=== PATIENT | male | born 1940 | race Caucasian/White ===

== ENCOUNTER 2016-03-21 09:23 | Day surgery (SDC) | payer OTHER ==
[2016-03-07 10:05] VITALS: BMI 45.0
--- NOTE | 2016-03-07 10:57 | PAT Medication Instructions ---
Service Date Mar 07, 2016. Current Home Medication List Allopurinol (Zyloprim), 100 MG PO HS Aspirin (Aspirin Ec), 81 MG PO QAM Atorvastatin (Lipitor), 40 MG PO QAM Bupropion (Wellbutrin Sr), 100 MG PO HS Carvedilol (Coreg), 3.125 MG PO BID Clopidogrel Bisulfate (Clopidogrel), 75 MG PO QAM Ergocalciferol (Vitamin D 75489 Unit), 50,000 UNIT PO Q2WK Fluticasone Prop/Salmeterol (Advair Diskus 250/50 60 Dose), 1 PUFF INH BID Furosemide (Lasix), 40 MG PO QAM Ipratropium-Albuterol (Combivent Respimat), 1 PUFFS INH QID PRN for SOB/W Isosorbide Dinitrate (Isordil), 30 MG PO BID Levothyroxine Sodium (Levothyroxine Sodium), 1 TAB PO QAM Lisinopril (Prinivil), 5 MG PO QAM Metformin Hcl (Glucophage), 500 MG PO BID [Albuterol Neb], 1 DOSE NEB Q4 PRN for SOB/W Medication Instructions For Your Scheduled Surgery - Check with surgeon/environmental health specialist for instructions: Aspirin (Aspirin Ec), 81 MG PO QAM Clopidogrel Bisulfate (Clopidogrel), 75 MG PO QAM - Hold the following medications 48 hours prior to surgery: Metformin Hcl (Glucophage), 500 MG PO BID - Hold the following medications the morning of surgery: Lisinopril (Prinivil), 5 MG PO QAM Furosemide (Lasix), 40 MG PO QAM Ergocalciferol (Vitamin D 42797 Unit), 50,000 UNIT PO Q2WK - Take the following medications the morning of surgery with a sip of water: Levothyroxine Sodium (Levothyroxine Sodium), 1 TAB PO QAM Isosorbide Dinitrate (Isordil), 30 MG PO BID Fluticasone Prop/Salmeterol (Advair Diskus 250/50 60 Dose), 1 PUFF INH BID Carvedilol (Coreg), 3.125 MG PO BID Atorvastatin (Lipitor), 40 MG PO QAM Ipratropium-Albuterol (Combivent Respimat), 1 PUFFS INH QID PRN for SOB/W [Albuterol Neb], 1 DOSE NEB Q4 PRN for SOB/W (bring with you to hospital morning of surgery) - Take the following medications as scheduled the night before surgery: Isosorbide Dinitrate (Isordil), 30 MG PO BID Fluticasone Prop/Salmeterol (Advair Diskus 250/50 60 Dose), 1 PUFF INH BID Carvedilol (Coreg), 3.125 MG PO BID Bupropion (Wellbutrin Sr), 100 MG PO HS Allopurinol (Zyloprim), 100 MG PO HS Ipratropium-Albuterol (Combivent Respimat), 1 PUFFS INH QID PRN for SOB/W [Albuterol Neb], 1 DOSE NEB Q4 PRN for SOB/W If you have any questions please call us at [phone] (Mai Mata PA-C ) or [phone] or [phone]
--- NOTE | 2016-03-07 11:49 | DIAGNOSTIC IMAGING REPORT ---
CHEST PREADMISSION(PA/LAT) CLINICAL HISTORY: PAT preoperative evaluation COMPARISON STUDY: No previous studies for comparison. FINDINGS: There is a small nodular density versus overlap artifact left base. Lungs otherwise appear clear. Diaphragms smooth. IMPRESSION: Artifact versus nodular density left base. CT of chest is suggested as follow-up. Electronically signed by: Maximus Campoverde M.D. 03/07/2016 11:47 AM
[2016-03-07 12:00] LABS: BASO % 0.3 %; BASO ABS # 0.03 K/uL (0-0.2); COMPLETE YES; EOS % 5.2 %; IG% 0.4 %; LYMPH % 19.3 %; MEAN CELL VOLUME 93.8 fL (80-100); MEAN CORPUSCULAR HEMOGLOBIN 30.3 pg (25-34); MEAN CORPUSCULAR HGB CONC 32.3 g/dl (32-36); MEAN PLATELET VOLUME 10.8 fL (7.4-10.4); MONO % 7.3 %; NEUT % 67.5 %; PLATELET COUNT 180 K/uL (130-400); RED BLOOD COUNT 4.16 M/uL (4.7-6.1); WHITE BLOOD COUNT 9.87 K/uL (4.8-10.8)
[2016-03-07 12:07] LABS: URINE APPEARANCE CLEAR (CLEAR); URINE BILIRUBIN NEG (NEG); URINE COLOR YELLOW; URINE NITRITE NEG (NEG); URINE SPECIFIC GRAVITY 1.006 (1.000-1.030); UROBILINOGEN NEG (NEG)
[2016-03-07 12:23] LABS: MANUAL MICROSCOPIC REQUIRED? NO; REVIEW REQ? NO
[2016-03-07 12:27] LABS: BUN/CREATININE RATIO 18.5 (10-20); CALCIUM 8.9 mg/dl (8.5-10.1); CREATININE 1.2 mg/dl (0.60-1.40); POTASSIUM 3.9 mmol/L (3.5-5.1)
[2016-03-21] VITALS (7 sets, daily range): BP systolic 120–179; BP diastolic 48–76; PULSE 60–78; TEMP 36.3–36.9; O2SAT 93–99; Ht 170.2 cm; Wt 130.2 kg
[~2016-03-21] VITALS: Ht 170.2 cm; Wt 130.2 kg
[~2016-03-21 09:23] MED LIST: ADVIN25/60 INH; ALBUTEROL NEB NEB; ALLO100T PO; ASPI81TA28 PO; ATOR-24 PO; BUPR100T8 PO; CARV3.122 PO; CIPROFLOXACIN / D5W 400 MG IV SCH; ERGO500037 PO; FRS/40 PO; GLC/500 PO; IPRA1AER2 INH; ISOS30TA51 PO; LACTATED RINGER'S 1000ML 1,000 ML IV SCH; LEVO100T7 PO; LISI-729 PO; MITOMYCIN FOR INJ 40 MG in SYRINGE 40 ML IR SCH; PLV75 PO
[2016-03-21] MEDS ORDERED: METOPROLOL TARTRATE 1 MG/ML VIAL IV STA (10:11)
[2016-03-21] MEDS ORDERED: FENTANYL CITRATE INJ 50 MCG/1 ML 2 ML VIAL ONE (10:12)
[2016-03-21] MEDS ORDERED: MIDAZOLAM HCL 1 MG/ML 2ML VIAL ONE (10:13)
[2016-03-21] MEDS ORDERED: HYDROmorphone INJ 2 MG/ML SYR/VIAL IV PRN (10:15)
[2016-03-21] MEDS ORDERED: EpHEDrine SULFATE INJ 50 MG/ML AMP IV PRN (10:15)
[2016-03-21] MEDS ORDERED: FENTANYL CITRATE INJ 50 MCG/1 ML 2 ML VIAL IV PRN (10:15)
[2016-03-21] MEDS ORDERED: PHENYLEPHRINE 100MCG/ML 5ML SYR IV PRN (10:15)
[2016-03-21] MEDS ORDERED: ONDANSETRON INJ 2 MG/ML 2 ML VIAL IV PRN (10:15)
[2016-03-21] MEDS ORDERED: MEPERIDINE HCL 25 MG/ML CARP IV PRN (10:15)
[2016-03-21] MEDS ORDERED: ALBUT/IPRATROP 3MG/0.5MG NEB 3 ML VIAL INH ONE (10:15)
[2016-03-21] MEDS ORDERED: LABETALOL HCL IV 5 MG/ML 20ML IV PRN (10:15)
[2016-03-21] MEDS ORDERED: ATROPINE SULFATE 0.1 MG/ML 5ML SYR IV PRN (10:15)
[2016-03-21] MEDS ORDERED: NALOXONE HCL 0.4 MG/1 ML VIAL/CARP IV PRN (10:15)
[2016-03-21] MEDS ORDERED: FLUMAZENIL 0.1 MG/1 ML 10 ML VIAL IV PRN (10:15)
[2016-03-21] MEDS ORDERED: METOPROLOL TARTRATE 1 MG/ML VIAL ONE ×2 (10:41)
--- NOTE | 2016-03-21 11:08 | History & Physical Bridge Note ---
H&P Re-Evaluation Bridge Note: I have examined the patient, reviewed the History & Physical and in the interval since the performance of the History & Physical I have noted the following changes of clinical significance: No changes noted
[2016-03-21] MEDS ORDERED: EpHEDrine SULFATE 50MG/5ML SYR ONE (12:12)
[2016-03-21] MEDS ORDERED: LIDOCAINE HCL 2% 2 ML VIAL (20MG/ML) ONE (12:12)
[2016-03-21] MEDS ORDERED: PROPOFOL IV EMULSION 10 MG/ML 20 ML VIAL IV ONE (12:12)
[2016-03-21] MEDS ORDERED: ONDANSETRON INJ 2 MG/ML 2 ML VIAL ONE (12:12)
--- NOTE | 2016-03-21 12:20 | [facility] Post Operative Brief Note ---
Immediate Operative Summary Operative Date Mar 21, 2016. Pre-Operative Diagnosis Recurrent Bladder Cancer Post-Operative Diagnosis Recurrent Bladder Cancer Procedure(s) Performed Urethral Dilation, Transurethral Resection and Fulguration of Bladder Tumor, Instillation of Mitomycin C Surgeon Dr. Holland Springer Training And Development Manager Surgeon(s) None Estimated Blood Loss 10 ml Findings Numerous bladder tumors in dome of bladder Specimens A. Bladder Tumor Dome Drains 20 fr reina, 10 cc H2O Anesthesia GALMA Complication(s) None Disposition Recovery Room / PACU
[2016-03-21] MEDS ORDERED: HYDR-5688 PO (12:25)
[2016-03-21] MEDS ORDERED: CIPR1TAB10 PO (12:25)
[2016-03-21] MEDS ORDERED: PHEN-876 PO (12:25)
[2016-03-21] MEDS ORDERED: HYDROCODONE/ACETAMOPHEN 5/325MG TAB PO PRN (12:30)
--- NOTE | 2016-03-21 12:32 | Discharge Instructions ---
Discharge Instructions Admission Reason for Admission: Bladder Cancer Discharge Discharge Diagnosis / Problem: Bladder Cancer Discharge Goals Goal(s): Decrease discomfort, Therapeutic intervention Activity Recommendations Activity Limitations: as noted below Lifting Limitations: gradually increase as tolerated Exercise/Sports Limitations: rest today, gradually increase as tolerated May Resume Sexual Activity: after follow-up appointment Shower/Bathe: no limitations Driving or Machine Use: resume 3 days after discharge . Instructions / Follow-Up Instructions / Follow-Up 1. You may resume your Plavix in 5 days. 2. You may resume in your Aspirin in 3 days. 3. You have been prescribed the antibiotic Ciprofloxacin. Finish all as directed. 4. Follow-up with Dr. Springer as scheduled. Please call our office at if you need to reschedule for any reason. Discharge Diet Recommended Diet: Regular Diet Procedures Procedures Performed: Urethral Dilation, Transurethral Resection and Fulguration of Bladder Tumor, Instillation of Mitomycin C Pending Studies Studies pending at discharge: no Medical Emergencies . Who to Call and When: Medical Emergencies: If at any time you feel your situation is an emergency, please call 911 immediately. . Non-Emergent Contact Non-Emergency issues call your: Urologist Call Non-Emergent contact if: temperature is above 101.5, your pain is not controlled, your pain is worsening, your pain is unusual for you, your pain is concerning you, you have any medication questions . . "Provider Documentation" section prepared by Cassy Miller. VTE Core Measure Inpt VTE Proph given/why not?: SCD's [place] Drug Monitoring Program Search Results: patient reviewed within database, no issues identified
--- NOTE | 2016-03-21 12:42 | Anesthesiology Progress Note ---
Anesthesia Post Op Note Date & Time Mar 21, 2016 at 12:42 Vital Signs Pain Intensity: 2 Vital Signs Past 12 Hours Date Time Temp Pulse Resp B/P Pulse Ox O2 Delivery O2 Flow Rate FiO2 03/21/16 12:41 36.5 03/21/16 12:39 138/84 03/21/16 12:35 59 17 03/21/16 12:35 59 17 99 03/21/16 12:33 157/77 03/21/16 12:30 62 20 99 03/21/16 12:30 62 20 03/21/16 12:29 153/73 03/21/16 12:25 77 15 99 03/21/16 12:25 69 15 03/21/16 12:23 161/92 03/21/16 12:20 66 17 99 03/21/16 12:20 66 17 03/21/16 12:18 154/73 03/21/16 12:15 36.5 66 16 153/76 99 Mask 10 03/21/16 12:15 66 23 03/21/16 12:15 66 23 153/76 98 03/21/16 10:54 64 157/72 03/21/16 10:46 68 14 99 Room Air 03/21/16 09:36 36.9 78 22 179/72 97 Room Air Notes Mental Status: alert / awake / arousable, participated in evaluation Pt Amnestic to Procedure: Yes Nausea / Vomiting: adequately controlled Pain: adequately controlled Airway Patency, RR, SpO2: stable & adequate BP & HR: stable & adequate Hydration State: stable & adequate Anesthetic Complications: no major complications apparent
--- NOTE | 2016-03-21 12:58 | OPERATIVE REPORT ---
DATE OF OPERATION: 03/21/2016 PREOPERATIVE DIAGNOSIS: History of a distal urethral stricture and recurrent bladder tumors. POSTOPERATIVE DIAGNOSIS: Same. PROCEDURE: Urethral dilation to 30 [place], transurethral resection and fulguration of bladder tumors, instillation of mitomycin C into the bladder. SURGEON: Dr. Holland Springer. RADIOLOGY TRANSPORTER: None. ANESTHESIA: General anesthesia with laryngeal mask. COMPLICATIONS: None. FINDINGS: Greater than 15-20 numerous small bladder tumors with a large cluster of tumors in the dome, hard to reach due to the patient's obese body habitus, but resected and fulgurated in its entirety. 40 mg of mitomycin and 40 mL of water were instilled at the end of the case for intravesical chemotherapy. DRAINS LEFT IN PLACE: Include a 20-[place] Madden catheter with 10 mL of sterile water in the balloon. SPECIMENS SENT TO PATHOLOGY: Bladder tumor dome. COMPLICATIONS: None. ESTIMATED BLOOD LOSS: 10 mL. BRIEF HISTORY: Mr. Prieto is a 76-year-old male who has undergone transurethral resection for his initial bladder tumor in October 2015 at an outside facility. He presents to see myself and office cystoscopy in January has demonstrated numerous areas of recurrent bladder tumor. A urethral stricture was also dilated at that time to allow for access to the bladder. The patient was provided with the urethral dilator, but patient reports he was unable to continue this at home. He is being brought in today for management of his bladder tumors. Please see H\T\P for further details. PROCEDURE: The patient was properly identified and brought to the operative suite after identification of appropriate consent in the chart. Intravenous ciprofloxacin was provided for antibiotic coverage and the patient was prepped and draped in a standard fashion for this procedure after initiation of general anesthesia with laryngeal mask. ground support equipment fitter-out procedure was followed. Urethra was dilated to a 30 [place] caliber using urethral sounds and a 24 [place] resectoscope was introduced into the bladder under direct visualization using a visual obturator. A minimally hypertrophic prostate was appreciated and ureteral orifices were noted in the normal anatomic location bilaterally. Some bladder neck tumors and posterior bladder tumors of small caliber were appreciated. However, the majority of the patient's persistent or recurrent bladder tumors were present within the dome of the bladder as noted. Using loop cautery, the tumors were resected where possible. The tumors were flushed from the bladder over the course of the procedure and sent for pathologic analysis as bladder tumor dome. Significant amount of suprapubic pressure were needed to access the dome of the bladder due to the patient's body habitus and peritoneal fat pad. After the bladder tumor was resected as possible, roller ball cautery was used for generous fulguration of areas of abnormal mucosa where the tumor had been present, as well as for additional hemostasis. The entirety of the dome of the bladder where the tumor had been present was fulgurated until no visible bladder tumor was appreciated, care being taken to empty and refill the bladder several times due to the presence of bubbles in the dome of the bladder. No evidence of bladder perforation was noted. After this was complete, bladder was drained and noted to be free of any evidence of mobile tumor or tissue. Excellent hemostasis was appreciated. Resectoscope was removed and a 20-[place] Madden catheter was placed with 10 mL of sterile water in the balloon. 40 mg of mitomycin and 40 mL of water were instilled and the catheter was clamped. Anesthesia was reversed. The patient was transferred to recovery room in stable condition. FOLLOWUP CARE: The catheter will be drained and a trial of void will be undergone today prior to discharge home. Prescription for Percocet, ciprofloxacin and Pyridium were provided for postoperative analgesia and antibiotic coverage. Postoperative appointment is confirmed. As discussed with the patient and family, I suspect seeing the multifocal nature of his bladder recurrences and the fact that he has required 3 transurethral resections of his bladder tumor in the past 6 months, that intravesical BCG will be indicated. The patient is instructed as an outpatient to contact us should he note any fevers, chills, nausea, vomiting or other significant difficulties in the postoperative period. I attest to the content of the Intraoperative Record and any orders documented therein. Any exceptio ns are noted below.
[2016-08-01] MEDS ORDERED: CLOP1TAB15 PO (14:45)
[2016-08-08] MEDS ORDERED: OXYC-57 PO (12:20)
[2016-08-08] MEDS ORDERED: PHEN-775 PO (12:20)
[2016-08-08] MEDS ORDERED: CIPR-255 PO (12:20)
== END 2016-03-21 15:00 | disposition home or self-care (01) ==
LOC: C.ACU 09:23
PROVIDERS: ATTEND Urology
DX: C67.9 Malignant neoplasm of bladder, unspecified (principal); N35.9 Urethral stricture, unspecified; N40.1 Benign prostatic hyperplasia with lower urinary tract symptoms; N13.8 Other obstructive and reflux uropathy; E11.9 Type 2 diabetes mellitus without complications; I51.9 Heart disease, unspecified; I10 Essential (primary) hypertension; N39.0 Urinary tract infection, site not specified

== ENCOUNTER → 2016-04-03 | Outpatient (CLI) | payer OTHER ==
[~2016-04-03] MED LIST changes: -ASPI81TA28 PO; +CIPR-255 PO; +CIPR1TAB10 PO; -CIPROFLOXACIN / D5W 400 MG IV SCH; +CLOP1TAB15 PO; +HYDR-5688 PO; -LACTATED RINGER'S 1000ML 1,000 ML IV SCH; -MITOMYCIN FOR INJ 40 MG in SYRINGE 40 ML IR SCH; +OXYC-57 PO; +PHEN-775 PO; +PHEN-876 PO; -PLV75 PO
== END | disposition home or self-care (01) ==
LOC: C.LABSPEC 17:06
PROVIDERS: ATTEND Urology
DX: N40.1 Benign prostatic hyperplasia with lower urinary tract symptoms (principal); C67.9 Malignant neoplasm of bladder, unspecified; N39.0 Urinary tract infection, site not specified; R31.29 Other microscopic hematuria

== ENCOUNTER → 2016-05-13 | Outpatient (CLI) | payer OTHER | END | disposition home or self-care (01) | LOC: C.LABSPEC 17:48 | PROVIDERS: ATTEND Urology | DX: N39.0 Urinary tract infection, site not specified (principal) ==

== ENCOUNTER → 2016-07-31 | Outpatient (CLI) | payer OTHER ==
[~2016-07-31] MED LIST changes: -ISOS30TA51 PO; +ISR/30 PO
[2016-07-31 14:43] LABS: BASO % 0.2 %; BASO ABS # 0.02 K/uL (0-0.2); COMPLETE YES; EOS % 3.3 %; HEMATOCRIT 38.6 % (42-52); IG% 0.4 %; LYMPH % 19.5 %; LYMPH ABS # 1.95 K/uL (1.2-3.4); MEAN CELL VOLUME 96.7 fL (80-100); MEAN CORPUSCULAR HEMOGLOBIN 30.6 pg (25-34); MEAN CORPUSCULAR HGB CONC 31.6 g/dl (32-36); MEAN PLATELET VOLUME 11.4 fL (7.4-10.4); NEUT % 71.6 %; PLATELET COUNT 174 K/uL (130-400); RED BLOOD COUNT 3.99 M/uL (4.7-6.1); WHITE BLOOD COUNT 10.01 K/uL (4.8-10.8)
[2016-07-31 15:07] LABS: BLOOD UREA NITROGEN 15 mg/dl (7-18); BUN/CREATININE RATIO 11.6 (10-20); CARBON DIOXIDE 30 mmol/L (21-32); CHLORIDE 103 mmol/L (98-107); GLUCOSE 130 mg/dl (70-99); POTASSIUM 3.9 mmol/L (3.5-5.1); SODIUM 143 mmol/L (136-145)
== END | disposition home or self-care (01) ==
LOC: C.LAB 12:53
PROVIDERS: ATTEND Urology
DX: C67.9 Malignant neoplasm of bladder, unspecified (principal)

== ENCOUNTER → 2016-08-08 | Day surgery (SDC) | payer OTHER ==
[2016-08-01 14:31] VITALS: BMI 44.0
[~2016-08-08] VITALS: Ht 170.2 cm; Wt 130.0 kg
[~2016-08-08] MED LIST changes: +BELLADONNA/OPIUM SUPP 60 MG SUPP PR ONE; -CIPR1TAB10 PO; +CIPROFLOXACIN / D5W 400 MG IV SCH; +DEXAMETHASONE SOD INJ 4 MG/ML VIAL ONE; +DiphenhydrAMINE HCL 50 MG/ML VIAL IV PRN; +EpHEDrine SULFATE INJ 50 MG/ML AMP ONE; +FENTANYL CITRATE INJ 50 MCG/1 ML 2 ML VIAL IV PRN; +FENTANYL CITRATE INJ 50 MCG/1 ML 2 ML VIAL ONE; +GLYCOPYRROLATE INJ 0.2 MG/ML VIAL ONE; -HYDR-5688 PO; +LACTATED RINGER'S 1000ML 1,000 ML IV PRN; +LACTATED RINGER'S 1000ML 1,000 ML IV SCH; +LIDOCAINE HCL 2% 2 ML VIAL (20MG/ML) ONE; +METOCLOPRAMIDE HCL INJ 5 MG/ML 2 ML VIAL IV PRN; +METOPROLOL TARTRATE 1 MG/ML VIAL ONE; +MITOMYCIN FOR INJ 40 MG in SYRINGE 40 ML IR SCH; +NEOSTIGMINE METHYLSULFATE 5 MG/5 ML SYR ONE; +ONDANSETRON INJ 2 MG/ML 2 ML VIAL IV PRN; +ONDANSETRON INJ 2 MG/ML 2 ML VIAL ONE; +OXYCODONE/ACETAMINOPHEN 5-325 TAB PO PRN; +PHENAZOPYRIDINE HCL 200 MG TAB PO PRN; +PROPOFOL IV EMULSION 10 MG/ML 20 ML VIAL IV ONE; +ROCURONIUM BROMIDE 10 MG/ML 5 ML VIAL ONE; +SUCCINYLCHOLINE 100MG/5ML SYR IV ONE; +SUCCINYLCHOLINE CHLORIDE 20 MG/ML 10 ML VIAL IV ONE
[2016-08-08 10:00] VITALS: BP 147/67; PULSE 73; TEMP 36.7; O2SAT 96; Ht 170.2 cm; Wt 130.0 kg
--- NOTE | 2016-08-08 13:13 | Discharge Instructions ---
Discharge Instructions Date of Service Aug 08, 2016. Admission Reason for Admission: Bladder Cancer Discharge Discharge Diagnosis / Problem: Bladder cancer s/p TURBT Discharge Goals Goal(s): Improve disease control, Therapeutic intervention Activity Recommendations Activity Limitations: per Instructions/Follow-up section Lifting Limitations: no more than 25 pounds, gradually increase as tolerated ( over 5 days) Exercise/Sports Limitations: rest today, gradually increase as tolerated (over 5 days) May Resume Sexual Activity: after two weeks Shower/Bathe: no limitations Driving or Machine Use: resume 1 day after discharge . Instructions / Follow-Up Instructions / Follow-Up Madden to gravity drainage, will keep overnight Catheter removal in [place] office tomorrow Aug 09 at 11 AM. Discharge Diet Recommended Diet: Regular Diet (good fluid intake) Procedures Procedures Performed: TURBT, bladder biopsies, Mitomycin C Pending Studies Studies pending at discharge: yes List of pending studies: Pathology reports Medical Emergencies . Who to Call and When: Medical Emergencies: If at any time you feel your situation is an emergency, please call 911 immediately. . Non-Emergent Contact Non-Emergency issues call your: Urologist Call Non-Emergent contact if: you have a fever, temperature is above 101, your pain is not controlled, your pain is worsening, your pain is unusual for you, your pain is concerning you, wound has increased pain, you have any medication questions . . "Provider Documentation" section prepared by Holland Springer. . VTE Core Measure Inpt VTE Proph given/why not?: SCD's [place] Drug Monitoring Program Search Results: patient reviewed within database, see additional documentation (last Rx postop in Mar 2016)
--- NOTE | 2016-08-08 13:17 | [facility] Post Operative Brief Note ---
Immediate Operative Summary Operative Date Aug 08, 2016. Pre-Operative Diagnosis Recurrent bladder cancer Post-Operative Diagnosis Same Procedure(s) Performed TURBT, random bladder biopsies, limited TURP, Instillation of Mitomycin C Surgeon Dr. Lev Springer Supervisor Composing Room Surgeon(s) NA Estimated Blood Loss Min Findings Borderline areas in bladder biopsied, bladder neck tumor resected in its entirety, limited TURP to avoid scarring, 40 mg of Mitomycin in 40 cc H2O Specimens A. random bladder biopsies B. bladder neck tumor C. Prostate chips Drains 18 fr 10 cc H2O Anesthesia GAET Complication(s) None Disposition Recovery Room / PACU
--- NOTE | 2016-08-08 14:01 | OPERATIVE REPORT ---
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 POSTOPERATIVE DIAGNOSIS: Same. PROCEDURE: Cystoscopy, random bladder biopsies, transurethral resection of bladder neck tumor 2.5 cm, limited transurethral resection of prostate, and instillation of mitomycin C. SURGEON: Dr. Holland Springer. PIPE COVERER AND INSULATOR: None. ANESTHESIA: General anesthesia with endotracheal intubation. COMPLICATIONS: None. ESTIMATED BLOOD LOSS: Minimal. SPECIMENS SENT TO PATHOLOGY: Random cold cup bladder biopsies, bladder neck tumor, prostate chips. FINDINGS: Borderline areas in the posterior and right anterior bladder biopsied with cold cup and fulgurated, no evidence of bladder perforation at the end of the case, bladder neck tumor resected in its entirety with no residual masses within the bladder, limited left sided TURP to avoid bladder neck contracture in the future, 40 mg of mitomycin instilled and 40 mL water at completion of the case via an 18 [place] Citizen Madden catheter. DRAINS LEFT IN PLACE: Include an 18-[place] Citizen catheter with 10 mL of sterile water in the balloon to gravity drainage. BRIEF HISTORY: Mr. Prieto is a pleasant 76-year-old male who I have met previously for history of bladder cancer status post TURBT. On office cystoscopy, on his initial presentation, he had several residual tumors and underwent a transurethral resection of these areas in March 2016 due to high grade pathology. He underwent a full strength 6-week course of BCG and recent office cystoscopy demonstrated a solitary papillary bladder mass at the 2-3 o'clock position at the bladder neck. Some borderline areas in the bladder were also noted, felt most likely to be consistent with BCG effect. He is here today for surgical management of his disease and intravenous instillation of mitomycin C. Intravenous ciprofloxacin provided for antibiotic coverage and SCDs used for DVT prophylaxis. Please see H&P for further details. DESCRIPTION OF PROCEDURE: The patient was properly identified and brought to the operative suite after identification of appropriate consent on the chart, general anesthesia with endotracheal intubation due to battery habitus was initiated and the patient was prepped and draped in standard fashion for this procedure. time buyer-out procedure was followed. A 26 [place] Citizen resectoscope was introduced into the bladder under direct visualization using a visual obturator. Cystoscopic bridge was placed and cold cup biopsies were taken from the erythematous areas in the posterior bladder on the right bladder dome. A bipolar loop was then advanced into the bladder and these areas were fulgurated with excellent hemostasis. Some mild thinning of the bladder was noted without evidence of perforation. Tumor at the bladder neck was resected in its entirety with some bladder neck tissue being resected as well to allow for access. After this was complete and careful inspection demonstrated no residual tumor, bladder was irrigated free of these specimens and sent as bladder neck tumor. Urethra was inspected and some further limited resection of the prostate and bladder neck was carried out on this side to avoid a bladder neck contracture after his initial dissection. Ureteral orifices were well identified over the course of the case and noted to be the area of resection was free of any injury at the completion of case. Grade II trabeculation was noted without other tumors within the bladder and an obstructive prostate with lateral lobe hypertrophy was appreciated. After this was completed, excellent hemostasis was obtained using bipolar cautery as necessary. Prostate chips were sent as a separate specimen for pathologic analysis. Bladder was noted to be free of any tissue or tumors and resectoscope was removed. An 18 [place] Citizen Madden catheter was placed with 10 mL of sterile water in the balloon. A 40 mL of mitomycin were placed and 40 mL of sterile water into the bladder and the catheter was clamped. Belladonna and opium suppository was provided for additional postoperative analgesia. DISCHARGE INSTRUCTIONS: The patient will be discharged home with a prescription for ciprofloxacin, Pyridium and Percocet. Will arrange for a trial of void tomorrow. Two hours of mitomycin C instillation prior to draining the bladder. The patient is instructed to contact us should he note any fevers, chills, nausea, vomiting or other significant difficulties in the postoperative period. I attest to the content of the Intraoperative Record and any orders documented therein. Any exceptions are noted below. MTDD
[2016-08-08 14:14] VITALS: BP 121/61; PULSE 63; TEMP 36.5; O2SAT 96
--- NOTE | 2016-08-08 14:15 | Anesthesiology Progress Note ---
Anesthesia Post Op Note Date & Time Aug 08, 2016 at 14:16 Vital Signs Pain Intensity: 0 Vital Signs Past 12 Hours Date Time Temp Pulse Resp B/P (MAP) Pulse Ox O2 Delivery O2 Flow Rate FiO2 08/08/16 14:00 36.6 57 16 132/53 94 Nasal Cannula 2 08/08/16 13:50 58 16 135/51 94 Nasal Cannula 2 08/08/16 13:40 58 12 190/83 100 Mask 15 08/08/16 13:30 63 12 182/95 98 Mask 15 08/08/16 13:21 36.8 63 12 162/75 98 Mask 15 08/08/16 10:00 36.7 73 20 147/67 (93) 96 Room Air Notes Mental Status: alert / awake / arousable, participated in evaluation Pt Amnestic to Procedure: Yes Nausea / Vomiting: adequately controlled Pain: adequately controlled Airway Patency, RR, SpO2: stable & adequate BP & HR: stable & adequate Hydration State: stable & adequate Anesthetic Complications: no major complications apparent
[2016-08-08 14:45] VITALS: BP 135/63; PULSE 62; O2SAT 97
[2016-08-08 15:15] VITALS: BP 134/60; PULSE 61; TEMP 36.7; O2SAT 94
== END | disposition home or self-care (01) ==
LOC: C.ACU 09:33
PROVIDERS: ATTEND Urology
DX: C67.5 Malignant neoplasm of bladder neck (principal); N40.1 Benign prostatic hyperplasia with lower urinary tract symptoms; N13.8 Other obstructive and reflux uropathy; N35.9 Urethral stricture, unspecified; E11.9 Type 2 diabetes mellitus without complications; I11.0 Hypertensive heart disease with heart failure; I50.9 Heart failure, unspecified; I25.2 Old myocardial infarction; Z95.5 Presence of coronary angioplasty implant and graft; Z87.891 Personal history of nicotine dependence; Z79.84 Long term (current) use of oral hypoglycemic drugs; Z79.82 Long term (current) use of aspirin; Z79.899 Other long term (current) drug therapy

== ENCOUNTER → 2016-10-14 | Outpatient (CLI) | payer OTHER ==
[~2016-10-14] MED LIST changes: -BELLADONNA/OPIUM SUPP 60 MG SUPP PR ONE; -CIPROFLOXACIN / D5W 400 MG IV SCH; -DEXAMETHASONE SOD INJ 4 MG/ML VIAL ONE; -DiphenhydrAMINE HCL 50 MG/ML VIAL IV PRN; -EpHEDrine SULFATE INJ 50 MG/ML AMP ONE; -FENTANYL CITRATE INJ 50 MCG/1 ML 2 ML VIAL IV PRN; -FENTANYL CITRATE INJ 50 MCG/1 ML 2 ML VIAL ONE; -GLYCOPYRROLATE INJ 0.2 MG/ML VIAL ONE; +ISOS30TA51 PO; -ISR/30 PO; -LACTATED RINGER'S 1000ML 1,000 ML IV PRN; -LACTATED RINGER'S 1000ML 1,000 ML IV SCH; -LIDOCAINE HCL 2% 2 ML VIAL (20MG/ML) ONE; -METOCLOPRAMIDE HCL INJ 5 MG/ML 2 ML VIAL IV PRN; -METOPROLOL TARTRATE 1 MG/ML VIAL ONE; -MITOMYCIN FOR INJ 40 MG in SYRINGE 40 ML IR SCH; -NEOSTIGMINE METHYLSULFATE 5 MG/5 ML SYR ONE; -ONDANSETRON INJ 2 MG/ML 2 ML VIAL IV PRN; -ONDANSETRON INJ 2 MG/ML 2 ML VIAL ONE; -OXYCODONE/ACETAMINOPHEN 5-325 TAB PO PRN; -PHEN-775 PO; -PHEN-876 PO; -PHENAZOPYRIDINE HCL 200 MG TAB PO PRN; -PROPOFOL IV EMULSION 10 MG/ML 20 ML VIAL IV ONE; -ROCURONIUM BROMIDE 10 MG/ML 5 ML VIAL ONE; -SUCCINYLCHOLINE 100MG/5ML SYR IV ONE; -SUCCINYLCHOLINE CHLORIDE 20 MG/ML 10 ML VIAL IV ONE
== END | disposition home or self-care (01) ==
LOC: C.LABSPEC 16:59
PROVIDERS: ATTEND Nurse Practitioner Family
DX: R35.0 Frequency of micturition (principal)

== ENCOUNTER → 2017-01-13 | Outpatient (CLI) | payer OTHER ==
[~2017-01-13] MED LIST changes: -ISOS30TA51 PO; +ISR/30 PO
== END | disposition home or self-care (01) ==
LOC: C.LABSPEC 17:21
PROVIDERS: ATTEND Nurse Practitioner Adult Health
DX: N39.0 Urinary tract infection, site not specified (principal)

== ENCOUNTER → 2017-03-12 | Outpatient (CLI) | payer OTHER ==
[~2017-03-12] MED LIST changes: +OPTIRAY 320 IV PRN; -OXYC-57 PO
--- NOTE | 2017-03-12 13:11 | DIAGNOSTIC IMAGING REPORT ---
ABDOMEN AND PELVIS CT WITH IV CONTRAST CT DOSE: 1004.90 mGycm HISTORY: C67.9 Malignant tumor of urinary bladder diabetic-metformin, no l TECHNIQUE: Multiaxial CT images of the abdomen and pelvis were performed following the use of intravenous contrast. A dose lowering technique was utilized adhering to the principles of ALARA. COMPARISON STUDY: None. FINDINGS: There is irregular thickening of the anterior bladder wall most pronounced on the right. This measures up to 1.3 cm in thickness. The bladder is normal in size. Subcentimeter external iliac lymph nodes do not meet CT criteria for pathologic involvement. No retroperitoneal or inguinal lymphadenopathy. Evaluation for a urothelial malignancy is considered nondiagnostic due to the lack of delayed contrast-enhanced sequences. No hydronephrosis. Mild bilateral cortical renal scarring. The ureters are normal in course and caliber. No renal or ureteral calculi. A 5.0 x 4.0 cm infrarenal abdominal aortic aneurysm. No bowel wall thickening or obstruction. Normal appendix. Focal calcification within the right hepatic lobe. No hepatic or splenic masses. The adrenal glands, pancreas, and gallbladder are unremarkable. A 1.5 cm groundglass nodule within the base of the left lower lobe. No suspicious lytic or blastic osseous lesions. IMPRESSION: 1. There is irregular thickening within the anterior bladder wall most pronounced on the right. This could be due to small bladder diverticula. However, an underlying bladder mass cannot be excluded. Correlation with recent cystoscopy is recommended for further evaluation. 2. Evaluation for a urothelial malignancy is essentially nondiagnostic due to the lack of delayed contrast-enhanced images. However, the ureters are normal in course and caliber. 3. No renal or ureteral stones. No hydronephrosis. 4. A 5 x 4 cm infrarenal abdominal aortic aneurysm. 5. A 1.5 cm groundglass nodule within the base of the left lower lobe. This may represent a small focus of atelectasis. However, six-month chest CT follow-up is recommended to ensure stability/resolution. Electronically signed by: Alistair Mackey M.D. 03/12/2017 1:10 PM Dictated Date/Time: 03/12/2017 12:59 PM
== END | disposition home or self-care (01) ==
LOC: C.CTS 11:06
PROVIDERS: ATTEND Urology
DX: C67.9 Malignant neoplasm of bladder, unspecified (principal); I71.4 Abdominal aortic aneurysm, without rupture

== ENCOUNTER → 2017-06-11 | Outpatient (CLI) | payer OTHER ==
[~2017-06-11] MED LIST changes: -OPTIRAY 320 IV PRN
== END | disposition home or self-care (01) ==
LOC: C.PATHSPEC 17:19
PROVIDERS: ATTEND Urology
DX: C67.9 Malignant neoplasm of bladder, unspecified (principal)

== ENCOUNTER 2020-06-14 15:03 | Inpatient (IN) ==
[2020-06-14] MEDS ORDERED: SODIUM CHLORIDE 0.9% 1000ML 1,000 ML IV SCH (15:30)
[2020-06-14 15:34] LABS: iSTAT Creatinine 3.2 mg/dl (0.6-1.3); iSTAT Hemoglobin 12.6 g/dl (14.0-18.0); iSTAT Ionized Calcium 1.13 mmol/l (1.12-1.32); iSTAT Potassium 4.9 mmol/L (3.3-5.0)
[2020-06-14 15:38] LABS: Basophils # (auto) 0.02 K/uL (0-0.2); Basophils % (auto) 0.2 %; Eosinophils # (auto) 0.28 K/uL (0-0.5); Eosinophils % (auto) 2.8 %; Hematocrit (blood only) 37.3 % (42-52); Hemoglobin 12.1 g/dL (14.0-18.0); Immature Granulocytes # (auto) 0.05 K/uL (0.00-0.02); Immature Granulocytes % (auto) 0.5 %; Lymphocytes # (auto) 1.73 K/uL (1.2-3.4); Mean Corpuscular Hemoglobin 30.6 pg (25-34); Mean Corpuscular Hgb Conc 32.4 g/dL (32-36); Mean Corpuscular Volume 94.2 fL (80-100); Mean Platelet Volume 10.4 fL (7.4-10.4); Monocytes # (auto) 0.67 K/uL (0.11-0.59); Monocytes % (auto) 6.6 %; Neutrophils # (auto) 7.42 K/uL (1.4-6.5); Neutrophils % (auto) 72.9 %; Platelet Count 243 K/uL (130-400); RDW Coefficient of Variation 14.7 % (11.5-14.5); RDW Standard Deviation 50.4 fL (36.4-46.3); Red Blood Count 3.96 M/uL (4.7-6.1); White Blood Count 10.17 K/uL (4.8-10.8)
[2020-06-14 15:58] LABS: Alanine Aminotransferase 26 U/L (12-78); Albumin Level 2.6 gm/dl (3.4-5.0); Aspartate Aminotransferase 18 U/L (15-37); BUN Creatinine Ratio 15.2 (10-20); Blood Urea Nitrogen 45 mg/dl (7-18); Calcium 9.2 mg/dl (8.5-10.1); Carbon Dioxide 26 mmol/L (21-32); Chloride 103 mmol/L (98-107); Creatinine Clr Calc Pharmacy 26.4 ml/min; Est GFR (African American) 21.8; Est GFR (Non-African American) 18.8; Glucose 128 mg/dl (70-99); Lipase 153 U/L (73-393); Magnesium 1.9 mg/dl (1.8-2.4); Potassium 4.8 mmol/L (3.5-5.1); Sodium 136 mmol/L (136-145)
[2020-06-14 16:03] LABS: Albumin Globulin Ratio 0.5 (0.9-2); Alkaline Phosphatase 136 U/L (45-117); Bilirubin,Total 0.7 mg/dl (0.2-1); Total Protein 7.6 gm/dl (6.4-8.2); Troponin I < 0.015 ng/ml (0-0.045)
--- NOTE | 2020-06-14 16:08 | XRay Report ---
XR chest 1V portable CLINICAL HISTORY: Chest Pain COMPARISON STUDY: Chest CT October 13, 2019. FINDINGS: Lung volumes are normal. No pneumothorax or pleural effusion is noted. Moderate multifocal airspace opacities are noted with interstitial thickening. This is new since prior CT. Cardiomediasti nal silhouette is stable. IMPRESSION: Moderate multifocal bilateral airspace opacities with interstitial thickening. The findi ngs suggest viral pneumonia. Radiographic follow-up is recommended to ensure resolution. ACT 112: Negative or not required by law. Electronically signed by: Kulwinder Godoy M.D. 06/14/2020 4:06 PM
[2020-06-14 17:25] LABS: Influenza A virus by PCR Negative (Neg); Influenza B virus by PCR Negative (Neg); RSV by PCR Negative (Neg); SARS CoV2 RNA(COVID-19) InHosp NEGATIVE (Negative)
[2020-06-14] MEDS ORDERED: SODIUM CHLORIDE 0.9% 1000ML 500 ML IV ONE (17:45)
--- NOTE | 2020-06-14 18:05 | History & Physical Report ---
Date of Service June 14, 2020 Assessment & Plan (1) Sinus bradycardia: with sinus arrhythmia. Suspect secondary to carvedilol - discontinued. No sign of heart block on EKG. Monitor on med/telemetry for recurrence. (2) Acute hypotension: Hold carvedilol and lisinopril as above. Continue isosorbide mononitrate and furosemide with hold parameters. (3) Acute kidney injury: Unknown baseline. Possibly creatinine 4.5 on discharge from [facility] per daughter at bedside but unsure how reliable this is. Will hold off aggressive rehydration given CXR findings and recent diagnosis of COVID-19 pneumonia (4) History of COVID-19: Poor appetite and malnutrition remains. Consult dietary for oral supplementation. (5) Diabetes mellitus: HbA1c with a.m. labs. NovoLog correction factor only Goal BSG Range: Low 110 mg/dL, High 140 mg/dL Correction Factor: 45 mg/dL/unit BSGs ACHS if eating, q6h if npo (6) Non compliance with medical treatment: Likely not taking medication correctly prior to COVID-19 diagnosis therefore suspect he is overtreated. (7) Coronary artery disease: Continue aspirin, clopidogrel, and atorvastatin. Follows with Dr. Velasquez (8) Enlarged prostate with lower urinary tract symptoms (LUTS): Continue tamsulosin 0.4 mg p.o. at bedtime (9) DVT prophylaxis: SCDs. Consider depending on mobility tomorrow. Admission and Anticipated Discharge Date Admission Date: June 14, 2020 History of Present Illness Chief Complaint: Hypotension, hypoxia, bradycardia Primary Care Provider: Kimberly Neves DO Hema Prieto is an 80-year-old male who presents to the ER due to decreased heart rate, low blood pressure and O2 sats when home health checked on him today. History is mostly provided by his daughter who works at [facility] as a pharmacy med rec due to patient's poor recollection of recent events. He was recently COVID-19 pneumonia with symptoms starting on May 19. He was subsequently hospitalized at [facility] due to worsening symptoms on May 26 to June 01. Unknown what treatments he had while there. He was discharged home where he lives alone but has been getting home health. Prior to this hospitalization he was not on home oxygen however was discharged home on 4LPM O2 with the aim to wean down at home. At home he has been sleeping a lot and not eating much. He denies any current shortness of breath. His PCP is at [facility] level history is limited. He sees the specialist below: [facility] - Dr Velasquez, last stent more than 1 year ago ?5 years ago. Pulmonology - follows nodules on lung and COPD - takes Advair + combivent. Urology - bladder cancer The patient lives alone and prior to his COVID-19 diagnosis his daughter has been concerned he has not been taking his medications as prescribed due to many pill bottles being out of date. In the ER creatinine was notably elevated at 2.98 with BUN 45. Most recent creatinine in [facility] EHR is 1.3 in 2019 however her daughter thought she was told his creatinine was 4.5 on discharge from [facility]. The patient currently has no complaints and feels at his baseline however he does report occasional dizziness at home. EKG in the ER showed sinus bradycardia with marked sinus arrhythmia but no additional P waves suggesting a high degree heart block. Telemetry was significant for an occasional heart rate of 30 bpm. He reports taking his carvedilol this morning. He was referred to medicine for admission and ongoing management of sinus bradycardia. Allergies Allergy/AdvReac Type Severity Reaction Status Date / Time milk Allergy Unknown CAUSES EYE Verified 06/14/20 15:59 PAIN tiotropium Allergy Unknown CAUSES EYE Verified 06/14/20 15:59 PAIN Home Medications Medication Instructions Recorded Confirmed Type allopurinol 100 mg tablet 100 mg PO BID 03/24/19 06/14/20 History atorvastatin 40 mg tablet 40 mg PO HS 03/24/19 06/14/20 History bupropion HCl 100 mg tablet,12 hr 100 mg PO M 03/24/19 06/14/20 History sustained-release clopidogrel 75 mg tablet 75 mg PO QAM 03/24/19 06/14/20 History furosemide 40 mg tablet 40 mg PO BID 03/24/19 06/14/20 History isosorbide mononitrate 30 mg 30 mg PO QAM 03/24/19 06/14/20 History tablet,extended release 24 hr tamsulosin 0.4 mg capsule 0.4 mg PO HS 03/24/19 06/14/20 History Vit B Comp. W/Vit C & Folic Ac 1 tab PO 06/14/20 06/14/20 History aspirin 81 mg PO QAM 06/14/20 06/14/20 History carvedilol 3.125 mg PO BID 06/14/20 06/14/20 History duloxetine 60 mg PO HS 06/14/20 06/14/20 History ergocalciferol (vitamin D2) 1,250 mcg PO .Q2WK 06/14/20 06/14/20 History [Vitamin D2] gabapentin 600 mg PO HS 06/14/20 06/14/20 History levothyroxine 112 mcg PO DAILYBB 06/14/20 06/14/20 History lisinopril 10 mg PO QAM 06/14/20 06/14/20 History sitagliptin [Januvia] 100 mg PO HS 06/14/20 06/14/20 History Past Med/Surg History Medical History Congestive heart failure Diabetes mellitus Hypertension Lung nodule Malignant neoplasm of bladder Myocardial infarction Surgical History H/O heart surgery History of bladder surgery Family History Brother Prostate cancer Heart disease Social History Smoking Status: Former smoker Hx Alcohol Use: No Hx Substance Use: No Preferred Language: Mongolian Communication Ability: Effective [employer] Supervisor Required: No Beliefs That Will Affect Care: Jewish Jewish Beliefs: Presbyterian marital status: Single Current Living Situation: Alone current occupational status: retired Other Information That Helps Us Care for You: No Feels Safe at Home: Yes Safety Concerns: Feels Safe At This Time Assistive Devices: Oxygen - Continuous Review of Systems Review of Systems: All systems reviewed & are unremarkable except as noted in HPI & below Physical Exam Constitutional: well developed; + not well nourished and no acute distress Eyes: PERRL, conjunctivae normal, anicteric sclerae ENMT: Ears: + hearing impairment Respiratory: normal respiratory effort Auscultation: + diminished lung sounds (bibasal) and + crackles (bibasal); no wheezes Cardiovascular: RRR, no murmur, no edema Gastrointestinal (Abdomen): normal bowel sounds, soft, nontender, no hepatosplenomegaly Musculoskeletal: no cyanosis or clubbing, extremities motor strength 5/5 Skin: no rashes, warm and dry Neurologic: moves all extremities and awake; no focal motor deficits and not confused Psychiatric: A+Ox3, euthymic affect Results & Data Results & Data ([facility]) Vital Signs (Past 12 Hours) Vital Signs Temp Pulse Resp BP Pulse Ox 06/14/20 16:40 70 18 104/51 L 98 06/14/20 16:30 65 19 97/51 L 97 06/14/20 16:20 65 18 107/62 98 06/14/20 16:10 66 26 H 99/50 L 98 06/14/20 16:07 66 18 95/43 L 98 06/14/20 16:01 71 17 95/43 L 99 06/14/20 15:50 65 18 97/48 L 99 06/14/20 15:40 67 17 93/47 L 99 06/14/20 15:30 69 18 94/46 L 100 06/14/20 15:21 74 22 106/47 L 100 06/14/20 15:18 66 18 78/56 L 100 06/14/20 15:10 65 16 90/50 L 98 06/14/20 14:56 36.6 C 42 L 18 90/60 L 99 Diagnostic Findings XR chest 1V portable IMPRESSION: Moderate multifocal bilateral airspace opacities with interstitial thickening. The findings suggest viral pneumonia. Radiographic follow-up is recommended to ensure resolution. Medications Administered ER medications given: NSS @ 125 ml/hr ECG Rate (beats per minute): 59 Rhythm: sinus bradycardia and sinus with SA Findings: + other (Premature supraventricular complexes) Comparison ECG Date: from (March 07, 2016) Change: the following changes noted Code Status & VTE Plan Code Status Full VTE Prophylaxis Plan VTE Prophylaxis will be ordered: No PG Care Time/CCT Total # of Minutes Spent Total Time Spent with Patient: Total time spent is greater than 50% in coordination of care (as documented) at patient's floor/unit and/or counseling patient: Coding Level of Care Code 35111 Initial Inpt Care Lvl 3 Diagnoses Sinus bradycardia R00.1 Acute hypotension I95.9 Acute kidney injury N17.9 History of COVID-19 Z86.16 Diabetes mellitus E11.9 Non compliance with medical treatment Z91.19 Coronary artery disease I25.10 Enlarged prostate with lower urinary tract symptoms (LUTS) N40.1 DVT prophylaxis Z29.9
[2020-06-14] MEDS ORDERED: ACETAMINOPHEN 325 MG TAB PO PRN (19:52)
--- NOTE | 2020-06-14 20:54 | Emergency Department Note ---
History of Present Illness General Chief complaint: Cardiac Assessment Stated complaint: HYPOXIA Time Seen by Provider: 06/14/20 15:17 History of Present Illness Provider complaint: Bradycardia Onset (ago): day(s) 1 Associated symptoms: + weakness; no chest pain, no cough, no fever/chills, no headaches, no nausea/vomiting and no shortness of breath 80-year-old male on home oxygen presented to the emergency department for bradycardia. Per EMS, home health noticed the patient in the lobe pulse and blood pressure site brought him into the emergency department. Patient currently denies any chest pain or difficulty breathing. No recent falls. Home Medications Medication Instructions Recorded Confirmed Type allopurinol 100 mg tablet 100 mg PO BID 03/24/19 06/14/20 History atorvastatin 40 mg tablet 40 mg PO HS 03/24/19 06/14/20 History bupropion HCl 100 mg tablet,12 hr 100 mg PO QAM 03/24/19 06/14/20 History sustained-release clopidogrel 75 mg tablet 75 mg PO QAM 03/24/19 06/14/20 History furosemide 40 mg tablet 40 mg PO BID 03/24/19 06/14/20 History isosorbide mononitrate 30 mg 30 mg PO QAM 03/24/19 06/14/20 History tablet,extended release 24 hr tamsulosin 0.4 mg capsule 0.4 mg PO HS 03/24/19 06/14/20 History Vit B Comp. W/Vit C & Folic Ac 1 tab PO HS 06/14/20 06/14/20 History aspirin 81 mg PO QAM 06/14/20 06/14/20 History carvedilol 3.125 mg PO BID 06/14/20 06/14/20 History duloxetine 60 mg PO HS 06/14/20 06/14/20 History ergocalciferol (vitamin D2) 1,250 mcg PO .Q2WK 06/14/20 06/14/20 History [Vitamin D2] gabapentin 600 mg PO HS 06/14/20 06/14/20 History levothyroxine 112 mcg PO DAILYBB 06/14/20 06/14/20 History lisinopril 10 mg PO QAM 06/14/20 06/14/20 History sitagliptin [Januvia] 100 mg PO HS 06/14/20 06/14/20 History Allergies Allergy/AdvReac Type Severity Reaction Status Date / Time milk Allergy Unknown CAUSES EYE Verified 06/14/20 15:59 PAIN tiotropium Allergy Unknown CAUSES EYE Verified 06/14/20 15:59 PAIN Past Med/Surg History Medical History Congestive heart failure Diabetes mellitus Hypertension Lung nodule Malignant neoplasm of bladder Myocardial infarction Surgical History H/O heart surgery History of bladder surgery Family History Brother Prostate cancer Heart disease Social History Smoking Status: Former smoker Hx Alcohol Use: No marital status: Single current occupational status: retired Feels Safe at Home: Yes Review of Systems A total of 10 systems reviewed and were otherwise negative Physical Exam Vital Signs Vital Signs - 24 hr 06/14/20 14:56 06/14/20 15:10 06/14/20 15:18 Temperature 36.6 C Temperature Source Oral Pulse Rate 42 L 65 66 Pulse Rate from SpO2 Sensor 63 57 L Respiratory Rate 18 16 18 Respiratory Effort / Characteristics Non-Labored Spontaneous Respiratory Depth Normal Blood Pressure 90/60 L 90/50 L 78/56 L Blood Pressure Mean 70 63 63 Blood Pressure Position Sitting Pulse Oximetry 99 98 100 Oxygen Delivery Method Nasal Cannula Oxygen Flow Rate 2 Sepsis Recent Fever Within 48 Hours No Sepsis New/Unexplained Change in Mental Status No Sepsis Action Taken by Nursing No Action Required 06/14/20 15:21 06/14/20 15:30 06/14/20 15:40 Temperature Temperature Source Pulse Rate 74 69 67 Pulse Rate from SpO2 Sensor 73 69 67 Respiratory Rate 22 18 17 Respiratory Effort / Characteristics Non-Labored Spontaneous Respiratory Depth Normal Blood Pressure 106/47 L 94/46 L 93/47 L Blood Pressure Mean 66 62 62 Blood Pressure Position Pulse Oximetry 100 100 99 Oxygen Delivery Method Nasal Cannula Oxygen Flow Rate 2 Sepsis Recent Fever Within 48 Hours Sepsis New/Unexplained Change in Mental Status Sepsis Action Taken by Nursing 06/14/20 15:50 06/14/20 16:01 06/14/20 16:07 Temperature Temperature Source Pulse Rate 65 71 66 Pulse Rate from SpO2 Sensor 65 71 66 Respiratory Rate 18 17 18 Respiratory Effort / Characteristics Respiratory Depth Blood Pressure 97/48 L 95/43 L 95/43 L Blood Pressure Mean 64 60 60 Blood Pressure Position Pulse Oximetry 99 99 98 Oxygen Delivery Method Oxygen Flow Rate Sepsis Recent Fever Within 48 Hours Sepsis New/Unexplained Change in Mental Status Sepsis Action Taken by Nursing 06/14/20 16:10 06/14/20 16:20 06/14/20 16:30 Temperature Temperature Source Pulse Rate 66 65 65 Pulse Rate from SpO2 Sensor 68 66 65 Respiratory Rate 26 H 18 19 Respiratory Effort / Characteristics Respiratory Depth Blood Pressure 99/50 L 107/62 97/51 L Blood Pressure Mean 66 77 66 Blood Pressure Position Pulse Oximetry 98 98 97 Oxygen Delivery Method Oxygen Flow Rate Sepsis Recent Fever Within 48 Hours Sepsis New/Unexplained Change in Mental Status Sepsis Action Taken by Nursing 06/14/20 16:40 06/14/20 16:50 06/14/20 17:00 Temperature Temperature Source Pulse Rate 70 69 70 Pulse Rate from SpO2 Sensor 69 69 69 Respiratory Rate 18 19 17 Respiratory Effort / Characteristics Respiratory Depth Blood Pressure 104/51 L 111/51 L 83/71 L Blood Pressure Mean 68 71 75 Blood Pressure Position Pulse Oximetry 98 97 99 Oxygen Delivery Method Oxygen Flow Rate Sepsis Recent Fever Within 48 Hours Sepsis New/Unexplained Change in Mental Status Sepsis Action Taken by Nursing 06/14/20 17:10 06/14/20 17:20 06/14/20 17:30 Temperature Temperature Source Pulse Rate 69 68 69 Pulse Rate from SpO2 Sensor 70 68 69 Respiratory Rate 17 19 19 Respiratory Effort / Characteristics Respiratory Depth Blood Pressure 100/50 L 104/54 L 87/47 L Blood Pressure Mean 66 70 60 Blood Pressure Position Pulse Oximetry 96 97 97 Oxygen Delivery Method Oxygen Flow Rate Sepsis Recent Fever Within 48 Hours Sepsis New/Unexplained Change in Mental Status Sepsis Action Taken by Nursing 06/14/20 17:41 06/14/20 17:50 Temperature Temperature Source Pulse Rate 70 72 Pulse Rate from SpO2 Sensor 70 70 Respiratory Rate 18 15 Respiratory Effort / Characteristics Respiratory Depth Blood Pressure 107/50 L 104/47 L Blood Pressure Mean 69 66 Blood Pressure Position Pulse Oximetry 97 97 Oxygen Delivery Method Oxygen Flow Rate Sepsis Recent Fever Within 48 Hours Sepsis New/Unexplained Change in Mental Status Sepsis Action Taken by Nursing Physical Exam GENERAL: He is oriented to person, place, and time. He appears well-developed and well-nourished. He does not appear distressed. HENT: Exam performed. - Head: Normocephalic and atraumatic. - Right Ear: External ear normal. No mastoid tenderness. - Left Ear: External ear normal. No mastoid tenderness. - Mouth/Throat: The oropharynx is clear and moist. No trismus in the jaw. No dental abscesses or uvula swelling. No oropharyngeal exudate or tonsillar abscesses. EYES: Conjunctivae and EOM are normal. Pupils are equal, round, and reactive to light. Right eye exhibits no discharge. Left eye exhibits no discharge. No scleral icterus. NECK: Normal range of motion. Neck supple. No JVD present. No spinous process tenderness present. No carotid bruit present. No rigidity. No tracheal deviation and normal range of motion present. No Brudzinski's sign and no Kernig's sign noted. CV: Bradycardic rate, irregular rhythm, normal heart sounds and intact distal pulses. There is no peripheral edema. Palpable radial pulses bue. PULM/CHEST: Effort normal and breath sounds normal. No respiratory distress. No stridor. He has no wheezes. He has no rales. - Chest Wall: He exhibits no tenderness. ABD: The abdomen is soft. Bowel sounds are normal. He has no distension. No mass is present. There is no tenderness. There is no rebound, no guarding, no Mittal's sign and no tenderness at McBurney's point. Rovsig negative. MUSC/SKEL: Normal range of motion. There is no peripheral edema, tenderness or deformity. LYMPH: No cervical adenopathy. NEURO: He is alert and oriented to person, place, and time. He has normal strength. No cranial nerve deficit or sensory deficit. Coordination and gait normal. GCS eye subscore is 4. GCS verbal subscore is 5. GCS motor subscore is 6. Cerebellar tests wnl. SKIN: Skin is warm and dry. He is not diaphoretic. PSYCH: He has a normal mood and affect. Behavior is normal. Judgment and thought content normal. Course Course 1517: The patient was evaluated in room B12. A complete history and physical exam was performed Cardiac monitoring: An order was placed for continuous cardiac monitoring. The monitor shows a rate of 40 with irregular rhythm Called to bed by nursing for symptomatic bradycardia. On arrival in the room the patient has a heart rate in the 40s and is hypotensive at 70/30. On the water use inspector it did appear that the patient was having a third-degree heart block. Large-bore IV access was obtained and IV fluids were started on the patient. I-STAT was obtained which showed normal potassium. Cardiac pads were placed on the patient for possible transcutaneous pacing. The patient suddenly had a normalized rhythm and regular rate. His blood pressure improved with IV fluids. EKG at 1510 showed an irregular rhythm with a rate of 59. IN 222 QRS [address] elevation or ST depression. Family at bedside states that the patient sees a motor builder assembler in [place] but has seen Dr. Bonilla from [facility] cardiology in the past. 1532: Spoke with Dr. Benson [facility] cardiology reviewed the patient's EKG and states the patient is not in third-degree heart block. He states the patient should have his carvedilol help be admitted and he will evaluate the patient. Currently on the water use inspector patient's heart rate is in the 60s with a normal sinus rhythm. Patient's blood pressure is improving with IV fluids. 1645: Vital signs stable. Patient remains in sinus rhythm with a heart rate in 60s on the water use inspector. His blood pressure is improved status post fluids. Patient's labs show an elevated creatinine of 2.98 elevated from 1.3 last creatinine in our system in 2019. Given the patient's hypotension and bradycardia, the patient will be admitted to the [facility] hospitalist team. Dr. Trujillo has been notified. Administered Medications Discontinued Medications Sodium Chloride (Nss 1000ml) 1,000 mls @ 125 mls/hr IV .Q8H RANDAL Stop: 07/14/20 15:29 Last Infusion: 06/14/20 19:57 Dose: 0 mls/hr Documented by: [id number] Admin: 06/14/20 15:34 Dose: 125 mls/hr Documented by: [id number] Sodium Chloride (Nss 1000ml) 500 mls @ 999 mls/hr IV .Q31M ONE Stop: 06/14/20 18:15 Last Infusion: 06/14/20 19:57 Dose: 0 mls/hr Documented by: [id number] Admin: 06/14/20 18:14 Dose: 999 mls/hr Documented by: [id number] Medical Decision Making Laboratory Data Result diagrams: 06/14/20 15:17 06/14/20 15:17 Lab Results 06/14/20 06/14/2006/14/21 Range/Units 15:17 15:17 15:21 WBC 10.17 (4.8-10.8) K/uL RBC 3.96 L (4.7-6.1) M/uL Hgb 12.1 L (14.0-18.0) g/dL POC Hgb 12.6 L (14.0-18.0) g/dl Hct 37.3 L (42-52) % POC Hct 37 L (42-52) % MCV 94.2 (80-100) fL MCH 30.6 (25-34) pg MCHC 32.4 (32-36) g/dL RDW Std Deviation 50.4 H (36.4-46.3) fL RDW Coeff of Kayla 14.7 H (11.5-14.5) % Plt Count 243 (130-400) K/uL MPV 10.4 (7.4-10.4) fL Immature Gran % (Auto) 0.5 % Neut % (Auto) 72.9 % Lymph % (Auto) 17.0 % [place] % (Auto) 6.6 % Eos % (Auto) 2.8 % Baso % (Auto) 0.2 % Neut # (Auto) 7.42 H (1.4-6.5) K/uL Lymph # (Auto) 1.73 (1.2-3.4) K/uL [place] # (Auto) 0.67 H (0.11-0.59) K/uL Eos # (Auto) 0.28 (0-0.5) K/uL Baso # (Auto) 0.02 (0-0.2) K/uL Immature Gran # (Auto) 0.05 H (0.00-0.02) K/uL POC Sodium 136 (135-144) mmol/L Sodium 136 (136-145) mmol/L POC Potassium 4.9 (3.3-5.0) mmol/L Potassium 4.8 (3.5-5.1) mmol/L POC Chloride 101 (101-112) mmol/L Chloride 103 (98-107) mmol/L Carbon Dioxide 26 (21-32) mmol/L POC Total CO2 26 (24-31) mmol/L Anion Gap 7.0 (3-11) POC Anion Gap 15.0 L (16-25) mmol/L POC BUN 41 H (7-18) mg/dl BUN 45 H (7-18) mg/dl Creatinine 2.98 H (0.6-1.4) mg/dl POC Creatinine 3.2 H (0.6-1.3) mg/dl Est Cr Clr Drug Dosing 26.4 ml/min Est GFR ( Amer) 21.8 Est GFR (Non-Af Amer) 18.8 BUN/Creatinine Ratio 15.2 (10-20) Glucose 128 H (70-99) mg/dl POC Glucose (other) 133 H (70-99) mg/dl Calcium 9.2 (8.5-10.1) mg/dl POC Ioniz Calcium Naveen 1.13 (1.12-1.32) mmol/l Magnesium 1.9 (1.8-2.4) mg/dl Total Bilirubin 0.7 (0.2-1) mg/dl AST 18 (15-37) U/L ALT 26 (12-78) U/L Alkaline Phosphatase 136 H (45-117) U/L Troponin I < 0.015 (0-0.045) ng/ml Total Protein 7.6 (6.4-8.2) gm/dl Albumin 2.6 L (3.4-5.0) gm/dl Globulin 5.0 H (2.5-4.0) gm/dl Albumin/Globulin Ratio 0.5 L (0.9-2) Lipase 153 (73-393) U/L COVID-19 Eval Order SARS-CoV-2 (PCR) (Negative) Influenza Type A (PCR) (Neg) Influenza Type B (PCR) (Neg) RSV (RT-PCR) (Neg) 06/14/20 06/14/20 Range/Units 15:31 15:31 WBC (4.8-10.8) K/uL RBC (4.7-6.1) M/uL Hgb (14.0-18.0) g/dL POC Hgb (14.0-18.0) g/dl Hct (42-52) % POC Hct (42-52) % MCV (80-100) fL MCH (25-34) pg MCHC (32-36) g/dL RDW Std Deviation (36.4-46.3) fL RDW Coeff of Kayla (11.5-14.5) % Plt Count (130-400) K/uL MPV (7.4-10.4) fL Immature Gran % (Auto) % Neut % (Auto) % Lymph % (Auto) % [place] % (Auto) % Eos % (Auto) % Baso % (Auto) % Neut # (Auto) (1.4-6.5) K/uL Lymph # (Auto) (1.2-3.4) K/uL [place] # (Auto) (0.11-0.59) K/uL Eos # (Auto) (0-0.5) K/uL Baso # (Auto) (0-0.2) K/uL Immature Gran # (Auto) (0.00-0.02) K/uL POC Sodium (135-144) mmol/L Sodium (136-145) mmol/L POC Potassium (3.3-5.0) mmol/L Potassium (3.5-5.1) mmol/L POC Chloride (101-112) mmol/L Chloride (98-107) mmol/L Carbon Dioxide (21-32) mmol/L POC Total CO2 (24-31) mmol/L Anion Gap (3-11) POC Anion Gap (16-25) mmol/L POC BUN (7-18) mg/dl BUN (7-18) mg/dl Creatinine (0.6-1.4) mg/dl POC Creatinine (0.6-1.3) mg/dl Est Cr Clr Drug Dosing ml/min Est GFR ( Amer) Est GFR (Non-Af Amer) BUN/Creatinine Ratio (10-20) Glucose (70-99) mg/dl POC Glucose (other) (70-99) mg/dl Calcium (8.5-10.1) mg/dl POC Ioniz Calcium [place] (1.12-1.32) mmol/l Magnesium (1.8-2.4) mg/dl Total Bilirubin (0.2-1) mg/dl AST (15-37) U/L ALT (12-78) U/L Alkaline Phosphatase (45-117) U/L Troponin I (0-0.045) ng/ml Total Protein (6.4-8.2) gm/dl Albumin (3.4-5.0) gm/dl Globulin (2.5-4.0) gm/dl Albumin/Globulin Ratio (0.9-2) Lipase (73-393) U/L COVID-19 Eval Order CovFluRsv at [facility] SARS-CoV-2 (PCR) NEGATIVE (Negative) Influenza Type A (PCR) Negative (Neg) Influenza Type B (PCR) Negative (Neg) RSV (RT-PCR) Negative (Neg) Imaging Data Radiologist's Impression: Chest X-Ray 06/14/20 15:19 XR chest 1V portable CLINICAL HISTORY: Chest Pain COMPARISON STUDY: Chest CT October 13, 2019. FINDINGS: Lung volumes are normal. No pneumothorax or pleural effusion is noted. Moderate multifocal airspace opacities are noted with interstitial thickening. This is new since prior CT. Cardiomediastinal silhouette is stable. IMPRESSION: Moderate multifocal bilateral airspace opacities with interstitial thickening. The findings suggest viral pneumonia. Radiographic follow-up is recommended to ensure resolution. ACT 112: Negative or not required by law. Electronically signed by: Kulwinder Godoy M.D. 06/14/2020 4:06 PM ECG Data Additional Comments: EKG at 1510 showed an irregular rhythm with a rate of 59. IN 222 QRS [address] elevation or ST depression. [facility] Narrative 1517: The patient was evaluated in room B12. A complete history and physical exam was performed Cardiac monitoring: An order was placed for continuous cardiac monitoring. The monitor shows a rate of 40 with irregular rhythm Called to bed by nursing for symptomatic bradycardia. On arrival in the room the patient has a heart rate in the 40s and is hypotensive at 70/30. On the water use inspector it did appear that the patient was having a third-degree heart block. Large-bore IV access was obtained and IV fluids were started on the patient. I-STAT was obtained which showed normal potassium. Cardiac pads were placed on the patient for possible transcutaneous pacing. The patient suddenly had a normalized rhythm and regular rate. His blood pressure improved with IV fluids. EKG at 1510 showed an irregular rhythm with a rate of 59. IN 222 QRS [address] elevation or ST depression. Family at bedside states that the patient sees a motor builder assembler in [place] but has seen Dr. Bonilla from [facility] cardiology in the past. 1532: Spoke with Dr. Benson [facility] cardiology reviewed the patient's EKG and states the patient is not in third-degree heart block. He states the patient should have his carvedilol help be admitted and he will evaluate the patient. Currently on the water use inspector patient's heart rate is in the 60s with a normal sinus rhythm. Patient's blood pressure is improving with IV fluids. 1645: Vital signs stable. Patient remains in sinus rhythm with a heart rate in 60s on the water use inspector. His blood pressure is improved status post fluids. Patient's labs show an elevated creatinine of 2.98 elevated from 1.3 last creatinine in our system in 2019. Given the patient's hypotension and bradycardia, the patient will be admitted to the [facility]ist team. Dr. Trujillo has been notified. Impression & Plan Symptomatic bradycardia, MARTÍN (acute kidney injury) Discharge Plan Visit Data Chief Complaint: Cardiac Assessment Stated Complaint: HYPOXIA ED Provider: Barry Myers Discharge Problem: Symptomatic bradycardia, MARTÍN (acute kidney injury) Patient Disposition: Admitted As Inpatient Discharge Instructions Interventions: ED Discharge Assessment Last Done: 06/14/20 19:37
[2020-06-14] MEDS: ATORVASTATIN 40 MG TAB PO SCH (21:36)
[2020-06-14] MEDS: TAMSULOSIN HCL 0.4 MG CAP PO SCH (21:36)
[2020-06-14] MEDS: GABAPENTIN 300 MG CAP PO SCH (21:36)
[2020-06-14] MEDS: DULoxetine HCL 60 MG CAP PO SCH (21:36)
[2020-06-14] MEDS: allopurinoL 100 MG TAB PO SCH (21:36)
[2020-06-14] MEDS: NEPHROCAPS PO SCH (21:36)
[2020-06-14] MEDS ORDERED: DEXTROSE 50% 50 ML SYRINGE IV PRN (21:39)
[2020-06-14] MEDS ORDERED: GLUCAGON FOR INJ 1 MG VIAL SQ PRN (21:39)
[2020-06-14] MEDS ORDERED: GLUCOSE 10 TABS/TUBE PO PRN (21:39)
[2020-06-14] MEDS ORDERED: GLUCOSE 40% GEL 15 GM TUBE PO PRN (21:39)
[2020-06-14] MEDS ORDERED: CARBOHYDRATES FOR HYPOGLYCEMIA PO PRN (21:39)
[2020-06-15 05:54] LABS: Basophils # (auto) 0.02 K/uL (0-0.2); Basophils % (auto) 0.3 %; Eosinophils % (auto) 5.1 %; Hemoglobin 11.2 g/dL (14.0-18.0); Immature Granulocytes # (auto) 0.04 K/uL (0.00-0.02); Immature Granulocytes % (auto) 0.5 %; Lymphocytes # (auto) 1.46 K/uL (1.2-3.4); Lymphocytes % (auto) 18.6 %; Mean Corpuscular Hemoglobin 30.1 pg (25-34); Mean Corpuscular Volume 94.1 fL (80-100); Mean Platelet Volume 10.4 fL (7.4-10.4); Monocytes # (auto) 0.62 K/uL (0.11-0.59); Monocytes % (auto) 7.9 %; Neutrophils # (auto) 5.31 K/uL (1.4-6.5); Neutrophils % (auto) 67.6 %; Platelet Count 209 K/uL (130-400); RDW Coefficient of Variation 14.7 % (11.5-14.5); RDW Standard Deviation 49.9 fL (36.4-46.3); Red Blood Count 3.72 M/uL (4.7-6.1); White Blood Count 7.85 K/uL (4.8-10.8)
[2020-06-15 06:28] LABS: BUN Creatinine Ratio 22.1 (10-20); Creatinine Clr Calc Pharmacy 43.9 ml/min; Est GFR (Non-African American) 36.2; Potassium 4.4 mmol/L (3.5-5.1)
[2020-06-15] MEDS ORDERED: LEVOTHYROXINE SODIUM 112 MCG TABLET PO SCH (06:30)
[2020-06-15 06:36] LABS: Estimated Average Glucose 177 mg/dl; Hemoglobin A1C 7.8 % (4.5-5.6)
[2020-06-15] MEDS: allopurinoL 100 MG TAB PO SCH (08:19)
[2020-06-15] MEDS: ERGOCALCIFEROL 50,000 UNITS 1250 MCG CAP PO SCH (08:19)
[2020-06-15] MEDS: ASPIRIN 81 MG ECTAB PO SCH (08:20)
[2020-06-15] MEDS: CLOPIDOGREL BISULFATE 75 MG TAB PO SCH (08:20)
[2020-06-15] MEDS: INSULIN ASPART 100 UNITS/ML 3 ML PEN SC SCH ×4 (08:21→20:36)
[2020-06-15] MEDS ORDERED: buPROPion SR 100 MG TABCR PO SCH (09:00)
--- NOTE | 2020-06-15 10:32 | Hospitalist Progress Note ---
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 also with sinus arrhythmia. * -- evidence of tachy-jeffy on monitor today * Cardiology consulted -- likely need for pacemaker (talks of need for this in the past), appreciate assistance * Continue to hold home carvedilol 3.125mg BID (considering switch to Toprol XL but holding off for now. HR up to 140s fib/flutter but back in sinus now) * ECHO with left ventricular size with low-normal systolic function. EF 50-55%. Hypokinesis of inferior and inferoseptal wall segments. Mild concentric left ventricular hypertrophy. No significant valvular abnormalities. Normal estimated RVSP. No prior study for comparison. * Checking TSH, pending * Continue to monitor on telemetry (2) Sinus bradycardia: * See above (3) Acute hypotension: * Holding carvedilol as above. BNP 371 * Also holding home lasix, isosorbide, lisinopril * BP improved to 116/72 * Continue to monitor (4) Acute kidney injury: * Unknown baseline. * Follows with Ryne/Gian from Urology for BPH/hx bladder ca * Possibly creatinine 4.5 on discharge from [facility] per daughter at bedside but unsure how reliable this is. * Was 3.2 on admission * Held medications as above ("discharged on diuretic) * Cr improved to 1.73 * BMP in AM * Will hold off aggressive rehydration given CXR findings and recent diagnosis of COVID-19 pneumonia (5) History of COVID-19: * CXR today with progression of moderate b/l airspace opacities c/w infectious process * Covering with Rocephin/Doxy IV * Sputum cx if able to produce * Incentive spirometer * Poor appetite and malnutrition remains. * Consult dietary for oral supplementation. * Eating/drinking well today * PT/OT consults ordered to see if need SNF at d/c -- daughter ok w rehab if that's what's needed (6) Diabetes mellitus: * HbA1c 7.8%. Hold home Januvia * NovoLog correction factor only * Goal BSG Range: Low 110 mg/dL, High 140 mg/dL * Correction Factor: 45 mg/dL/unit * BSGs ACHS if eating, q6h if npo * BSGs acceptable * Continue to monitor (7) Non compliance with medical treatment: * Suspected by admission provider due to likely not taking medication correctly prior to COVID-19 diagnosis therefore suspect he is overtreated. * D/c summary states d/c on supplemental O2 and diuretics? (8) Coronary artery disease: * and afib/flutter reported possibly as history but not on anticoagulation (unclear why). Was in sinus on admission. No evidence of heart block * Continue aspirin, clopidogrel, and atorvastatin. * Holding carvedilol, lisinopril as above for hypotension/bradycardia * Follows with Dr. Velasquez -- will request most recent office note * Talks of pacemaker in the past but did not pursue -- likely will need this admission * Not on any anticoagulation (9) Enlarged prostate with lower urinary tract symptoms (LUTS): * Continue tamsulosin 0.4 mg p.o. at bedtime (10) DVT prophylaxis: * SCDs * Heparin SQ while inpatient Dispo: continued inpatient stay possible need for pacemaker ?NPO after midnight pending ability to put in pacemaker tomorrow Admission and Anticipated Discharge Date Admission Date: June 14, 2020 Subjective Patient evaluated this morning. Was discharged home from [facility] on 2L oxygen via [place]. He was sitting up at side of bed and didn't "feel right" which is why he came in. History of aflutter per daughter Lita, but not on anticoagulation. Has falled at home but she is nearby. He states shortness of breath improved since admission and he is not producing any change in sputum. Discussed x-ray findings and will treat for bacterial pneumonia which could have been pre-disposed from COVID last month. No fever, chills, chest pain, abdominal pain, nausea or vomiting at this time. Patient flipped into afib/flutter with rates up to 140s but then back to sinus jeffy this afternoon. Per daughter, there were talks of a pacemaker in the past Discussed with cardio -- tachy/jeffy and will likely need a pacemaker. Could consider change to Toprol XL for less BP effect but will hold off on changes at this time. Review of Systems Review of Systems: All systems reviewed & are unremarkable except as noted in HPI & below Physical Exam Constitutional: well developed and comfortable (sitting upright in bed eating lunch); + not well nourished and no acute distress Eyes: PERRL, conjunctivae normal, anicteric sclerae ENMT: Ears: + hearing impairment Neck: normal visual inspection and trachea midline Respiratory: normal respiratory effort Auscultation: + diminished lung sounds (bibasal) and + crackles (bibasilar); no wheezes on 2L NC Cardiovascular: Rate/Rhythm: + bradycardic Heart Sounds: no murmur Vessels: no JVD Extremities: no edema Gastrointestinal (Abdomen): normal bowel sounds, soft, nontender, no hepatosplenomegaly Musculoskeletal: no cyanosis or clubbing, extremities motor strength 5/5 Skin: no rashes, warm and dry Neurologic: moves all extremities and awake; no focal motor deficits and not confused Psychiatric: A+Ox3, euthymic affect Results & Data Results & Data ([facility]) Vital Signs (Past 12 Hours) Vital Signs Temp Pulse Pulse Resp BP Pulse Ox 06/15/20 07:35 36.6 C 78 18 119/72 93 06/15/20 07:19 64 06/15/20 03:13 36.3 C L 66 20 121/67 94 06/15/20 02:16 63 06/14/20 22:47 36.6 C 67 18 122/75 93 Laboratory Results 06/15/20 06/15/20 06/15/20 Range/Units 07:47 06:20 05:20 WBC (4.8-10.8) K/uL RBC (4.7-6.1) M/uL Hgb (14.0-18.0) g/dL POC Hgb (14.0-18.0) g/dl Hct (42-52) % POC Hct (42-52) % MCV (80-100) fL MCH (25-34) pg MCHC (32-36) g/dL RDW Std Deviation (36.4-46.3) fL RDW Coeff of Kayla (11.5-14.5) % Plt Count (130-400) K/uL MPV (7.4-10.4) fL Immature Gran % (Auto) % Neut % (Auto) % Lymph % (Auto) % [place] % (Auto) % Eos % (Auto) % Baso % (Auto) % Neut # (Auto) (1.4-6.5) K/uL Lymph # (Auto) (1.2-3.4) K/uL [place] # (Auto) (0.11-0.59) K/uL Eos # (Auto) (0-0.5) K/uL Baso # (Auto) (0-0.2) K/uL Immature Gran # (Auto) (0.00-0.02) K/uL POC Sodium (135-144) mmol/L Sodium (136-145) mmol/L POC Potassium (3.3-5.0) mmol/L Potassium (3.5-5.1) mmol/L POC Chloride (101-112) mmol/L Chloride (98-107) mmol/L Carbon Dioxide (21-32) mmol/L POC Total CO2 (24-31) mmol/L Anion Gap (3-11) POC Anion Gap (16-25) mmol/L POC BUN (7-18) mg/dl BUN (7-18) mg/dl Creatinine (0.6-1.4) mg/dl POC Creatinine (0.6-1.3) mg/dl Est Cr Clr Drug Dosing ml/min Est GFR ( Amer) Est GFR (Non-Af Amer) BUN/Creatinine Ratio (10-20) Glucose (70-99) mg/dl POC Glucose 124 H (70-99) mg/dl POC Glucose (other) (70-99) mg/dl Estimat Average Glucose 177 mg/dl Hemoglobin A1c 7.8 H (4.5-5.6) % Calcium (8.5-10.1) mg/dl POC Ioniz Calcium Naveen (1.12-1.32) mmol/l Magnesium (1.8-2.4) mg/dl Total Bilirubin (0.2-1) mg/dl AST (15-37) U/L ALT (12-78) U/L Alkaline Phosphatase (45-117) U/L Troponin I (0-0.045) ng/ml NT-Pro-B Natriuret Pep 371 (0-1800) pg/ml Total Protein (6.4-8.2) gm/dl Albumin (3.4-5.0) gm/dl Globulin (2.5-4.0) gm/dl Albumin/Globulin Ratio (0.9-2) Lipase (73-393) U/L COVID-19 Eval Order SARS-CoV-2 (PCR) (Negative) Influenza Type A (PCR) (Neg) Influenza Type B (PCR) (Neg) RSV (RT-PCR) (Neg) 06/15/20 06/15/20 06/14/20 Range/Units 05:20 05:20 15:31 WBC 7.85 (4.8-10.8) K/uL RBC 3.72 L (4.7-6.1) M/uL Hgb 11.2 L (14.0-18.0) g/dL POC Hgb (14.0-18.0) g/dl Hct 35.0 L (42-52) % POC Hct (42-52) % MCV 94.1 (80-100) fL MCH 30.1 (25-34) pg MCHC 32.0 (32-36) g/dL RDW Std Deviation 49.9 H (36.4-46.3) fL RDW Coeff of Kayla 14.7 H (11.5-14.5) % Plt Count 209 (130-400) K/uL MPV 10.4 (7.4-10.4) fL Immature Gran % (Auto) 0.5 % Neut % (Auto) 67.6 % Lymph % (Auto) 18.6 % [place] % (Auto) 7.9 % Eos % (Auto) 5.1 % Baso % (Auto) 0.3 % Neut # (Auto) 5.31 (1.4-6.5) K/uL Lymph # (Auto) 1.46 (1.2-3.4) K/uL [place] # (Auto) 0.62 H (0.11-0.59) K/uL Eos # (Auto) 0.40 (0-0.5) K/uL Baso # (Auto) 0.02 (0-0.2) K/uL Immature Gran # (Auto) 0.04 H (0.00-0.02) K/uL POC Sodium (135-144) mmol/L Sodium 138 (136-145) mmol/L POC Potassium (3.3-5.0) mmol/L Potassium 4.4 (3.5-5.1) mmol/L POC Chloride (101-112) mmol/L Chloride 107 (98-107) mmol/L Carbon Dioxide 24 (21-32) mmol/L POC Total CO2 (24-31) mmol/L Anion Gap 7.0 (3-11) POC Anion Gap (16-25) mmol/L POC BUN (7-18) mg/dl BUN 38 H (7-18) mg/dl Creatinine 1.73 H D (0.6-1.4) mg/dl POC Creatinine (0.6-1.3) mg/dl Est Cr Clr Drug Dosing 43.9 ml/min Est GFR ( Amer) 42.0 Est GFR (Non-Af Amer) 36.2 BUN/Creatinine Ratio 22.1 H (10-20) Glucose 107 H (70-99) mg/dl POC Glucose (70-99) mg/dl POC Glucose (other) (70-99) mg/dl Estimat Average Glucose mg/dl Hemoglobin A1c (4.5-5.6) % Calcium 9.0 (8.5-10.1) mg/dl POC Ioniz Calcium Naveen (1.12-1.32) mmol/l Magnesium (1.8-2.4) mg/dl Total Bilirubin (0.2-1) mg/dl AST (15-37) U/L ALT (12-78) U/L Alkaline Phosphatase (45-117) U/L Troponin I (0-0.045) ng/ml NT-Pro-B Natriuret Pep (0-1800) pg/ml Total Protein (6.4-8.2) gm/dl Albumin (3.4-5.0) gm/dl Globulin (2.5-4.0) gm/dl Albumin/Globulin Ratio (0.9-2) Lipase (73-393) U/L COVID-19 Eval Order SARS-CoV-2 (PCR) NEGATIVE (Negative) Influenza Type A (PCR) Negative (Neg) Influenza Type B (PCR) Negative (Neg) RSV (RT-PCR) Negative (Neg) 06/14/20 06/14/20 06/14/20 Range/Units 15:31 15:21 15:17 WBC (4.8-10.8) K/uL RBC (4.7-6.1) M/uL Hgb (14.0-18.0) g/dL POC Hgb 12.6 L (14.0-18.0) g/dl Hct (42-52) % POC Hct 37 L (42-52) % MCV (80-100) fL MCH (25-34) pg MCHC (32-36) g/dL RDW Std Deviation (36.4-46.3) fL RDW Coeff of Kayla (11.5-14.5) % Plt Count (130-400) K/uL MPV (7.4-10.4) fL Immature Gran % (Auto) % Neut % (Auto) % Lymph % (Auto) % [place] % (Auto) % Eos % (Auto) % Baso % (Auto) % Neut # (Auto) (1.4-6.5) K/uL Lymph # (Auto) (1.2-3.4) K/uL [place] # (Auto) (0.11-0.59) K/uL Eos # (Auto) (0-0.5) K/uL Baso # (Auto) (0-0.2) K/uL Immature Gran # (Auto) (0.00-0.02) K/uL POC Sodium 136 (135-144) mmol/L Sodium 136 (136-145) mmol/L POC Potassium 4.9 (3.3-5.0) mmol/L Potassium 4.8 (3.5-5.1) mmol/L POC Chloride 101 (101-112) mmol/L Chloride 103 (98-107) mmol/L Carbon Dioxide 26 (21-32) mmol/L POC Total CO2 26 (24-31) mmol/L Anion Gap 7.0 (3-11) POC Anion Gap 15.0 L (16-25) mmol/L POC BUN 41 H (7-18) mg/dl BUN 45 H (7-18) mg/dl Creatinine 2.98 H (0.6-1.4) mg/dl POC Creatinine 3.2 H (0.6-1.3) mg/dl Est Cr Clr Drug Dosing 26.4 ml/min Est GFR ( Amer) 21.8 Est GFR (Non-Af Amer) 18.8 BUN/Creatinine Ratio 15.2 (10-20) Glucose 128 H (70-99) mg/dl POC Glucose (70-99) mg/dl POC Glucose (other) 133 H (70-99) mg/dl Estimat Average Glucose mg/dl Hemoglobin A1c (4.5-5.6) % Calcium 9.2 (8.5-10.1) mg/dl POC Ioniz Calcium Naveen 1.13 (1.12-1.32) mmol/l Magnesium 1.9 (1.8-2.4) mg/dl Total Bilirubin 0.7 (0.2-1) mg/dl AST 18 (15-37) U/L ALT 26 (12-78) U/L Alkaline Phosphatase 136 H (45-117) U/L Troponin I < 0.015 (0-0.045) ng/ml NT-Pro-B Natriuret Pep (0-1800) pg/ml Total Protein 7.6 (6.4-8.2) gm/dl Albumin 2.6 L (3.4-5.0) gm/dl Globulin 5.0 H (2.5-4.0) gm/dl Albumin/Globulin Ratio 0.5 L (0.9-2) Lipase 153 (73-393) U/L COVID-19 Eval Order [facility] at [facility] SARS-CoV-2 (PCR) (Negative) Influenza Type A (PCR) (Neg) Influenza Type B (PCR) (Neg) RSV (RT-PCR) (Neg) 06/14/20 Range/Units 15:17 WBC 10.17 (4.8-10.8) K/uL RBC 3.96 L (4.7-6.1) M/uL Hgb 12.1 L (14.0-18.0) g/dL POC Hgb (14.0-18.0) g/dl Hct 37.3 L (42-52) % POC Hct (42-52) % MCV 94.2 (80-100) fL MCH 30.6 (25-34) pg MCHC 32.4 (32-36) g/dL RDW Std Deviation 50.4 H (36.4-46.3) fL RDW Coeff of Kayla 14.7 H (11.5-14.5) % Plt Count 243 (130-400) K/uL MPV 10.4 (7.4-10.4) fL Immature Gran % (Auto) 0.5 % Neut % (Auto) 72.9 % Lymph % (Auto) 17.0 % [place] % (Auto) 6.6 % Eos % (Auto) 2.8 % Baso % (Auto) 0.2 % Neut # (Auto) 7.42 H (1.4-6.5) K/uL Lymph # (Auto) 1.73 (1.2-3.4) K/uL [place] # (Auto) 0.67 H (0.11-0.59) K/uL Eos # (Auto) 0.28 (0-0.5) K/uL Baso # (Auto) 0.02 (0-0.2) K/uL Immature Gran # (Auto) 0.05 H (0.00-0.02) K/uL POC Sodium (135-144) mmol/L Sodium (136-145) mmol/L POC Potassium (3.3-5.0) mmol/L Potassium (3.5-5.1) mmol/L POC Chloride (101-112) mmol/L Chloride (98-107) mmol/L Carbon Dioxide (21-32) mmol/L POC Total CO2 (24-31) mmol/L Anion Gap (3-11) POC Anion Gap (16-25) mmol/L POC BUN (7-18) mg/dl BUN (7-18) mg/dl Creatinine (0.6-1.4) mg/dl POC Creatinine (0.6-1.3) mg/dl Est Cr Clr Drug Dosing ml/min Est GFR ( Amer) Est GFR (Non-Af Amer) BUN/Creatinine Ratio (10-20) Glucose (70-99) mg/dl POC Glucose (70-99) mg/dl POC Glucose (other) (70-99) mg/dl Estimat Average Glucose mg/dl Hemoglobin A1c (4.5-5.6) % Calcium (8.5-10.1) mg/dl POC Ioniz Calcium Naveen (1.12-1.32) mmol/l Magnesium (1.8-2.4) mg/dl Total Bilirubin (0.2-1) mg/dl AST (15-37) U/L ALT (12-78) U/L Alkaline Phosphatase (45-117) U/L Troponin I (0-0.045) ng/ml NT-Pro-B Natriuret Pep (0-1800) pg/ml Total Protein (6.4-8.2) gm/dl Albumin (3.4-5.0) gm/dl Globulin (2.5-4.0) gm/dl Albumin/Globulin Ratio (0.9-2) Lipase (73-393) U/L COVID-19 Eval Order SARS-CoV-2 (PCR) (Negative) Influenza Type A (PCR) (Neg) Influenza Type B (PCR) (Neg) RSV (RT-PCR) (Neg) Diagnostic Findings XR chest 1V portable CLINICAL HISTORY: f/u multifocal pneumonia COMPARISON STUDY: Chest radiograph June 14, 2020. FINDINGS: Lung volumes are normal. There is no pneumothorax or pleural effusion. Cardiomediastinal silhouette is stable. Right lung airspace opacities are similar to prior exam. There has been mild progression of left lung airspace opacities. IMPRESSION: Mild progression of moderate bilateral airspace opacities consistent with an infectious process. PG Care Time/CCT Total # of Minutes Spent Total Time Spent with Patient: Total time spent is greater than 50% in coordination of care (as documented) at patient's floor/unit and/or counseling patient: Coding Level of Care Code 53920 Subseq Hosp Care Lvl 3 Diagnoses Tachy-jeffy syndrome I49.5 Sinus bradycardia R00.1 Acute hypotension I95.9 Acute kidney injury N17.9 History of COVID-19 Z86.16 Diabetes mellitus E11.9 Non compliance with medical treatment Z91.19 Coronary artery disease I25.10 Enlarged prostate with lower urinary tract symptoms (LUTS) N40.1 DVT prophylaxis Z29.9
--- NOTE | 2020-06-15 12:15 | XRay Report ---
XR chest 1V portable CLINICAL HISTORY: f/u multifocal pneumonia COMPARISON STUDY: Chest radiograph June 14, 2020. FINDINGS: Lung volumes are normal. There is no pneumothorax or pleural effusion. Cardiomediastinal si lhouette is stable. Right lung airspace opacities are similar to prior exam. There has been mild prog ression of left lung airspace opacities. IMPRESSION: Mild progression of moderate bilateral airspace opacities consistent with an infectious process. ACT 112: Negative or not required by law. Electronically signed by: Kulwinder Godoy M.D. 06/15/2020 12:13 PM
--- NOTE | 2020-06-15 12:56 | XCELERA ---
[id number]
[2020-06-15] MEDS: cefTRIAXone SODIUM 2,000 MG in DEXTROSE 5% 50 ML IV SCH (13:24)
[2020-06-15] MEDS: DOXYCYCLINE HYCLATE 100 MG in DEXTROSE 5% 100 ML IV SCH (13:55)
[2020-06-15] MEDS: HEPARIN SOD 5,000 UNIT/0.5 ML VIAL SQ SCH ×2 (14:16→20:25)
[2020-06-15] MEDS: UMECLIDINIUM BROMIDE 62.5MCG/BLISTER 7 PUFFS/INHALER INH SCH (14:17)
--- NOTE | 2020-06-15 15:00 | Cardiology Consultation ---
Date of Consultation June 15, 2020 Assessment & Plan (1) Tachy-jeffy syndrome: (2) Paroxysmal atrial flutter: (3) Acute hypotension: (4) Coronary artery disease: (5) S/P coronary artery stent placement: (6) History of COVID-19: (7) Acute kidney injury: ASSESSMENT/PLAN: 1. Tachy-jeffy syndrome: He has evidence of tachy-jeffy syndrome with elevated heart rates while in atrial flutter and then also transient bradycardia while in sinus rhythm. Beta-berry has been held. Given atrial flutter, would like to reinstate beta-berry. Considered pacemaker placement and discussed with patient. He is reluctant at this time. With his confusion, it is not clear if he is able to make his medical decisions. Spoke with his daughter, Josefina, and she would like to pursue pacemaker placement. It apparently has been recommended in the past by his primary electronics specialist, Dr. Pinedo. Will discuss with electrophysiology. 2. Paroxysmal atrial flutter: Would like to resume beta-berry therapy but given episodes of bradycardia, would hold off for now. Would recommend anticoagulation therapy. If he has prolonged episode here, would recommend heparin drip. Otherwise, hold off on oral anticoagulation therapy while there may be potential for pacemaker placement after EP evaluation. 3. CAD s/p PCI: His PCI details are not known. No angina. Continue dual anti- platelet therapy for now. If anticoagulation therapy is initiated, would recommend discontinuation of Plavix while continuing aspirin 81 mg daily. Holding off on beta-berry as noted above. Continue high-intensity statin therapy 4. Acute kidney injury: Reportedly creatinine was greater than 5 while at [facility] earlier this month while hospitalized with sepsis and COVID-19 on pressor support. Creatinine improving. He does not appear to be hypervolemic and blood pressure actually improved with fluid bolus in the ER. As per primary service. 5. COVID-19 infection: Had positive COVID-19 testing end of May 2020. As per primary service. Progressively worsening chest x-ray as per Radiology. Primary service not treating for bacterial pneumonia as well. 6. Disposition: Will discuss with electrophysiology for consideration of pacemaker implantation. Patient care discussed with primary hospitalist service, Pura Medina. Patient's daughter, Josefina, was personally contacted via telephone. Thank you for allowing me to participate in the care of your patient. Please call for any other questions or concerns. Sincerely, Zefreino Benson M.D. History of Present Illness Reason for Consultation: Bradycardia, hypotension, hypoxia, history of COVID Requesting Physician: Pablo Springer MD Attending Physician: Pablo Springer MD History of Present Illness Mr. Prieto is a pleasant 80-year-old gentleman with a history significant for CAD s/p multiple PCI, paroxysmal atrial flutter, COVID-19 infection with acute renal insufficiency in 2020, diabetes, hypertension, and bladder cancer. He was admitted on 06/14/2020 with hypotension and bradycardia after presenting with lightheadedness and bradycardia and hypotension noted at home. His primary electronics specialist is Dr. Velasquez in [place]. He is a poor historian and was unable to give complete history. He recalls greeri ng several stents, estimating 6 in total. He recalls being told in the past that he should undergo pacemaker placement. He states that he declined it when discussing this with his primary electronics specialist and that they would revisit it later. When asked about his smoking history, he stated that he smoked 15 packs per day. Later he admitted that it was more like 3 packs per day. He was agreeable for me to call his daughter, Josefina. She was contacted via tele. She states that his memory has declined and that he is confused at times. It apparently waxes and wanes but has been more prominent recently. He also has been sleeping more throughout the day. According to available records, there has been concerns that he was not taking his medications as well. He lives alone and apparently has been resistant to changing locations so that more help was available. If physical therapist saw him yesterday morning and apparently noted bradycardia and hypotension. They contacted home health nursing staff who evaluated him in the afternoon and found the same. When he presented to the emergency department yesterday his heart rate was 42 beats per minute and he had a blood pressure as low as 78/56 mmHg. Emergency department physician notified me that he was given IV fluids and both his blood pressure and heart rate improved. Throughout the day, his heart rate was well controlled and in sinus rhythm until approximately 12:18 p.m.. At that time he developed atrial flutter with rapid ventricular response. Episodes of atrial flutter were at times nonsustained and at other times sustained. He had a conversion pause at 12:53 p.m. of approximately 2.8 seconds. EEG also has been having some pauses of 2.2 seconds while in sinus rhythm. He intermittently has heart rates in the 30s. He appears to be asymptomatic in this regard today while laying in bed. After further questioning, he admits that he was lightheaded prior to arrival but could not give any further details. He denies syncope, chest pain, shortness of breath, orthopnea, edema, or recent bleeding. His daughter states that they have been trying to get him to change his residence so that more help can be available to him but he has been resistant. She also has concerns that he may not be compliant with recommendations on discharge given his bouts of confusion. He was hospitalized at [facility] from 05/26/2020 to 06/01/2020 for chest pain/shortness of breath/weakness. He was hypotensive and reportedly required pressor support and oxygen supplementation. He was in acute kidney injury and had a creatinine greater than 5. Dialysis was initially recommended but there was no bed availability at [facility]. His creatinine reportedly improved throughout the hospital stay. He was diagnosed with COVID-19 and was discharged with diuretics and supplemental oxygen. Review of systems: As above. Review of systems otherwise negative/unremarkable. Family history: Older brother with CAD and pacemaker. Social history: He quit smoking at least 10 years ago but had smoked up to 3 packs per day. Formally consumed significant amounts of alcohol but no longer drinks alcohol. No drugs. Lives alone. . Four children, 2 daughters and 2 sons. He formally worked in the [employer] business. He was unaccompanied today. His daughter, Josefina, works through the pharmacy department by completing medication reconciliation in the ER at [facility]. Allergies Allergy/AdvReac Type Severity Reaction Status Date / Time tiotropium Allergy Unknown CAUSES EYE Verified 06/14/20 15:59 PAIN Home Medications Medication Instructions Recorded Confirmed Type allopurinol 100 mg tablet 100 mg PO BID 03/24/19 06/14/20 History atorvastatin 40 mg tablet 40 mg PO HS 03/24/19 06/14/20 History bupropion HCl 100 mg tablet,12 hr 100 mg PO QAM 03/24/19 06/14/20 History sustained-release clopidogrel 75 mg tablet 75 mg PO QAM 03/24/19 06/14/20 History furosemide 40 mg tablet 40 mg PO BID 03/24/19 06/14/20 History isosorbide mononitrate 30 mg 30 mg PO QAM 03/24/19 06/14/20 History tablet,extended release 24 hr tamsulosin 0.4 mg capsule 0.4 mg PO HS 03/24/19 06/14/20 History Vit B Comp. W/Vit C & Folic Ac 1 tab PO HS 06/14/20 06/14/20 History aspirin 81 mg PO QAM 06/14/20 06/14/20 History carvedilol 3.125 mg PO BID 06/14/20 06/14/20 History duloxetine 60 mg PO HS 06/14/20 06/14/20 History ergocalciferol (vitamin D2) 1,250 mcg PO .Q2WK 06/14/20 06/14/20 History [Vitamin D2] gabapentin 600 mg PO HS 06/14/20 06/14/20 History levothyroxine 112 mcg PO DAILYBB 06/14/20 06/14/20 History lisinopril 10 mg PO QAM 06/14/20 06/14/20 History sitagliptin [Januvia] 100 mg PO HS 06/14/20 06/14/20 History Patient History Medical History Congestive heart failure Diabetes mellitus Hypertension Lung nodule Malignant neoplasm of bladder Myocardial infarction Surgical History H/O heart surgery History of bladder surgery Family History Brother Prostate cancer Heart disease Social History Smoking Status: Former smoker Hx Alcohol Use: No Hx Substance Use: No Preferred Language: Afghan Communication Ability: Effective Adjunct Writing Instructor Required: No Beliefs That Will Affect Care: Church Church Beliefs: Presbyterian marital status: Single Current Living Situation: Alone current occupational status: retired Other Information That Helps Us Care for You: No Feels Safe at Home: Yes Safety Concerns: Feels Safe At This Time Assistive Devices: Oxygen - Continuous Physical Exam Physical Exam: Gen.: No acute distress. Alert. HEENT: Anicteric sclera. Neck: Thick neck. No bruits. Normal carotid upstrokes bilaterally. Cardiac: PMI was nonpalpable. No ventricular heave. Regular with ectopy. Normal S1-S2. No murmur. No rubs or gallops. Pulmonary: Clear to auscultation bilaterally without wheezes, rales, or rhonchi. Abdomen: Soft, nontender, nondistended, with normoactive bowel sounds. No bruits noted. Extremities: 2+ radial pulses bilaterally. 1+ posterior tibialis pulses bilaterally. No edema or cyanosis. Psychiatric: Affect appears appropriate. Results & Data ([facility]) Vital Signs (Past 12 Hours) Vital Signs Temp Pulse Pulse Resp BP Pulse Ox 06/15/20 14:51 40 L 06/15/20 11:50 36.6 C 52 L 18 116/72 92 06/15/20 07:35 36.6 C 78 18 119/72 93 06/15/20 07:19 64 06/15/20 03:13 36.3 C L 66 20 121/67 94 Intake & Output 06/13/20 06/14/20 06/15/20 06/16/20 06:59 06:59 06:59 06:59 Intake Total 1047.917 / 1047.917 160 / 160 Output Total 450 / 450 Balance 597.917 / 597.917 160 / 160 Weight 246 lb 7.629 oz 246 lb 7.629 oz Laboratory Results Laboratory Results - last 24 hr 06/14/20 06/14/20 06/14/20 15:17 15:17 15:21 WBC 10.17 RBC 3.96 L Hgb 12.1 L POC Hgb 12.6 L Hct 37.3 L POC Hct 37 L MCV 94.2 MCH 30.6 MCHC 32.4 RDW Std Deviation 50.4 H RDW Coeff of Kayla 14.7 H Plt Count 243 MPV 10.4 Immature Gran % (Auto) 0.5 Neut % (Auto) 72.9 Lymph % (Auto) 17.0 Glynn % (Auto) 6.6 Eos % (Auto) 2.8 Baso % (Auto) 0.2 Neut # (Auto) 7.42 H Lymph # (Auto) 1.73 Glynn # (Auto) 0.67 H Eos # (Auto) 0.28 Baso # (Auto) 0.02 Immature Gran # (Auto) 0.05 H POC Sodium 136 Sodium 136 POC Potassium 4.9 Potassium 4.8 POC Chloride 101 Chloride 103 Carbon Dioxide 26 POC Total CO2 26 Anion Gap 7.0 POC Anion Gap 15.0 L POC BUN 41 H BUN 45 H Creatinine 2.98 H POC Creatinine 3.2 H Est Cr Clr Drug Dosing 26.4 Est GFR ( Amer) 21.8 Est GFR (Non-Af Amer) 18.8 BUN/Creatinine Ratio 15.2 Glucose 128 H POC Glucose POC Glucose (other) 133 H Estimat Average Glucose Hemoglobin A1c Calcium 9.2 POC Ioniz Calcium Naveen 1.13 Magnesium 1.9 Total Bilirubin 0.7 AST 18 ALT 26 Alkaline Phosphatase 136 H Troponin I < 0.015 NT-Pro-B Natriuret Pep Total Protein 7.6 Albumin 2.6 L Globulin 5.0 H Albumin/Globulin Ratio 0.5 L Lipase 153 TSH COVID-19 Eval Order SARS-CoV-2 (PCR) Influenza Type A (PCR) Influenza Type B (PCR) RSV (RT-PCR) 06/14/20 06/14/20 06/15/20 15:31 15:31 05:20 WBC 7.85 RBC 3.72 L Hgb 11.2 L POC Hgb Hct 35.0 L POC Hct MCV 94.1 MCH 30.1 MCHC 32.0 RDW Std Deviation 49.9 H RDW Coeff of Kayla 14.7 H Plt Count 209 MPV 10.4 Immature Gran % (Auto) 0.5 Neut % (Auto) 67.6 Lymph % (Auto) 18.6 Glynn % (Auto) 7.9 Eos % (Auto) 5.1 Baso % (Auto) 0.3 Neut # (Auto) 5.31 Lymph # (Auto) 1.46 Glynn # (Auto) 0.62 H Eos # (Auto) 0.40 Baso # (Auto) 0.02 Immature Gran # (Auto) 0.04 H POC Sodium Sodium POC Potassium Potassium POC Chloride Chloride Carbon Dioxide POC Total CO2 Anion Gap POC Anion Gap POC BUN BUN Creatinine POC Creatinine Est Cr Clr Drug Dosing Est GFR ( Amer) Est GFR (Non-Af Amer) BUN/Creatinine Ratio Glucose POC Glucose POC Glucose (other) Estimat Average Glucose Hemoglobin A1c Calcium POC Ioniz Calcium Naveen Magnesium Total Bilirubin AST ALT Alkaline Phosphatase Troponin I NT-Pro-B Natriuret Pep Total Protein Albumin Globulin Albumin/Globulin Ratio Lipase TSH COVID-19 Eval Order CovFluRsv at [facility] SARS-CoV-2 (PCR) NEGATIVE Influenza Type A (PCR) Negative Influenza Type B (PCR) Negative RSV (RT-PCR) Negative 06/15/20 06/15/20 06/15/20 05:20 05:20 06:20 WBC RBC Hgb POC Hgb Hct POC Hct MCV MCH MCHC RDW Std Deviation RDW Coeff of Kayla Plt Count MPV Immature Gran % (Auto) Neut % (Auto) Lymph % (Auto) Glynn % (Auto) Eos % (Auto) Baso % (Auto) Neut # (Auto) Lymph # (Auto) Glynn # (Auto) Eos # (Auto) Baso # (Auto) Immature Gran # (Auto) POC Sodium Sodium 138 POC Potassium Potassium 4.4 POC Chloride Chloride 107 Carbon Dioxide 24 POC Total CO2 Anion Gap 7.0 POC Anion Gap POC BUN BUN 38 H Creatinine 1.73 H D POC Creatinine Est Cr Clr Drug Dosing 43.9 Est GFR ( Amer) 42.0 Est GFR (Non-Af Amer) 36.2 BUN/Creatinine Ratio 22.1 H Glucose 107 H POC Glucose POC Glucose (other) Estimat Average Glucose 177 Hemoglobin A1c 7.8 H Calcium 9.0 POC Ioniz Calcium Naveen Magnesium Total Bilirubin AST ALT Alkaline Phosphatase Troponin I NT-Pro-B Natriuret Pep 371 Total Protein Albumin Globulin Albumin/Globulin Ratio Lipase TSH COVID-19 Eval Order SARS-CoV-2 (PCR) Influenza Type A (PCR) Influenza Type B (PCR) RSV (RT-PCR) 06/15/20 06/15/20 06/15/20 06:20 07:47 11:43 WBC RBC Hgb POC Hgb Hct POC Hct MCV MCH MCHC RDW Std Deviation RDW Coeff of Kayla Plt Count MPV Immature Gran % (Auto) Neut % (Auto) Lymph % (Auto) Glynn % (Auto) Eos % (Auto) Baso % (Auto) Neut # (Auto) Lymph # (Auto) Glynn # (Auto) Eos # (Auto) Baso # (Auto) Immature Gran # (Auto) POC Sodium Sodium POC Potassium Potassium POC Chloride Chloride Carbon Dioxide POC Total CO2 Anion Gap POC Anion Gap POC BUN BUN Creatinine POC Creatinine Est Cr Clr Drug Dosing Est GFR ( Amer) Est GFR (Non-Af Amer) BUN/Creatinine Ratio Glucose POC Glucose 124 H 135 H POC Glucose (other) Estimat Average Glucose Hemoglobin A1c Calcium POC Ioniz Calcium Naveen Magnesium Total Bilirubin AST ALT Alkaline Phosphatase Troponin I NT-Pro-B Natriuret Pep Total Protein Albumin Globulin Albumin/Globulin Ratio Lipase TSH 0.098 L COVID-19 Eval Order SARS-CoV-2 (PCR) Influenza Type A (PCR) Influenza Type B (PCR) RSV (RT-PCR) Diagnostic Findings Telemetry personally reviewed: Predominantly sinus rhythm with episodes of paroxysmal atrial flutter, sustained at times. 2.8 second conversion pause. Intermittent episodes of sinus bradycardia into the 30s. Echo 06/15/2020 : Normal LV size. EF 50-55%. Hypokinesis of the inferior and inferoseptal wall segments. Mild LVH. No significant valvular abnormalities. Normal RVSP. ECGs personally reviewed: ECG 06/14/2020 at 3:10 p.m.: Sinus bradycardia with sinus arrhythmia and first- degree AV block with PACs. Possible inferolateral infarct. ECG 06/15/2020: Sinus rhythm with first-degree AV block 73 beats per minute. Inferior infarct. Chest x-ray 06/14/2020: Moderate multifocal bilateral airspace opacities with i nterstitial thickening, suggesting viral pneumonia. Image personally reviewed. Chest x-ray 06/15/2020: Mild progression of moderate bilateral airspace opacities consistent with infectious process. Medications Administered Current Inpatient Medications Acetaminophen (Acetaminophen 325 Mg Tab) 650 mg PO Q4H PRN PRN Reason: Pain or Fever Stop: 07/14/20 19:51 Allopurinol (Allopurinol 100 Mg Tab) 100 mg PO BID RANDAL Stop: 07/14/20 20:59 Last Admin: 06/15/20 08:19 Dose: 100 mg Documented by: Aspirin (Aspirin 81 Mg Ectab) 81 mg PO QAM RANDAL Stop: 07/15/20 08:59 Last Admin: 06/15/20 08:20 Dose: 81 mg Documented by: Atorvastatin Calcium (Atorvastatin 40 Mg Tab) 40 mg PO HS RANDAL Stop: 07/14/20 20:59 Last Admin: 06/14/20 21:36 Dose: 40 mg Documented by: Bupropion HCl (Bupropion Sr 100 Mg Tabcr) 100 mg PO QAM [facility] Stop: 07/15/20 08:59 Last Admin: 06/15/20 08:20 Dose: 100 mg Documented by: Clopidogrel Bisulfate (Clopidogrel Bisulfate 75 Mg Tab) 75 mg PO QAM [facility] Stop: 07/15/20 08:59 Last Admin: 06/15/20 08:20 Dose: 75 mg Documented by: Dextrose (Dextrose 50% 50 Ml Syringe) 25 - 50 ml IV UD PRN; Protocol PRN Reason: Hypoglycemia Protocol Stop: 07/14/20 21:38 Duloxetine HCl (Duloxetine Hcl 60 Mg Cap) 60 mg PO [facility] Stop: 07/14/20 20:59 Last Admin: 06/14/20 21:36 Dose: 60 mg Documented by: Ergocalciferol (Ergocalciferol 50,000 Units 1250 Mcg Cap) 50,000 units PO SuTh@0900 [facility] Stop: 07/15/20 08:59 Last Admin: 06/15/20 08:19 Dose: 50,000 units Documented by: Gabapentin (Gabapentin 300 Mg Cap) 600 mg PO [facility] Stop: 07/14/20 20:59 Last Admin: 06/14/20 21:36 Dose: 600 mg Documented by: Glucagon (Glucagon For Inj 1 Mg Vial) 1 mg SQ UD PRN; Protocol PRN Reason: Hypoglycemia Protocol Stop: 07/14/20 21:38 Glucose (Glucose 10 Tabs/Tube) 4 - 8 tabs PO UD PRN; Protocol PRN Reason: Hypoglycemia Protocol Stop: 07/14/20 21:38 Glucose (Glucose 40% Gel 15 Gm Tube) 15 - 30 gm PO UD PRN; Protocol PRN Reason: Hypoglycemia Protocol Stop: 07/14/20 21:38 Heparin Sodium (Porcine) (Heparin Sod 5,000 Unit/0.5 Ml Vial) 7,500 units SQ Q8 [facility] Stop: 07/15/20 14:29 Last Admin: 06/15/20 14:16 Dose: 7,500 units Documented by: Ceftriaxone Sodium 2,000 mg/ (Dextrose) 70 mls @ 100 mls/hr IV DAILY [facility]; Protocol Stop: 06/22/20 12:29 Last Infusion: 06/15/20 14:06 Dose: Infused Documented by: Doxycycline Hyclate 100 mg/ (Dextrose) 110 mls @ 50 mls/hr IV Q12H [facility]; Protocol Stop: 06/22/20 12:29 Last Admin: 06/15/20 13:55 Dose: 50 mls/hr Documented by: Insulin Aspart (Insulin Aspart 100 Units/Ml 3 Ml Pen) 0 units SC ACHS [facility] Stop: 07/15/20 07:29 Last Admin: 06/15/20 12:09 Dose: Not Given Documented by: Levothyroxine Sodium (Levothyroxine Sodium 112 Mcg Tablet) 112 mcg PO DAILYBB [facility] Stop: 07/15/20 06:29 Last Admin: 06/15/20 06:11 Dose: 112 mcg Documented by: Miscellaneous (Carbohydrates For Hypoglycemia ) 15 - 30 gm PO UD PRN PRN Reason: Hypoglycemia Protocol Stop: 07/14/20 21:38 Tamsulosin HCl (Tamsulosin Hcl 0.4 Mg Cap) 0.4 mg PO [facility] Stop: 07/14/20 20:59 Last Admin: 06/14/20 21:36 Dose: 0.4 mg Documented by: Umeclidinium [place] (Umeclidinium [place] 62.5mcg/Blister 7 Puffs/Inhaler) 1 puffs INH QAM [facility] Stop: 07/15/20 12:59 Last Admin: 06/15/20 14:17 Dose: 1 puffs Documented by: Vitamin B Complex/Folic Acid (Nephrocaps) 1 cap PO HS [facility] Stop: 07/14/20 20:59 Last Admin: 06/14/20 21:36 Dose: 1 cap Documented by: PG Care Time/CCT Total # of Minutes Spent Total Time Spent with Patient: Total time spent is greater than 50% in coordination of care (as documented) at patient's floor/unit and/or counseling p atient: Coding Level of Care Code 97794 Initial Inpt Care Lvl 3 Diagnoses Tachy-jeffy syndrome I49.5 Paroxysmal atrial flutter I48.92 Acute hypotension I95.9 Coronary artery disease I25.10 S/P coronary artery stent placement Z95.5 History of COVID-19 Z86.16 Acute kidney injury N17.9
[2020-06-15] MEDS: TAMSULOSIN HCL 0.4 MG CAP PO SCH (20:24)
[2020-06-15] MEDS: DULoxetine HCL 60 MG CAP PO SCH (20:24)
[2020-06-15] MEDS: NEPHROCAPS PO SCH (20:24)
[2020-06-15] MEDS: GABAPENTIN 300 MG CAP PO SCH (20:25)
[2020-06-15] MEDS: buPROPion SR 100 MG TABCR PO SCH (20:25)
[2020-06-15] MEDS: ATORVASTATIN 40 MG TAB PO SCH (20:25)
--- NOTE | 2020-06-15 22:17 | Electrocardiogram Report ---
Test Reason : Blood Pressure : / mmHG Vent. Rate : 059 BPM Atrial Rate : 059 BPM P-R Int : 222 ms QRS Dur : 090 ms QT Int : 406 ms P-R-T Axes : 016 001 006 degrees QTc Int : 401 ms Sinus bradycardia with marked sinus arrhythmia with 1st degree A-V block with Premature supraventricu lar complexes Inferior infarct (cited on or before 07-MAR-2016) Abnormal ECG When compared with ECG of 07-MAR-2016 11:01, Premature supraventricular complexes are now Present Confirmed by Walt Benson ([id number]) on 06/15/2020 10:17:09 PM Referred By: Confirmed By:Walt Benson
[2020-06-16] MEDS: DOXYCYCLINE HYCLATE 100 MG in DEXTROSE 5% 100 ML IV SCH ×2 (00:47→12:00)
[2020-06-16] MEDS: HEPARIN SOD 5,000 UNIT/0.5 ML VIAL SQ SCH ×3 (05:34→20:58)
[2020-06-16] MEDS: LEVOTHYROXINE SODIUM 100 MCG TABLET PO SCH (05:35)
--- NOTE | 2020-06-16 06:38 | Electrocardiogram Report ---
Test Reason : Blood Pressure : / mmHG Vent. Rate : 073 BPM Atrial Rate : 073 BPM P-R Int : 228 ms QRS Dur : 090 ms QT Int : 392 ms P-R-T Axes : 011 003 015 degrees QTc Int : 431 ms Sinus rhythm with 1st degree A-V block Inferior infarct (cited on or before 07-MAR-2016) Abnormal ECG When compared with ECG of 14-JUN-2020 15:10, Premature supraventricular complexes are no longer Present Confirmed by Walt Benson ([id number]) on 06/16/2020 6:38:24 AM Referred By: REFERRED SELF Confirmed By:Walt Benson
[2020-06-16] MEDS ORDERED: LORazepam 2 MG/ML VIAL (IM USE) IM STA (07:03)
[2020-06-16] MEDS: LORazepam 2 MG/4 ML VIAL ONE ×2 (07:12→07:59)
[2020-06-16] MEDS ORDERED: OLANZapine 10 MG/2.1 ML SDV IM STA (07:50)
[2020-06-16] MEDS: INSULIN ASPART 100 UNITS/ML 3 ML PEN SC SCH ×4 (08:13→20:41)
[2020-06-16] MEDS: ASPIRIN 81 MG ECTAB PO SCH (08:30)
[2020-06-16] MEDS: UMECLIDINIUM BROMIDE 62.5MCG/BLISTER 7 PUFFS/INHALER INH SCH (08:30)
[2020-06-16] MEDS: buPROPion SR 100 MG TABCR PO SCH ×2 (08:30→19:27)
[2020-06-16] MEDS ORDERED: BACITRACIN INJ 50,000 UNIT VIAL ONE (08:42)
[2020-06-16] MEDS ORDERED: LIDOCAINE HCL 1% 20 ML VIAL ONE (08:42)
--- NOTE | 2020-06-16 08:53 | History & Physical Bridge Note ---
Date of Service June 16, 2020 History & Physical Bridge Note I have examined the patient, reviewed the History & Physical and in the interval since the performance of the History & Physical I have noted the following changes of clinical significance: no changes noted. I reviewed the indications, procedure, risks and alternatives with the patient and the family who are present, answered all questions. Consent obtained. Patient and the family understand and the patient agrees to the procedure. I also reviewed the risks and use of sedation, patient and family understand and sedation consent obtained.
--- NOTE | 2020-06-16 08:54 | Pre Anesthesia Assessment ---
Date of Service June 16, 2020 Pre Sedation Assessment Vital Signs Temp Pulse Pulse Resp BP Pulse Ox 06/16/20 08:03 154 H 18 113/77 95 06/16/20 07:00 96 H 06/16/20 04:00 37.0 C 77 18 125/78 95 06/16/20 01:22 80 06/15/20 22:47 36.9 C 78 20 124/84 94 06/15/20 19:50 36.6 C 79 22 125/73 93 06/15/20 15:06 36.4 C L 77 18 114/74 96 06/15/20 14:51 40 L 06/15/20 11:50 36.6 C 52 L 18 116/72 92 Cardiovascular + regular rate and + tachycardic Respiratory normal respiratory effort, lungs clear to auscultation Pre-Sedation Airway Assessment Smoking Status: Former smoker Short, Thick Neck: No Thyromental Distance: > or= 3.5 Finger Breadths Mallampati Class: II ASA: ASA3 NPO Status Date of Last Intake of Fluids: 06/15/20 Date of Last Intake of Solid Food: 06/15/20 Procedure Planning Contraindications for Sedation: none Current Medications Reviewed: Yes Notes The planned sedation has been discussed with the patient. Informed Consent was obtained. I have identified the patient, determined the appropriateness of sedation and have assessed the patient immediately prior to the procedure. All medicine(s) and interventions are by my order.
--- NOTE | 2020-06-16 08:56 | Cardiology Consultation ---
Date of Consultation June 16, 2020 Assessment & Plan (1) Tachy-jeffy syndrome: Requires pacer for bradycardia to allow treatment of his tachycardia. He presented in symptomatic bradycardia while on beta-blockade but requires beta- blockade for control of his tachycardia. (2) Paroxysmal atrial flutter: Currently in atrial flutter 2:1, It is possible that his pacemaker would allow antitachycardia pacing which might help keep him out of these rhythms even in the absence of medications. (3) Coronary artery disease: Not ideal to have high heart rates with CAD, should be on beta berry. Restart after pacer. History of Present Illness Reason for Consultation: Tachybradycardia syndrome Attending Physician: Pablo Springer MD History of Present Illness This is an 80-year-old gentleman who has coronary artery disease including m ultiple interventions, known paroxysmal atrial flutter, a recent COVID-19 infection, diabetes, hypertension and bladder cancer. He presented with bradycardia and hypotension prompting discontinuation of his beta-blockade. With discontinuation of his beta-blockade he has significant tachycardia, currently he is in atrial flutter with 2-1 with a heart rate of over 150 bpm. While on beta-blockade he had heart rates in the low 30s with multiple pauses with termination of atrial arrhythmia. He has classic tachybradycardia syndrome. Additionally he requires beta-blockade for his coronary artery disease. Allergies Allergy/AdvReac Type Severity Reaction Status Date / Time tiotropium Allergy Unknown CAUSES EYE Verified 06/14/20 15:59 PAIN Home Medications Medication Instructions Recorded Confirmed Type allopurinol 100 mg tablet 100 mg PO BID 03/24/19 06/14/20 History atorvastatin 40 mg tablet 40 mg PO 03/24/19 06/14/20 History bupropion HCl 100 mg tablet,12 hr 100 mg PO [facility] 03/24/19 06/14/20 History sustained-release clopidogrel 75 mg tablet 75 mg PO [facility] 03/24/19 06/14/20 History furosemide 40 mg tablet 40 mg PO BID 03/24/19 06/14/20 History isosorbide mononitrate 30 mg 30 mg PO [facility] 03/24/19 06/14/20 History tablet,extended release 24 hr tamsulosin 0.4 mg capsule 0.4 mg PO 03/24/19 06/14/20 History Vit B Comp. W/Vit C & Folic Ac 1 tab PO 06/14/20 06/14/20 History aspirin 81 mg PO QAM 06/14/20 06/14/20 History carvedilol 3.125 mg PO BID 06/14/20 06/14/20 History duloxetine 60 mg PO HS 06/14/20 06/14/20 History ergocalciferol (vitamin D2) 1,250 mcg PO .Q2WK 06/14/20 06/14/20 History [Vitamin D2] gabapentin 600 mg PO HS 06/14/20 06/14/20 History levothyroxine 112 mcg PO DAILYBB 06/14/20 06/14/20 History lisinopril 10 mg PO QAM 06/14/20 06/14/20 History sitagliptin [Januvia] 100 mg PO HS 06/14/20 06/14/20 History Patient History Medical History Acute kidney injury COPD (chronic obstructive pulmonary disease) Coronary artery disease Diabetes mellitus History of COVID-19 Lung nodule Malignant neoplasm of bladder Myocardial infarction Paroxysmal atrial flutter Surgical History H/O heart surgery History of bladder surgery S/P coronary artery stent placement Family History Brother Prostate cancer Heart disease Social History Smoking Status: Former smoker Hx Alcohol Use: No Hx Substance Use: No Preferred Language: Danish Communication Ability: Effective Capacity Management Specialist Required: No Beliefs That Will Affect Care: Presybeterian Presybeterian Beliefs: Presbyterian marital status: Single Current Living Situation: Alone current occupational status: retired Other Information That Helps Us Care for You: No Feels Safe at Home: Yes Safety Concerns: Feels Safe At This Time Assistive Devices: Oxygen - Continuous Review of Systems Review of Systems: Unobtainable due to cognitive status Physical Exam Physical Exam: Constitutional: Alert, intermittently cooperative and in no distress. HEENT: Unremarkable Neck: No jugular venous distention, carotid pulses are normal and equal bilaterally without bruits. Pulmonary: Clear to auscultation bilaterally. Cardiac: Regular rapid rhythm with no murmur, gallop or rub. Abdomen: Soft, nontender with normal bowel sounds. Extremities: No edema. Distal pulses intact. Neurologic: No focal findings. Gait is steady. Skin: No rash, ecchymoses or petechiae. Results & Data ([facility]) Vital Signs (Past 12 Hours) Vital Signs Temp Pulse Pulse Resp BP Pulse Ox 06/16/20 08:03 154 H 18 113/77 95 06/16/20 07:00 96 H 06/16/20 04:00 37.0 C 77 18 125/78 95 06/16/20 01:22 80 06/15/20 22:47 36.9 C 78 20 124/84 94 Laboratory Results Intake and Output 06/15/20 06/16/20 06/16/20 22:59 06:59 14:59 Intake Total 260 / 680 260 / 680 Output Total 800 / 800 Balance 260 / -120 -540 / -120 Intake: IV 110 / 290 110 / 290 Vibramycin 100 mg In D5 100 ml 110 / 220 110 / 220 @ 50 mls/hr IV Q12H [facility] Rx#: [id number] Oral 150 / 390 150 / 390 Output: Urine 800 / 800 Other: Weight 110.4 kg Weight Measurement Method Standing Scale Diagnostic Findings Telemetry shows predominantly sinus rhythm with periods of sinus bradycardia with heart rates in the 30s, as well as pauses in his sinus rhythm with junctional escape beats. He also has intermittent atrial tachycardia and atrial flutter, including currently. The rate is sustained at 150 bpm in atrial flutter 2-1 currently. PG Care Time/CCT Total # of Minutes Spent Total Time Spent with Patient: Total time spent is greater than 50% in coordination of care (as documented) at patient's floor/unit and/or counseling patient: Coding Level of Care Code 15309 Initial Inpt Care Lvl 3 Diagnoses Tachy-jeffy syndrome I49.5 Paroxysmal atrial flutter I48.92 Coronary artery disease I25.10
[2020-06-16] MEDS: allopurinoL 100 MG TAB PO SCH (09:13)
[2020-06-16] MEDS: CLOPIDOGREL BISULFATE 75 MG TAB PO SCH (09:13)
[2020-06-16] MEDS: MULTIVITAMIN CHEWABLE TAB PO SCH (09:13)
[2020-06-16] MEDS ORDERED: fentaNYL citrate 100 MCG/2 ML VIAL ONE (09:17)
[2020-06-16] MEDS ORDERED: MIDAZOLAM HCL 5 MG/ML 1 ML VIAL ONE (09:17)
[2020-06-16] MEDS: cefTRIAXone SODIUM 2,000 MG in DEXTROSE 5% 50 ML IV SCH (10:15)
[2020-06-16] MEDS ORDERED: BACITRACIN OINT 0.9 GM PKT ONE (10:20)
[2020-06-16] MEDS ORDERED: KETOROLAC TROMETHAMINE 10 MG TABLET PO PRN (10:34)
--- NOTE | 2020-06-16 10:34 | Electrophysiology Report ---
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 Dye was injected the left arm IV site to opacify the left subclavian vein. The subclavian vein was identified and found to be free of obstruction. The left prepectoral region was anesthetized with 1% lidocaine local anesthetic and left axillary venipuncture was performed by percutaneous technique and a guidewire placed through the left subclavian vein into the superior vena cava. The area was further infiltrated with 1% lidocaine local anesthetic and a 5 cm incision was made parallel to the left clavicle and 2 cm below it and carried down to the anterior pectoralis fascia. A pacemaker pocket was formed by blunt dissection anterior to the pectoralis fascia and a bacitracin-soaked sponge (50,000 units in 50 cc normal saline solution) was placed in the pocket. An 8 [place] Medtronic lead introducer was placed over the guidewire into the left subclavian vein, the dilator and guidewire were removed and a bipolar active fixation steroid tipped ventricular lead was advanced through the introducer into the superior vena cava. A guidewire was placed through the introducer and the introducer was stripped from the lead and guidewire. Another 8 [place] Medtronic lead introducer was placed over the guidewire into the left subclavian vein, the dilator and guidewire were removed and a bipolar active fixation steroid tipped atrial lead was advanced through the introducer into the superior vena cava. A guidewire was placed back through the introducer and the introducer was stripped from the lead and guidewire. Using a curved stylette the ventricular lead was advanced through the right ventricular outflow tract into the pulmonary artery and then using a straight stylette was positioned in the right ventricular apex. The screw was extended fixing the lead in position. Pacing and sensing thresholds were evaluated in bipolar configuration and are recorded on the implant data sheet. Using a curved stylette the atrial lead was positioned in the region of the atrial appendage and the screw extended fixing the lead in position. Pacing and sensing thresholds were evaluated in bipolar configuration and are recorded on the implant data sheet. With leads in position the SVT was briefly evaluated, it is a one-to-one SVT likely AV daniela reentry although I could not exclude a bypass tract without more extensive testing. It could be initiated and terminated from the ventricle. It was not atrial flutter. Once the leads were in position they were attached to the anterior pectoralis fascia using 2 sutures of 2-0 silk around each lead collar. The bacitracin- soaked sponge was removed from the pocket, hemostasis was obtained, the pacemaker was attached to the leads and placed in the pocket with the leads coiled beneath it. The incision was closed with a running double subcutaneous closure of 3-0 Vicryl absorbable suture, followed by running subcuticular skin closure of 4-0 Vicryl absorbable suture. Bacitracin ointment was placed on the incision and a pressure dressing applied. [facility] Electrophysiology codes Indication for Procedure (1) Tachy-jeffy syndrome: Pacing Procedure 1: Pacin Insert/Replace Pacer A & V Miscellaneous Procedures Procedure 1: EP Miscellaneous: 64910 Contrast injection for venography Procedure 2: EP Miscellaneous: 42809-68 Vengraphy, extremity PG Moderate Sedation Codes Moderate Sedation Codes Procedure 1: Sedation/Anesthesia: 89111 Mod Sedation by the same physician;Init15 Min Child Age 5 & Up Procedure 2: Sedation/Anesthesia: 52797 Mod Sedation by the same physician; Ea Addition al15 Minutes
--- NOTE | 2020-06-16 14:05 | Post Anesthesia Assessment ---
Date of Service June 16, 2020 Post Sedation Assessment Vital Signs Temp Pulse Pulse Resp BP BP Pulse Ox 06/16/20 12:50 16 106/69 82 L 06/16/20 12:20 108/65 108/65 06/16/20 11:50 81 18 101/64 06/16/20 11:20 75 97/63 L 06/16/20 11:05 79 100/64 98 06/16/20 10:30 62 18 109/60 97 06/16/20 09:00 156 H 16 90/71 L 96 06/16/20 08:03 154 H 18 113/77 95 06/16/20 07:00 96 H 06/16/20 04:00 37.0 C 77 18 125/78 95 06/16/20 01:22 80 06/15/20 22:47 36.9 C 78 20 124/84 94 06/15/20 19:50 36.6 C 79 22 125/73 93 06/15/20 15:06 36.4 C L 77 18 114/74 96 06/15/20 14:51 40 L Recovery Score Activity: Moves 4 extremities Respiration: Deep Breath/Cough Circulation: +/-20% PreAnes Value Consciousness: Fully Awake Oxygen Saturation: > 92% On Room Air Post Anesthesia Score: 10 Discharge Sedation Level of Care: Fast Track Phase II Post Sedation Plan On clinical assessment, the patient appears to have tolerated the sedation without complications. Patient is recovering as anticipated. Patient will continue to be monitored by nursing and may be discharged when sedation discharge criteria are met per below protocol. Upon Completions of procedure up to 15 minutes continue every 5 minute vital signs and the P.A.R. score; then discharge to a Phase I or Fast Track to Phase II per the following guidelines: * Discharge Patient to appropriate Phase II area if PAR is 8 or greater or return to pre- procedure baseline. The post - procedure orders will be as directed. * If PAR score is less than 8 or not return to pre-procedure baseline then patient will follow Phase I monitoring till PAR is reached for Phase II. The Phase I may be done in procedure room or may call to secure a Phase I area. * If naloxone or flumazenil are used for reversal, hold in Phase I for continued monitoring from when last reversal dose was given for a minimum of 60 minutes or longer pending the nurse and/or physician discretion of patient condition before discharge to Phase II. Please call the Sedation Physician to re-evaluate and complete post-note for discharge to Phase II area. Do NOT discharge from procedure sedation or Phase 1 until post- sedation evaluation note is complete by procedure /sedation MD Sedation Discharge Instructions to be given to the patient at discharge to home.
[2020-06-16 14:13] LABS: Hematocrit (blood only) 35.4 % (42-52); Hemoglobin 11.3 g/dL (14.0-18.0); Mean Corpuscular Hemoglobin 30.3 pg (25-34); Mean Corpuscular Hgb Conc 31.9 g/dL (32-36); Mean Corpuscular Volume 94.9 fL (80-100); Mean Platelet Volume 10.3 fL (7.4-10.4); Platelet Count 228 K/uL (130-400); RDW Coefficient of Variation 14.8 % (11.5-14.5); RDW Standard Deviation 51.2 fL (36.4-46.3); Red Blood Count 3.73 M/uL (4.7-6.1); White Blood Count 9.28 K/uL (4.8-10.8)
[2020-06-16] MEDS: carvediloL 6.25 MG TAB PO SCH ×2 (14:17→19:26)
[2020-06-16 14:43] LABS: Alanine Aminotransferase 25 U/L (12-78); Albumin Level 2.5 gm/dl (3.4-5.0); Alkaline Phosphatase 132 U/L (45-117); Aspartate Aminotransferase 20 U/L (15-37); BUN Creatinine Ratio 21.1 (10-20); Bilirubin Direct < 0.1 mg/dl (0-0.2); Bilirubin,Total 0.5 mg/dl (0.2-1); Blood Urea Nitrogen 29 mg/dl (7-18); Calcium 9.3 mg/dl (8.5-10.1); Carbon Dioxide 25 mmol/L (21-32); Chloride 107 mmol/L (98-107); Creatinine Clr Calc Pharmacy 55.9 ml/min; Est GFR (African American) 56.7; Est GFR (Non-African American) 48.9; Glucose 125 mg/dl (70-99); Potassium 5.1 mmol/L (3.5-5.1); Sodium 137 mmol/L (136-145); Total Protein 7.3 gm/dl (6.4-8.2)
[2020-06-16] MEDS ORDERED: LORazepam 1 MG/2 ML VIAL IV PRN (14:44)
[2020-06-16] MEDS ORDERED: OLANZapine 10 MG/2.1 ML SDV IM ONE (14:45)
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
[2020-06-16] MEDS ORDERED: OLANZapine 5 MG TABLET PO PRN (17:41)
[2020-06-16] MEDS ORDERED: LORazepam 1 MG TAB SL PRN (17:41)
[2020-06-16] MEDS ORDERED: OLANZapine 10 MG/2.1 ML SDV IM PRN (17:41)
--- NOTE | 2020-06-16 17:41 | Billing Data ---
Date of Service June 16, 2020 Coding Level of Care Code 77906 Prolonged Care (int'l) Comment In room with patient from 7:15am - 7:35am & 5:00pm - 5:25pm.
[2020-06-16] MEDS ORDERED: LORazepam 2 MG/ML VIAL (IM USE) IM PRN (18:28)
[2020-06-16] MEDS: TAMSULOSIN HCL 0.4 MG CAP PO SCH (19:26)
[2020-06-16] MEDS: DULoxetine HCL 60 MG CAP PO SCH (19:26)
[2020-06-16] MEDS: NEPHROCAPS PO SCH (19:27)
[2020-06-16] MEDS: GABAPENTIN 300 MG CAP PO SCH (19:27)
[2020-06-16] MEDS: ATORVASTATIN 40 MG TAB PO SCH (19:27)
[2020-06-16] MEDS ORDERED: METOPROLOL TARTRATE 1 MG/ML VIAL IV STA ×2 (20:43→21:32)
--- NOTE | 2020-06-16 21:04 | XRay Report ---
SINGLE VIEW CHEST CLINICAL HISTORY: Status post pacemaker implantation. FINDINGS: An AP, portable, upright chest radiograph is compared to study dated 06/15/2020 and correlat ed with chest CT dated 10/13/2019. A 2-lead cardiac pacemaker is new from yesterday. Leads project ove r the right atrial appendage and the right ventricle. The heart is enlarged noting atherosclerotic ca lcification of the thoracic aorta. Multifocal airspace consolidation is again noted. This has modestl y increased in the right upper lobe as compared to yesterday. No large pleural effusion or pneumothor ax is seen. The skeletal structures are osteopenic. The bony thorax is grossly intact. IMPRESSION: 1. A 2-lead cardiac pacemaker has been placed as above. No pneumothorax is seen post procedure. 2. Cardiomegaly without definite radiographic evidence of congestive failure. 3. Multifocal airspace consolidation has modestly increased from yesterday. ACT 112: Negative or not required by law. Electronically signed by: Brandon William M.D. 06/16/2020 9:03 PM
[2020-06-17] MEDS: DOXYCYCLINE HYCLATE 100 MG in DEXTROSE 5% 100 ML IV SCH ×2 (00:48→12:02)
[2020-06-17] MEDS: HEPARIN SOD 5,000 UNIT/0.5 ML VIAL SQ SCH ×3 (05:50→20:44)
[2020-06-17] MEDS: LEVOTHYROXINE SODIUM 100 MCG TABLET PO SCH (05:50)
--- NOTE | 2020-06-17 06:40 | Electrocardiogram Report ---
Test Reason : Blood Pressure : / mmHG Vent. Rate : 081 BPM Atrial Rate : 081 BPM P-R Int : 262 ms QRS Dur : 086 ms QT Int : 360 ms P-R-T Axes : 000 -03 104 degrees QTc Int : 418 ms Atrial-paced rhythm with prolonged AV conduction Inferior infarct (cited on or before 07-MAR-2016) Abnormal ECG When compared with ECG of 15-JUN-2020 13:21, Electronic atrial pacemaker has replaced Sinus rhythm Confirmed by Walt Benson ([id number] on 06/17/2020 6:40:15 AM Referred By: REFERRED SELF Confirmed By:Walt Benson
[2020-06-17] MEDS: INSULIN ASPART 100 UNITS/ML 3 ML PEN SC SCH ×4 (08:24→20:44)
[2020-06-17] MEDS: cefTRIAXone SODIUM 2,000 MG in DEXTROSE 5% 50 ML IV SCH (09:21)
[2020-06-17 09:31] LABS: Hematocrit (blood only) 37.5 % (42-52); Hemoglobin 12.4 g/dL (14.0-18.0); Mean Corpuscular Hgb Conc 33.1 g/dL (32-36); Mean Corpuscular Volume 93.8 fL (80-100); Mean Platelet Volume 10.4 fL (7.4-10.4); Platelet Count 251 K/uL (130-400); RDW Coefficient of Variation 14.9 % (11.5-14.5); RDW Standard Deviation 50.1 fL (36.4-46.3); White Blood Count 10.12 K/uL (4.8-10.8)
[2020-06-17 09:52] LABS: BUN Creatinine Ratio 22.6 (10-20); Calcium 9.3 mg/dl (8.5-10.1); Est GFR (African American) 62.8; Est GFR (Non-African American) 54.2; Magnesium 1.9 mg/dl (1.8-2.4); Potassium 5.3 mmol/L (3.5-5.1)
--- NOTE | 2020-06-17 10:03 | Cardiology Progress Note ---
Date of Service June 17, 2020 Assessment & Plan (1) Tachy-jeffy syndrome: Successful placement of dual-chamber permanent pacemaker yesterday. No evident complication. Patient should keep the wound dry in the Steri-Strips intact until follow-up in our clinic next week for wound evaluation. We should attempt to keep him from lifting the left arm above the shoulder or behind the neck for 6 weeks in order to promote lead integrity. He did have 1 episode of SVT since implantation of his device. 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 This is not represent a concerning arrhythmia. I do not believe this requires systemic anticoagulation. He should continue his carvedilol. Doses can be escalated as his clinical condition improves and blood pressure improves. We can monitor the frequency of the events with his pacemaker. Once the lead integrity has been confirmed in a few weeks we can also activate atrial therapies. Admission and Anticipated Discharge Date Admission Date: June 14, 2020 Subjective Patient was resting quietly. Physical Exam Physical Exam: Examination of the device implant site is not reveal any evidence of hematoma. No drainage. No significant erythema or ecchymosis. Results & Data ([facility]) Vital Signs (Past 12 Hours) Vital Signs Temp Pulse Pulse Resp BP BP Pulse Ox 06/17/20 08:02 36.6 C 85 18 90/62 L 91 06/17/20 06:31 102 H 91/54 L 06/17/20 03:47 36.8 C 85 18 119/61 92 06/16/20 22:50 36.8 C 86 20 110/63 90 06/16/20 22:03 71 Diagnostic Findings Chest x-ray demonstrated good lead position without evidence of pneumothorax I performed a complete device interrogation of dual-chamber permanent pacemaker. Good function of both the atrial and ventricular leads.
--- NOTE | 2020-06-17 10:24 | XRay Report ---
XR chest 1V portable HISTORY: 80 years-old Male post pacer 06/17 status post placement of a left subclavian pacer COMPARISON: Chest radiograph 06/16/2020, chest CT 10/13/2019 TECHNIQUE: Semierect portable AP view the chest FINDINGS: 2-lead left subclavian pacer redemonstrated. The visualized leads appear intact. No pneumothorax. Car diomegaly with pulmonary vascular congestion. Bilateral peripheral predominant airspace opacities red emonstrated. Slightly improved aeration of the lateral left lung base. Emphysema. Degenerative change s of the shoulders and spine. IMPRESSION: 1. Cardiomegaly with pulmonary vascular congestion. 2. Interstitial coarsening with peripheral predominant airspace opacities redemonstrated suspicious f or an infectious or inflammatory pneumonitis. 3. Emphysema. ACT 112: Negative or not required by law. The above report was generated using voice recognition software. It may contain grammatical, syntax o r spelling errors. Electronically signed by: Henrik Lal M.D. 06/17/2020 10:23 AM
[2020-06-17] MEDS: carvediloL 6.25 MG TAB PO SCH ×2 (10:41→20:55)
[2020-06-17] MEDS: MULTIVITAMIN CHEWABLE TAB PO SCH (10:42)
[2020-06-17] MEDS: buPROPion SR 100 MG TABCR PO SCH ×2 (10:42→20:42)
[2020-06-17] MEDS: ASPIRIN 81 MG ECTAB PO SCH (10:42)
[2020-06-17] MEDS: allopurinoL 100 MG TAB PO SCH (10:42)
[2020-06-17] MEDS: CLOPIDOGREL BISULFATE 75 MG TAB PO SCH (10:42)
[2020-06-17] MEDS: UMECLIDINIUM BROMIDE 62.5MCG/BLISTER 7 PUFFS/INHALER INH SCH (10:42)
--- NOTE | 2020-06-17 18:39 | Electrocardiogram Report ---
Test Reason : Blood Pressure : / mmHG Vent. Rate : 148 BPM Atrial Rate : 141 BPM P-R Int : 000 ms QRS Dur : 098 ms QT Int : 288 ms P-R-T Axes : 000 023 196 degrees QTc Int : 452 ms Supraventricular tachycardia Inferior infarct (cited on or before 07-MAR-2016) Abnormal ECG When compared with ECG of 16-JUN-2020 12:57, Sinus rhythm has replaced Electronic atrial pacemaker Vent. rate has increased BY 67 BPM Criteria for Lateral infarct are no longer Present Nonspecific T wave abnormality now evident in Inferior leads Confirmed by Lucas Dickens ([id number] on 06/17/2020 6:39:00 PM Referred By: REFERRED SELF Confirmed By:Efrain Dickens
[2020-06-17] MEDS: TAMSULOSIN HCL 0.4 MG CAP PO SCH (20:42)
[2020-06-17] MEDS: ATORVASTATIN 40 MG TAB PO SCH (20:42)
[2020-06-17] MEDS: GABAPENTIN 300 MG CAP PO SCH (20:42)
[2020-06-17] MEDS: DULoxetine HCL 60 MG CAP PO SCH (20:42)
[2020-06-17] MEDS: NEPHROCAPS PO SCH (20:42)
--- NOTE | 2020-06-17 22:20 | Hospitalist Progress Note ---
Date of Service June 17, 2020 Assessment & Plan (1) Delirium: - On 06/17, is now drowsy, he received olazapine this AM. Remains in restraints. will transfer him to medical. Keep one to one try to remove restraints as he continues to recover. 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 also with sinus arrhythmia. * -- evidence of tachy-jeffy on monitor today * Cardiology consulted -- likely need for pacemaker (talks of need for this in the past), appreciate assistance * Continue to hold home carvedilol 3.125mg BID (considering switch to Toprol XL but holding off for now. HR up to 140s fib/flutter but back in sinus now) * ECHO with left ventricular size with low-normal systolic function. EF 50-55%. Hypokinesis of inferior and inferoseptal wall segments. Mild concentric left ventricular hypertrophy. No significant valvular abnormalities. Normal estimated RVSP. No prior study for comparison. * Checking TSH, pending * Continue to monitor on telemetry * - Got pacemaker on 06/[address] 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 Will not need anticoagulation on discharge. (3) Sinus bradycardia: * See above (4) Acute hypotension: * Holding carvedilol as above. BNP 371 * Also holding home lasix, isosorbide, lisinopril * BP improved to 116/72 * Continue to monitor (5) Acute kidney injury: Baseline Cr likely ~1.3 - 1.4, CKD stage III. * Follows with Ryne/Gian from Urology for BPH/hx bladder ca * Possibly creatinine 4.5 on discharge from [facility] per daughter at bedside but unsure how reliable this is. * Was 3.0 on admission * Held medications as above ("discharged on diuretic) * Cr improved to 1.35 by 06/16 * Will hold off aggressive rehydration given CXR findings and recent diagnosis of COVID-19 pneumonia (6) History of COVID-19: * CXR today with progression of moderate b/l airspace opacities c/w infectious process * Covering with Rocephin/Doxy IV * Sputum cx if able to produce * Incentive spirometer * Poor appetite and malnutrition remains. * Consult dietary for oral supplementation. * Eating/drinking well today * PT/OT consults ordered to see if need SNF at d/c -- daughter ok w rehab if that's what's needed (7) Diabetes mellitus: * HbA1c 7.8%. Hold home Januvia * NovoLog correction factor only * Goal BSG Range: Low 110 mg/dL, High 140 mg/dL * Correction Factor: 45 mg/dL/unit * BSGs ACHS if eating, q6h if npo * BSGs acceptable * Continue to monitor (8) Non compliance with medical treatment: * Suspected by admission provider due to likely not taking medication correctly prior to COVID-19 diagnosis therefore suspect he is overtreated. * D/c summary states d/c on supplemental O2 and diuretics? (9) Coronary artery disease: * Continue aspirin, clopidogrel, and atorvastatin. * Restarted carvedilol, lisinopril as above for hypotension/bradycardia * Reportedly follows with Dr. Velasquez -- unclear when he might have actually seen him though. * Not on any anticoagulation (10) Enlarged prostate with lower urinary tract symptoms (LUTS): * Continue tamsulosin 0.4 mg p.o. at bedtime (11) DVT prophylaxis: * SCDs * Hold heparin after procedure. Admission and Anticipated Discharge Date Admission Date: June 14, 2020 Subjective Patient is calm and cooperative. Review of Systems Review of Systems: All systems reviewed & are unremarkable except as noted in HPI & below Physical Exam Physical Exam: Constitutional: WD/WN, vitals as above, drowsy Eyes: EOM intact bilaterally; no conjunctival abnormality ENMT: external ear and nose normal, oropharynx normal Neck: trachea midline, no thyromegaly normal visual inspection Respiratory: normal respiratory effort, lungs clear to auscultation no re spiratory distress Cardiovascular: RRR, no murmur, no edema Chest (Breasts): Chest: + pacemaker (Bandage clean and without bleeding.) Gastrointestinal (Abdomen): Inspection/Auscultation: abdomen normal to inspection; abdomen not distended Musculoskeletal: no cyanosis or clubbing, extremities motor strength 5/5 Skin: no rashes, warm and dry Neurologic: moves all extremities and awake Psychiatric: drowsy, but follows commands Results & Data Results & Data ([facility]) Vital Signs (Past 12 Hours) Vital Signs Temp Pulse Resp BP BP BP Pulse Ox 06/17/20 20:53 37.2 C 98 H 144/78 H 94 06/17/20 15:36 36.6 C 96 H 16 133/81 91 06/17/20 11:18 36.6 C 101 H 18 88/49 L PG Care Time/CCT Total # of Minutes Spent Total Time Spent with Patient: Total time spent is greater than 50% in coordination of care (as documented) at patient's floor/unit and/or counseling patient: Coding Level of Care Code 26111 Subseq Hosp Care Lvl 3 Diagnoses Delirium R41.0 Tachy-jeffy syndrome I49.5 Sinus bradycardia R00.1 Acute hypotension I95.9 Acute kidney injury N17.9 History of COVID-19 Z86.16 Diabetes mellitus E11.9 Non compliance with medical treatment Z91.19 Coronary artery disease I25.10 Enlarged prostate with lower urinary tract symptoms (LUTS) N40.1 DVT prophylaxis Z29.9 Time Spent (min) 35
[2020-06-18] MEDS: DOXYCYCLINE HYCLATE 100 MG in DEXTROSE 5% 100 ML IV SCH ×2 (00:34→12:23)
[2020-06-18] MEDS: HEPARIN SOD 5,000 UNIT/0.5 ML VIAL SQ SCH ×3 (05:37→22:24)
[2020-06-18] MEDS: LEVOTHYROXINE SODIUM 100 MCG TABLET PO SCH (05:43)
[2020-06-18] MEDS: INSULIN ASPART 100 UNITS/ML 3 ML PEN SC SCH ×5 (08:32→21:05)
[2020-06-18] MEDS: cefTRIAXone SODIUM 2,000 MG in DEXTROSE 5% 50 ML IV SCH (09:01)
[2020-06-18] MEDS: carvediloL 6.25 MG TAB PO SCH ×2 (09:06→20:26)
[2020-06-18] MEDS: ASPIRIN 81 MG ECTAB PO SCH (09:06)
[2020-06-18] MEDS: UMECLIDINIUM BROMIDE 62.5MCG/BLISTER 7 PUFFS/INHALER INH SCH (09:07)
[2020-06-18] MEDS: MULTIVITAMIN CHEWABLE TAB PO SCH (09:07)
[2020-06-18] MEDS: allopurinoL 100 MG TAB PO SCH (09:07)
[2020-06-18] MEDS: CLOPIDOGREL BISULFATE 75 MG TAB PO SCH (09:08)
[2020-06-18] MEDS: buPROPion SR 100 MG TABCR PO SCH ×2 (09:08→20:45)
[2020-06-18] MEDS: ERGOCALCIFEROL 50,000 UNITS 1250 MCG CAP PO SCH (09:10)
[2020-06-18] MEDS ORDERED: carvediloL 3.125 MG TAB PO ONE (11:41)
--- NOTE | 2020-06-18 13:11 | Electrocardiogram Report ---
Test Reason : Blood Pressure : / mmHG Vent. Rate : 152 BPM Atrial Rate : 150 BPM P-R Int : 000 ms QRS Dur : 114 ms QT Int : 286 ms P-R-T Axes : 000 019 118 degrees QTc Int : 454 ms Supraventricular tachycardia Possible Inferior infarct (cited on or before 07-MAR-2016) Abnormal ECG When compared with ECG of 16-JUN-2020 19:53, Non-specific change in ST segment in Inferior leads Confirmed by Lucas Dickens ([id number]) on 06/18/2020 1:11:18 PM Referred By: REFERRED SELF Confirmed By:Efrain Dickens
[2020-06-18] MEDS: GABAPENTIN 300 MG CAP PO SCH (20:45)
[2020-06-18] MEDS: NEPHROCAPS PO SCH (20:46)
[2020-06-18] MEDS: ATORVASTATIN 40 MG TAB PO SCH (20:46)
[2020-06-18] MEDS: DULoxetine HCL 60 MG CAP PO SCH (20:46)
[2020-06-18] MEDS: TAMSULOSIN HCL 0.4 MG CAP PO SCH (20:46)
--- NOTE | 2020-06-18 23:02 | Hospitalist Progress Note ---
Date of Service June 18, 2020 Assessment & Plan (1) Delirium: - On 06/18, appeared to have resolved. -He received olazapine ON 06/18. Removed restraints. removed one to one. 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 also with sinus arrhythmia. * -- evidence of tachy-jeffy on monitor today * Cardiology consulted -- likely need for pacemaker (talks of need for this in the past), appreciate assistance * Continue to hold home carvedilol 3.125mg BID (considering switch to Toprol XL but holding off for now. HR up to 140s fib/flutter but back in sinus now) * ECHO with left ventricular size with low-normal systolic function. EF 50-55%. Hypokinesis of inferior and inferoseptal wall segments. Mild concentric left ventricular hypertrophy. No significant valvular abnormalities. Normal estimated RVSP. No prior study for comparison. * Checking TSH, pending * Continue to monitor on telemetry * - Got pacemaker on 06/[address] 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 Will not need anticoagulation on discharge. -Went into [facility] on 06/18, ordered an additional dose of carvedilol. -Likely occurred due to missing multiple doses of beta berry while confused. -will not increase dose at discharge unless, further medications are required. (3) Sinus bradycardia: * See above (4) Acute hypotension: * Holding carvedilol as above. BNP 371 * Also holding home lasix, isosorbide, lisinopril * BP is stable. * Continue to monitor (5) Acute kidney injury: Baseline Cr likely ~1.3 - 1.4, CKD stage III. * Follows with Cecil from Urology for BPH/hx bladder ca * Possibly creatinine 4.5 on discharge from [facility] per daughter at bedside but unsure how reliable this is. * Was 3.0 on admission * Held medications as above ("discharged on diuretic) * Cr improved to 1.35 by 06/16 * Will hold off aggressive rehydration given CXR findings and recent diagnosis of COVID-19 pneumonia (6) History of COVID-19: * CXR today with progression of moderate b/l airspace opacities c/w infectious process * Covering with Rocephin/Doxy IV * Sputum cx if able to produce * Incentive spirometer * Poor appetite and malnutrition remains. * Consult dietary for oral supplementation. * Eating/drinking well today * PT/OT consults ordered to see if need SNF at d/c -- daughter ok w rehab if that's what's needed (7) Diabetes mellitus: * HbA1c 7.8%. Hold home Januvia * NovoLog correction factor only * Goal BSG Range: Low 110 mg/dL, High 140 mg/dL * Correction Factor: 45 mg/dL/unit * BSGs ACHS if eating, q6h if npo * BSGs acceptable * Continue to monitor (8) Non compliance with medical treatment: * Suspected by admission provider due to likely not taking medication correctly prior to COVID-19 diagnosis therefore suspect he is overtreated. * D/c summary states d/c on supplemental O2 and diuretics? (9) Coronary artery disease: * Continue aspirin, clopidogrel, and atorvastatin. * Restarted carvedilol, lisinopril as above for hypotension/bradycardia * Reportedly follows with Dr. Velasquez -- unclear when he might have actually seen him though. * Not on any anticoagulation (10) Enlarged prostate with lower urinary tract symptoms (LUTS): * Continue tamsulosin 0.4 mg p.o. at bedtime (11) DVT prophylaxis: * SCDs * Hold heparin after procedure. Admission and Anticipated Discharge Date Admission Date: June 14, 2020 Subjective Patient is less confused. He is aware of his surroundings and is calm. He is asking to be discharged hopefully on Friday so he can take care of his 2 kittens. Review of Systems Review of Systems: All systems reviewed & are unremarkable except as noted in HPI & below Physical Exam Physical Exam: Constitutional: WD/WN, vitals as above, drowsy Eyes: EOM intact bilaterally; no conjunctival abnormality ENMT: external ear and nose normal, oropharynx normal Neck: trachea midline, no thyromegaly normal visual inspection Respiratory: normal respiratory effort, lungs clear to auscultation no respiratory distress Cardiovascular: RRR, no murmur, no edema Chest (Breasts): Chest: + pacemaker (Bandage clean and without bleeding.) Gastrointestinal (Abdomen): Inspection/Auscultation: abdomen normal to inspection; abdomen not distended Musculoskeletal: no cyanosis or clubbing, extremities motor strength 5/5 Skin: no rashes, warm and dry Neurologic: moves all extremities and awake Psychiatric: drowsy, but follows commands Results & Data Results & Data ([facility]) Vital Signs (Past 12 Hours) Vital Signs Temp Pulse Pulse Pulse Resp BP Pulse Ox 06/18/20 19:39 36.5 C 99 H 18 95/64 L 91 06/18/20 18:12 96 H 06/18/20 16:30 36.5 C 96 H 18 84/57 L 95 06/18/20 12:52 150 H 06/18/20 12:34 96 06/18/20 11:32 150 H PG Care Time/CCT Total # of Minutes Spent Total Time Spent with Patient: Total time spent is greater than 50% in coordination of care (as documented) at patient's floor/unit and/or counseling patient: Coding Level of Care Code 81123 Subseq Hosp Care Lvl 2 Diagnoses Delirium R41.0 Tachy-jeffy syndrome I49.5 Sinus bradycardia R00.1 Acute hypotension I95.9 Acute kidney injury N17.9 History of COVID-19 Z86.16 Diabetes mellitus E11.9 Non compliance with medical treatment Z91.19 Coronary artery disease I25.10 Enlarged prostate with lower urinary tract symptoms (LUTS) N40.1 DVT prophylaxis Z29.9 Time Spent (min) 25
[2020-06-19] MEDS: DOXYCYCLINE HYCLATE 100 MG in DEXTROSE 5% 100 ML IV SCH ×2 (00:34→12:34)
[2020-06-19] MEDS: HEPARIN SOD 5,000 UNIT/0.5 ML VIAL SQ SCH (05:59)
[2020-06-19] MEDS: LEVOTHYROXINE SODIUM 100 MCG TABLET PO SCH (06:02)
[2020-06-19] MEDS: carvediloL 6.25 MG TAB PO SCH ×2 (08:14→20:36)
[2020-06-19] MEDS: INSULIN ASPART 100 UNITS/ML 3 ML PEN SC SCH ×4 (08:14→20:41)
[2020-06-19] MEDS: ASPIRIN 81 MG ECTAB PO SCH (08:14)
[2020-06-19] MEDS: allopurinoL 100 MG TAB PO SCH (08:15)
[2020-06-19] MEDS: CLOPIDOGREL BISULFATE 75 MG TAB PO SCH (08:15)
[2020-06-19] MEDS: buPROPion SR 100 MG TABCR PO SCH ×2 (08:15→20:35)
[2020-06-19] MEDS: UMECLIDINIUM BROMIDE 62.5MCG/BLISTER 7 PUFFS/INHALER INH SCH (08:16)
[2020-06-19] MEDS: MULTIVITAMIN CHEWABLE TAB PO SCH (08:16)
[2020-06-19] MEDS: cefTRIAXone SODIUM 2,000 MG in DEXTROSE 5% 50 ML IV SCH (08:20)
[2020-06-19 09:57] LABS: D Dimer 6540 ug/L FEU (0-500)
[2020-06-19 10:01] LABS: BUN Creatinine Ratio 20.7 (10-20); C Reactive Protein 1.48 mg/dl (0-0.29); Calcium 9.3 mg/dl (8.5-10.1); Creatinine Clr Calc Pharmacy 34.8 ml/min; Est GFR (African American) 32.6; Est GFR (Non-African American) 28.2
[2020-06-19] MEDS ORDERED: Heparin IV Adult Wt-Based Standard *NO* Bolus Protocol IV SCH (10:12)
[2020-06-19 10:57] LABS: Partial Thromboplastin Ratio 1.3; Partial Thromboplastin Time 34.2 Seconds (21.0-31.0)
[2020-06-19 11:01] LABS: Basophils # (auto) 0.06 K/uL (0-0.2); Basophils % (auto) 0.4 %; Eosinophils # (auto) 0.54 K/uL (0-0.5); Hemoglobin 12.8 g/dL (14.0-18.0); Immature Granulocytes # (auto) 0.07 K/uL (0.00-0.02); Immature Granulocytes % (auto) 0.5 %; Lymphocytes # (auto) 2.82 K/uL (1.2-3.4); Lymphocytes % (auto) 20.8 %; Mean Corpuscular Hemoglobin 31.1 pg (25-34); Mean Corpuscular Volume 94.7 fL (80-100); Mean Platelet Volume 10.9 fL (7.4-10.4); Monocytes % (auto) 6.6 %; Neutrophils # (auto) 9.16 K/uL (1.4-6.5); Neutrophils % (auto) 67.7 %; Platelet Count 343 K/uL (130-400); RDW Coefficient of Variation 15.2 % (11.5-14.5); RDW Standard Deviation 51.9 fL (36.4-46.3); Red Blood Count 4.12 M/uL (4.7-6.1); White Blood Count 13.55 K/uL (4.8-10.8)
--- NOTE | 2020-06-19 11:09 | Hospitalist Progress Note ---
Date of Service June 19, 2020 Assessment & Plan (1) Bilateral pneumonia: uncertain if current cxr findings are left-over pneumonia findings from his COVID-19 in late May/early June, or if they represent a new, superimposed bacterial pneumonia process. his CRP and procal are both mildly elevated thus will cover for bacterial pneumonia. currently on rocephin/doxy. low threshold to broaden these to include gram negative coverage since he was hospitalized a few weeks ago at [facility] in [place] during his COVID illness. continue NC O2. ultimately needs CT chest w/ contrast to exclude PE given his markedly elevated d-dimer. 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 interrogation of pacemaker wnl. mainly being paced. carvedilol 6.25mg BID resumed. no a.fib/flutter seen. (3) Status cardiac pacemaker: 06/16/[address] Ernst Almaguer for tachy-jeffy syndrome. Tachycardia 2nd to AVNRT not a fib/flutter. Pacemaker site stable and w/o hematoma. Left arm restrictions. Continue sling. (4) Elevated d-dimer: Marked, in setting of COVID-19 infection late May 2020. Needs CTA to r/o PE. Cr too high today to obtain such. Dopplers of legs negative DVT. While awaiting CTA chest will place on empiric heparin drip. (5) Chronic respiratory failure with hypoxia: Hospitalized for COVID-19 pneumonia 05/26 to 06/01 at [facility] in [place]. d/c to home on NC O2 3 liters continuously. Remains on 3 L NC O2 and O2 sats are low 90s. see above re: d-dimer, pneumonia, etc. (6) Encephalopathy acute: suspect delirium/altered MS from pneumonia; can't rule out residual altered MS from recent COVID-19 infection. this has improved considerably. restraints now gone. no zyprexa since 06/17. (7) Acute kidney injury: Cr 0.9 at time of hospital discharge from [facility] on 06/01/20. Now 2.1, up from 1.2 about 48 hours ago. Hypotension, contrast dye for pacer placement, etc all could have contributed. Documented low BPs on 06/17 and 06/18. Patient appears euvolemic on exam today. Renal u/s obtained -- no obstruction seen. Check u/a for casts, etc. Repeat BMP am. cont to hold lisinopril, imdur, and lasix. (8) History of COVID-19: dx 05/26 at [facility]. Hospitalized 05/26 to 06/01 for such. d/c summary indicates steroids/remdesivir employed during his stay but oddly he was not d/c home on 5 more days of decadron. see above Re: elevated d-dimer, need for CTA, etc. remains on NC O2 3 liters continuously since his COVID diagnosis. (9) Coronary artery disease: h/o stents in past. echo with wall motion abnormalities. no ischemic symptoms at this time. remains on asa, statin, coreg, plavix. typically also on BAN, imdur, and lasix - all held due to MARTÍN. (10) COPD (chronic obstructive pulmonary disease): by history. cont home inhalers. no wheezing on exam today. 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 (12) Acute hypotension: at time of admission here on 06/14. then, low BPs recurred on 06/17 and 06/18. imdur, lasix, BAN on hold. remains on low-dose coreg and flomax. BPs have been improved since yesterday. (13) Diabetes mellitus: a1c 7.8%. typically on januvia only. this is on hold. cont novolog correction/carb coverage. (14) BPH (benign prostatic hyperplasia): cont flomax. renal u/s without obstruction. (15) Hypothyroidism: TSH this admission suppressed. had been taking 112mcg of synthroid daily. dose reduced to 100mcg daily. repeat TSH as outpatient in 6 weeks. (16) DVT prophylaxis: heparin drip PT, OT both stating he is unsafe to return home at this time daughter extensively updated by phone this evening Admission and Anticipated Discharge Date Admission Date: June 14, 2020 Subjective patient awake and alert during the visit. he was adamant about "having to go home and tend to his kittens." he denied any dyspnea or cough. denied any orthopnea. staff report no combativeness or severe delirium. ate well at breakfast - 100% consumed. tele overnight - no a.fib/flutter; brief run of narrow complex tachycardia yesterday. spoke with daughter by phone - she wants him ideally to come home at time of discharge. Review of Systems Constitutional: + fatigue; no fever and no anorexia Respiratory: no dyspnea and no dyspnea on exertion Cardiovascular: no chest pain and no edema Gastrointestinal: no abdominal pain Physical Exam Constitutional: + altered mental status (Mild confusion noted); no acute distress ENMT: external ear and nose normal, oropharynx normal Respiratory: no respiratory distress Auscultation: + crackles; no wheezes Cardiovascular: Rate/Rhythm: regular rate and regular rhythm Heart Sounds: normal S1 and normal S2 Vessels: posterior tibial pulses present and dorsalis pedis pulses present; no JVD Extremities: no edema Chest (Breasts): Chest: + pacemaker (Left upper chest - dressing intact, no hematoma) Gastrointestinal (Abdomen): normal bowel sounds, soft, nontender, no hepatosplenomegaly Psychiatric: Orientation: alert, oriented to person and oriented to place; + not oriented to time Results & Data Results & Data ([facility]) Vital Signs (Past 12 Hours) Vital Signs Temp Pulse Pulse Resp BP BP Pulse Ox 06/19/20 08:30 37.0 C 87 20 159/60 H 93 06/19/20 07:33 88 06/19/20 03:50 36.9 C 72 18 124/80 93 06/18/20 23:38 97 H Laboratory Results Laboratory Results - last 24 hr 06/18/20 06/18/20 06/18/20 12:05 17:25 20:06 WBC RBC Hgb Hct MCV MCH MCHC RDW Std Deviation RDW Coeff of Kayla Plt Count MPV Immature Gran % (Auto) Neut % (Auto) Lymph % (Auto) Marshall % (Auto) Eos % (Auto) Baso % (Auto) Neut # (Auto) Lymph # (Auto) Marshall # (Auto) Eos # (Auto) Baso # (Auto) Immature Gran # (Auto) APTT PTT Ratio D-Dimer Sodium Potassium Chloride Carbon Dioxide Anion Gap BUN Creatinine Est Cr Clr Drug Dosing Est GFR ( Amer) Est GFR (Non-Af Amer) BUN/Creatinine Ratio Glucose POC Glucose 187 H 132 H 122 H Calcium C-Reactive Protein Vitamin B12 Procalcitonin 06/19/20 06/19/2006/19/21 07:36 09:12 09:12 WBC RBC Hgb Hct MCV MCH MCHC RDW Std Deviation RDW Coeff of Kayla Plt Count MPV Immature Gran % (Auto) Neut % (Auto) Lymph % (Auto) Marshall % (Auto) Eos % (Auto) Baso % (Auto) Neut # (Auto) Lymph # (Auto) Marshall # (Auto) Eos # (Auto) Baso # (Auto) Immature Gran # (Auto) APTT PTT Ratio D-Dimer Sodium 137 Potassium 5.0 Chloride 103 Carbon Dioxide 26 Anion Gap 8.0 BUN 44 H D Creatinine 2.13 H D Est Cr Clr Drug Dosing 34.8 Est GFR ( Amer) 32.6 Est GFR (Non-Af Amer) 28.2 BUN/Creatinine Ratio 20.7 H Glucose 163 H POC Glucose 102 H Calcium 9.3 C-Reactive Protein 1.48 H Vitamin B12 Procalcitonin 0.55 H 06/19/20 06/19/20 06/19/20 09:12 09:12 09:12 WBC 13.55 H RBC 4.12 L Hgb 12.8 L Hct 39.0 L MCV 94.7 MCH 31.1 MCHC Pending RDW Std Deviation 51.9 H RDW Coeff of Kayla 15.2 H Plt Count 343 MPV 10.9 H Immature Gran % (Auto) 0.5 Neut % (Auto) 67.7 Lymph % (Auto) 20.8 Marshall % (Auto) 6.6 Eos % (Auto) 4.0 Baso % (Auto) 0.4 Neut # (Auto) 9.16 H Lymph # (Auto) 2.82 Marshall # (Auto) 0.90 H Eos # (Auto) 0.54 H Baso # (Auto) 0.06 Immature Gran # (Auto) 0.07 H APTT PTT Ratio D-Dimer 6540 H* Sodium Potassium Chloride Carbon Dioxide Anion Gap BUN Creatinine Est Cr Clr Drug Dosing Est GFR ( Amer) Est GFR (Non-Af Amer) BUN/Creatinine Ratio Glucose POC Glucose Calcium C-Reactive Protein Vitamin B12 737 Procalcitonin 06/19/20 09:12 WBC RBC Hgb Hct MCV MCH MCHC RDW Std Deviation RDW Coeff of Kayla Plt Count MPV Immature Gran % (Auto) Neut % (Auto) Lymph % (Auto) Marshall % (Auto) Eos % (Auto) Baso % (Auto) Neut # (Auto) Lymph # (Auto) Marshall # (Auto) Eos # (Auto) Baso # (Auto) Immature Gran # (Auto) APTT 34.2 H PTT Ratio 1.3 D-Dimer Sodium Potassium Chloride Carbon Dioxide Anion Gap BUN Creatinine Est Cr Clr Drug Dosing Est GFR ( Amer) Est GFR (Non-Af Amer) BUN/Creatinine Ratio Glucose POC Glucose Calcium C-Reactive Protein Vitamin B12 Procalcitonin PG Care Time/CCT Total # of Minutes Spent Total Time Spent with Patient: Total time spent is greater than 50% in coordination of care (as documented) at patient's floor/unit and/or counseling patient: Coding Level of Care Code 22786 Subseq Hosp Care Lvl 3 Diagnoses Bilateral pneumonia J18.9 AVNRT (AV daniela re-entry tachycardia) I47.1 Status cardiac pacemaker Z95.0 Elevated d-dimer R79.89 Chronic respiratory failure with hypoxia J96.11 Encephalopathy acute G93.40 Acute kidney injury N17.9 History of COVID-19 Z86.16 Coronary artery disease I25.10 COPD (chronic obstructive pulmonary disease) J44.9 Tachy-jeffy syndrome I49.5 Acute hypotension I95.9 Diabetes mellitus E11.9 BPH (benign prostatic hyperplasia) N40.0 Hypothyroidism E03.9 DVT prophylaxis Z29.9
[2020-06-19 11:30] LABS: Mean Corpuscular Hgb Conc 32.8 g/dL (32-36)
[2020-06-19] MEDS: HEPARIN SODIUM/DEXTROSE 25,000 UNITS/500 ML BAG IV SCH (11:55)
--- NOTE | 2020-06-19 14:20 | Ultrasound Report ---
BILATERAL LOWER EXTREMITY VENOUS DOPPLER HISTORY: Hypercoagulable state. elevated d-dimer, recent COVID;eval DVT COMPARISON STUDY: None. FINDINGS: There is normal compressibility, flow, and augmentation within the bilateral lower extremit y deep venous systems. A single prominent left inguinal lymph node measuring 2.7 x 1.2 x 2.0 cm. IMPRESSION: No DVT within the right or left lower extremity. A single mildly enlarged left inguinal lymph node. ACT 112: Negative or not required by law. Electronically signed by: Alistair Mackey M.D. 06/19/2020 2:19 PM
--- NOTE | 2020-06-19 14:40 | Ultrasound Report ---
EXAMINATION: RENAL ULTRASOUND CLINICAL HISTORY: acute renal failure; eval obstruction COMPARISON STUDY: CT scan dated 09/22/2019 FINDINGS: The right kidney measures 7.4 cm. The left kidney measures 10.5 cm. There is no evidence o f hydronephrosis. There is bilateral renal cortical thinning. No solid renal masses are visualized. The bladder was not well distended. Neither ureteral jet was visualized. IMPRESSION : 1. Bilateral renal cortical thinning 2. No evidence of hydronephrosis ACT 112: Negative or not required by law. Electronically signed by: Reji Hurt M.D. 06/19/2020 2:39 PM
--- NOTE | 2020-06-19 17:24 | Cardiology Progress Note ---
Date of Service June 19, 2020 Assessment & Plan (1) Tachy-jeffy syndrome: He has atrial preference pacing activated which will pace the atrium 100% of the time. No tachycardia episodes today. He did have some yesterday. Apparently asymptomatic. These episodes appear to be reentrant in nature likely AVNRT. Certainly not dangerous in any regard should he have additional episodes they can likely be terminated with vagal maneuvers. An extra dose of beta berry would also be reasonable intervention. In the circumstances the tachycardia can simply be observed in the absence of any hemodynamic embarrassment or symptoms. I would continue his current dose of carvedilol. Admission and Anticipated Discharge Date Admission Date: June 14, 2020 Subjective The patient did not report any specific complaints other than difficulty with ambulation due to orthopedic problems. He denies any pain at the device implant site. Denied having any sense of palpitations or elevated heart rates recently. Physical Exam Physical Exam: Device implant site bandage. No ecchymosis or swelling. Results & Data ([facility]) Vital Signs (Past 12 Hours) Vital Signs Temp Pulse Pulse Resp BP BP Pulse Ox 06/19/20 15:23 36.9 C 103 H 22 103/65 92 06/19/20 14:51 87 06/19/20 12:09 37.2 C 92 H 20 126/75 91 06/19/20 08:30 37.0 C 87 20 159/60 H 93 06/19/20 07:33 88
[2020-06-19 18:40] LABS: Partial Thromboplastin Ratio 2.7
[2020-06-19 18:45] LABS: Partial Thromboplastin Time 70.9 Seconds (21.0-31.0)
[2020-06-19] MEDS: NEPHROCAPS PO SCH (20:35)
[2020-06-19] MEDS: GABAPENTIN 300 MG CAP PO SCH (20:35)
[2020-06-19] MEDS: DULoxetine HCL 60 MG CAP PO SCH (20:36)
[2020-06-19] MEDS: ATORVASTATIN 40 MG TAB PO SCH (20:36)
[2020-06-19] MEDS: TAMSULOSIN HCL 0.4 MG CAP PO SCH (20:36)
[2020-06-20] MEDS: DOXYCYCLINE HYCLATE 100 MG in DEXTROSE 5% 100 ML IV SCH ×2 (00:25→12:06)
[2020-06-20 01:24] LABS: Partial Thromboplastin Time 132.1 Seconds (21.0-31.0)
[2020-06-20] MEDS: HEPARIN SODIUM/DEXTROSE 25,000 UNITS/500 ML BAG IV SCH ×2 (03:58→22:15)
[2020-06-20] MEDS: LEVOTHYROXINE SODIUM 100 MCG TABLET PO SCH (05:48)
[2020-06-20 07:21] LABS: Basophils # (auto) 0.04 K/uL (0-0.2); Basophils % (auto) 0.4 %; Eosinophils # (auto) 0.48 K/uL (0-0.5); Eosinophils % (auto) 4.5 %; Hematocrit (blood only) 35.6 % (42-52); Hemoglobin 11.6 g/dL (14.0-18.0); Immature Granulocytes # (auto) 0.05 K/uL (0.00-0.02); Immature Granulocytes % (auto) 0.5 %; Lymphocytes % (auto) 19.8 %; Mean Corpuscular Hemoglobin 30.4 pg (25-34); Mean Corpuscular Hgb Conc 32.6 g/dL (32-36); Mean Corpuscular Volume 93.2 fL (80-100); Mean Platelet Volume 10.7 fL (7.4-10.4); Monocytes # (auto) 0.92 K/uL (0.11-0.59); Monocytes % (auto) 8.7 %; Neutrophils # (auto) 7.01 K/uL (1.4-6.5); Neutrophils % (auto) 66.1 %; Platelet Count 261 K/uL (130-400); RDW Coefficient of Variation 15.3 % (11.5-14.5); Red Blood Count 3.82 M/uL (4.7-6.1)
[2020-06-20 07:46] LABS: Partial Thromboplastin Time 53.2 Seconds (21.0-31.0)
[2020-06-20] MEDS: allopurinoL 100 MG TAB PO SCH (07:59)
[2020-06-20] MEDS: MULTIVITAMIN CHEWABLE TAB PO SCH (07:59)
[2020-06-20] MEDS: CLOPIDOGREL BISULFATE 75 MG TAB PO SCH (07:59)
[2020-06-20] MEDS: ASPIRIN 81 MG ECTAB PO SCH (07:59)
[2020-06-20] MEDS: UMECLIDINIUM BROMIDE 62.5MCG/BLISTER 7 PUFFS/INHALER INH SCH (07:59)
[2020-06-20] MEDS: carvediloL 6.25 MG TAB PO SCH ×2 (08:00→20:57)
[2020-06-20] MEDS: buPROPion SR 100 MG TABCR PO SCH ×2 (08:00→20:57)
[2020-06-20] MEDS: INSULIN ASPART 100 UNITS/ML 3 ML PEN SC SCH ×4 (08:01→22:11)
[2020-06-20 08:04] LABS: BUN Creatinine Ratio 25.1 (10-20); Calcium 9.5 mg/dl (8.5-10.1); Creatinine Clr Calc Pharmacy 42.2 ml/min; Est GFR (African American) 41.1; Est GFR (Non-African American) 35.5
[2020-06-20] MEDS: cefTRIAXone SODIUM 2,000 MG in DEXTROSE 5% 50 ML IV SCH (08:45)
[2020-06-20 10:27] LABS: Partial Thromboplastin Ratio 2.4
[2020-06-20 10:29] LABS: Partial Thromboplastin Time 63.1 Seconds (21.0-31.0)
[2020-06-20 15:46] LABS: Appearance Urine Clear (Clear); Bilirubin Urine Negative (Negative); Blood Urine Negative (Negative); Color Urine Dark Yellow; Glucose Urine UA Negative (Negative); Ketones Urine Trace (Negative); Leukocyte Esterase Urine Negative (Negative); Nitrite Urine Negative (Negative); Protein Urine Negative (Negative); Specific Gravity Urine 1.024 (1.000-1.030); Urobilinogen Urine Negative (Negative)
--- NOTE | 2020-06-20 19:14 | Hospitalist Progress Note ---
Date of Service June 20, 2020 Assessment & Plan (1) Bilateral pneumonia: uncertain if current cxr findings are left-over pneumonia findings from his COVID-19 in late May/early June, or if they represent a new, superimposed bacterial pneumonia process. his CRP and procal are both mildly elevated thus will cover for bacterial pneumonia. currently on rocephin/doxy. low threshold to broaden these to include gram negative coverage since he was hospitalized a few weeks ago at [facility] in [place] during his COVID illness. defer on such for now. continue NC O2. ultimately needs CT chest w/ contrast to exclude PE given his markedly elevated d-dimer. hopefully will be able to obtain tomorrow. 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 interrogation of pacemaker wnl. mainly being paced. carvedilol 6.25mg BID resumed. no a.fib/flutter seen. (3) Status cardiac pacemaker: 06/16/[address] Ernst Almaguer for tachy-jeffy syndrome. Tachycardia 2nd to AVNRT not a fib/flutter. Pacemaker site stable and w/o hematoma in setting of IV heparin. Left arm restrictions. Continue sling. (4) Elevated d-dimer: Marked, in setting of COVID-19 infection late May 2020. Needs CTA to r/o PE. Cr still too high today to obtain such. Dopplers of legs negative DVT. While awaiting CTA chest cont empiric heparin drip. (5) Chronic respiratory failure with hypoxia: Hospitalized for COVID-19 pneumonia 05/26 to 06/01 at [facility] in [place]. d/c to home on NC O2 3 liters continuously. Remains on 3 L NC O2 and O2 sats are low 90s. see above re: d-dimer, pneumonia, etc. (6) Encephalopathy acute: METABOLIC. Likely 2nd pneumonia; can't rule out residual altered MS from recent COVID-19 infection. this has improved considerably but did need a dose of zyprexa this am. restraints d/c. seems to be overly sedated from the 5mg dose of zyprexa - will lower PO dose to 2.5mg prn. (7) Acute kidney injury: Cr 0.9 at time of hospital discharge from [facility] on 06/01/20. Peak 2.1, now 1.7. Hypotension, contrast dye for pacer placement, etc all could have contributed. Documented low BPs on 06/17 and 06/18. Renal u/s obtained -- no obstruction seen. ua bland / no casts. repeat BMP am. cont to hold lisinopril, imdur, and lasix. (8) History of COVID-19: dx 05/26 at [facility]. Hospitalized 05/26 to 06/01 for such. d/c summary indicates steroids/remdesivir employed during his stay but oddly he was not d/c home on 5 more days of decadron. see above Re: elevated d-dimer, need for CTA, etc. remains on NC O2 3 liters continuously since his COVID diagnosis. hopefully CTA chest tomorrow. (9) Coronary artery disease: h/o stents in past. echo with wall motion abnormalities. no ischemic symptoms at this time. remains on asa, statin, coreg, plavix. typically also on BAN, imdur, and lasix - all held due to MARTÍN. (10) COPD (chronic obstructive pulmonary disease): by history. cont home inhalers. no wheezing on exam today. 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 (12) Acute hypotension: at time of admission here on 06/14. then, low BPs recurred on 06/17 and 06/18. imdur, lasix, BAN on hold. remains on low-dose coreg and flomax. tolerating these. (13) Diabetes mellitus: a1c 7.8%. controlled. typically on januvia only. this is on hold. cont novolog correction/carb coverage. (14) BPH (benign prostatic hyperplasia): cont flomax. renal u/s without obstruction. (15) Hypothyroidism: TSH this admission suppressed. had been taking 112mcg of synthroid daily. dose reduced to 100mcg daily. repeat TSH as outpatient in 6 weeks. (16) DVT prophylaxis: heparin drip PT, OT both stating he is unsafe to return home at this time needs rehab daughter extensively updated by phone yesterday evening Admission and Anticipated Discharge Date Admission Date: June 14, 2020 Subjective patient denies any new complaints except for feeling tired today did not eat breakfast - just wasn't hungry was sleepy during the visit today no new issues per staff confused at times but not combative or agitated tele stable overnight Review of Systems Constitutional: + fatigue and + weakness; no fever Respiratory: + cough (minimal ); no sputum production Cardiovascular: no chest pain Physical Exam Constitutional: + altered mental status (ongoing mild confusion); no acute distress ENMT: external ear and nose normal, oropharynx normal Respiratory: no respiratory distress Auscultation: + crackles (bases); no wheezes Cardiovascular: Rate/Rhythm: regular rate and regular rhythm Heart Sounds: normal S1 and normal S2 Vessels: posterior tibial pulses present and dorsalis pedis pulses present; no JVD Extremities: no edema Chest (Breasts): Chest: + pacemaker (Left upper chest - dressing intact, no hematoma) Gastrointestinal (Abdomen): normal bowel sounds, soft, nontender, no hepatosplenomegaly Psychiatric: Orientation: alert, oriented to person and oriented to place; + not oriented to time Results & Data Results & Data ([facility]) Vital Signs (Past 12 Hours) Vital Signs Temp Pulse Pulse Resp BP Pulse Ox 06/20/20 15:32 36.9 C 76 18 114/70 92 06/20/20 14:55 63 06/20/20 11:39 36.8 C 73 19 142/57 H 91 06/20/20 07:32 96 H 06/20/20 07:19 37 C 81 16 129/72 92 Laboratory Results Laboratory Results - last 24 hr 06/19/20 06/20/20 06/20/20 19:59 00:37 06:51 WBC 10.60 RBC 3.82 L Hgb 11.6 L Hct 35.6 L MCV 93.2 MCH 30.4 MCHC 32.6 RDW Std Deviation 51.0 H RDW Coeff of Kayla 15.3 H Plt Count 261 MPV 10.7 H Immature Gran % (Auto) 0.5 Neut % (Auto) 66.1 Lymph % (Auto) 19.8 [place] % (Auto) 8.7 Eos % (Auto) 4.5 Baso % (Auto) 0.4 Neut # (Auto) 7.01 H Lymph # (Auto) 2.10 [place] # (Auto) 0.92 H Eos # (Auto) 0.48 Baso # (Auto) 0.04 Immature Gran # (Auto) 0.05 H APTT 132.1 H* PTT Ratio 5.0 Sodium Potassium Chloride Carbon Dioxide Anion Gap BUN Creatinine Est Cr Clr Drug Dosing Est GFR ( Amer) Est GFR (Non-Af Amer) BUN/Creatinine Ratio Glucose POC Glucose 161 H Calcium Urine Color Urine Appearance Urine pH Ur Specific [place] Urine Protein Urine Glucose (UA) Urine Ketones Urine Blood Urine Nitrite Urine Bilirubin Urine Urobilinogen Ur Leukocyte Esterase 06/20/20 06/20/20 06/20/20 06:51 06:51 07:47 WBC RBC Hgb Hct MCV MCH MCHC RDW Std Deviation RDW Coeff of Kayla Plt Count MPV Immature Gran % (Auto) Neut % (Auto) Lymph % (Auto) [place] % (Auto) Eos % (Auto) Baso % (Auto) Neut # (Auto) Lymph # (Auto) [place] # (Auto) Eos # (Auto) Baso # (Auto) Immature Gran # (Auto) APTT 53.2 H* PTT Ratio 2.0 Sodium 134 L Potassium 4.0 D Chloride 104 Carbon Dioxide 21 Anion Gap 10.0 BUN 44 H Creatinine 1.76 H D Est Cr Clr Drug Dosing 42.2 Est GFR ( Amer) 41.1 Est GFR (Non-Af Amer) 35.5 BUN/Creatinine Ratio 25.1 H Glucose 120 H POC Glucose 131 H Calcium 9.5 Urine Color Urine Appearance Urine pH Ur Specific [place] Urine Protein Urine Glucose (UA) Urine Ketones Urine Blood Urine Nitrite Urine Bilirubin Urine Urobilinogen Ur Leukocyte Esterase 06/20/20 06/20/20 06/20/20 09:36 16:47 Unknown WBC RBC Hgb Hct MCV MCH MCHC RDW Std Deviation RDW Coeff of Kayla Plt Count MPV Immature Gran % (Auto) Neut % (Auto) Lymph % (Auto) [place] % (Auto) Eos % (Auto) Baso % (Auto) Neut # (Auto) Lymph # (Auto) [place] # (Auto) Eos # (Auto) Baso # (Auto) Immature Gran # (Auto) APTT 63.1 H* PTT Ratio 2.4 Sodium Potassium Chloride Carbon Dioxide Anion Gap BUN Creatinine Est Cr Clr Drug Dosing Est GFR ( Amer) Est GFR (Non-Af Amer) BUN/Creatinine Ratio Glucose POC Glucose 151 H Calcium Urine Color Dark Yellow Urine Appearance Clear Urine pH 5.0 Ur Specific [place] 1.024 Urine Protein Negative Urine Glucose (UA) Negative Urine Ketones Trace H Urine Blood Negative Urine Nitrite Negative Urine Bilirubin Negative Urine Urobilinogen Negative Ur Leukocyte Esterase Negative PG Care Time/CCT Total # of Minutes Spent Total Time Spent with Patient: Total time spent is greater than 50% in coordination of care (as documented) at patient's floor/unit and/or counseling patient: Coding Level of Care Code 59382 Subseq Hosp Care Lvl 3 Diagnoses Bilateral pneumonia J18.9 AVNRT (AV daniela re-entry tachycardia) I47.1 Status cardiac pacemaker Z95.0 Elevated d-dimer R79.89 Chronic respiratory failure with hypoxia J96.11 Encephalopathy acute G93.40 Acute kidney injury N17.9 History of COVID-19 Z86.16 Coronary artery disease I25.10 COPD (chronic obstructive pulmonary disease) J44.9 Tachy-jeffy syndrome I49.5 Acute hypotension I95.9 Diabetes mellitus E11.9 BPH (benign prostatic hyperplasia) N40.0 Hypothyroidism E03.9 DVT prophylaxis Z29.9
[2020-06-20] MEDS: TAMSULOSIN HCL 0.4 MG CAP PO SCH (20:56)
[2020-06-20] MEDS: NEPHROCAPS PO SCH (20:56)
[2020-06-20] MEDS: DULoxetine HCL 60 MG CAP PO SCH (20:56)
[2020-06-20] MEDS: GABAPENTIN 300 MG CAP PO SCH (20:57)
[2020-06-20] MEDS: ATORVASTATIN 40 MG TAB PO SCH (20:57)
[2020-06-21] MEDS: DOXYCYCLINE HYCLATE 100 MG in DEXTROSE 5% 100 ML IV SCH (00:20)
[2020-06-21] MEDS: LEVOTHYROXINE SODIUM 100 MCG TABLET PO SCH (05:51)
[2020-06-21] MEDS: INSULIN ASPART 100 UNITS/ML 3 ML PEN SC SCH ×4 (07:53→22:04)
[2020-06-21] MEDS: CLOPIDOGREL BISULFATE 75 MG TAB PO SCH (07:54)
[2020-06-21] MEDS: cefTRIAXone SODIUM 2,000 MG in DEXTROSE 5% 50 ML IV SCH (07:54)
[2020-06-21] MEDS: UMECLIDINIUM BROMIDE 62.5MCG/BLISTER 7 PUFFS/INHALER INH SCH (07:56)
[2020-06-21] MEDS: MULTIVITAMIN CHEWABLE TAB PO SCH (07:57)
[2020-06-21] MEDS: allopurinoL 100 MG TAB PO SCH (07:57)
[2020-06-21] MEDS: buPROPion SR 100 MG TABCR PO SCH ×2 (07:58→20:23)
[2020-06-21] MEDS: ASPIRIN 81 MG ECTAB PO SCH (07:58)
[2020-06-21] MEDS: carvediloL 6.25 MG TAB PO SCH ×2 (07:59→20:23)
[2020-06-21 08:23] LABS: Partial Thromboplastin Ratio 2.2
[2020-06-21 08:35] LABS: Partial Thromboplastin Time 56.6 Seconds (21.0-31.0)
[2020-06-21 08:46] LABS: BUN Creatinine Ratio 25.5 (10-20); Calcium 9.5 mg/dl (8.5-10.1); Creatinine Clr Calc Pharmacy 52.4 ml/min; Est GFR (African American) 52.9; Est GFR (Non-African American) 45.6; Potassium 4.3 mmol/L (3.5-5.1)
[2020-06-21] MEDS ORDERED: DOXYCYCLINE HYCLATE 100 MG CAP PO STA (09:10)
[2020-06-21] MEDS ORDERED: OLANZAPINE 2.5 MG TAB PO PRN (09:15)
[2020-06-21] MEDS ORDERED: OPTIRAY 350 500ml IV ONE (11:18)
--- NOTE | 2020-06-21 11:58 | CT Scan Report ---
CHEST CTA for PULMONARY ARTERIES CT DOSE: 912.54 mGy.cm HISTORY: recent COVID-19, hypoxic, marked elevation d-dimer TECHNIQUE: Multiaxial CT images of the chest were performed following the intravenous administration of contrast to evaluate the pulmonary arteries. Maximal intensity projection images were also obtaine d. A dose lowering technique was utilized adhering to the principles of ALARA. COMPARISON STUDY: Chest CT 10/13/2019. FINDINGS: Normal caliber thoracic aorta with no evidence for dissection. Moderate atherosclerotic hernán que within the aortic arch and descending thoracic aorta, unchanged. The heart is normal in size. No pleural or pericardial effusions. Left-sided pacemaker. No filling defects within the pulmonary arter ies to suggest pulmonary embolus. A few mildly enlarged mediastinal bilateral hilar lymph nodes. Thes e have slightly increased in size. Dominant left hilar lymph node measures 12 mm. This is likely reac tive. Limited views of the upper abdomen demonstrate a normal spleen and adrenal glands. There is a c oarse calcification within the right hepatic dome. No pleural or pericardial effusions. No suspicious lytic or blastic osseous lesions. Old, healed right posterior rib fractures. No pneumothorax. Trace mucoid material within the right mainstem bronchus. Mild emphysema. Stable 1 cm nodule within the lef t lower lobe in image 122. Mild bronchial wall thickening. Progressive peripheral groundglass airspac e opacities with subpleural reticulation. Findings favor a viral pneumonia. Developing fibrotic darden e could also have a similar appearance. IMPRESSION: 1. No evidence for pulmonary embolus. 2. Peripheral groundglass airspace opacities with subpleural reticulation. This most likely represent s a moderate viral pneumonia. Developing fibrotic change could also have a similar appearance. 3. Mild emphysema. 4. Stable 1 cm left lower lobe nodule. One year chest CT follow up recommended to ensure stability. ACT 112: Positive. There are findings on this exam that require communication between the performing entity and the patient following Patient Test Result Information Act ([place] Act 112) guidelines. Electronically signed by: Alistair Mackey M.D. 06/21/2020 11:57 AM
[2020-06-21] MEDS ORDERED: SODIUM CHLORIDE 0.9% 500 ML IV SCH (12:30)
[2020-06-21] MEDS: ATORVASTATIN 40 MG TAB PO SCH (20:22)
[2020-06-21] MEDS: DULoxetine HCL 60 MG CAP PO SCH (20:23)
[2020-06-21] MEDS: DOXYCYCLINE HYCLATE 100 MG CAP PO SCH (20:23)
[2020-06-21] MEDS: NEPHROCAPS PO SCH (20:24)
[2020-06-21] MEDS: TAMSULOSIN HCL 0.4 MG CAP PO SCH (20:24)
[2020-06-21] MEDS: GABAPENTIN 300 MG CAP PO SCH (20:24)
[2020-06-21] MEDS ORDERED: OLANZAPINE 2.5 MG TAB PO SCH (21:00)
--- NOTE | 2020-06-21 22:55 | Hospitalist Progress Note ---
Date of Service June 21, 2020 Assessment & Plan (1) Bilateral pneumonia: likely has been all due to residual COVID-19 infection. CTA chest today with classic appearing groundglass infiltrates c/w COVID, initial dx late May. did receive 7 days each of rocephin and doxy to cover for bacterial pneumonia. at this point he is in recovery phase from mod-severe COVID-19 infection. cont NC O2. 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 interrogation of pacemaker wnl. mainly being paced. carvedilol 6.25mg BID resumed and tolerated. no a.fib/flutter seen. (3) Status cardiac pacemaker: 06/16/[address] Ernst Almaguer for tachy-jeffy syndrome. Tachycardia 2nd to AVNRT not a fib/flutter. Pacemaker site stable and w/o hematoma in setting of IV heparin. latter to be d/c today. Left arm restrictions. Continue sling. (4) Elevated d-dimer: Marked, in setting of COVID-19 infection late May 2020. CTA w/o PE today -- thus the dimer itself was simply reflective of significant COVID inflammatory response. Dopplers of legs negative DVT. STOP empiric heparin drip today. (5) Chronic respiratory failure with hypoxia: Hospitalized for COVID-19 pneumonia 05/26 to 06/01 at [facility] in [place]. d/c to home on NC O2 3 liters continuously. Remains on 3 L NC O2 with stable O2 sats. see above re: d-dimer, pneumonia, etc. (6) Encephalopathy acute: METABOLIC. Suspect he may have chronic, mild cognitive impairment vs dementia. Then, he got COVID and has had worsening metabolic encephalopathy/delirium since then. will obtain CT head to r/o subacute CVA and other pathology. Previous b12/TSH wnl. Schedule zyprexa 2.5mg at HS due to agitation and confusion. (7) Acute kidney injury: Cr 0.9 at time of hospital discharge from [facility] on 06/01/20. Peak 2.1, now 1.4 - just about baseline. Hypotension, contrast dye for pacer placement, etc all could have contributed to MARTÍN. Documented low BPs on 06/17 and 06/18. Renal u/s obtained -- no obstruction seen. ua bland / no casts. repeat BMP am. cont to hold lisinopril, imdur, and lasix. (8) History of COVID-19: dx 05/26 at [facility]. Hospitalized 05/26 to 06/01 for such. d/c summary indicates steroids/remdesivir employed during his stay but oddly he was not d/c home on 5 more days of decadron. remains on NC O2 3 liters continuously since his COVID diagnosis. CTA chest today neg for PE. (9) Coronary artery disease: h/o stents in past. echo with wall motion abnormalities. no ischemic symptoms at this time. remains on asa, statin, coreg, plavix. typically also on BAN, imdur, and lasix - all held due to MARTÍN and low BPs. (10) COPD (chronic obstructive pulmonary disease): by history. cont home inhalers. no wheezing on exam today. emphysema changes on CT. 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 (12) Acute hypotension: at time of admission here on 06/14. then, low BPs recurred on 06/17 and 06/18. imdur, lasix, BAN on hold. remains on low-dose coreg and flomax. tolerating these. (13) Diabetes mellitus: a1c 7.8%. controlled. typically on januvia only. this is on hold. cont novolog correction/carb coverage. (14) BPH (benign prostatic hyperplasia): cont flomax. renal u/s without obstruction. (15) Hypothyroidism: TSH this admission suppressed. had been taking 112mcg of synthroid daily. dose reduced to 100mcg daily. repeat TSH as outpatient in 6 weeks. (16) DVT prophylaxis: stop heparin drip due to neg CTA chest and dopplers of leg use lovenox 40mg daily starting tomorrow for DVT proph PT, OT both stating he is unsafe to return home at this time needs rehab ([facility]) daughter extensively updated by phone yesterday and again today 20 min conversation by phone today total care time today 40 min Admission and Anticipated Discharge Date Admission Date: June 14, 2020 Subjective patient irritated during the visit. he states he called his daughter and told her "he was leaving." "she's on her way now." staff report intermittent confusion throughout the day, telling off-color stories at times, etc. he denies any dyspnea, cough, cp, abd pain. eating is improved. tele wnl. spoke with daughter by phone this evening - she reports that even prior to COVID the patient had been noted over the last 6-12 months mild confusion, mild memory issues, etc. Right before patient was hospitalized with COVID his pill bottles at home were quite out of sort and it was clear he had not been taking his meds as directed. Review of Systems Constitutional: + fatigue Respiratory: no cough and no dyspnea Cardiovascular: no chest pain Gastrointestinal: no abdominal pain Physical Exam Constitutional: + altered mental status (ongoing confusion w/ poor insight); no acute distress ENMT: external ear and nose normal, oropharynx normal Respiratory: no respiratory distress Auscultation: + crackles (bibasilar - no change ); no wheezes Cardiovascular: Rate/Rhythm: regular rate and regular rhythm Heart Sounds: normal S1 and normal S2 Vessels: posterior tibial pulses present and dorsalis pedis pulses present; no JVD Extremities: no edema Chest (Breasts): Chest: + pacemaker (Left upper chest - dressing intact, no hematoma) Gastrointestinal (Abdomen): normal bowel sounds, soft, nontender, no hepatosplenomegaly Neurologic: moves all extremities; no focal motor deficits no facial droop Psychiatric: Orientation: alert, oriented to person and oriented to place; + not oriented to time Results & Data Results & Data ([facility]) Vital Signs (Past 12 Hours) Vital Signs Temp Pulse Pulse Resp BP BP Pulse Ox 06/21/20 19:04 36.9 C 92 H 20 109/67 95 06/21/20 15:16 76 06/21/20 15:10 36.8 C 85 22 91/61 L 93 06/21/20 12:00 36.7 C 79 20 122/69 96 Laboratory Results Laboratory Results - last 24 hr 06/21/20 06/21/20 06/21/20 07:08 07:33 07:33 APTT 56.6 H* PTT Ratio 2.2 Sodium 135 L Potassium 4.3 Chloride 106 Carbon Dioxide 23 Anion Gap 7.0 BUN 37 H Creatinine 1.43 H D Est Cr Clr Drug Dosing 52.4 Est GFR ( Amer) 52.9 Est GFR (Non-Af Amer) 45.6 BUN/Creatinine Ratio 25.5 H Glucose 108 H POC Glucose 117 H Calcium 9.5 06/21/20 06/21/20 06/21/20 11:32 16:45 20:05 APTT PTT Ratio Sodium Potassium Chloride Carbon Dioxide Anion Gap BUN Creatinine Est Cr Clr Drug Dosing Est GFR ( Amer) Est GFR (Non-Af Amer) BUN/Creatinine Ratio Glucose POC Glucose 114 H 131 H 121 H Calcium Diagnostic Findings Chest CTA 06/21/20 09:02 CHEST CTA for PULMONARY ARTERIES CT DOSE: 912.54 mGy.cm HISTORY: recent COVID-19, hypoxic, marked elevation d-dimer TECHNIQUE: Multiaxial CT images of the chest were performed following the intravenous administration of contrast to evaluate the pulmonary arteries. Maximal intensity projection images were also obtained. A dose lowering technique was utilized adhering to the principles of ALARA. COMPARISON STUDY: Chest CT 10/13/2019. FINDINGS: Normal caliber thoracic aorta with no evidence for dissection. Moderate atherosclerotic plaque within the aortic arch and descending thoracic aorta, unchanged. The heart is normal in size. No pleural or pericardial effusions. Left-sided pacemaker. No filling defects within the pulmonary arteries to suggest pulmonary embolus. A few mildly enlarged mediastinal bilateral hilar lymph nodes. These have slightly increased in size. Dominant left hilar lymph node measures 12 mm. This is likely reactive. Limited views of the upper abdomen demonstrate a normal spleen and adrenal glands. There is a coarse calcification within the right hepatic dome. No pleural or pericardial effusions. No suspicious lytic or blastic osseous lesions. Old, healed right posterior rib fractures. No pneumothorax. Trace mucoid material within the right mainstem bronchus. Mild emphysema. Stable 1 cm nodule within the left lower lobe in image 122. Mild bronchial wall thickening. Progressive peripheral groundglass airspace opacities with subpleural reticulation. Findings favor a viral pneumon ia. Developing fibrotic change could also have a similar appearance. IMPRESSION: 1. No evidence for pulmonary embolus. 2. Peripheral groundglass airspace opacities with subpleural reticulation. This most likely represents a moderate viral pneumonia. Developing fibrotic change could also have a similar appearance. 3. Mild emphysema. 4. Stable 1 cm left lower lobe nodule. One year chest CT follow up recommended to ensure stability. ACT 112: Positive. There are findings on this exam that require communication between the performing entity and the patient following Patient Test Result I nformation Act ([place] Act 112) guidelines. Electronically signed by: Alistair Mackey M.D. 06/21/2020 11:57 AM PG Care Time/CCT Total # of Minutes Spent Total Time Spent with Patient: Total time spent is greater than 50% in coordination of care (as documented) at patient's floor/unit and/or counseling patient: Coding Level of Care Code 66342 Subseq Hosp Care Lvl 3 Diagnoses Bilateral pneumonia J18.9 AVNRT (AV daniela re-entry tachycardia) I47.1 Status cardiac pacemaker Z95.0 Elevated d-dimer R79.89 Chronic respiratory failure with hypoxia J96.11 Encephalopathy acute G93.40 Acute kidney injury N17.9 History of COVID-19 Z86.16 Coronary artery disease I25.10 COPD (chronic obstructive pulmonary disease) J44.9 Tachy-jeffy syndrome I49.5 Acute hypotension I95.9 Diabetes mellitus E11.9 BPH (benign prostatic hyperplasia) N40.0 Hypothyroidism E03.9 DVT prophylaxis Z29.9
[2020-06-22] MEDS: LEVOTHYROXINE SODIUM 100 MCG TABLET PO SCH (05:41)
[2020-06-22] MEDS: CLOPIDOGREL BISULFATE 75 MG TAB PO SCH (07:22)
[2020-06-22] MEDS: allopurinoL 100 MG TAB PO SCH (07:23)
[2020-06-22] MEDS: carvediloL 6.25 MG TAB PO SCH ×3 (07:23→22:00)
[2020-06-22] MEDS: buPROPion SR 100 MG TABCR PO SCH ×2 (07:23→21:37)
[2020-06-22] MEDS: ERGOCALCIFEROL 50,000 UNITS 1250 MCG CAP PO SCH (07:24)
[2020-06-22] MEDS: ASPIRIN 81 MG ECTAB PO SCH (07:24)
[2020-06-22] MEDS: MULTIVITAMIN CHEWABLE TAB PO SCH (07:24)
[2020-06-22] MEDS: UMECLIDINIUM BROMIDE 62.5MCG/BLISTER 7 PUFFS/INHALER INH SCH (07:25)
[2020-06-22] MEDS: DOXYCYCLINE HYCLATE 100 MG CAP PO SCH (07:25)
[2020-06-22 08:03] LABS: Basophils # (auto) 0.04 K/uL (0-0.2); Basophils % (auto) 0.4 %; Eosinophils # (auto) 0.57 K/uL (0-0.5); Eosinophils % (auto) 6.3 %; Hematocrit (blood only) 35.7 % (42-52); Hemoglobin 11.6 g/dL (14.0-18.0); Immature Granulocytes # (auto) 0.08 K/uL (0.00-0.02); Immature Granulocytes % (auto) 0.9 %; Lymphocytes # (auto) 1.75 K/uL (1.2-3.4); Lymphocytes % (auto) 19.4 %; Mean Corpuscular Hemoglobin 30.6 pg (25-34); Mean Corpuscular Hgb Conc 32.5 g/dL (32-36); Mean Corpuscular Volume 94.2 fL (80-100); Mean Platelet Volume 10.6 fL (7.4-10.4); Monocytes # (auto) 0.96 K/uL (0.11-0.59); Monocytes % (auto) 10.6 %; Neutrophils # (auto) 5.64 K/uL (1.4-6.5); Neutrophils % (auto) 62.4 %; Platelet Count 277 K/uL (130-400); RDW Coefficient of Variation 15.4 % (11.5-14.5); RDW Standard Deviation 51.5 fL (36.4-46.3); Red Blood Count 3.79 M/uL (4.7-6.1); White Blood Count 9.04 K/uL (4.8-10.8)
[2020-06-22 08:05] LABS: Base Excess VBG -1.3 mEq/L; HCO3 VBG 24 mmol/L; Oxygen Saturation VBG < 60.0 %; PCO2 VBG 44 mmHg (38-50); PO2 VBG 29 mmHg; pH VBG 7.36 (7.36-7.41)
[2020-06-22 08:36] LABS: BUN Creatinine Ratio 23.7 (10-20); Calcium 9.8 mg/dl (8.5-10.1); Creatinine Clr Calc Pharmacy 50.7 ml/min; Est GFR (African American) 51.5; Est GFR (Non-African American) 44.5; Potassium 4.6 mmol/L (3.5-5.1)
[2020-06-22] MEDS: INSULIN ASPART 100 UNITS/ML 3 ML PEN SC SCH ×4 (08:38→21:38)
--- NOTE | 2020-06-22 14:33 | CT Scan Report ---
CT OF THE HEAD WITHOUT CONTRAST CLINICAL HISTORY: ongoing delirium COMPARISON STUDY: No previous studies for comparison. CT DOSE: 1812.68 mGycm TECHNIQUE: Helical axial images of the head were obtained without IV contrast. Automated exposure con trol was utilized for the study. A dose lowering technique was utilized adhering to the principles o f ALARA. FINDINGS: No acute intracranial hemorrhage, midline shift or mass effect is present. Ventricular syst em is normal. Basilar cisterns are patent. There are no extra-axial collections. Note is made of a 1. 8 x 1.1 cm hypodensity within the right cerebellar hemisphere. 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 There are no findings to suggest acute dural sinus thrombosis or acute territorial infarct. There are no signif icant calvarial abnormalities. IMPRESSION: 1. No acute intracranial findings. 2. 1.8 x 1.1 cm hypodensity within the right cerebellar hemisphere which favors an old infarct. ACT 112: Negative or not required by law. Electronically signed by: Kulwinder Godoy M.D. 06/22/2020 2:32 PM
--- NOTE | 2020-06-22 19:56 | Hospitalist Progress Note ---
Date of Service June 22, 2020 Assessment & Plan (1) Bilateral pneumonia: resolved. likely has been all due to residual COVID-19 infection. CTA chest yesterday with classic appearing groundglass infiltrates c/w COVID, initial dx late May. did receive 7 days each of rocephin and doxy this admission to cover for bacterial pneumonia. all antibiotics discontinued. at this point he is in recovery phase from mod-severe COVID-19 infection. cont NC O2. 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 interrogation of pacemaker wnl. mainly being paced. continue carvedilol 6.25mg BID. no a.fib/flutter seen. (3) Encephalopathy acute: METABOLIC. Suspect he may have chronic, mild cognitive impairment vs dementia as daughter reports 6-12 months of cognitive decline/memory issues. Then, he got COVID infection and had worsening metabolic encephalopathy/delirium since then. 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 Previous b12/TSH wnl. Check B1 level. Cont scheduled zyprexa at HS but increase to 5mg due to ongoing agitation and confusion. (4) Status cardiac pacemaker: 06/16/[address] Ernst Almaguer for tachy-jeffy syndrome. Tachycardia 2nd to AVNRT not a fib/flutter. Pacemaker site stable and w/o hematoma. Left arm restrictions. Continue sling. (5) Elevated d-dimer: Marked, in setting of COVID-19 infection late May 2020. CTA w/o PE -- thus the dimer itself was simply reflective of significant COVID inflammatory response. Dopplers of legs negative DVT. (6) Chronic respiratory failure with hypoxia: Hospitalized for COVID-19 pneumonia 05/26 to 06/01 at [facility] in [place]. d/c to home on NC O2 3 liters continuously. Remains on 3 L NC O2 with stable O2 sats. see above re: d-dimer, pneumonia, etc. (7) Acute kidney injury: Cr 0.9 at time of hospital discharge from [facility] on 06/01/20. Peak 2.1, now 1.4 - just about baseline. Hypotension, contrast dye for pacer placement, etc all could have contributed to MARTÍN. Documented low BPs on 06/17 and 06/18. Renal u/s obtained -- no obstruction seen. ua bland / no casts. repeat BMP am. cont to hold lisinopril, imdur, and lasix. (8) History of COVID-19: dx 05/26 at [facility]. Hospitalized 05/26 to 06/01 for such. d/c summary indicates steroids/remdesivir employed during his stay but oddly he was not d/c home on 5 more days of decadron. remains on NC O2 3 liters continuously since his COVID diagnosis. no PE on CTA chest yesterday. (9) Coronary artery disease: h/o stents in past. echo with wall motion abnormalities. no ischemic symptoms at this time. remains on asa, statin, coreg, plavix. typically also on BAN, imdur, and lasix - all held due to MARTÍN and low BPs. (10) COPD (chronic obstructive pulmonary disease): by history. cont home inhalers. no wheezing on exam today. emphysema changes on CT. 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 (12) Acute hypotension: at time of admission here on 06/14. then, low BPs recurred on 06/17 and 06/18. BPs intermittently still low - likely due to volume depletion from poor po intake. cont to hold imdur, lasix, BAN. consider checking cortisol level. (13) Diabetes mellitus: a1c 7.8%. controlled. typically on januvia only. this is on hold. cont novolog correction/carb coverage. (14) BPH (benign prostatic hyperplasia): cont flomax. (15) Hypothyroidism: TSH this admission suppressed. had been taking 112mcg of synthroid daily. dose reduced to 100mcg daily. repeat TSH as outpatient in 6 weeks. (16) DVT prophylaxis: lovenox ordered daughter updated [facility] once mental status is more stable Admission and Anticipated Discharge Date Admission Date: June 14, 2020 Subjective patient sleeping upon my initial arrival but woke up when I called his name. he was pleasantly confused for me. denied any complaints. eating fair/poor. 1:1 still present due to periods of agitation. did require zyprexa prn this am. tele without SVT. I spoke with daughter later in the day -- she reports he called her and said "you need to come get me to bring me home - I have things to do." Review of Systems Respiratory: no dyspnea Cardiovascular: no chest pain Gastrointestinal: no abdominal pain Physical Exam Constitutional: + altered mental status (ongoing confusion w/ poor insight); no acute distress ENMT: external ear and nose normal, oropharynx normal Respiratory: normal respiratory effort, lungs clear to auscultation no respiratory distress Auscultation: no wheezes Cardiovascular: Rate/Rhythm: regular rate and regular rhythm Heart Sounds: normal S1 and normal S2 Vessels: posterior tibial pulses present and dorsalis pedis pulses present; no JVD Extremities: no edema Chest (Breasts): Chest: + pacemaker (Left upper chest - dressing intact, no hematoma, no tenderness ) Gastrointestinal (Abdomen): normal bowel sounds, soft, nontender, no hepatosplenomegaly Neurologic: moves all extremities; no focal motor deficits Psychiatric: Orientation: alert and oriented to person; + not oriented to place and + not oriented to time Results & Data Results & Data ([facility]) Vital Signs (Past 12 Hours) Vital Signs Temp Pulse Resp BP BP Pulse Ox 06/22/20 19:11 74 20 110/65 93 06/22/20 16:42 130/66 06/22/20 14:59 36.7 C 79 20 91/56 L 98 Laboratory Results Laboratory Results - last 24 hr 06/21/20 06/22/20 06/22/20 20:05 07:28 07:40 WBC RBC Hgb Hct MCV MCH MCHC RDW Std Deviation RDW Coeff of Kayla Plt Count MPV Immature Gran % (Auto) Neut % (Auto) Lymph % (Auto) [place] % (Auto) Eos % (Auto) Baso % (Auto) Neut # (Auto) Lymph # (Auto) [place] # (Auto) Eos # (Auto) Baso # (Auto) Immature Gran # (Auto) VBG pH VBG pCO2 VBG pO2 VBG HCO3 VBG O2 Saturation VBG Base Excess Barometric Pressure Sodium 135 L Potassium 4.6 Chloride 104 Carbon Dioxide 25 Anion Gap 7.0 BUN 35 H Creatinine 1.46 H Est Cr Clr Drug Dosing 50.7 Est GFR ( Amer) 51.5 Est GFR (Non-Af Amer) 44.5 BUN/Creatinine Ratio 23.7 H Glucose 130 H POC Glucose 121 H 129 H Calcium 9.8 Ammonia 06/22/20 06/22/20 06/22/20 07:40 07:40 07:40 WBC 9.04 RBC 3.79 L Hgb 11.6 L Hct 35.7 L MCV 94.2 MCH 30.6 MCHC 32.5 RDW Std Deviation 51.5 H RDW Coeff of Kayla 15.4 H Plt Count 277 MPV 10.6 H Immature Gran % (Auto) 0.9 Neut % (Auto) 62.4 Lymph % (Auto) 19.4 [place] % (Auto) 10.6 Eos % (Auto) 6.3 Baso % (Auto) 0.4 Neut # (Auto) 5.64 Lymph # (Auto) 1.75 [place] # (Auto) 0.96 H Eos # (Auto) 0.57 H Baso # (Auto) 0.04 Immature Gran # (Auto) 0.08 H VBG pH 7.36 VBG pCO2 44 VBG pO2 29 VBG HCO3 24 VBG O2 Saturation < 60.0 VBG Base Excess -1.3 Barometric Pressure 731.0 Sodium Potassium Chloride Carbon Dioxide Anion Gap BUN Creatinine Est Cr Clr Drug Dosing Est GFR ( Amer) Est GFR (Non-Af Amer) BUN/Creatinine Ratio Glucose POC Glucose Calcium Ammonia 14.4 06/22/20 06/22/20 11:33 16:38 WBC RBC Hgb Hct MCV MCH MCHC RDW Std Deviation RDW Coeff of Kayla Plt Count MPV Immature Gran % (Auto) Neut % (Auto) Lymph % (Auto) [place] % (Auto) Eos % (Auto) Baso % (Auto) Neut # (Auto) Lymph # (Auto) [place] # (Auto) Eos # (Auto) Baso # (Auto) Immature Gran # (Auto) VBG pH VBG pCO2 VBG pO2 VBG HCO3 VBG O2 Saturation VBG Base Excess Barometric Pressure Sodium Potassium Chloride Carbon Dioxide Anion Gap BUN Creatinine Est Cr Clr Drug Dosing Est GFR ( Amer) Est GFR (Non-Af Amer) BUN/Creatinine Ratio Glucose POC Glucose 134 H 137 H Calcium Ammonia PG Care Time/CCT Total # of Minutes Spent Total Time Spent with Patient: Total time spent is greater than 50% in coordination of care (as documented) at patient's floor/unit and/or counseling patient: Coding Level of Care Code 80425 Subseq Hosp Care Lvl 3 Diagnoses Bilateral pneumonia J18.9 AVNRT (AV daniela re-entry tachycardia) I47.1 Encephalopathy acute G93.40 Status cardiac pacemaker Z95.0 Elevated d-dimer R79.89 Chronic respiratory failure with hypoxia J96.11 Acute kidney injury N17.9 History of COVID-19 Z86.16 Coronary artery disease I25.10 COPD (chronic obstructive pulmonary disease) J44.9 Tachy-jeffy syndrome I49.5 Acute hypotension I95.9 Diabetes mellitus E11.9 BPH (benign prostatic hyperplasia) N40.0 Hypothyroidism E03.9 DVT prophylaxis Z29.9
[2020-06-22] MEDS: TAMSULOSIN HCL 0.4 MG CAP PO SCH (21:36)
[2020-06-22] MEDS: OLANZapine 5 MG TABLET PO SCH ×2 (21:36→22:00)
[2020-06-22] MEDS: NEPHROCAPS PO SCH (21:37)
[2020-06-22] MEDS: GABAPENTIN 300 MG CAP PO SCH (21:37)
[2020-06-22] MEDS: ATORVASTATIN 40 MG TAB PO SCH (21:37)
[2020-06-22] MEDS: DULoxetine HCL 60 MG CAP PO SCH (21:38)
[2020-06-23] MEDS: LEVOTHYROXINE SODIUM 100 MCG TABLET PO SCH (08:34)
[2020-06-23] MEDS: INSULIN ASPART 100 UNITS/ML 3 ML PEN SC SCH ×4 (08:34→20:35)
[2020-06-23 09:18] LABS: BUN Creatinine Ratio 25.8 (10-20); Calcium 9.4 mg/dl (8.5-10.1); Creatinine Clr Calc Pharmacy 62.7 ml/min; Est GFR (African American) 66.7; Est GFR (Non-African American) 57.5; Potassium 4.3 mmol/L (3.5-5.1)
[2020-06-23] MEDS: buPROPion SR 100 MG TABCR PO SCH ×2 (09:50→20:26)
[2020-06-23] MEDS: ASPIRIN 81 MG ECTAB PO SCH (09:50)
[2020-06-23] MEDS: MULTIVITAMIN CHEWABLE TAB PO SCH (09:50)
[2020-06-23] MEDS: allopurinoL 100 MG TAB PO SCH (09:50)
[2020-06-23] MEDS: CLOPIDOGREL BISULFATE 75 MG TAB PO SCH (09:50)
[2020-06-23] MEDS: UMECLIDINIUM BROMIDE 62.5MCG/BLISTER 7 PUFFS/INHALER INH SCH (09:51)
[2020-06-23] MEDS: ENOXAPARIN INJ 40 MG/0.4 ML SYR SQ SCH (09:51)
[2020-06-23] MEDS: carvediloL 6.25 MG TAB PO SCH ×2 (09:52→20:26)
[2020-06-23] MEDS: THIAMINE HCL 100 MG TAB PO SCH ×2 (12:29→20:30)
[2020-06-23] MEDS: ATORVASTATIN 40 MG TAB PO SCH (20:25)
[2020-06-23] MEDS: DULoxetine HCL 60 MG CAP PO SCH (20:27)
[2020-06-23] MEDS: GABAPENTIN 300 MG CAP PO SCH (20:27)
[2020-06-23] MEDS: OLANZapine 5 MG TABLET PO SCH (20:29)
[2020-06-23] MEDS: TAMSULOSIN HCL 0.4 MG CAP PO SCH (20:29)
[2020-06-23] MEDS: NEPHROCAPS PO SCH (20:36)
--- NOTE | 2020-06-23 22:37 | Hospitalist Progress Note ---
Date of Service June 23, 2020 Assessment & Plan (1) Bilateral pneumonia: resolved. likely has been all due to residual COVID-19 infection (initial dx in late May at [facility]). CTA chest with classic appearing groundglass infiltrates c/w recent COVID. did receive 7 days each of rocephin and doxy this admission to cover for bacterial pneumonia. all antibiotics discontinued. at this point he is in recovery phase from mod-severe COVID-19 infection. cont NC O2 - wean as tolerated. (2) Encephalopathy acute: METABOLIC encephalopathy in the setting of probable underlying, chronic, mild cognitive impairment (vs dementia) as daughter reported 6-12 months of cognitive decline/memory issues. Confusion ongoing since his COVID infection in late May/early June. IMPROVED. Can likely remove 1: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 Given the cerebrovascular disease found he may have developing vascular dementia at baseline. Previous b12/TSH wnl. Check B1 level. While awaiting level start thiamine 200mg BID. Cont scheduled zyprexa 5mg at HS. After d/c would refer to neurology for additional dementia w/u and consideration of MRI brain. 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 interrogation of pacemaker wnl. paced on tele. continue carvedilol 6.25mg BID. no a.fib/flutter seen. (4) Status cardiac pacemaker: 06/16/[address] Ernst Almaguer for tachy-jeffy syndrome. Tachycardia 2nd to AVNRT not a fib/flutter. Pacemaker site stable and w/o hematoma. Continue left arm restrictions and sling to reinforce those restrictions. (5) Elevated d-dimer: Marked, in setting of COVID-19 infection late May 2020. CTA w/o PE -- thus the dimer itself was simply reflective of significant COVID inflammatory response. Dopplers of legs negative DVT. (6) Chronic respiratory failure with hypoxia: Hospitalized for COVID-19 pneumonia 05/26 to 06/01 at [facility] in [place]. d/c to home on NC O2 3 liters continuously at that time. Remains on 3 L NC O2 with stable O2 sats. Has baseline COPD as well. (7) Acute kidney injury: Cr 0.9 at time of hospital discharge from [facility] on 06/01/20. Peak 2.1 here at [facility]. now 1.1 today -- thus, MARTÍN resolved. no obstruction seen. no casts on u/a. was likely ATN, however, from low BP earlier this stay. (8) History of COVID-19: dx 05/26 at [facility]. Hospitalized 05/26 to 06/01 for such. d/c summary indicates steroids/remdesivir employed during his stay but oddly he was not d/c home on 5 more days of decadron. remains on NC O2 3 liters continuously since his COVID diagnosis. no PE on CTA chest earlier this week. (9) Coronary artery disease: h/o stents in past. echo with wall motion abnormalities. no ischemic symptoms at this time. remains on asa, statin, coreg, plavix. typically also on BAN, imdur, and lasix - all held due to MARTÍN and low BPs. (10) COPD (chronic obstructive pulmonary disease): by history. cont home inhalers. again no wheezing on exam today. emphysema changes on CT. 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 (12) Acute hypotension: at time of admission here on 06/14. then, low BPs recurred on 06/17 and 06/18. BPs intermittently still low. cont to hold imdur, lasix, BAN. consider checking cortisol level. (13) Diabetes mellitus: a1c 7.8%. controlled. cont novolog correction/carb coverage. (14) BPH (benign prostatic hyperplasia): cont flomax. (15) Hypothyroidism: TSH this admission suppressed. had been taking 112mcg of synthroid daily. dose reduced to 100mcg daily. repeat TSH as outpatient in 6 weeks. (16) DVT prophylaxis: lovenox 40mg daily daughter updated extensively 06/22 and 06/23 if he has good night, 1:1 removed, and stable in am can likely d/c to [facility] on Friday Admission and Anticipated Discharge Date Admission Date: June 14, 2020 Subjective patient slept all night with 5mg zyprexa awoke about 9am overall good day today when I saw him he was sitting in chair he was pleasant sitter in room she reported he had been calm, no issues he was confused, asked certain questions repeatedly, again asked to go home I told him he needed rehab - did not get upset, stated he would go tele - pacing Review of Systems Ear, Nose, Mouth, Throat: mild mouth discomfort Respiratory: + dyspnea on exertion; no cough and no dyspnea Cardiovascular: no chest pain Gastrointestinal: no abdominal pain, no nausea and no vomiting Physical Exam Constitutional: + altered mental status (pleasant confusion today); no acute distress ENMT: Mouth: + oral mucosal abnormality (mild irritation); oral mucous membranes not dry Respiratory: no respiratory distress Auscultation: + crackles (bases -- no change ); no wheezes Cardiovascular: Rate/Rhythm: regular rate and regular rhythm Heart Sounds: normal S1 and normal S2; no murmur Vessels: posterior tibial pulses present and dorsalis pedis pulses present; no JVD Extremities: no edema Chest (Breasts): Chest: + pacemaker (Left upper chest - dressing intact, no hematoma, no tenderness ) Gastrointestinal (Abdomen): normal bowel sounds, soft, nontender, no hepatosplenomegaly Psychiatric: Orientation: alert, oriented to person and oriented to place; + not oriented to time Results & Data Results & Data ([facility]) Vital Signs (Past 12 Hours) Vital Signs Temp Pulse Resp BP BP Pulse Ox 06/23/20 19:36 37.2 C 75 18 112/68 92 06/23/20 13:56 75 16 113/68 95 Laboratory Results Laboratory Results - last 24 hr 06/23/20 06/23/20 06/23/20 07:34 08:27 09:02 Sodium 136 Potassium 4.3 Chloride 105 Carbon Dioxide 23 Anion Gap 8.0 BUN 31 H Creatinine 1.18 Est Cr Clr Drug Dosing 62.7 Est GFR ( Amer) 66.7 Est GFR (Non-Af Amer) 57.5 BUN/Creatinine Ratio 25.8 H Glucose 111 H POC Glucose 111 H Calcium 9.4 Vitamin B1 Pending 06/23/20 06/23/20 06/23/20 11:40 16:31 20:10 Sodium Potassium Chloride Carbon Dioxide Anion Gap BUN Creatinine Est Cr Clr Drug Dosing Est GFR ( Amer) Est GFR (Non-Af Amer) BUN/Creatinine Ratio Glucose POC Glucose 126 H 107 H 99 Calcium Vitamin B1 PG Care Time/CCT Total # of Minutes Spent Total Time Spent with Patient: Total time spent is greater than 50% in coordination of care (as documented) at patient's floor/unit and/or counseling patient: Coding Level of Care Code 03473 Subseq Hosp Care Lvl 3 Diagnoses Bilateral pneumonia J18.9 Encephalopathy acute G93.40 AVNRT (AV daniela re-entry tachycardia) I47.1 Status cardiac pacemaker Z95.0 Elevated d-dimer R79.89 Chronic respiratory failure with hypoxia J96.11 Acute kidney injury N17.9 History of COVID-19 Z86.16 Coronary artery disease I25.10 COPD (chronic obstructive pulmonary disease) J44.9 Tachy-jeffy syndrome I49.5 Acute hypotension I95.9 Diabetes mellitus E11.9 BPH (benign prostatic hyperplasia) N40.0 Hypothyroidism E03.9 DVT prophylaxis Z29.9
[2020-06-24] MEDS: LEVOTHYROXINE SODIUM 100 MCG TABLET PO SCH (05:37)
[2020-06-24 07:01] LABS: Basophils # (auto) 0.03 K/uL (0-0.2); Basophils % (auto) 0.4 %; Eosinophils # (auto) 0.41 K/uL (0-0.5); Eosinophils % (auto) 5.2 %; Hematocrit (blood only) 34.8 % (42-52); Hemoglobin 11.5 g/dL (14.0-18.0); Immature Granulocytes # (auto) 0.09 K/uL (0.00-0.02); Immature Granulocytes % (auto) 1.2 %; Lymphocytes # (auto) 1.84 K/uL (1.2-3.4); Lymphocytes % (auto) 23.6 %; Mean Corpuscular Hemoglobin 31.2 pg (25-34); Mean Corpuscular Volume 94.3 fL (80-100); Mean Platelet Volume 10.6 fL (7.4-10.4); Monocytes % (auto) 10.2 %; Neutrophils # (auto) 4.64 K/uL (1.4-6.5); Neutrophils % (auto) 59.4 %; Platelet Count 271 K/uL (130-400); RDW Coefficient of Variation 15.8 % (11.5-14.5); RDW Standard Deviation 53.3 fL (36.4-46.3); Red Blood Count 3.69 M/uL (4.7-6.1); White Blood Count 7.81 K/uL (4.8-10.8)
[2020-06-24] MEDS: allopurinoL 100 MG TAB PO SCH (07:54)
[2020-06-24] MEDS: MULTIVITAMIN CHEWABLE TAB PO SCH (07:54)
[2020-06-24] MEDS: THIAMINE HCL 100 MG TAB PO SCH ×2 (07:54→20:08)
[2020-06-24] MEDS: ASPIRIN 81 MG ECTAB PO SCH (07:55)
[2020-06-24] MEDS: buPROPion SR 100 MG TABCR PO SCH ×2 (07:55→20:06)
[2020-06-24] MEDS: CLOPIDOGREL BISULFATE 75 MG TAB PO SCH (07:55)
[2020-06-24] MEDS: carvediloL 6.25 MG TAB PO SCH ×2 (07:55→20:06)
[2020-06-24] MEDS: ENOXAPARIN INJ 40 MG/0.4 ML SYR SQ SCH (07:56)
[2020-06-24] MEDS: UMECLIDINIUM BROMIDE 62.5MCG/BLISTER 7 PUFFS/INHALER INH SCH (07:56)
[2020-06-24] MEDS: INSULIN ASPART 100 UNITS/ML 3 ML PEN SC SCH ×4 (08:53→20:08)
--- NOTE | 2020-06-24 19:45 | Hospitalist Progress Note ---
Date of Service June 24, 2020 Assessment & Plan (1) Bilateral pneumonia: resolved. 2nd residual COVID-19 infection (initial dx in late May at [facility]). CTA chest with classic appearing groundglass infiltrates c/w recent COVID. did receive 7 days each of rocephin and doxy this admission to cover for bacterial pneumonia. all antibiotics discontinued. at this point he is in recovery phase from mod-severe COVID-19 infection. cont NC O2 - wean as tolerated. (2) Encephalopathy acute: METABOLIC encephalopathy in the setting of probable underlying, chronic, mild cognitive impairment (vs dementia) as daughter reported 6-12 months of co gnitive decline/memory issues. Confusion ongoing since his COVID infection in late May/early June. IMPROVED/resolving. 1:1 sitting has been d/c >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 Given the cerebrovascular disease found he may have developing vascular dementia at baseline. Previous b12/TSH wnl. Check B1 level. While awaiting level thiamine 200mg BID. Cont scheduled zyprexa 5mg at HS. After d/c would refer to neurology for additional dementia w/u and consideration of MRI brain. 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 interrogation of pacemaker wnl. paced on tele. continue carvedilol 6.25mg BID. no a.fib/flutter seen. (4) Status cardiac pacemaker: 06/16/[address] Ernst Almaguer for tachy-jeffy syndrome. Tachycardia 2nd to AVNRT not a fib/flutter. Pacemaker site stable and w/o hematoma. Continue left arm restrictions and sling to reinforce those restrictions. (5) Elevated d-dimer: Marked, in setting of COVID-19 infection late May 2020. CTA w/o PE -- thus the dimer itself was simply reflective of significant COVID inflammatory response. Dopplers of legs negative DVT. (6) Chronic respiratory failure with hypoxia: Hospitalized for COVID-19 pneumonia 05/26 to 06/01 at [facility] in [place]. d/c to home on NC O2 3 liters continuously at that time. Remains on 3 L NC O2 with stable O2 sats. Has baseline COPD as well. (7) Acute kidney injury: Likely ATN from hypotension. Cr 0.9 at time of hospital discharge from [facility] on 06/01/20. Peak 2.1 here at [facility]. MARTÍN now resolved. (8) History of COVID-19: dx 05/26 at [facility]. Hospitalized 05/26 to 06/01 for such. d/c summary indicates steroids/remdesivir employed during his stay but oddly he was not d/c home on 5 more days of decadron. remains on NC O2 3 liters continuously since his COVID diagnosis. no PE on CTA chest earlier this week. (9) Coronary artery disease: h/o stents in past. echo with wall motion abnormalities. no ischemic symptoms at this time. remains on asa, statin, coreg, plavix. typically also on BAN, imdur, and lasix - all held due to MARTÍN and low BPs. he remains compensated from pulmonary standpoint. (10) COPD (chronic obstructive pulmonary disease): by history. cont home inhalers. again no wheezing on exam today. emphysema changes on CT. 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 (12) Acute hypotension: at time of admission here on 06/14. then, low BPs recurred on 06/17 and 06/18. cont to hold imdur, lasix, BAN as BPs are controlled/normal without them. would use lasix prn. try to add back imdur before d/c. (13) Diabetes mellitus: a1c 7.8%. controlled. cont novolog correction/carb coverage. (14) BPH (benign prostatic hyperplasia): cont flomax. (15) Hypothyroidism: TSH this admission suppressed. had been taking 112mcg of synthroid daily. dose reduced to 100mcg daily. repeat TSH as outpatient in 6 weeks. (16) DVT prophylaxis: lovenox 40mg daily daughter updated extensively 06/22 and 06/23 and 06/24 to [facility] on Friday Admission and Anticipated Discharge Date Admission Date: June 14, 2020 Subjective another good night overnight staff report slept all night 1:1 has been off since yesterday calm, no agitation eating better today no new complaints during rounds he seems to understand that he is going to rehab rather than going home we had conversation about rehab and how long he will be there Review of Systems Respiratory: no cough, no dyspnea and no dyspnea on exertion Cardiovascular: no chest pain Gastrointestinal: no abdominal pain, no nausea and no vomiting Physical Exam Constitutional: + altered mental status (but knows he is in [facility] and that it is 2020; wasn't sure about day ); no acute distress ENMT: external ear and nose normal, oropharynx normal Respiratory: normal respiratory effort, lungs clear to auscultation no respiratory distress Auscultation: + crackles (bases -- no change ); no wheezes Cardiovascular: Rate/Rhythm: regular rate and regular rhythm Heart Sounds: normal S1 and normal S2; no murmur Vessels: posterior tibial pulses present and dorsalis pedis pulses present; no JVD Extremities: no edema Chest (Breasts): Chest: + pacemaker (Left upper chest - incision well-healed; no hematoma, no drainage) Gastrointestinal (Abdomen): normal bowel sounds, soft, nontender, no hepatosplenomegaly Psychiatric: Orientation: alert, oriented to person and oriented to place; + not oriented to time Results & Data Results & Data ([facility]) Vital Signs (Past 12 Hours) Vital Signs Temp Pulse Resp BP BP Pulse Ox 06/24/20 07:29 36.6 C 71 18 111/70 97 06/23/20 22:58 36.8 C 67 18 110/61 93 Intake and Output 06/24/20 06/24/20 06/24/20 06:59 14:59 22:59 Intake Total 380 / 380 Balance 380 / 380 Intake: Oral 380 / 380 Other: Other Intake Source sips # Unmeasured Voids 1 Laboratory Results Laboratory Results - last 24 hr 06/23/20 06/24/20 06/24/20 20:10 06:26 07:20 WBC 7.81 RBC 3.69 L Hgb 11.5 L Hct 34.8 L MCV 94.3 MCH 31.2 MCHC 33.0 RDW Std Deviation 53.3 H RDW Coeff of Kayla 15.8 H Plt Count 271 MPV 10.6 H Immature Gran % (Auto) 1.2 Neut % (Auto) 59.4 Lymph % (Auto) 23.6 [place] % (Auto) 10.2 Eos % (Auto) 5.2 Baso % (Auto) 0.4 Neut # (Auto) 4.64 Lymph # (Auto) 1.84 [place] # (Auto) 0.80 H Eos # (Auto) 0.41 Baso # (Auto) 0.03 Immature Gran # (Auto) 0.09 H POC Glucose 99 124 H 06/24/20 06/24/20 11:27 16:54 WBC RBC Hgb Hct MCV MCH MCHC RDW Std Deviation RDW Coeff of Kayla Plt Count MPV Immature Gran % (Auto) Neut % (Auto) Lymph % (Auto) [place] % (Auto) Eos % (Auto) Baso % (Auto) Neut # (Auto) Lymph # (Auto) [place] # (Auto) Eos # (Auto) Baso # (Auto) Immature Gran # (Auto) POC Glucose 131 H 88 PG Care Time/CCT Total # of Minutes Spent Total Time Spent with Patient: Total time spent is greater than 50% in coordination of care (as documented) at patient's floor/unit and/or counseling patient: Coding Level of Care Code 56319 Subseq Hosp Care Lvl 3 Diagnoses Bilateral pneumonia J18.9 Encephalopathy acute G93.40 AVNRT (AV daniela re-entry tachycardia) I47.1 Status cardiac pacemaker Z95.0 Elevated d-dimer R79.89 Chronic respiratory failure with hypoxia J96.11 Acute kidney injury N17.9 History of COVID-19 Z86.16 Coronary artery disease I25.10 COPD (chronic obstructive pulmonary disease) J44.9 Tachy-jeffy syndrome I49.5 Acute hypotension I95.9 Diabetes mellitus E11.9 BPH (benign prostatic hyperplasia) N40.0 Hypothyroidism E03.9 DVT prophylaxis Z29.9
[2020-06-24] MEDS: ATORVASTATIN 40 MG TAB PO SCH (20:06)
[2020-06-24] MEDS: TAMSULOSIN HCL 0.4 MG CAP PO SCH (20:07)
[2020-06-24] MEDS: GABAPENTIN 300 MG CAP PO SCH (20:07)
[2020-06-24] MEDS: NEPHROCAPS PO SCH (20:07)
[2020-06-24] MEDS: DULoxetine HCL 60 MG CAP PO SCH (20:07)
[2020-06-24] MEDS: OLANZapine 5 MG TABLET PO SCH (20:08)
[2020-06-25] MEDS: LEVOTHYROXINE SODIUM 100 MCG TABLET PO SCH (06:37)
[2020-06-25] MEDS: ASPIRIN 81 MG ECTAB PO SCH (07:20)
[2020-06-25] MEDS: CLOPIDOGREL BISULFATE 75 MG TAB PO SCH (07:20)
[2020-06-25] MEDS: carvediloL 6.25 MG TAB PO SCH (07:21)
[2020-06-25] MEDS: allopurinoL 100 MG TAB PO SCH (07:21)
[2020-06-25] MEDS: THIAMINE HCL 100 MG TAB PO SCH (07:21)
[2020-06-25] MEDS: ERGOCALCIFEROL 50,000 UNITS 1250 MCG CAP PO SCH (07:21)
[2020-06-25] MEDS: buPROPion SR 100 MG TABCR PO SCH (07:21)
[2020-06-25] MEDS: MULTIVITAMIN CHEWABLE TAB PO SCH (07:21)
[2020-06-25] MEDS: ENOXAPARIN INJ 40 MG/0.4 ML SYR SQ SCH (07:22)
[2020-06-25] MEDS: UMECLIDINIUM BROMIDE 62.5MCG/BLISTER 7 PUFFS/INHALER INH SCH (07:22)
[2020-06-25] MEDS: INSULIN ASPART 100 UNITS/ML 3 ML PEN SC SCH ×2 (07:45→12:42)
[2020-06-25 08:04] LABS: BUN Creatinine Ratio 19.5 (10-20); Est GFR (African American) 49.5; Est GFR (Non-African American) 42.7; Magnesium 1.9 mg/dl (1.8-2.4); Potassium 4.3 mmol/L (3.5-5.1)
--- NOTE | 2020-06-25 12:51 | Discharge Summary ---
Date of Service date of admission - June 14, 2020 date of discharge - June 25, 2020 Admission HPI Per Admitting Provider Hema Prieto is an 80-year-old male who presents to the ER due to decreased heart rate, low blood pressure and O2 sats when home health checked on him today. History is mostly provided by his daughter who works at [facility] [employer] as a pharmacy med rec due to patient's poor recollection of recent events. He was recently COVID-19 pneumonia with symptoms starting on May 19. He was subsequently hospitalized at [facility] due to worsening symptoms on May 26 to June 01. Unknown what treatments he had while there. He was discharged home where he lives alone but has been getting home health. Prior to this hospitalization he was not on home oxygen however was discharged home on 4LPM O2 with the aim to wean down at home. At home he has been sleeping a lot and not eating much. He denies any current shortness of breath. His PCP is at [facility] level history is limited. He sees the specialist below: Shared Services Manager - Dr Velasquez, last stent more than 1 year ago ?5 years ago. Pulmonology - follows nodules on lung and COPD - takes Advair + combivent. Urology - bladder cancer The patient lives alone and prior to his COVID-19 diagnosis his daughter has been concerned he has not been taking his medications as prescribed due to many pill bottles being out of date. In the ER creatinine was notably elevated at 2.98 with BUN 45. Most recent creatinine in [employer] [facility] is 1.3 in 2019 however her daughter thought she was told his creatinine was 4.5 on discharge from [facility]. The patient currently has no complaints and feels at his baseline however he does report occasional dizziness at home. EKG in the ER showed sinus bradycardia with marked sinus arrhythmia but no additional P waves suggesting a high degree heart block. Telemetry was significant for an occasional heart rate of 30 bpm. He reports taking his carvedilol this morning. He was referred to medicine for admission and ongoing management of sinus bradycardia. Principal Diagnosis 1. 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 acute metabolic encephalopathy - improved 3. resolving COVID-19 pneumonia 4. acute hypoxic respiratory failure 2nd to #3 - ongoing NC O2 requirement since dx of COVID-19 in May 2020 Discharge Exam Constitutional + altered mental status (knows he is in [facility] and that it is 2020; not sure of day ); no acute distress [facility] external ear and nose normal, oropharynx normal Respiratory no respiratory distress Auscultation: + crackles (bases -- no change ); no wheezes Cardiovascular Rate/Rhythm: regular rate and regular rhythm Heart Sounds: normal S1 and normal S2; no murmur Vessels: posterior tibial pulses present and dorsalis pedis pulses present; no JVD Extremities: no edema Chest (Breasts) Chest: + pacemaker (Left upper chest - incision well-healed; no hematoma, no drainage) Gastrointestinal (Abdomen) normal bowel sounds, soft, nontender, no hepatosplenomegaly Neurologic moves all extremities; no focal motor deficits Psychiatric Orientation: alert, oriented to person and oriented to place; + not oriented to time Discharge Data Allergies Allergy/AdvReac Type Severity Reaction Status Date / Time tiotropium Allergy Unknown CAUSES EYE Verified 06/14/20 15:59 PAIN Consultations [facility] [place] [facility] [place] PT, OT Procedures Performed Operation Date: 06/16/20 08:30 Actual Procedures p Pacer with A/V Leads (Dual) - Ernst Almaguer MD Echocardiogram - EF 50-55% Hypokinesis of inferior and inferolateral harris normal valvular function Ordered Studies Chest X-Ray 06/14/20 15:19 XR chest 1V portable CLINICAL HISTORY: Chest Pain COMPARISON STUDY: Chest CT October 13, 2019. FINDINGS: Lung volumes are normal. No pneumothorax or pleural effusion is noted. Moderate multifocal airspace opacities are noted with interstitial thickening. This is new since prior CT. Cardiomediastinal silhouette is stable. IMPRESSION: Moderate multifocal bilateral airspace opacities with interstitial thickening. The findings suggest viral pneumonia. Radiographic follow-up is recommended to ensure resolution. ACT 112: Negative or not required by law. Electronically signed by: Kulwinder Godoy M.D. 06/14/2020 4:06 PM Chest X-Ray 06/15/20 11:53 XR chest 1V portable CLINICAL HISTORY: f/u multifocal pneumonia COMPARISON STUDY: Chest radiograph June 14, 2020. FINDINGS: Lung volumes are normal. There is no pneumothorax or pleural effusion. Cardiomediastinal silhouette is stable. Right lung airspace opacities are similar to prior exam. There has been mild progression of left lung airspace opacities. IMPRESSION: Mild progression of moderate bilateral airspace opacities consistent with an infectious process. ACT 112: Negative or not required by law. Electronically signed by: Kulwinder Godoy M.D. 06/15/2020 12:13 PM Chest X-Ray 06/16/20 20:21 SINGLE VIEW CHEST CLINICAL HISTORY: Status post pacemaker implantation. FINDINGS: An AP, portable, upright chest radiograph is compared to study dated 06/15/2020 and correlated with chest CT dated 10/13/2019. A 2-lead cardiac pacemaker is new from yesterday. Leads project over the right atrial appendage and the right ventricle. The heart is enlarged noting atherosclerotic calcification of the thoracic aorta. Multifocal airspace consolidation is again noted. This has modestly increased in the right upper lobe as compared to yesterday. No large pleural effusion or pneumothorax is seen. The skeletal structures are osteopenic. The bony thorax is grossly intact. IMPRESSION: 1. A 2-lead cardiac pacemaker has been placed as above. No pneumothorax is seen post procedure. 2. Cardiomegaly without definite radiographic evidence of congestive failure. 3. Multifocal airspace consolidation has modestly increased from yesterday. ACT 112: Negative or not required by law. Electronically signed by: Brandon William M.D. 06/16/2020 9:03 PM Chest X-Ray 06/17/20 09:47 XR chest 1V portable HISTORY: 80 years-old Male post pacer 06/17 status post placement of a left subclavian pacer COMPARISON: Chest radiograph 06/16/2020, chest CT 10/13/2019 TECHNIQUE: Semierect portable AP view the chest FINDINGS: 2-lead left subclavian pacer redemonstrated. The visualized leads appear intact. No pneumothorax. Cardiomegaly with pulmonary vascular congestion. Bilateral peripheral predominant airspace opacities redemonstrated. Slightly improved aeration of the lateral left lung base. Emphysema. Degenerative changes of the shoulders and spine. IMPRESSION: 1. Cardiomegaly with pulmonary vascular congestion. 2. Interstitial coarsening with peripheral predominant airspace opacities redemonstrated suspicious for an infectious or inflammatory pneumonitis. 3. Emphysema. ACT 112: Negative or not required by law. The above report was generated using voice recognition software. It may contain grammatical, syntax or spelling errors. Electronically signed by: Henrik Lal M.D. 06/17/2020 10:23 AM Venous Doppler Study 06/19/20 11:07 BILATERAL LOWER EXTREMITY VENOUS DOPPLER HISTORY: Hypercoagulable state. elevated d-dimer, recent COVID;eval DVT COMPARISON STUDY: None. FINDINGS: There is normal compressibility, flow, and augmentation within the bilateral lower extremity deep venous systems. A single prominent left inguinal lymph node measuring 2.7 x 1.2 x 2.0 cm. IMPRESSION: No DVT within the right or left lower extremity. A single mildly enlarged left inguinal lymph node. ACT 112: Negative or not required by law. Electronically signed by: Alistair Mackey M.D. 06/19/2020 2:19 PM Renal Ultrasound 06/19/20 11:08 EXAMINATION: RENAL ULTRASOUND CLINICAL HISTORY: acute renal failure; eval obstruction COMPARISON STUDY: CT scan dated 09/22/2019 FINDINGS: The right kidney measures 7.4 cm. The left kidney measures 10.5 cm. There is no evidence of hydronephrosis. There is bilateral renal cortical thi nning. No solid renal masses are visualized. The bladder was not well distended. Neither ureteral jet was visualized. IMPRESSION : 1. Bilateral renal cortical thinning 2. No evidence of hydronephrosis ACT 112: Negative or not required by law. Electronically signed by: Reji Hurt M.D. 06/19/2020 2:39 PM Chest CTA 06/21/20 09:02 CHEST CTA for PULMONARY ARTERIES CT DOSE: 912.54 mGy.cm HISTORY: recent COVID-19, hypoxic, marked elevation d-dimer TECHNIQUE: Multiaxial CT images of the chest were performed following the intravenous administration of contrast to evaluate the pulmonary arteries. Maximal intensity projection images were also obtained. A dose lowering technique was utilized adhering to the principles of ALARA. COMPARISON STUDY: Chest CT 10/13/2019. FINDINGS: Normal caliber thoracic aorta with no evidence for dissection. Moderate atherosclerotic plaque within the aortic arch and descending thoracic aorta, unchanged. The heart is normal in size. No pleural or pericardial effusions. Left-sided pacemaker. No filling defects within the pulmonary arteries to suggest pulmonary embolus. A few mildly enlarged mediastinal bilateral hilar lymph nodes. These have slightly increased in size. Dominant left hilar lymph node measures 12 mm. This is likely reactive. Limited views of the upper abdomen demonstrate a normal spleen and adrenal glands. There is a coarse calcification within the right hepatic dome. No pleural or pericardial effusions. No suspicious lytic or blastic osseous lesions. Old, healed right posterior rib fractures. No pneumothorax. Trace mucoid material within the right mainstem bronchus. Mild emphysema. Stable 1 cm nodule within the left lower lobe in image 122. Mild bronchial wall thickening. Progressive peripheral groundglass airspace opacities with subpleural reticulation. Findings favor a viral pneumonia. Developing fibrotic change could also have a similar appearance. IMPRESSION: 1. No evidence for pulmonary embolus. 2. Peripheral groundglass airspace opacities with subpleural reticulation. This most likely represents a moderate viral pneumonia. Developing fibrotic change could also have a similar appearance. 3. Mild emphysema. 4. Stable 1 cm left lower lobe nodule. One year chest CT follow up recommended to ensure stability. ACT 112: Positive. There are findings on this exam that require communication between the performing entity and the patient following Patient Test Result Information Act ([place] Act 112) guidelines. Electronically signed by: Alistair Mackey M.D. 06/21/2020 11:[address] 06/21/20 18:54 CT OF THE HEAD WITHOUT CONTRAST CLINICAL HISTORY: ongoing delirium COMPARISON STUDY: No previous studies for comparison. CT DOSE: 1812.68 mGycm TECHNIQUE: Helical axial images of the head were obtained without IV contrast. Automated exposure control was utilized for the study. A dose lowering t echnique was utilized adhering to the principles of ALARA. FINDINGS: No acute intracranial hemorrhage, midline shift or mass effect is present. Ventricular system is normal. Basilar cisterns are patent. There are no extra-axial collections. Note is made of a 1.8 x 1.1 cm hypodensity within the right cerebellar hemisphere. 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 There are no findings to suggest acute dural sinus thrombosis or acute territorial infarct. There are no significant calvarial abnormalities. IMPRESSION: 1. No acute intracranial findings. 2. 1.8 x 1.1 cm hypodensity within the right cerebellar hemisphere which favors an old infarct. ACT 112: Negative or not required by law. Electronically signed by: Kulwinder Godoy M.D. 06/22/2020 2:32 PM Hospital Course (1) Bilateral pneumonia: resolved. 2nd residual COVID-19 infection (initial dx in late May at [facility] in [place]). CTA chest this admission with classic appearing groundglass infiltrates c/w his recent COVID pneumonia. did receive 7 days each of rocephin and doxycycline this admission to cover for the possibility of superimposed bacterial pneumonia. all antibiotics discontinued prior to transfer to [facility]. at this point he is in recovery phase from mod-severe COVID-19 infection. cont 3 liters NC O2 - wean as tolerated as outpatient. (2) Encephalopathy acute: METABOLIC encephalopathy in the setting of probable underlying, chronic, mild cognitive impairment (vs dementia) as daughter reported 6-12 months of cognitive decline/memory issues. Confusion ongoing since his COVID infection in late May/early June. IMPROVED/resolving. Required a 1:1 sitter during much of the stay but was discontinued about 36 hours prior to discharge. 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 Given the cerebrovascular disease found he may have developing vascular dementia at baseline. Previous b12/TSH wnl. Checked B1 level. While awaiting level thiamine 200mg BID recommended. Cont scheduled zyprexa 5mg at HS. After d/c would refer to neurology for additional dementia w/u and consideration of MRI brain. (3) AVNRT (AV daniela re-entry tachycardia): with associated tachy-jeffy syndrome. [place] [facility] [place] -- s/p pacemaker insertion on 06/16/20. interrogation of pacemaker wnl post-pacemaker placement. continue carvedilol 6.25mg BID. no a.fib/flutter seen on telemetry or during pacemaker interrogation. (4) Status cardiac pacemaker: 06/16/[address] Ernst Almaguer for tachy-jeffy syndrome. Tachycardia 2nd to AVNRT not a fib/flutter. Pacemaker site stable and w/o hematoma. Continue left arm restrictions and sling to reinforce those restrictions. (5) Elevated d-dimer: Marked, in setting of COVID-19 infection late May 2020 (level was 6500). CTA w/o PE -- thus the dimer itself was simply reflective of significant COVID inflammatory response. Dopplers of legs negative DVT. (6) Chronic respiratory failure with hypoxia: Hospitalized for COVID-19 pneumonia 05/26 to 06/01 at [facility] in [place]. d/c to home on NC O2 3 liters continuously at that time. Remains on 3 L NC O2 with stable O2 sats. Has baseline COPD as well. (7) Acute kidney injury: Likely ATN from hypotension. Cr 0.9 at time of hospital discharge from [facility] on 06/01/20. Peak Cr 2.[address] [facility], improving to 1.5 at discharge. 1.5 appears to be at baseline. (8) History of COVID-19: dx 05/26 at [facility]. Hospitalized 05/26 to 06/01 for such. d/c summary indicates steroids/remdesivir employed during his stay but oddly he was not d/c home on 5 more days of decadron. remains on NC O2 3 liters continuously since his COVID diagnosis. no PE on CTA chest this admission. (9) Coronary artery disease: h/o stents in past. echo with wall motion abnormalities. no ischemic symptoms at this time however. remains on asa, statin, coreg, plavix. typically also on BAN, imdur, and lasix - all held due to MARTÍN and low BPs. he remained compensated from pulmonary standpoint this entire stay. at discharge he will continue to hold his BAN and imdur but resume lasix. (10) COPD (chronic obstructive pulmonary disease): by history. cont home inhalers. emphysema changes on CT. 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 (12) Acute hypotension: at time of admission here on 06/14. then, low BPs recurred on 06/17 and 06/18. cont to hold imdur, lasix, BAN as BPs are controlled/normal without them. would use lasix prn. (13) Diabetes mellitus: a1c 7.8%. controlled while here with basal-bolus insulin. will resume januvia as previous. (14) BPH (benign prostatic hyperplasia): cont flomax. (15) Hypothyroidism: TSH this admission suppressed at 0.09. had been taking 112mcg of synthroid daily prior to admission. dose reduced to 100mcg daily. repeat TSH as outpatient in 6 weeks. (16) Cerebrovascular disease: old cerebellar CVA seen on CT head. continue asa and plavix for secondary prevention. cerebrovascular disease could be contributing to his memory loss and cognitive dysfunction . (17) DVT prophylaxis: lovenox 40mg daily provided while hospitalized recommend 40mg daily upon transfer to [facility] Total Time Total Time Spent Total Time Spent (In Minutes): 45 Total Time Includes: Examination of the Patient, Discharge Planning and Medication Reconciliation Discharge Plan Discharge Items Patient Disposition: Transfer Inpatient Rehab Fac Reason For Visit: MARTÍN, SINUS BRADYCARDIA, ACUTE HYPOTENSION Discharge Diagnosis: 1. SVT - s/p pacemaker insertion 06/16/2020 (Ernst Almaguer MD - [facility]) 2. recent COVID-19 pneumonia (initial diagnosis late May 2020) 3. chronic hypoxic respiratory failure - on home oxygen 2-3 liters continuously - 2nd to recent COVID infection and underlying COPD 4. severe delirium - improved 5. probable mild cognitive impairment vs early dementia - needs [facility] [place] to establish care 6. acute kidney injury - resolved; discharge creatinine 1.5 Activity: Per Instructions section Bathing: Keep incision dry Bathing Comment: pacemaker site - keep covered during showers Non-emergency contact: Primary Care Provider and Shared Services Manager Call non-emergency contact if: you have any medication questions, your symptoms worsen, you have a fever, your wound has increased redness, your wound has increased drainage and your wound pain has increased Follow-up/Referrals: Douglas Mcdonald MD [Physician] - (first available appointment - Dr Mcdonald or any neurologist - diagnosis - suspected early dementia, vascular type.) Ernst Almaguer MD [Physician] - (Please see Dr. Almaguer in 1 week for a pacemaker check.) Kimberly Neves DO [Primary Care Provider] - Diet: Carb Consistent or DM2 and Heart Healthy Addtl Attending Provider Instructions: Mr Prieto was hospitalized for the problems listed above in "discharge diagnoses." He does NOT need isolation for COVID-19 as his diagnosis was in late May. He is still requiring oxygen due to the recent COVID-19 infection as well as underlying COPD. He had significant delirium responding nicely to scheduled zyprexa at bedtime, 5mg each night. There is evidence of an OLD STROKE on CT head (right cerebellum). The date of this stroke is uncertain. We are advising follow-up with [facility] [place] due to developing dementia/cognitive impairment as well as the discovery of this old stroke. Patient will need follow-up with Dr Almaguer, [facility], within 1 week for a pacemaker check. Recommendations - 1. TSH in 4-6 weeks as outpatient. 2. CBC, BMP, mag level in 3-4 days for stability. 3. BSG checks twice daily. 4. Post-pacemaker implantation instructions -- ACTIVITY RECOMMENDATIONS: * Do not raise LEFT arm over head or behind the neck for 2 weeks. Patient may need to wear a left-sided sling to reinforce this given his memory difficulty. SPECIAL CARE INSTRUCTIONS: * If bleeding occurs, apply direct pressure to area for 5 minutes. * Call your doctor if you have severe pain, fever, drainage or bleeding at site. * Keep dressing on and dry for 48 hours then remove. * Keep any scheduled doctor's appointment. * Implant Card - hand held device with website information given. SKIN IRRITATION: * You may experience some redness and/or swelling in the area where radiation was administered. If any skin irritation occurs, please contact your family physician. Pending Studies at Discharge: No Stand-Alone Forms: My [employer], Smoking Cessation Skilled Items Patient informed of condition?: Yes DNR: No Discharge Level of Care: Acute rehab Communicable Disease: No Discharge Prognosis: Stable Lines: None Urinary Catheter: No Medications and DC Order Prescriptions: New carvedilol 6.25 mg tablet 6.25 mg PO BID Qty: 60 RF: 0 levothyroxine [Synthroid] 100 mcg Tablet 100 mcg PO DAILYBB Qty: 30 RF: 0 enoxaparin 40 mg/0.4 mL Syringe 40 mg subcut QAM 14 Days Qty: 5.6 RF: 0 olanzapine 5 mg Tablet 5 mg PO HS Qty: 30 RF: 2 thiamine HCl (vitamin B1) [Vitamin B-1] 100 mg Tablet 200 mg PO BID 30 Days Qty: 120 RF: 0 furosemide 40 mg tablet 20 mg PO DAILY Qty: 30 RF: 0 famotidine [Pepcid] 20 mg tablet 20 mg PO BID Qty: 60 RF: 5 (DME) Oxygen Home Liters Per Minute 1 ea .Route CONTINOUS Qty: 1 RF: 0 Continued allopurinol 100 mg tablet 100 mg PO BID RF: 0 clopidogrel 75 mg tablet 75 mg PO QAM RF: 0 atorvastatin 40 mg tablet 40 mg PO HS RF: 0 tamsulosin 0.4 mg capsule 0.4 mg PO HS RF: 0 aspirin 81 mg Tablet,Delayed Release (Dr/Ec) 81 mg PO QAM RF: 0 gabapentin 300 mg Capsule 600 mg PO HS RF: 0 ergocalciferol (vitamin D2) [Vitamin D2] 1,250 mcg (50,000 unit) Capsule 1,250 mcg PO .Q2WK RF: 0 duloxetine 60 mg Capsule,Delayed Release(Dr/Ec) 60 mg PO HS RF: 0 Januvia 100 mg Tablet 100 mg PO HS RF: 0 Vit B Comp. W/Vit C & Folic Ac 1 tab PO HS RF: 0 Changed bupropion HCl 100 mg tablet sustained-release 12 hr 100 mg PO BID Qty: 0 RF: 0 Discontinued isosorbide mononitrate 30 mg tablet extended release 24 hr 30 mg PO QAM RF: 0 furosemide 40 mg tablet 40 mg PO BID RF: 0 carvedilol 3.125 mg Tablet 3.125 mg PO BID RF: 0 lisinopril 10 mg Tablet 10 mg PO QAM RF: 0 levothyroxine 112 mcg Tablet 112 mcg PO DAILYBB RF: 0 Discharge Orders: Discharge Order (Routine); Ordered 06/25/20 Ordered By: Franco Alfonso/Other Patient Handouts: Managing Type 2 Diabetes Admission Data Admit Date/Time: 06/14/20 18:00 Attending Provider: Franco Price Admit Provider: Franco Trujillo Primary Care Provider: Kimberly Neves Other Providers: Pablo Springer ; [facility] ; [facility] ; Franco Trujillo ; Mane Harrison ; Ernst Almaguer Other Interventions: Discharge Summary Assessment (RN) Last Done: 06/25/20 12:51 Coding Level of Care Code D/C Day Management >30 mins Diagnoses Bilateral pneumonia J18.9 Encephalopathy acute G93.40 AVNRT (AV daniela re-entry tachycardia) I47.1 Status cardiac pacemaker Z95.0 Elevated d-dimer R79.89 Chronic respiratory failure with hypoxia J96.11 Acute kidney injury N17.9 History of COVID-19 Z86.16 Coronary artery disease I25.10 COPD (chronic obstructive pulmonary disease) J44.9 Tachy-jeffy syndrome I49.5 Acute hypotension I95.9 Diabetes mellitus E11.9 BPH (benign prostatic hyperplasia) N40.0 Hypothyroidism E03.9 Cerebrovascular disease I67.9 DVT prophylaxis Z29.9
== END 2020-06-25 13:44 | DRG 242 ==
LOC: ED 15:03 → 2N 18:00 → SUATTDRO 18:00 → 2N 19:37 → 2S 06-16 11:50 → 3N 06-17 16:20 → 2W 06-18 17:09

== ENCOUNTER 2022-10-24 14:27 | Inpatient (IN) ==
[2022-10-24] MEDS ORDERED: SODIUM CHLORIDE 0.9% 1,000 ML IV ONE (14:55)
--- NOTE | 2022-10-24 14:55 | Emergency Department Note ---
Impression & Plan Acute renal insufficiency, Urinary tract infection, acute, Generalized weakness, Intermittent confusion ED Provider Note NAME: JESÚS HOLLINGSWORTH AGE: 82 SEX: M ARRIVES VIA: Walk-In INFORMANT: Patient ED PROVIDER(S): Delroy Joy MD CHIEF COMPLAINT: intermittent confusion, weakness PLAN: Disposition: Admit MEDICAL DECISION MAKING: The patient is a pleasant 82-year-old gentleman with a past medical history of his tachybradycardia syndrome status post PPM, chronic respiratory failure with hypoxia, memory deficits, cerebrovascular disease, CAD, paroxysmal atrial flutter, CAD who presents emergency department for evaluation of worsening intermittent confusion and lower extremity weakness that is worsened over the past 2 days where he has had recurrent falls in the setting of having history of less frequent symptoms of intermittent confusion and weakness chronically but feels that these are worse. They report that they were able to help him get to his walker and walk him to the car but this required "a lot of effort per the patient's children the bedside. They deny any recent fevers, cough, congestion. They follow with urology regularly for history of prostate cancer but denies any unique new urinary symptoms. On arrival the patient is in no acute distress, afebrile with blood pressure 90s/60s but mentating at his baseline per family and otherwise stable vital signs. Suspect temperature was not necessarily accurate on triage and will rep eat. O2 saturation 93% on room air. He appears clinically dry. He exhibits no focal neurologic deficits at this time with normal strength lifting legs off of the bed and moving upper extremities. Intact finger-nose. EKG is paced without overt acute ischemia. CXR negative for acute cardiopulmona ry process. WBC 11.3K nonspecific. H/H 12.7/3.1 decreased from last value though within prior range of values. Platelets within normal limits. Chemistry without metabolic acidosis. VBG with minimal hypercapnia with PCO2 56. Creatinine is newly elevated 2.83 with BUN elevated 54. LFTs without significant abnormality. CPK within normal limits. High-sensitivity troponin 7.6, within normal limits. Procalcitonin is not elevated. TSH within normal limits. UA is suspicious for infection with WBCs albeit with epithelial cells present and no bacteria. Lyme screen was negative. CT of the head and C-spine negative for acute traumatic findings. No acute process otherwise. CT of the chest and abdomen pelvis were performed and were negative for acute abnormalities. Mild interval increase in size of infrarenal AAA compared to 202. Patient was treated with IV fluid hydration with improvement in blood pressure. He was initially treated with empiric ceftriaxone for possibility of UTI. Given the patient's acute renal failure in the setting of intermittent confusion and weakness he was referred to the hospital service for admission. Case was d/w Dr. Trujillo [facility] hospitalist who will evaluate the patient for admission. Triage Nursing notes reviewed and agree them. Prior/outside medical records reviewed Vital Signs: reviewed Differential diagnosis: Infection, hypoglycemia, electrolyte abnormalities, overdose, toxicologic, cardiac sources, intracerebral event, neurologic, trauma, as well as other patho logies. ER treatment provided: See below. Diagnostics interpreted by me: ECG: Atrial paced rhythm, 61 bpm, no overt acute ischemia. Cardiac Monitoring: An order for continuous cardiac monitoring was placed and demonstrated Atrial paced rhythm, 61 bpm. Laboratory studies: See below Imaging studies: See below Consultation(s): Case was d/w ISABELLE Arechiga hospitalist who will evaluate the patient for admission. HPI: The patient is a pleasant 82-year-old gentleman with a past medical history of his tachybradycardia syndrome status post PPM, chronic respiratory failure with hypoxia, memory deficits, cerebrovascular disease, CAD, paroxysmal atrial flutter, CAD who presents emergency department for evaluation of worsening intermittent confusion and lower extremity weakness that is worsened over the past 2 days where he has had recurrent falls in the setting of having history of less frequent symptoms of intermittent confusion and weakness chronically but feels that these are worse. They report that they were able to help him get to his walker and walk him to the car but this required "a lot of effort per the patient's children the bedside. They deny any recent fevers, cough, congestion. They follow with urology regularly for history of prostate cancer but denies any unique new urinary symptoms. ROS: See above HPI for pertinent positives & negatives. A total of 10 systems reviewed and were otherwise negative. VITALS:See Below PHYSICAL EXAMINATION: GENERAL: Awake, alert, well-appearing, in no distress HENT: Normocephalic, atraumatic. Oropharynx with dry mucous membranes and otherwise unremarkable. EYES: Normal conjunctiva. Sclera non-icteric. NECK: Supple. No nuchal rigidity. FROM. No JVD. RESPIRATORY: Clear to auscultation. CARDIAC: Regular rate, normal rhythm. Extremities warm and well perfused. Pulses equal. ABDOMEN: Soft, non-distended. No tenderness to palpation. No rebound or guar ding. No masses. RECTAL: Deferred. MUSCULOSKELETAL: Chest examination reveals no tenderness though with subacute ecchymosis of left lower chest wall. No bony crepitus. The back is symmetrical on inspection without obvious abnormality. There is no CVA tenderness to palpation. No joint edema. LOWER EXTREMITIES: Calves are equal size bilaterally and non-tender. No edema. No discoloration. NEURO: 5/5 strength and SILT x 4 extremities. Cerebellar function intact including [id number]. SKIN: No rash or jaundice noted. Delroy Joy MD Past Med/Surg History Medical History Anemia Anxiety Bladder cancer CHF (congestive heart failure) EF 50-55% Chronic back pain COPD (chronic obstructive pulmonary disease) Coronary artery disease Per cardio records- "interventions on SHIP WIRER the LAD and RCA in 2014" Per patient and records- possibly 4-6 cardiac stents- on Plavix Dementia Per records (Pt reports short term memory issues) Depression Diabetes mellitus, type 2 NIDDM GERD (gastroesophageal reflux disease) Hearing deficit History of COVID-19 Dx 05/2020 > was hospitalized as [facility] > symptoms resolved Hx of gout Hyperlipidemia Hypertension Hypothyroidism Lung nodule Under surveillance Morbid obesity 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 Velasquez Paroxysmal atrial flutter Follows with Dr. Velasquez with [facility] Peripheral neuropathy Sleep apnea No device currently Stroke Remote incidental finding on imaging Per 07/10/20 neuro note "h/o cerebellar stroke without residual deficits"- continue ASA and statin. Surgical History History of bladder surgery TURBT History of cataract surgery RT/LEFT History of cystoscopy MULTIPLE TIMES History of hydrocelectomy RT History of tooth extraction S/P coronary artery stent placement Per patient and records- possibly 4-6 cardiac stents (most recent stent several years ago) Family History Brother Prostate cancer Heart disease Other No family history of adverse response to anesthesia Social History Smoking Status: Former smoker Second Hand Exposure: No; Do You Dip or Chew Tobacco: No; Tobacco Cessation Education Requested by Patient: No Hx Alcohol Use: No Hx Substance Use: No Preferred Language: Salvadorean Communication Ability: Effective Communication Ability Comment: [facility] Yoker Required: No Beliefs That Will Affect Care: None marital status: Single Current Living Situation: Alone current occupational status: retired Other Information That Helps Us Care for You: No Feels Safe at Home: Yes and No Is there a partner from a previous relationship who is making you feel unsafe now?: No Any Concerns about Your Family Situation: No Would You Like to Speak to Someone About Your Situation: No Safety Concerns: Feels Safe At This Time Assistive Devices: CPAP and Walker Assistive Devices Comment: has a CPAP at home but doesnt use Allergies Allergies Allergy/AdvReac Type Severity Reaction Status Date / Time tiotropium Allergy Intermediate Eye pain Verified 10/24/22 19:29 Home Meds Home Medications Medication Instructions Recorded Confirmed allopurinol 100 mg tablet 100 mg PO BID 03/24/19 10/24/22 atorvastatin 40 mg tablet 40 mg PO HS 03/24/19 10/24/22 clopidogrel 75 mg tablet 75 mg PO QAM 03/24/19 10/24/22 aspirin 81 mg tablet,delayed 81 mg PO QAM 06/14/20 10/24/22 release sitagliptin phosphate 100 mg 100 mg PO HS 06/14/20 10/24/22 tablet (Januvia) famotidine 20 mg tablet (Pepcid) 20 mg PO QAM 07/10/20 10/24/22 B-complex with vitamin C 1 cap PO HS 09/26/20 10/24/22 fluticasone 250 mcg-salmeterol 50 1 inh inhalation BID 05/24/21 10/24/22 mcg/dose blistr powdr for inhalation (Advair Diskus) empagliflozin 10 mg tablet 10 mg PO QAM 02/05/22 10/24/22 (Jardiance) ferrous sulfate 325 mg (65 mg 325 mg PO BID 02/05/22 10/24/22 iron) tablet (FeroSul) ipratropium 20 mcg-albuterol 100 1 puff inhalation 4XD PRN 02/05/22 10/24/22 mcg/actuation mist for inhalation WHEEZING/COUGHING (Combivent Respimat) thiamine HCl (vitamin B1) 100 mg 100 mg PO DAILY 02/05/22 10/24/22 tablet carvedilol 6.25 mg tablet 6.25 mg PO BID 04/24/22 10/24/22 Prevagen 1 tab PO DAILY 04/25/22 10/24/22 furosemide 40 mg tablet 40 mg PO QAM 04/25/22 10/24/22 gabapentin 600 mg tablet See Rx Instructions .Route .COMPLEX 04/25/22 10/24/22 lisinopril 2.5 mg tablet 2.5 mg PO QAM 04/25/22 10/24/22 loratadine 10 mg tablet 10 mg PO DAILY PRN Allergy Symptoms 04/25/22 10/24/22 xoxykyec-gi-aobep 300 mcg-K 60 1 tab PO QAM 04/25/22 10/24/22 mcg-lycop 600 mcg-lutein 300 mcg tablet (Centrum Silver Men) nitroglycerin 0.4 mg sublingual 0.4 mg buccal UD PRN Chest Pain 04/25/22 10/24/22 tablet venlafaxine 75 mg tablet 75 mg PO DAILY 04/25/22 10/24/22 gabapentin 300 mg capsule See Rx Instructions .Route .COMPLEX 10/24/22 10/24/22 ipratropium 0.5 mg-albuterol 3 mg 3 ml inhalation Q4H PRN 10/24/22 10/24/22 (2.5 mg base)/3 mL nebulization wheezing/cough soln metoprolol succinate 25 mg 25 mg PO DAILY 10/24/22 10/24/22 tablet,extended release 24 hr tamsulosin 0.4 mg capsule 0.4 mg PO HS 10/24/22 10/24/22 Previous Rx's Medication Instructions Recorded levothyroxine 100 mcg tablet 100 mcg PO DAILYBB #30 tabs 06/16/20 (Synthroid) bupropion HCl 100 mg tablet,12 hr 100 mg PO BID #0 ea 06/25/20 sustained-release Results & Data (ED) Vital Signs Vital Signs - 24 hr 10/24/22 14:37 10/24/22 15:24 10/24/22 15:28 Temperature 36.1 C L Temperature Source Temporal Artery Scan Pulse Rate 64 61 Pulse Rate [Apical] 60 Respiratory Rate 18 19 Respiratory Effort / Characteristics Non-Labored Respiratory Depth Normal Respiratory Pattern Blood Pressure 90/47 L Blood Pressure [Right Arm] 98/67 L Blood Pressure Mean 61 Blood Pressure Mean [Right Arm] 77 Pulse Oximetry 95 93 Oxygen Delivery Method Room Air Room Air Sepsis Recent Fever Within 48 Hours No Sepsis New/Unexplained Change in Mental Status No Sepsis Action Taken by Nursing No Action Required 10/24/22 17:00 10/24/22 19:00 Temperature Temperature Source Pulse Rate 60 Pulse Rate [Apical] Respiratory Rate 19 Respiratory Effort / Characteristics Non-Labored Respiratory Depth Respiratory Pattern Regular Blood Pressure Blood Pressure [Right Arm] Blood Pressure Mean Blood Pressure Mean [Right Arm] Pulse Oximetry 96 Oxygen Delivery Method Sepsis Recent Fever Within 48 Hours Sepsis New/Unexplained Change in Mental Status Sepsis Action Taken by Nursing Laboratory Data Attestation: I reviewed the patient's lab results. 10/24/22 15:33 10/24/22 15:33 Lab Results 10/24/22 10/24/22 10/24/22 Range/Units 15:33 15:33 15:33 WBC 11.36 H (4.8-10.8) K/ul RBC 4.04 L (4.70-6.10) M/uL Hgb 12.7 L (14.0-18.0) g/dl Hct 38.1 L (42.0-52.0) % MCV 94.3 (80.0-100.0) fL MCH 31.4 (25.0-34.0) pg MCHC 33.3 (32.0-36.0) g/dL RDW Std Deviation 48.5 H (36.4-46.3) fL RDW Coeff of Kayla 14.2 (11.5-14.5) % Plt Count 192 (130-400) K/uL MPV 11.0 (9.4-12.4) fL Immature Gran % (Auto) 0.4 % Neut % (Auto) 75.4 % Lymph % (Auto) 14.5 % [place] % (Auto) 6.7 % Eos % (Auto) 2.6 % Baso % (Auto) 0.4 % Neut # (Auto) 8.56 H (1.40-6.50) K/uL Lymph # (Auto) 1.65 (1.20-3.40) K/uL [place] # (Auto) 0.76 H (0.11-0.59) K/uL Eos # (Auto) 0.29 (0.00-0.50) K/uL Baso # (Auto) 0.05 (0.00-0.20) K/uL Immature Gran # (Auto) 0.05 (0.01-0.20) K/uL PT 11.9 (9.0-12.0) Seconds INR 1.1 (0.9-1.1) APTT 32.5 H (21.0-31.0) Seconds PTT Ratio 1.2 VBG pH (7.36-7.41) VBG pCO2 (38-50) mmHg VBG pO2 mmHg VBG HCO3 mmol/L VBG O2 Saturation % VBG Base Excess mEq/L Sodium (136-145) mmol/L Potassium (3.5-5.1) mmol/L Chloride (98-107) mmol/L Carbon Dioxide (21-32) mmol/L Anion Gap (3-11) BUN (6-23) mg/dl Creatinine (0.6-1.4) mg/dl Est Cr Clr Drug Dosing ml/min Est GFR ( Amer) ml/min Est GFR (Non-Af Amer) ml/min BUN/Creatinine Ratio (10-20) Glucose (70-99(Fasting)) mg/dl Lactate 1.5 (0.4-2.0) mmol/L Calcium (8.6-10.3) mg/dl Phosphorus (2.5-4.9) mg/dl Magnesium (1.7-2.4) mg/dl Total Bilirubin (0.2-1.0) mg/dl AST (13-39) U/L ALT (7-52) U/L Alkaline Phosphatase (34-104) U/L Total Creatine Kinase (30-223) U/L Troponin I High Sens (0-20) pg/ml Total Protein (6.0-8.3) gm/dl Albumin (3.4-5.0) gm/dl Globulin (2.5-4.0) gm/dl Albumin/Globulin Ratio (0.9-2) Procalcitonin (0-0.5) ng/ml TSH (0.300-4.500) uIu/ml Urine Color Urine Appearance (Clear) Urine pH (4.5-7.5) Ur Specific [place] (1.000-1.030) Urine Protein (Negative) Urine Glucose (UA) (Negative) Urine Ketones (Negative) Urine Blood (Negative) Urine Nitrite (Negative) Urine Bilirubin (Negative) Urine Urobilinogen (Negative) Ur Leukocyte Esterase (Negative) Urine WBC (Auto) (0-5) /hpf Urine RBC (Auto) (0-4) /hpf U Hyaline Cast (Auto) (0-5) /lpf U Epithel Cells (Auto) (0-5) /lpf Urine Bacteria (Auto) (Negative) Lyme Disease IgG Ab (Negative) Lyme Disease IgM Ab (Negative) 10/24/22 10/24/22 10/24/22 Range/Units 15:33 15:33 15:33 WBC (4.8-10.8) K/ul RBC (4.70-6.10) M/uL Hgb (14.0-18.0) g/dl Hct (42.0-52.0) % MCV (80.0-100.0) fL MCH (25.0-34.0) pg MCHC (32.0-36.0) g/dL RDW Std Deviation (36.4-46.3) fL RDW Coeff of Kayla (11.5-14.5) % Plt Count (130-400) K/uL MPV (9.4-12.4) fL Immature Gran % (Auto) % Neut % (Auto) % Lymph % (Auto) % [place] % (Auto) % Eos % (Auto) % Baso % (Auto) % Neut # (Auto) (1.40-6.50) K/uL Lymph # (Auto) (1.20-3.40) K/uL [place] # (Auto) (0.11-0.59) K/uL Eos # (Auto) (0.00-0.50) K/uL Baso # (Auto) (0.00-0.20) K/uL Immature Gran # (Auto) (0.01-0.20) K/uL PT (9.0-12.0) Seconds INR (0.9-1.1) APTT (21.0-31.0) Seconds PTT Ratio VBG pH (7.36-7.41) VBG pCO2 (38-50) mmHg VBG pO2 mmHg VBG HCO3 mmol/L VBG O2 Saturation % VBG Base Excess mEq/L Sodium 135 L (136-145) mmol/L Potassium 4.6 (3.5-5.1) mmol/L Chloride 99 (98-107) mmol/L Carbon Dioxide 28 (21-32) mmol/L Anion Gap 8 (3-11) BUN 54 H (6-23) mg/dl Creatinine 2.83 H (0.6-1.4) mg/dl Est Cr Clr Drug Dosing 23.8 ml/min Est GFR ( Amer) 22.8 ml/min Est GFR (Non-Af Amer) 19.7 ml/min BUN/Creatinine Ratio 19.1 (10-20) Glucose 127 H (70-99(Fasting)) mg/dl Lactate (0.4-2.0) mmol/L Calcium 9.6 (8.6-10.3) mg/dl Phosphorus 4.0 (2.5-4.9) mg/dl Magnesium 2.3 (1.7-2.4) mg/dl Total Bilirubin 1.1 H (0.2-1.0) mg/dl AST 19 (13-39) U/L ALT 16 (7-52) U/L Alkaline Phosphatase 132 H (34-104) U/L Total Creatine Kinase (30-223) U/L Troponin I High Sens 7.6 (0-20) pg/ml Total Protein 7.4 (6.0-8.3) gm/dl Albumin 4.2 (3.4-5.0) gm/dl Globulin 3.2 (2.5-4.0) gm/dl Albumin/Globulin Ratio 1.3 (0.9-2) Procalcitonin 0.08 (0-0.5) ng/ml TSH 1.701 (0.300-4.500) uIu/ml Urine Color Urine Appearance (Clear) Urine pH (4.5-7.5) Ur Specific [place] (1.000-1.030) Urine Protein (Negative) Urine Glucose (UA) (Negative) Urine Ketones (Negative) Urine Blood (Negative) Urine Nitrite (Negative) Urine Bilirubin (Negative) Urine Urobilinogen (Negative) Ur Leukocyte Esterase (Negative) Urine WBC (Auto) (0-5) /hpf Urine RBC (Auto) (0-4) /hpf U Hyaline Cast (Auto) (0-5) /lpf U Epithel Cells (Auto) (0-5) /lpf Urine Bacteria (Auto) (Negative) Lyme Disease IgG Ab Negative (Negative) Lyme Disease IgM Ab Negative (Negative) 10/24/22 10/24/22 10/24/22 Range/Units 15:33 16:05 17:44 WBC (4.8-10.8) K/ul RBC (4.70-6.10) M/uL Hgb (14.0-18.0) g/dl Hct (42.0-52.0) % MCV (80.0-100.0) fL MCH (25.0-34.0) pg MCHC (32.0-36.0) g/dL RDW Std Deviation (36.4-46.3) fL RDW Coeff of Kayla (11.5-14.5) % Plt Count (130-400) K/uL MPV (9.4-12.4) fL Immature Gran % (Auto) % Neut % (Auto) % Lymph % (Auto) % [place] % (Auto) % Eos % (Auto) % Baso % (Auto) % Neut # (Auto) (1.40-6.50) K/uL Lymph # (Auto) (1.20-3.40) K/uL [place] # (Auto) (0.11-0.59) K/uL Eos # (Auto) (0.00-0.50) K/uL Baso # (Auto) (0.00-0.20) K/uL Immature Gran # (Auto) (0.01-0.20) K/uL PT (9.0-12.0) Seconds INR (0.9-1.1) APTT (21.0-31.0) Seconds PTT Ratio VBG pH 7.32 L (7.36-7.41) VBG pCO2 56 H (38-50) mmHg VBG pO2 22 mmHg VBG HCO3 29 mmol/L VBG O2 Saturation < 60.0 % VBG Base Excess 1.6 mEq/L Sodium (136-145) mmol/L Potassium (3.5-5.1) mmol/L Chloride (98-107) mmol/L Carbon Dioxide (21-32) mmol/L Anion Gap (3-11) BUN (6-23) mg/dl Creatinine (0.6-1.4) mg/dl Est Cr Clr Drug Dosing ml/min Est GFR ( Amer) ml/min Est GFR (Non-Af Amer) ml/min BUN/Creatinine Ratio (10-20) Glucose (70-99(Fasting)) mg/dl Lactate (0.4-2.0) mmol/L Calcium (8.6-10.3) mg/dl Phosphorus (2.5-4.9) mg/dl Magnesium (1.7-2.4) mg/dl Total Bilirubin (0.2-1.0) mg/dl AST (13-39) U/L ALT (7-52) U/L Alkaline Phosphatase (34-104) U/L Total Creatine Kinase 107 (30-223) U/L Troponin I High Sens (0-20) pg/ml Total Protein (6.0-8.3) gm/dl Albumin (3.4-5.0) gm/dl Globulin (2.5-4.0) gm/dl Albumin/Globulin Ratio (0.9-2) Procalcitonin (0-0.5) ng/ml TSH (0.300-4.500) uIu/ml Urine Color Yellow Urine Appearance Cloudy A (Clear) Urine pH 5.5 (4.5-7.5) Ur Specific [place] 1.009 (1.000-1.030) Urine Protein Trace H (Negative) Urine Glucose (UA) 1+ H (Negative) Urine Ketones Negative (Negative) Urine Blood 3+ H (Negative) Urine Nitrite Negative (Negative) Urine Bilirubin Negative (Negative) Urine Urobilinogen Negative (Negative) Ur Leukocyte Esterase Trace H (Negative) Urine WBC (Auto) 5-10 H (0-5) /hpf Urine RBC (Auto) >30 H (0-4) /hpf U Hyaline Cast (Auto) 1-5 (0-5) /lpf U Epithel Cells (Auto) 5-10 H (0-5) /lpf Urine Bacteria (Auto) Negative (Negative) Lyme Disease IgG Ab (Negative) Lyme Disease IgM Ab (Negative) Administered Medications Allopurinol (Allopurinol 100 Mg Tab) 100 mg PO BID RANDAL Stop: 11/23/22 21:29 Last Admin: 10/24/22 22:34 Dose: 100 mg Documented By: [id number] Atorvastatin Calcium (Atorvastatin 40 Mg Tab) 40 mg PO HS RANDAL Stop: 11/23/22 21:29 Last Admin: 10/24/22 22:34 Dose: 40 mg Documented By: [id number] Bupropion HCl (Bupropion Sr 100 Mg Tabcr) 100 mg PO BID RANDAL Stop: 11/23/22 21:29 Last Admin: 10/24/22 22:33 Dose: 100 mg Documented By: [id number] Ferrous Sulfate (Ferrous Sulfate 325 Mg Tab) 325 mg PO BID RANDAL Stop: 11/23/22 21:29 Last Admin: 10/24/22 22:33 Dose: 325 mg Documented By: [id number] Gabapentin (Gabapentin 300 Mg Cap) 300 mg PO BID RANDAL Stop: 11/23/22 20:59 Last Admin: 10/24/22 22:35 Dose: 300 mg Documented By: [id number] Lactated Ringer's (Lr) 1,000 mls @ 100 mls/hr IV .Q10H RANDAL Stop: 10/25/22 17:12 Last Admin: 10/24/22 22:17 Dose: 100 mls/hr Documented By: [id number] Insulin Aspart (Insulin Aspart Per Unit Charge) 0 units SC ACHS RANDAL Stop: 11/23/22 21:29 Last Admin: 10/24/22 22:15 Dose: Not Given Documented By: [id number] Tamsulosin HCl (Tamsulosin Hcl 0.4 Mg Cap) 0.4 mg PO HS RANDAL Stop: 11/23/22 21:29 Last Admin: 10/24/22 22:35 Dose: 0.4 mg Documented By: [id number] Discontinued Medications Sodium Chloride (Nss 1000ml) 1,000 mls @ 999 mls/hr IV .Q1H1M ONE Stop: 10/24/22 15:55 Last Infusion: 10/24/22 16:46 Dose: 999 mls/hr Documented By: Admin: 10/24/22 15:31 Dose: 999 mls/hr Documented By: [email or web address] Ceftriaxone Sodium (Rocephin) 2,000 mg in 70 mls @ 140 mls/hr IV NOW STA Stop: 10/24/22 18:47 Last Infusion: 10/24/22 19:45 Dose: 0 mls/hr Documented By: [facility] Admin: 10/24/22 19:01 Dose: 140 mls/hr Documented By: S Imaging Data Radiologist's Impression: Chest X-Ray 10/24/22 14:42 XR chest 1V portable HISTORY: 82 years-old Male Sepsis acute sepsis COMPARISON: 06/17/2020 TECHNIQUE: AP view of the chest FINDINGS: Cardiac silhouette is enlarged. Left subclavian pacer. Emphysema with chronic interstitial coarsening. Chronic blunting of the costophrenic angles. No pneumothorax or lobar airspace consolidation. Degenerative changes of the shoulders and spine IMPRESSION: 1. Cardiomegaly without overt pulmonary edema. 2. Emphysema with chronic interstitial coarsening. ACT 112: Negative or not required by law. The above report was generated using voice recognition software. It may contain grammatical, syntax or spelling errors. Electronically signed by: Luis Lal M.D. 10/24/2022 3:[address] 10/24/22 15:31 CT head/brain wo con CLINICAL HISTORY: 82 years-old Male with intermittent confusion, BLE weakness. Acutely altered mental status TECHNIQUE: Multiple axial CT images of the head were obtained without contrast. A dose lowering technique was utilized adhering to the principles of ALARA. COMPARISON: CT cervical spine of same day, 06/22/2020 FINDINGS: No acute intracranial hemorrhage, midline shift, intracranial mass, hydrocephalus, territorial ischemia or abnormal extra-axial collection. Involutional changes with chronic microvascular ischemic disease. Chronic right cerebellar infarct. Cerebral vascular calcifications. The calvarium is intact. Prior bilateral lens repair. The paranasal sinuses, mastoid air cells, and middle ear cavities are clear. IMPRESSION: No acute intracranial abnormality identified. ACT 112: Negative or not required by law. The above report was generated using voice recognition software. It may contain grammatical, syntax or spelling errors. Electronically signed by: Luis Lal M.D. 10/24/2022 5:39 PM Abdomen/Pelvis CT 10/24/22 16:32 CT chest diagnostic wo con, CT abd pelvis wo con CT DOSE: 3615.01 mGy.cm CLINICAL HISTORY: 82 years-old Male with confusion, weakness, falls. Acute chest and abdominal trauma status post fall TECHNIQUE: Multiaxial CT images of the CT chest, abdomen and pelvis were performed without contrast. A dose lowering technique was utilized adhering to the principles of ALARA. COMPARISON: CTA chest 06/21/2020, 10/13/2019 FINDINGS: CT CHEST: Unremarkable thyroid. Borderline enlarged mediastinal lymph nodes measure up to 11 mm in the paratracheal and subcarinal distributions. Mild cardiomegaly. Left subclavian pacer. Extensive coronary artery calcifications. Atherosclerosis of the aorta with mild fusiform dilation measuring up to 4 cm the ascending segment. The aortic arch measures up to 3.6 cm transversely. Moderate emphysema with chronic fibrotic changes. Irregular 10 mm solid nodule within the right upper lobe on image 66 previously measured 6 mm on the 2020 exam stable 10 mm solid nodule within the basal left lower lobe on image 150 series 8. Bronchial wall thickening suggestive of bronchitis. No pneumothorax, pleural effusion or overt pulmonary edema. Mild tracheobronchial secretions. Gynecomastia. Unremarkable soft tissues. Degenerative changes of the shoulders and spine. No acute fracture identified. CT ABDOMEN/PELVIS: No free air. The unenhanced spleen, mildly atrophic pancreas and adrenal glands are unremarkable. Trace cholelithiasis. Hepatic steatosis. Subcapsular calcification of the posterior right upper lobe. Mild nonspecific bilateral pe rinephric stranding with cortical thinning. 3 mm calcification within the interpolar left kidney. No ureteral calculi or hydronephrosis. Prostatomegaly. Mild distention of the urinary bladder. Atherosclerosis of the aorta with mild fusiform dilation measuring up to 4.9 x 4.4 cm., Previously 4.8 x 4.1 cm. No lymphadenopathy. No bowel obstruction or bowel wall thickening. Appearance material within the cecum. Noninflamed appendix. Unremarkable soft tissues. Possible mild avascular necrosis of the right femoral head. No acute fracture identified. IMPRESSION: 1. No acute posttraumatic intrathoracic, intra-abdominal or intrapelvic abnormality. 2. Cholelithiasis. 3. 3 mm left renal calcification. No hydronephrosis. 4. Irregular 10 mm nodule within the right upper lobe previously measured 6 mm. Follow guidelines provided below. 5. Stable 10 mm solid nodule of the left lower lobe is unchanged dating back to the initial study from 2019. 6. Fusiform dilation of the infrarenal abdominal aorta, 4.9 cm. 7. Additional findings as above. Please refer to below summary of Fleischner criteria recommendations for follow- up of incidental CT nodules (Kelsey Valdes, Guidelines for management of small pulmonary nodules detected on CT scans: A statement from the Fleischner Society, Radiology 237: [phone].) SOLID NODULES Multiple nodules size: <6 mm * Low risk patients: no routine follow-up * high risk patients: optional CT at 12 months Multiple nodules size: 6-8 mm * Low risk patients: follow-up at 3-6 months, then consider further follow-up at 18-24 months * high risk patients: follow-up at 3-6 months, then at 18-24 months if no change Multiple nodules size: >8 mm * Low risk patients: follow-up at 3-6 months, then consider further follow-up at 18-24 months * high risk patients: follow-up at 3-6 months, then at 18-24 months if no change Note: newly detected indeterminate nodule in persons 35 years of age or older. * Low risk patients: minimal or absent history of smoking and/or other known risk factors * high risk patients: history of smoking or of other known risk factors (e.g. first degree relative with lung cancer, or exposure to asbestos, radon, uranium) * if a nodule up to 8 mm is partly solid or is ground glass further follow-up is required after 24 months to exclude possible slow growing adenocarcinoma (JASIEL) ACT 112: Negative or not required by law. Electronically signed by: Luis Lal M.D. 10/24/2022 6:[address] 10/24/22 16:32 CT chest diagnostic wo con, CT abd pelvis wo con CT DOSE: 3615.01 mGy.cm CLINICAL HISTORY: 82 years-old Male with confusion, weakness, falls. Acute chest and abdominal trauma status post fall TECHNIQUE: Multiaxial CT images of the CT chest, abdomen and pelvis were per formed without contrast. A dose lowering technique was utilized adhering to the principles of ALARA. COMPARISON: CTA chest 06/21/2020, 10/13/2019 FINDINGS: CT CHEST: Unremarkable thyroid. Borderline enlarged mediastinal lymph nodes measure up to 11 mm in the paratracheal and subcarinal distributions. Mild cardiomegaly. Left subclavian pacer. Extensive coronary artery calcifications. Atherosclerosis of the aorta with mild fusiform dilation measuring up to 4 cm the ascending segment. The aortic arch measures up to 3.6 cm transversely. Moderate emphysema with chronic fibrotic changes. Irregular 10 mm solid nodule within the right upper lobe on image 66 previously measured 6 mm on the 2020 ex am stable 10 mm solid nodule within the basal left lower lobe on image 150 series 8. Bronchial wall thickening suggestive of bronchitis. No pneumothorax, pleural effusion or overt pulmonary edema. Mild tracheobronchial secretions. Gynecomastia. Unremarkable soft tissues. Degenerative changes of the shoulders and spine. No acute fracture identified. CT ABDOMEN/PELVIS: No free air. The unenhanced spleen, mildly atrophic pancreas and adrenal glands are unremarkable. Trace cholelithiasis. Hepatic steatosis. Subcapsular calcification of the posterior right upper lobe. Mild nonspecific bilateral perinephric stranding with cortical thinning. 3 mm calcification within the interpolar left kidney. No ureteral calculi or hydronephrosis. Prostatomegaly. Mild distention of the urinary bladder. Atherosclerosis of the aorta with mild fusiform dilation measuring up to 4.9 x 4.4 cm., Previously 4.8 x 4.1 cm. No lymphadenopathy. No bowel obstruction or bowel wall thickening. Appearance material within the cecum. Noninflamed appendix. Unremarkable soft tissues. Possible mild avascular necrosis of the right femoral head. No acute fracture identified. IMPRESSION: 1. No acute posttraumatic intrathoracic, intra-abdominal or intrapelvic abnormality. 2. Cholelithiasis. 3. 3 mm left renal calcification. No hydronephrosis. 4. Irregular 10 mm nodule within the right upper lobe previously measured 6 mm. Follow guidelines provided below. 5. Stable 10 mm solid nodule of the left lower lobe is unchanged dating back to the initial study from 2019. 6. Fusiform dilation of the infrarenal abdominal aorta, 4.9 cm. 7. Additional findings as above. Please refer to below summary of Fleischner criteria recommendations for follow- up of incidental CT nodules (Kelsey Valdes, Guidelines for management of small pulmonary nodules detected on CT scans: A statement from the Fleischner Society, Radiology 237: [phone].) SOLID NODULES Multiple nodules size: <6 mm * Low risk patients: no routine follow-up * high risk patients: optional CT at 12 months Multiple nodules size: 6-8 mm * Low risk patients: follow-up at 3-6 months, then consider further follow-up at 18-24 months * high risk patients: follow-up at 3-6 months, then at 18-24 months if no change Multiple nodules size: >8 mm * Low risk patients: follow-up at 3-6 months, then consider further follow-up at 18-24 months * high risk patients: follow-up at 3-6 months, then at 18-24 months if no change Note: newly detected indeterminate nodule in persons 35 years of age or older. * Low risk patients: minimal or absent history of smoking and/or other known risk factors * high risk patients: history of smoking or of other known risk factors (e.g. first degree relative with lung cancer, or exposure to asbestos, radon, uranium) * if a nodule up to 8 mm is partly solid or is ground glass further follow-up is required after 24 months to exclude possible slow growing adenocarcinoma (JASIEL) ACT 112: Negative or not required by law. Electronically signed by: Luis Lal M.D. 10/24/2022 6:[address] 10/24/22 16:33 CT cervical spine wo con CLINICAL HISTORY: 82 years-old Male with confusion, weakness, falls. Acute neck pain with prior falls COMPARISON: Head CT of same day TECHNIQUE: Multiple axial CT images of the cervical spine were obtained without contrast. A dose lowering technique was utilized adhering to the principles of ALARA. FINDINGS: Degenerative changes of the cervical spine with nuchal ligament calcifications. Demineralized appearance of the bones. Partially imaged left subclavian pacer leads. Calcified plaque in the carotid bulbs. Subcentimeter bone island of the right posterior second rib. Chronic right cerebellar infarct. The cervical soft tissues appear unremarkable. The visualized lung apices appear clear. IMPRESSION: No acute cervical spine fracture or subluxation identified. ACT 112: Negative or not required by law. The above report was generated using voice recognition software. It may contain grammatical, syntax or spelling errors. Electronically signed by: Luis Lal M.D. 10/24/2022 5:43 PM Discharge Plan Visit Data Chief Complaint: Leg Weakness, Bilateral Stated Complaint: WEAK LEGS, MEMORY LOSS ED Provider: Delroy Joy Discharge Problem: Acute renal insufficiency, Urinary tract infection, acute, Generalized weakness, Intermittent confusion Patient Disposition: Admitted As Inpatient Discharge Instructions Interventions: ED Discharge Assessment Last Done: 10/24/22 20:37
--- NOTE | 2022-10-24 15:07 | XRay Report ---
XR chest 1V portable HISTORY: 82 years-old Male Sepsis acute sepsis COMPARISON: 06/17/2020 TECHNIQUE: AP view of the chest FINDINGS: Cardiac silhouette is enlarged. Left subclavian pacer. Emphysema with chronic interstitial coarsening . Chronic blunting of the costophrenic angles. No pneumothorax or lobar airspace consolidation. Degen erative changes of the shoulders and spine IMPRESSION: 1. Cardiomegaly without overt pulmonary edema. 2. Emphysema with chronic interstitial coarsening. ACT 112: Negative or not required by law. The above report was generated using voice recognition software. It may contain grammatical, syntax o r spelling errors. Electronically signed by: Luis Lal M.D. 10/24/2022 3:06 PM
[2022-10-24 15:57] LABS: Basophils # (auto) 0.05 K/uL (0.00-0.20); Basophils % (auto) 0.4 %; Eosinophils # (auto) 0.29 K/uL (0.00-0.50); Eosinophils % (auto) 2.6 %; Hematocrit (blood only) 38.1 % (42.0-52.0); Hemoglobin 12.7 g/dl (14.0-18.0); Immature Granulocytes # (auto) 0.05 K/uL (0.01-0.20); Immature Granulocytes % (auto) 0.4 %; Lymphocytes # (auto) 1.65 K/uL (1.20-3.40); Lymphocytes % (auto) 14.5 %; Mean Corpuscular Hemoglobin 31.4 pg (25.0-34.0); Mean Corpuscular Hgb Conc 33.3 g/dL (32.0-36.0); Mean Corpuscular Volume 94.3 fL (80.0-100.0); Monocytes # (auto) 0.76 K/uL (0.11-0.59); Monocytes % (auto) 6.7 %; Neutrophils # (auto) 8.56 K/uL (1.40-6.50); Neutrophils % (auto) 75.4 %; Platelet Count 192 K/uL (130-400); RDW Coefficient of Variation 14.2 % (11.5-14.5); RDW Standard Deviation 48.5 fL (36.4-46.3); Red Blood Count 4.04 M/uL (4.70-6.10); White Blood Count 11.36 K/ul (4.8-10.8)
[2022-10-24 16:11] LABS: INR 1.1 (0.9-1.1); Partial Thromboplastin Ratio 1.2; Partial Thromboplastin Time 32.5 Seconds (21.0-31.0); Prothrombin Time 11.9 Seconds (9.0-12.0)
[2022-10-24 16:11] LABS: Base Excess VBG 1.6 mEq/L; HCO3 VBG 29 mmol/L; Oxygen Saturation VBG < 60.0 %; PCO2 VBG 56 mmHg (38-50); PO2 VBG 22 mmHg; pH VBG 7.32 (7.36-7.41)
[2022-10-24 16:25] LABS: Albumin Globulin Ratio 1.3 (0.9-2); Albumin Level 4.2 gm/dl (3.4-5.0); BUN Creatinine Ratio 19.1 (10-20); Bilirubin,Total 1.1 mg/dl (0.2-1.0); Calcium 9.6 mg/dl (8.6-10.3); Creatinine Clr Calc Pharmacy 23.8 ml/min; Est GFR (African American) 22.8 ml/min; Est GFR (Non-African American) 19.7 ml/min; Globulin 3.2 gm/dl (2.5-4.0); Magnesium 2.3 mg/dl (1.7-2.4); Potassium 4.6 mmol/L (3.5-5.1); Total Protein 7.4 gm/dl (6.0-8.3)
[2022-10-24 16:31] LABS: Troponin I High Sensitivity 7.6 pg/ml (0-20)
[2022-10-24 16:36] LABS: Procalcitonin 0.08 ng/ml (0-0.5)
[2022-10-24 16:42] LABS: Lyme Ab IgG w/WB Rflx Negative (Negative); Lyme Ab IgM w/WB Rflx Negative (Negative)
--- NOTE | 2022-10-24 17:41 | CT Scan Report ---
CT head/brain wo con CLINICAL HISTORY: 82 years-old Male with intermittent confusion, BLE weakness. Acutely altered menta l status TECHNIQUE: Multiple axial CT images of the head were obtained without contrast. A dose lowering tech nique was utilized adhering to the principles of ALARA. COMPARISON: CT cervical spine of same day, 06/22/2020 FINDINGS: No acute intracranial hemorrhage, midline shift, intracranial mass, hydrocephalus, territorial ischem ia or abnormal extra-axial collection. Involutional changes with chronic microvascular ischemic disea se. Chronic right cerebellar infarct. Cerebral vascular calcifications. The calvarium is intact. Prior bilateral lens repair. The paranasal sinuses, mastoid air cells, and m iddle ear cavities are clear. IMPRESSION: No acute intracranial abnormality identified. ACT 112: Negative or not required by law. The above report was generated using voice recognition software. It may contain grammatical, syntax o r spelling errors. Electronically signed by: Luis Lal M.D. 10/24/2022 5:39 PM
--- NOTE | 2022-10-24 17:46 | CT Scan Report ---
CT cervical spine wo con CLINICAL HISTORY: 82 years-old Male with confusion, weakness, falls. Acute neck pain with prior fall s COMPARISON: Head CT of same day TECHNIQUE: Multiple axial CT images of the cervical spine were obtained without contrast. A dose low ering technique was utilized adhering to the principles of ALARA. FINDINGS: Degenerative changes of the cervical spine with nuchal ligament calcifications. Demineraliz ed appearance of the bones. Partially imaged left subclavian pacer leads. Calcified plaque in the car otid bulbs. Subcentimeter bone island of the right posterior second rib. Chronic right cerebellar inf arct. The cervical soft tissues appear unremarkable. The visualized lung apices appear clear. IMPRESSION: No acute cervical spine fracture or subluxation identified. ACT 112: Negative or not required by law. The above report was generated using voice recognition software. It may contain grammatical, syntax o r spelling errors. Electronically signed by: Luis Lal M.D. 10/24/2022 5:43 PM
[2022-10-24 18:15] LABS: Appearance Urine Cloudy (Clear); Bacteria Urine Automated Negative (Negative); Bilirubin Urine Negative (Negative); Blood Urine 3+ (Negative); Color Urine Yellow; Glucose Urine UA 1+ (Negative); Ketones Urine Negative (Negative); Leukocyte Esterase Urine Trace (Negative); Nitrite Urine Negative (Negative); Protein Urine Trace (Negative); RBC Urine Automated >30 /hpf (0-4); Specific Gravity Urine 1.009 (1.000-1.030); Urobilinogen Urine Negative (Negative); pH Urine 5.5 (4.5-7.5)
[2022-10-24] MEDS ORDERED: cefTRIAXone SODIUM 2,000 MG/70 ML BAG IV STA (18:18)
--- NOTE | 2022-10-24 18:34 | CT Scan Report ---
CT chest diagnostic wo con, CT abd pelvis wo con CT DOSE: 3615.01 mGy.cm CLINICAL HISTORY: 82 years-old Male with confusion, weakness, falls. Acute chest and abdominal traum a status post fall TECHNIQUE: Multiaxial CT images of the CT chest, abdomen and pelvis were performed without contrast. A dose lowering technique was utilized adhering to the principles of ALARA. COMPARISON: CTA chest 06/21/2020, 10/13/2019 FINDINGS: CT CHEST: Unremarkable thyroid. Borderline enlarged mediastinal lymph nodes measure up to 11 mm in the paratrac heal and subcarinal distributions. Mild cardiomegaly. Left subclavian pacer. Extensive coronary arter y calcifications. Atherosclerosis of the aorta with mild fusiform dilation measuring up to 4 cm the a scending segment. The aortic arch measures up to 3.6 cm transversely. Moderate emphysema with chronic fibrotic changes. Irregular 10 mm solid nodule within the right upper lobe on image 66 previously measured 6 mm on the 2019 exam stable 10 mm solid nodule within the basa l left lower lobe on image 150 series 8. Bronchial wall thickening suggestive of bronchitis. No pneum othorax, pleural effusion or overt pulmonary edema. Mild tracheobronchial secretions. Gynecomastia. U nremarkable soft tissues. Degenerative changes of the shoulders and spine. No acute fracture identifi ed. CT ABDOMEN/PELVIS: No free air. The unenhanced spleen, mildly atrophic pancreas and adrenal glands are unremarkable. Tra ce cholelithiasis. Hepatic steatosis. Subcapsular calcification of the posterior right upper lobe. Mi ld nonspecific bilateral perinephric stranding with cortical thinning. 3 mm calcification within the interpolar left kidney. No ureteral calculi or hydronephrosis. Prostatomegaly. Mild distention of the urinary bladder. Atherosclerosis of the aorta with mild fusiform dilation measuring up to 4.9 x 4.4 cm., Previously 4.8 x 4.1 cm. No lymphadenopathy. No bowel obstruction or bowel wall thickening. Appearance material within the cecum. Noninflamed appe ndix. Unremarkable soft tissues. Possible mild avascular necrosis of the right femoral head. No acute fracture identified. IMPRESSION: 1. No acute posttraumatic intrathoracic, intra-abdominal or intrapelvic abnormality. 2. Cholelithiasis. 3. 3 mm left renal calcification. No hydronephrosis. 4. Irregular 10 mm nodule within the right upper lobe previously measured 6 mm. Follow guidelines pro vided below. 5. Stable 10 mm solid nodule of the left lower lobe is unchanged dating back to the initial study fro 2019. 6. Fusiform dilation of the infrarenal abdominal aorta, 4.9 cm. 7. Additional findings as above. Please refer to below summary of Fleischner criteria recommendations for follow-up of incidental CT n odules (Kelsey Valdes, Guidelines for management of small pulmonary nodules detected on CT scans: A sta tement from the Fleischner Society, Radiology 237: [phone].) SOLID NODULES Multiple nodules size: <6 mm * Low risk patients: no routine follow-up * high risk patients: optional CT at 12 months Multiple nodules size: 6-8 mm * Low risk patients: follow-up at 3-6 months, then consider further follow-up at 18-24 months * high risk patients: follow-up at 3-6 months, then at 18-24 months if no change Multiple nodules size: >8 mm * Low risk patients: follow-up at 3-6 months, then consider further follow-up at 18-24 months * high risk patients: follow-up at 3-6 months, then at 18-24 months if no change Note: newly detected indeterminate nodule in persons 35 years of age or older. * Low risk patients: minimal or absent history of smoking and/or other known risk factors * high risk patients: history of smoking or of other known risk factors (e.g. first degree relative with lung cancer, or exposure to asbestos, radon, uranium) * if a nodule up to 8 mm is partly solid or is ground glass further follow-up is required after 24 m [facility] to exclude possible slow growing adenocarcinoma (JASIEL) ACT 112: Negative or not required by law. Electronically signed by: Luis Lal M.D. 10/24/2022 6:31 PM
--- NOTE | 2022-10-24 18:56 | History & Physical Report ---
Date of Service October 24, 2022 Assessment & Plan (1) Malignant neoplasm of bladder: (2) Diabetes mellitus: (3) MARTÍN (acute kidney injury): (4) AVNRT (AV daniela re-entry tachycardia): (5) BPH (benign prostatic hyperplasia): (6) Hypothyroidism: (7) Coronary artery disease: (8) Paroxysmal atrial flutter: (9) S/P coronary artery stent placement: (10) COPD (chronic obstructive pulmonary disease): (11) Peripheral neuropathy: (12) Acute confusion: (13) Weakness: (14) Lesion of lung: (15) Fall: Plan Pt is a 82 yo male with a past medical history of hx AVNRT and atrial flutter with pacemaker, bladder cancer s/p surgery 2 weeks ago, hx stroke without residual deficits, COPD, hx memory deficits, hx delirium, cerebrovascular disease, CAD with 6 stents, BPH,hypothyroidism, DM who presents to the hospital on 10/24/22 for weakness and confusion. #Unwitnessed falls x2 - unwitnessed falls x2 in the last 2 days, family found him on the floor and lethargic - CT head, c-spine, chest, and abd unremarkable for acute trauma - polypharmacy of multiple blood pressure medications; multiple B blockers noted - last Echo 10/22/21: EF 50-55% - pt has pacemaker in place, will interrogate - will rehydrate with LR tonight x2L as noted below - will do PT/OT referral #Delirium - hx of delirium in the past, been confused past 2 days or so - suspect dehydration since pt clinically dry - VBG: Ph 7.32, CO2 56, respiratory acidosis - given 1L NSS in ED - TSH was 1.701, wnl. Mg 2.3 - continue home thiamine - will check vitamin B12, #MARTÍN - suspect prerenal, dehydration vs low BP due to polypharmacy - Cr 2.83 on admission, baseline seems to be around 1.0 - pt on gabapentin 900 BID, will decrease to 300 BID - will give IVF hydration with 2L LR - will decrease his gabapentin and stop his lisinopril and carvedilol #DMT2 - will do novolog with correction factor 50 - consider adding lantus if sugars >160 overnight/tomorrow #Hx CHpEF - last echo 50-55% - will hold his home lasix since pt clinically dry #Paroxysmal a flutter - continue home clopidogrel #COPD - continue home albuterol prn - continue home ipratropium - continue home Advair #CAD s/p 6 stents - continue home aspirin - continue home atorvastatin - continue home metoprolol - will discontinue home lisinopril - discontinue home carvedilol due to bradycardia and low pressure 90s/60s, #Lung lesions - CT chest: Irregular 10 mm nodule within the right upper lobe previously measured 6 mm, stable 10 mm solid nodule of the left lower lobe is unchanged dating back to the initial study from 2019 - CT chest also showed: borderline enlarged mediastinal lymph nodes measure up to 11 mm in the paratracheal and subcarinal distributions - Chest xray shows emphysema, no acute processes - recommend f/u scan in 3-6 months, then at 18-24 months if no change #Hypothyroidism - continue home levothyroxine #Peripheral neuropathy - continue home venlafaxine #BPH - continue home tamsulosin #GERD - continue home famotidine VTE: continue home clopidogrel Dispo: [facility] +tele Consults: - Admission and Anticipated Discharge Date Admission Date: I personally saw and examined the patient. I verified all felder points and agree with Dr Liliana Reed, resident physician with the following exceptions and/or additions: 82 year old male presents to the ER with acute on chronic ambulatory dysfunction, confusion, hallucinations and unwitnessed falls. O/E Alert to place and person only, HS quiet, RRR, no murmurs, Chest CTAB, Abdo SNT, LE strength b/l CN 2-> 12 intact A/P Unwitnessed falls - suspect multifactorial due confusion, generalized weakness, polypharmacy, dehydration, uremia, peripheral neuropathy. Certainly could be having back pathology but objectively his strength in his legs is good. Agree with pacemaker check as above. Delirium - suspect some underlying dementia with delirium on top. No infectious cause found on admission, ceftriaxone given for possible UTI by ER although UA not suspicious will send off for culture. Follow up blood cultures. Does not appear meningitic MARTÍN - suspect pre-renal with relative hypotension and clinically dry on exam, gently IV fluids overnight due to history of CHF, repeat Cr in AM. Stop lisinopril, furosemide Ischemic cardiomyopathy - on both metoprolol and carvedilol - unclear if this is a mistake as confirmed by daughter who is very knowledgeable about his medications. HIM request for Dr Velasquez's last night - suggest contacting the office tomorrow. Will continue just his metoprolol for now AAA - follow up as outpatient, appears stable Otherwise as above History of Present Illness Chief Complaint: Weakness, confusion Primary Care Provider: LIZBET Ponce Pt is a 82 yo male with a past medical history of hx AVNRT and atrial flutter with pacemaker, bladder cancer s/p surgery 2 weeks ago, hx stroke without residual deficits, COPD, memory deficits, hx delirium, cerebrovascular disease, CAD with 6 stents, BPH,hypothyroidism, DM who presents to the hospital on 10/24/22 for weakness and confusion. Pt presents to the ER with family. History from daughter: Daughter states that she has been concerned because in the last 2 days, the pt has become more confused than his baseline and that they have found him twice on the ground at home and lethargic. She states that he had covid about 2 years ago, and at the time had become delirious and combative and required 4 point restraints in the hospital. She states he recovered since then but that he is always a bit off, sometimes commenting on visual stimuli that aren't there or talking to himself. She states that he also has neuropathy in both his legs, so he is sometimes a bit unsteady, but they have never before found him on the floor when going to check on him like the last 2 days. She states that when his son checked on him yesterday, he was on the floor and very lethargic and disoriented, denying that he had fallen. She states that he was again found on the floor today and again denied having fallen. She states that he just had bladder surgery 2 weeks ago for bladder cancer and had been seemingly doing fine until the last 2 days. She states that earlier today or yesterday he had commented that there was a waterfall going down the wall in his house and that he got a bit frustrated that no one else saw it. She also notes he barely drinks water at home since he looks dry today. She notes he also seems more fatigued. While in the room, the patient kept saying there was something in his pocket and kept trying to pull something out of his pocket, which was empty. Pt insisted something was there, even when shown nothing was in his pocket. He also was easily distracted from the interview and talked about interviewing me and playing the [employer] when he dies. The patient did state that he does not think he fell and that he just gets cramps in his calves sometimes. Otherwise, he states he feels fine. Allergies Allergy/AdvReac Type Severity Reaction Status Date / Time tiotropium Allergy Intermediate Eye pain Verified 10/24/22 19:29 Home Medications Medication Instructions Recorded Confirmed Type allopurinol 100 mg tablet 100 mg PO BID 03/24/19 10/24/22 History atorvastatin 40 mg tablet 40 mg PO HS 03/24/19 10/24/22 History clopidogrel 75 mg tablet 75 mg PO QAM 03/24/19 10/24/22 History aspirin 81 mg tablet,delayed 81 mg PO QAM 06/14/20 10/24/22 History release sitagliptin phosphate 100 mg 100 mg PO HS 06/14/20 10/24/22 History tablet (Januvia) levothyroxine 100 mcg tablet 100 mcg PO DAILYBB #30 tabs 06/16/20 10/24/22 Rx (Synthroid) bupropion HCl 100 mg tablet,12 hr 100 mg PO BID #0 ea 06/25/20 10/24/22 Rx sustained-release famotidine 20 mg tablet (Pepcid) 20 mg PO QAM 07/10/20 10/24/22 History B-complex with vitamin C 1 cap PO HS 09/26/20 10/24/22 History fluticasone 250 mcg-salmeterol 50 1 inh inhalation BID 05/24/21 10/24/22 History mcg/dose blistr powdr for inhalation (Advair Diskus) empagliflozin 10 mg tablet 10 mg PO QAM 02/05/22 10/24/22 History (Jardiance) ferrous sulfate 325 mg (65 mg 325 mg PO BID 02/05/22 10/24/22 History iron) tablet (FeroSul) ipratropium 20 mcg-albuterol 100 1 puff inhalation 4XD PRN 02/05/22 10/24/22 History mcg/actuation mist for inhalation WHEEZING/COUGHING (Combivent Respimat) thiamine HCl (vitamin B1) 100 mg 100 mg PO DAILY 02/05/22 10/24/22 History tablet carvedilol 6.25 mg tablet 6.25 mg PO BID 04/24/22 10/24/22 History Prevagen 1 tab PO DAILY 04/25/22 10/24/22 History furosemide 40 mg tablet 40 mg PO QAM 04/25/22 10/24/22 History gabapentin 600 mg tablet See Rx Instructions .Route .COMPLEX 04/25/22 10/24/22 History lisinopril 2.5 mg tablet 2.5 mg PO QAM 04/25/22 10/24/22 History loratadine 10 mg tablet 10 mg PO DAILY PRN Allergy Symptoms 04/25/22 10/24/22 History ailwrkfq-jv-nbqij 300 mcg-K 60 1 tab PO QAM 04/25/22 10/24/22 History mcg-lycop 600 mcg-lutein 300 mcg tablet (Centrum Silver Men) nitroglycerin 0.4 mg sublingual 0.4 mg buccal UD PRN Chest Pain 04/25/22 10/24/22 History tablet venlafaxine 75 mg tablet 75 mg PO DAILY 04/25/22 10/24/22 History gabapentin 300 mg capsule See Rx Instructions .Route .COMPLEX 10/24/22 10/24/22 History ipratropium 0.5 mg-albuterol 3 mg 3 ml inhalation Q4H PRN 10/24/22 10/24/22 History (2.5 mg base)/3 mL nebulization wheezing/cough soln metoprolol succinate 25 mg 25 mg PO DAILY 10/24/22 10/24/22 History tablet,extended release 24 hr tamsulosin 0.4 mg capsule 0.4 mg PO HS 10/24/22 10/24/22 History Past Med/Surg History Medical History Anemia Anxiety Bladder cancer CHF (congestive heart failure) EF 50-55% Chronic back pain COPD (chronic obstructive pulmonary disease) Coronary artery disease Per cardio records- "interventions on [employer] the LAD and RCA in 2014" Per patient and records- possibly 4-6 cardiac stents- on Plavix Dementia Per records (Pt reports short term memory issues) Depression Diabetes mellitus, type 2 NIDDM GERD (gastroesophageal reflux disease) Hearing deficit History of COVID-19 Dx 05/2020 > was hospitalized as [facility] > symptoms resolved Hx of gout Hyperlipidemia Hypertension Hypothyroidism Lung nodule Under surveillance Morbid obesity 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 Velasquez Paroxysmal atrial flutter Follows with Dr. Velasquez with [facility] Peripheral neuropathy Sleep apnea No device currently Stroke Remote incidental finding on imaging Per 07/10/20 neuro note "h/o cerebellar stroke without residual deficits"- continue ASA and statin. Surgical History History of bladder surgery TURBT History of cataract surgery RT/LEFT History of cystoscopy MULTIPLE TIMES History of hydrocelectomy RT History of tooth extraction S/P coronary artery stent placement Per patient and records- possibly 4-6 cardiac stents (most recent stent several years ago) Family History Brother Prostate cancer Heart disease Other No family history of adverse response to anesthesia Social History Smoking Status: Former smoker Second Hand Exposure: No; Do You Dip or Chew Tobacco: No; Tobacco Cessation Education Requested by Patient: No Hx Alcohol Use: No Hx Substance Use: No Preferred Language: Upper Sorbian Communication Ability: Effective Communication Ability Comment: [facility] Accounts Receivable Specialist Required: No Beliefs That Will Affect Care: None marital status: Single Current Living Situation: Alone current occupational status: retired Other Information That Helps Us Care for You: No Feels Safe at Home: Yes and No Is there a partner from a previous relationship who is making you feel unsafe now?: No Any Concerns about Your Family Situation: No Would You Like to Speak to Someone About Your Situation: No Safety Concerns: Feels Safe At This Time Assistive Devices: CPAP and Walker Assistive Devices Comment: has a CPAP at home but doesnt use Review of Systems Review of Systems: Constitutional: denies fever, chills, HEENT: denies congestion, Cardio: denies chest pain, palpitations Resp: denies shortness of breath, Physical Exam Physical Exam: General: Alert, no acute distress, oriented to self, year, and event, but not place Cardio: Regular rate and rhythm, Resp: Lungs clear to auscultation b/l, GI: Soft and nontender, nondistended, bowel sounds active Skin: Warm, dry, pale, bruise on R chest noted Extremities: No edema, muscle strength 4/5 in lower extremities, no calf tenderness Results & Data Results & Data Vital Signs (Past 12 Hours) Vital Signs Temp Pulse Pulse Resp BP BP Pulse Ox 10/24/22 15:28 60 19 98/67 L 93 10/24/22 15:24 61 10/24/22 14:37 36.1 C L 64 18 90/47 L 95 O2 Del Method 10/24/22 15:28 Room Air 10/24/22 15:24 10/24/22 14:37 Room Air Resident Activity Tracking Resident Involvement: Resident Care Provided Care Provided: Adult Hospital Medicine
[2022-10-24] MEDS ORDERED: GLUCOSE 40% GEL 15 GM TUBE PO PRN (21:13)
[2022-10-24] MEDS ORDERED: IPRATROPIUM BROMIDE/ALBUTEROL respimat INH INH SCH (21:13)
[2022-10-24] MEDS ORDERED: ALBUTEROL HFA 8 GM INHALER INH PRN (21:13)
[2022-10-24] MEDS ORDERED: GLUCOSE 10 TAB/TUBE PO PRN (21:13)
[2022-10-24] MEDS ORDERED: CARBOHYDRATES FOR HYPOGLYCEMIA PO PRN (21:13)
[2022-10-24] MEDS ORDERED: GLUCAGON FOR INJ 1 MG VIAL SQ PRN (21:13)
[2022-10-24] MEDS ORDERED: DEXTROSE 50% 50 ML SYRINGE IV PRN (21:13)
[2022-10-24] MEDS: INSULIN ASPART PER UNIT CHARGE SC SCH (22:15)
[2022-10-24] MEDS: LACTATED RINGER'S 1,000 ML IV SCH (22:17)
[2022-10-24] MEDS: buPROPion SR 100 MG TABCR PO SCH (22:33)
[2022-10-24] MEDS: FERROUS SULFATE 325 MG TAB PO SCH (22:33)
[2022-10-24] MEDS: ATORVASTATIN 40 MG TAB PO SCH (22:34)
[2022-10-24] MEDS: allopurinoL 100 MG TAB PO SCH (22:34)
[2022-10-24] MEDS: GABAPENTIN 300 MG CAP PO SCH (22:35)
[2022-10-24] MEDS: TAMSULOSIN HCL 0.4 MG CAP PO SCH (22:35)
[2022-10-24] MEDS ORDERED: MELATONIN 3 MG TAB PO STA (23:47)
[2022-10-25] MEDS: LEVOTHYROXINE SODIUM 100 MCG TABLET PO SCH (06:20)
--- NOTE | 2022-10-25 07:22 | Billing Data ---
Date of Service October 24, 2022 Coding Level of Care Code 42515 INT INP/OBS CARE
[2022-10-25] MEDS: INSULIN ASPART PER UNIT CHARGE SC SCH ×4 (07:39→21:47)
[2022-10-25] MEDS: LACTATED RINGER'S 1,000 ML IV SCH (08:16)
[2022-10-25] MEDS: allopurinoL 100 MG TAB PO SCH ×2 (08:19→21:40)
[2022-10-25] MEDS: CLOPIDOGREL BISULFATE 75 MG TAB PO SCH (08:19)
[2022-10-25] MEDS: GABAPENTIN 300 MG CAP PO SCH ×2 (08:19→21:42)
[2022-10-25] MEDS: ASPIRIN 81 MG ECTAB PO SCH (08:19)
[2022-10-25] MEDS: THIAMINE HCL 100 MG TAB PO SCH (08:20)
[2022-10-25] MEDS: VENLAFAXINE HCL XR 75 MG CAPXR PO SCH (08:20)
[2022-10-25] MEDS: FERROUS SULFATE 325 MG TAB PO SCH ×2 (08:20→21:42)
[2022-10-25] MEDS: buPROPion SR 100 MG TABCR PO SCH ×2 (08:20→21:43)
[2022-10-25] MEDS: FAMOTIDINE 20 MG TAB PO SCH (08:20)
[2022-10-25 08:21] LABS: Basophils # (auto) 0.04 K/uL (0.00-0.20); Basophils % (auto) 0.4 %; Eosinophils # (auto) 0.42 K/uL (0.00-0.50); Eosinophils % (auto) 4.3 %; Hematocrit (blood only) 37.3 % (42.0-52.0); Hemoglobin 12.2 g/dl (14.0-18.0); Immature Granulocytes # (auto) 0.16 K/uL (0.01-0.20); Immature Granulocytes % (auto) 1.6 %; Lymphocytes # (auto) 1.62 K/uL (1.20-3.40); Lymphocytes % (auto) 16.6 %; Mean Corpuscular Hemoglobin 30.8 pg (25.0-34.0); Mean Corpuscular Hgb Conc 32.7 g/dL (32.0-36.0); Mean Corpuscular Volume 94.2 fL (80.0-100.0); Mean Platelet Volume 11.2 fL (9.4-12.4); Monocytes # (auto) 0.65 K/uL (0.11-0.59); Monocytes % (auto) 6.7 %; Neutrophils # (auto) 6.87 K/uL (1.40-6.50); Neutrophils % (auto) 70.4 %; Platelet Count 184 K/uL (130-400); RDW Coefficient of Variation 14.2 % (11.5-14.5); RDW Standard Deviation 48.6 fL (36.4-46.3); Red Blood Count 3.96 M/uL (4.70-6.10); White Blood Count 9.76 K/ul (4.8-10.8)
[2022-10-25] MEDS: FLUTICASONE/VILANTEROL 100/25MCG 14 PUFFS/INHALER INH SCH (08:23)
[2022-10-25 08:43] LABS: Albumin Globulin Ratio 1.3 (0.9-2); Albumin Level 3.9 gm/dl (3.4-5.0); BUN Creatinine Ratio 22.4 (10-20); Bilirubin,Total 0.9 mg/dl (0.2-1.0); Calcium 9.1 mg/dl (8.6-10.3); Creatinine Clr Calc Pharmacy 33.2 ml/min; Est GFR (African American) 34.5 ml/min; Est GFR (Non-African American) 29.8 ml/min; Globulin 3.1 gm/dl (2.5-4.0); Potassium 4.2 mmol/L (3.5-5.1)
[2022-10-25] MEDS: Albuterol HFA 8 GM Inhaler (Combivent Respimat P&T Subs) INH SCH ×3 (08:44→11:44)
[2022-10-25] MEDS: Ipratropium HFA Inhaler (Combivent Respimat P&T Subs) INH SCH ×3 (08:45→11:45)
[2022-10-25 09:12] LABS: Estimated Average Glucose 151 mg/dl; Hemoglobin A1C 6.9 % (4.5-5.6)
[2022-10-25] MEDS ORDERED: HALOPERIDOL LACTATE 5 MG/ML 1 ML VIAL IM STA (12:42)
--- NOTE | 2022-10-25 13:07 | Hospitalist Progress Note ---
Date of Service October 25, 2022 Assessment & Plan (1) Malignant neoplasm of bladder: (2) Diabetes mellitus: (3) MARTÍN (acute kidney injury): (4) AVNRT (AV daniela re-entry tachycardia): (5) BPH (benign prostatic hyperplasia): (6) Hypothyroidism: (7) Coronary artery disease: (8) Paroxysmal atrial flutter: (9) S/P coronary artery stent placement: (10) COPD (chronic obstructive pulmonary disease): (11) Peripheral neuropathy: (12) Acute confusion: (13) Weakness: (14) Lesion of lung: (15) Fall: Plan Pt is a 82 yo male with a past medical history of hx AVNRT and atrial flutter with pacemaker, bladder cancer s/p surgery 2 weeks ago, hx stroke without residual deficits, COPD, hx memory deficits, hx delirium, cerebrovascular disease, CAD with 6 stents, BPH,hypothyroidism, DM who presents to the hospital on 10/24/22 for weakness and confusion. #Unwitnessed falls x2 - unwitnessed falls x2 in the last 2 days, family found him on the floor and lethargic - CT head, c-spine, chest, and abd unremarkable for acute trauma - polypharmacy of multiple blood pressure medications (Carvedilol 6.25 twice daily, furosemide 40 mg every morning, lisinopril 2.5 mg every morning, metoprolol 25 mg extended release daily); multiple B blockers (both Coreg and metoprolol) noted - last Echo 10/22/21: EF 50-55% - pt has pacemaker in place, will interrogate - will rehydrate with LR tonight x2L as noted below - PT/OT #Delirium - hx of delirium in the past, been confused past 2 days or so - suspect dehydration since pt clinically dry continue IV hydration gently - TSH was 1.701, wnl. Mg 2.3 - continue home thiamine - will check vitamin B12, #MARTÍN - suspect prerenal, dehydration vs low BP due to polypharmacy - Cr 2.83 on admission now down 2 today, baseline seems to be around 1.0 - pt on gabapentin 900 BID, will decrease to 300 BID - will we will continue IV fluid, let after 2 L. - will decrease his gabapentin and stop his lisinopril and carvedilol #DMT2 - will do novolog with correction factor 50 - consider adding lantus if sugars >160 overnight/tomorrow #Hx CHpEF - last echo 50-55% - will hold his home lasix since pt clinically dry #Benign essential hypertension Blood pressure is starting to creep up, possibly related to agitation IM Haldol given once Monitor blood pressure and resume blood pressure medications slowly as dehydration and MARTÍN improved. #Paroxysmal a flutter - continue home clopidogrel #COPD - continue home albuterol prn - continue home ipratropium - continue home Advair #CAD s/p 6 stents - continue home aspirin - continue home atorvastatin - continue home metoprolol - will discontinue home lisinopril - discontinue home carvedilol due to bradycardia and low pressure 90s/60s, #Lung lesions - CT chest: Irregular 10 mm nodule within the right upper lobe previously measured 6 mm, stable 10 mm solid nodule of the left lower lobe is unchanged dating back to the initial study from 2019 - CT chest also showed: borderline enlarged mediastinal lymph nodes measure up to 11 mm in the paratracheal and subcarinal distributions - Chest xray shows emphysema, no acute processes - recommend f/u scan in 3-6 months, then at 18-24 months if no change #Hypothyroidism - continue home levothyroxine #Peripheral neuropathy - continue home venlafaxine #BPH - continue home tamsulosin #GERD - continue home famotidine VTE: continue home clopidogrel Dispo: Medsurg +tele Consults: - Admission and Anticipated Discharge Date Admission Date: October 24, 2022 Subjective per nurse, the patient is still quite confused. The nurse requested a medication for agitation. Haldol given. Review of Systems Review of Systems: All systems reviewed & are unremarkable except as noted in Subjective Physical Exam Physical Exam: General: Awake, conversant. He was pleasantly confused during my encounter but got agitated later on. Heart: S1, S2/regular rate and rhythm, no murmur rubs or gallops Lungs: Clear to auscultation bilaterally. Normal effort Abdomen: Soft/nontender/nondistended. No hepatosplenomegaly Extremities: No clubbing/cyanosis. No edema Behavior: Appropriate, cooperative Results & Data Results & Data Vital Signs (Past 12 Hours) Vital Signs Temp Pulse Pulse Resp BP Pulse Ox O2 Del Method 10/25/22 10:23 36.5 C 63 20 178/78 H 98 Room Air 10/25/22 08:00 Room Air 10/25/22 08:47 65 14 93 Room Air 10/25/22 07:08 36.2 C L 59 L 21 104/58 L 95 Room Air 10/25/22 07:24 65 10/25/22 03:26 36.5 C 63 18 112/62 93 Room Air FiO2 10/25/22 10:23 10/25/22 08:00 10/25/22 08:47 21 10/25/22 07:08 10/25/22 07:24 10/25/22 03:26 Laboratory Results Abnormal lab results 10/24/22 10/24/22 10/24/22 Range/Units 15:33 15:33 15:33 WBC 11.36 H (4.8-10.8) K/ul RBC 4.04 L (4.70-6.10) M/uL Hgb 12.7 L (14.0-18.0) g/dl Hct 38.1 L (42.0-52.0) % RDW Std Deviation 48.5 H (36.4-46.3) fL Neut # (Auto) 8.56 H (1.40-6.50) K/uL Real # (Auto) 0.76 H (0.11-0.59) K/uL APTT 32.5 H (21.0-31.0) Seconds VBG pH (7.36-7.41) VBG pCO2 (38-50) mmHg Sodium 135 L (136-145) mmol/L BUN 54 H (6-23) mg/dl Creatinine 2.83 H (0.6-1.4) mg/dl BUN/Creatinine Ratio (10-20) Glucose 127 H (70-99(Fasting)) mg/dl POC Glucose (70-99) mg/dl Hemoglobin A1c (4.5-5.6) % Total Bilirubin 1.1 H (0.2-1.0) mg/dl Alkaline Phosphatase 132 H (34-104) U/L Urine Appearance (Clear) Urine Protein (Negative) Urine Glucose (UA) (Negative) Urine Blood (Negative) Ur Leukocyte Esterase (Negative) Urine WBC (Auto) (0-5) /hpf Urine RBC (Auto) (0-4) /hpf U Epithel Cells (Auto) (0-5) /lpf 08/24/23 08/24/23 08/24/23 Range/Units 16:05 17:44 21:20 WBC (4.8-10.8) K/ul RBC (4.70-6.10) M/uL Hgb (14.0-18.0) g/dl Hct (42.0-52.0) % RDW Std Deviation (36.4-46.3) fL Neut # (Auto) (1.40-6.50) K/uL Real # (Auto) (0.11-0.59) K/uL APTT (21.0-31.0) Seconds VBG pH 7.32 L (7.36-7.41) VBG pCO2 56 H (38-50) mmHg Sodium (136-145) mmol/L BUN (6-23) mg/dl Creatinine (0.6-1.4) mg/dl BUN/Creatinine Ratio (10-20) Glucose (70-99(Fasting)) mg/dl POC Glucose 107 H (70-99) mg/dl Hemoglobin A1c (4.5-5.6) % Total Bilirubin (0.2-1.0) mg/dl Alkaline Phosphatase (34-104) U/L Urine Appearance Cloudy A (Clear) Urine Protein Trace H (Negative) Urine Glucose (UA) 1+ H (Negative) Urine Blood 3+ H (Negative) Ur Leukocyte Esterase Trace H (Negative) Urine WBC (Auto) 5-10 H (0-5) /hpf Urine RBC (Auto) >30 H (0-4) /hpf U Epithel Cells (Auto) 5-10 H (0-5) /lpf 10/25/22 10/25/22 10/25/22 Range/Units 07:35 08:00 08:01 WBC (4.8-10.8) K/ul RBC (4.70-6.10) M/uL Hgb (14.0-18.0) g/dl Hct (42.0-52.0) % RDW Std Deviation (36.4-46.3) fL Neut # (Auto) (1.40-6.50) K/uL Real # (Auto) (0.11-0.59) K/uL APTT (21.0-31.0) Seconds VBG pH (7.36-7.41) VBG pCO2 (38-50) mmHg Sodium (136-145) mmol/L BUN 45 H (6-23) mg/dl Creatinine 2.01 H D (0.6-1.4) mg/dl BUN/Creatinine Ratio 22.4 H (10-20) Glucose 117 H (70-99(Fasting)) mg/dl POC Glucose 111 H (70-99) mg/dl Hemoglobin A1c 6.9 H (4.5-5.6) % Total Bilirubin (0.2-1.0) mg/dl Alkaline Phosphatase 119 H (34-104) U/L Urine Appearance (Clear) Urine Protein (Negative) Urine Glucose (UA) (Negative) Urine Blood (Negative) Ur Leukocyte Esterase (Negative) Urine WBC (Auto) (0-5) /hpf Urine RBC (Auto) (0-4) /hpf U Epithel Cells (Auto) (0-5) /lpf 10/25/22 10/25/22 Range/Units 08:01 11:16 WBC (4.8-10.8) K/ul RBC 3.96 L (4.70-6.10) M/uL Hgb 12.2 L (14.0-18.0) g/dl Hct 37.3 L (42.0-52.0) % RDW Std Deviation 48.6 H (36.4-46.3) fL Neut # (Auto) 6.87 H (1.40-6.50) K/uL Real # (Auto) 0.65 H (0.11-0.59) K/uL APTT (21.0-31.0) Seconds VBG pH (7.36-7.41) VBG pCO2 (38-50) mmHg Sodium (136-145) mmol/L BUN (6-23) mg/dl Creatinine (0.6-1.4) mg/dl BUN/Creatinine Ratio (10-20) Glucose (70-99(Fasting)) mg/dl POC Glucose 162 H (70-99) mg/dl Hemoglobin A1c (4.5-5.6) % Total Bilirubin (0.2-1.0) mg/dl Alkaline Phosphatase (34-104) U/L Urine Appearance (Clear) Urine Protein (Negative) Urine Glucose (UA) (Negative) Urine Blood (Negative) Ur Leukocyte Esterase (Negative) Urine WBC (Auto) (0-5) /hpf Urine RBC (Auto) (0-4) /hpf U Epithel Cells (Auto) (0-5) /lpf PG Care Time/CCT Total # of Minutes Spent Total Time Spent with Patient: Total time spent is greater than 50% in coordination of care (as documented) at patient's floor/unit and/or counseling patient: Coding Level of Care Code 97686 SUB INP/OBS CARE 2/35MIN Diagnoses Malignant neoplasm of bladder C67.9 Diabetes mellitus E11.9 MARTÍN (acute kidney injury) N17.9 AVNRT (AV daniela re-entry tachycardia) I47.1 BPH (benign prostatic hyperplasia) N40.0 Hypothyroidism E03.9 Coronary artery disease I25.10 Paroxysmal atrial flutter I48.92 S/P coronary artery stent placement Z95.5 COPD (chronic obstructive pulmonary disease) J44.9 Peripheral neuropathy G62.9 Acute confusion R41.0 Weakness R53.1 Lesion of lung R91.1 Fall W19.XXXA Time Spent (min) 35
--- NOTE | 2022-10-25 15:09 | Electrocardiogram Report ---
Test Reason : Blood Pressure : / mmHG Vent. Rate : 061 BPM Atrial Rate : 061 BPM P-R Int : 320 ms QRS Dur : 116 ms QT Int : 426 ms P-R-T Axes : -76 -04 -08 degrees QTc Int : 428 ms Atrial-paced rhythm Inferior infarct (cited on or before 07-MAR-2016) Possible Anterolateral infarct , age undetermined Abnormal ECG When compared with ECG of 18-JUN-2020 11:46, Atrial-paced rhythm has replaced Supraventricular tachycardia Vent. rate has decreased BY 91 BPM Borderline criteria for Anterolateral infarct are now Present Non-specific change in ST segment in Inferior leads Confirmed by Ernst Almaguer ([id number]) on 10/25/2022 3:09:37 PM Referred By: REFERRED SELF Confirmed By:Ernst Almaguer
[2022-10-25] MEDS: METOPROLOL SUCC 25MG EXT REL TAB PO SCH (16:22)
[2022-10-25] MEDS: QUEtiapine FUMARATE 25 MG TABLET PO SCH (21:41)
[2022-10-25] MEDS: ATORVASTATIN 40 MG TAB PO SCH (21:42)
[2022-10-25] MEDS: TAMSULOSIN HCL 0.4 MG CAP PO SCH (21:43)
[2022-10-26] MEDS: LEVOTHYROXINE SODIUM 100 MCG TABLET PO SCH (06:12)
[2022-10-26 07:13] LABS: BUN Creatinine Ratio 23.7 (10-20); Calcium 8.9 mg/dl (8.6-10.3); Est GFR (African American) 48.4 ml/min; Est GFR (Non-African American) 41.8 ml/min; Potassium 3.9 mmol/L (3.5-5.1)
[2022-10-26] MEDS: INSULIN ASPART PER UNIT CHARGE SC SCH ×4 (09:37→21:15)
[2022-10-26] MEDS: FLUTICASONE/VILANTEROL 100/25MCG 14 PUFFS/INHALER INH SCH (09:41)
[2022-10-26] MEDS: allopurinoL 100 MG TAB PO SCH ×2 (09:53→20:57)
[2022-10-26] MEDS: CLOPIDOGREL BISULFATE 75 MG TAB PO SCH (09:53)
[2022-10-26] MEDS: METOPROLOL SUCC 25MG EXT REL TAB PO SCH (09:53)
[2022-10-26] MEDS: FAMOTIDINE 20 MG TAB PO SCH (09:53)
[2022-10-26] MEDS: GABAPENTIN 300 MG CAP PO SCH ×2 (09:53→20:56)
[2022-10-26] MEDS: THIAMINE HCL 100 MG TAB PO SCH (09:53)
[2022-10-26] MEDS: buPROPion SR 100 MG TABCR PO SCH ×2 (09:53→20:56)
[2022-10-26] MEDS: ASPIRIN 81 MG ECTAB PO SCH (09:53)
[2022-10-26] MEDS: VENLAFAXINE HCL XR 75 MG CAPXR PO SCH (09:53)
[2022-10-26] MEDS: FERROUS SULFATE 325 MG TAB PO SCH ×2 (09:53→20:55)
--- NOTE | 2022-10-26 10:30 | Hospitalist Progress Note ---
Date of Service October 26, 2022 Assessment & Plan (1) Malignant neoplasm of bladder: (2) Diabetes mellitus: (3) MARTÍN (acute kidney injury): (4) AVNRT (AV daniela re-entry tachycardia): (5) BPH (benign prostatic hyperplasia): (6) Hypothyroidism: (7) Coronary artery disease: (8) Paroxysmal atrial flutter: (9) S/P coronary artery stent placement: (10) COPD (chronic obstructive pulmonary disease): (11) Peripheral neuropathy: (12) Acute confusion: (13) Weakness: (14) Lesion of lung: (15) Fall: Plan Pt is a 82 yo male with a past medical history of hx AVNRT and atrial flutter with pacemaker, bladder cancer s/p surgery 2 weeks ago, hx stroke without residual deficits, COPD, hx memory deficits, hx delirium, cerebrovascular disease, CAD with 6 stents, BPH,hypothyroidism, DM who presents to the hospital on 10/24/22 for weakness and confusion. #Unwitnessed falls x2 - unwitnessed falls x2 in the last 2 days, family found him on the floor and lethargic - CT head, c-spine, chest, and abd unremarkable for acute trauma - polypharmacy of multiple blood pressure medications (Carvedilol 6.25 twice daily, furosemide 40 mg every morning, lisinopril 2.5 mg every morning, metoprolol 25 mg extended release daily); multiple B blockers (both Coreg and metoprolol) noted - last Echo 10/22/21: EF 50-55% - pt has pacemaker in place - PT/OT #Delirium - hx of delirium in the past, been confused past 2 days or so - suspect dehydration since pt Was clinically dry discontinue IV hydration as patient appears euvolemic today. - TSH was 1.701, wnl. Mg 2.3 - continue home thiamine - Vitamin B12 normal Patient is not agitated today but still quite confused. I had ordered Seroquel nightly which helps him sleep through the night. We will continue Seroquel. #MARTÍN - suspect prerenal, dehydration vs low BP due to polypharmacy - Cr 2.83 on admission now improved to 1.5 today, baseline seems to be around 1.0 - pt on gabapentin 900 BID, continue decreased dose of 300 BID - I have left the IV fluids to as the patient appears euvolemic today - will decrease his gabapentin and stop his lisinopril and carvedilol #DMT2 - will do novolog with correction factor 50 #Hx CHpEF - last echo 50-55% - will hold his home lasix since pt Presented looking clinically dry and is now euvolemic. #Benign essential hypertension Blood pressure Was up yesterday most likely related to agitation IM Haldol given once Monitor blood pressure and resume blood pressure medications slowly as dehydration and MARTÍN improved. #Paroxysmal a flutter - continue home clopidogrel #COPD - continue home albuterol prn - continue home ipratropium - continue home Advair #CAD s/p 6 stents - continue home aspirin - continue home atorvastatin - continue home metoprolol - will discontinue home lisinopril - discontinue home carvedilol due to bradycardia and low pressure 90s/60s, #Lung lesions - CT chest: Irregular 10 mm nodule within the right upper lobe previously measured 6 mm, stable 10 mm solid nodule of the left lower lobe is unchanged dating back to the initial study from 2019 - CT chest also showed: borderline enlarged mediastinal lymph nodes measure up to 11 mm in the paratracheal and subcarinal distributions - Chest xray shows emphysema, no acute processes - recommend f/u scan in 3-6 months, then at 18-24 months if no change #Hypothyroidism - continue home levothyroxine #Peripheral neuropathy - continue home venlafaxine #BPH - continue home tamsulosin #GERD - continue home famotidine VTE: continue home clopidogrel Admission and Anticipated Discharge Date Admission Date: October 24, 2022 Subjective per nurse, the patient slept. He woke up confused but not agitated today. Review of Systems Review of Systems: All systems reviewed & are unremarkable except as noted in Subjective Physical Exam Physical Exam: General: Awake, conversant. He was pleasantly confused Heart: S1, S2/regular rate and rhythm, no murmur rubs or gallops Lungs: Clear to auscultation bilaterally. Normal effort Abdomen: Soft/nontender/nondistended. No hepatosplenomegaly Extremities: No clubbing/cyanosis. No edema Behavior: Appropriate, cooperative Results & Data Results & Data Vital Signs (Past 12 Hours) Vital Signs Temp Pulse Pulse Resp BP BP Pulse Ox 10/26/22 07:42 36.5 C 60 18 115/69 94 10/26/22 07:18 61 08/26/23 02:33 36.9 C 64 16 110/56 L 93 10/25/22 23:29 36.4 C L 61 16 111/67 91 O2 Del Method 10/26/22 07:42 Room Air 10/26/22 07:18 10/26/22 02:33 Room Air 10/25/22 23:29 Room Air Laboratory Results Abnormal lab results 10/25/22 10/25/22 10/25/22 Range/Units 11:16 16:37 20:22 BUN (6-23) mg/dl Creatinine (0.6-1.4) mg/dl BUN/Creatinine Ratio (10-20) Glucose (70-99(Fasting)) mg/dl POC Glucose 162 H 102 H 116 H (70-99) mg/dl 10/26/22 10/26/22 Range/Units 05:58 08:16 BUN 36 H (6-23) mg/dl Creatinine 1.52 H D (0.6-1.4) mg/dl BUN/Creatinine Ratio 23.7 H (10-20) Glucose 108 H (70-99(Fasting)) mg/dl POC Glucose 107 H (70-99) mg/dl PG Care Time/CCT Total # of Minutes Spent Total Time Spent with Patient: Total time spent is greater than 50% in coordination of care (as documented) at patient's floor/unit and/or counseling patient: Coding Level of Care Code 63396 SUB INP/OBS CARE 2/35MIN Diagnoses Malignant neoplasm of bladder C67.9 Diabetes mellitus E11.9 MARTÍN (acute kidney injury) N17.9 AVNRT (AV daniela re-entry tachycardia) I47.1 BPH (benign prostatic hyperplasia) N40.0 Hypothyroidism E03.9 Coronary artery disease I25.10 Paroxysmal atrial flutter I48.92 S/P coronary artery stent placement Z95.5 COPD (chronic obstructive pulmonary disease) J44.9 Peripheral neuropathy G62.9 Acute confusion R41.0 Weakness R53.1 Lesion of lung R91.1 Fall W19.XXXA
[2022-10-26] MEDS: TAMSULOSIN HCL 0.4 MG CAP PO SCH (20:55)
[2022-10-26] MEDS: QUEtiapine FUMARATE 25 MG TABLET PO SCH (20:55)
[2022-10-26] MEDS: ATORVASTATIN 40 MG TAB PO SCH (20:56)
[2022-10-27] MEDS: LEVOTHYROXINE SODIUM 100 MCG TABLET PO SCH (05:54)
[2022-10-27 06:41] LABS: BUN Creatinine Ratio 20.5 (10-20); Calcium 9.4 mg/dl (8.6-10.3); Creatinine Clr Calc Pharmacy 50.6 ml/min; Est GFR (African American) 57.4 ml/min; Est GFR (Non-African American) 49.5 ml/min; Potassium 3.9 mmol/L (3.5-5.1)
[2022-10-27] MEDS: INSULIN ASPART PER UNIT CHARGE SC SCH ×4 (08:52→21:04)
[2022-10-27] MEDS: buPROPion SR 100 MG TABCR PO SCH ×2 (08:55→20:19)
[2022-10-27] MEDS: allopurinoL 100 MG TAB PO SCH ×2 (08:55→20:19)
[2022-10-27] MEDS: CLOPIDOGREL BISULFATE 75 MG TAB PO SCH (08:55)
[2022-10-27] MEDS: ASPIRIN 81 MG ECTAB PO SCH (08:55)
[2022-10-27] MEDS: FLUTICASONE/VILANTEROL 100/25MCG 14 PUFFS/INHALER INH SCH (08:56)
[2022-10-27] MEDS: FAMOTIDINE 20 MG TAB PO SCH (08:56)
[2022-10-27] MEDS: METOPROLOL SUCC 25MG EXT REL TAB PO SCH (08:56)
[2022-10-27] MEDS: FERROUS SULFATE 325 MG TAB PO SCH ×2 (08:56→20:19)
[2022-10-27] MEDS: GABAPENTIN 300 MG CAP PO SCH ×2 (08:56→20:19)
[2022-10-27] MEDS: THIAMINE HCL 100 MG TAB PO SCH (08:57)
[2022-10-27] MEDS: VENLAFAXINE HCL XR 75 MG CAPXR PO SCH (08:57)
--- NOTE | 2022-10-27 12:53 | Hospitalist Progress Note ---
Date of Service October 27, 2022 Assessment & Plan (1) Malignant neoplasm of bladder: (2) Diabetes mellitus: (3) MARTÍN (acute kidney injury): (4) AVNRT (AV daniela re-entry tachycardia): (5) BPH (benign prostatic hyperplasia): (6) Hypothyroidism: (7) Coronary artery disease: (8) Paroxysmal atrial flutter: (9) S/P coronary artery stent placement: (10) COPD (chronic obstructive pulmonary disease): (11) Peripheral neuropathy: (12) Acute confusion: (13) Weakness: (14) Lesion of lung: (15) Fall: Plan Pt is a 82 yo male with a past medical history of hx AVNRT and atrial flutter with pacemaker, bladder cancer s/p surgery 2 weeks ago, hx stroke without residual deficits, COPD, hx memory deficits, hx delirium, cerebrovascular disease, CAD with 6 stents, BPH,hypothyroidism, DM who presents to the hospital on 10/24/22 for weakness and confusion. #Unwitnessed falls x2 - unwitnessed falls x2 in the last 2 days, family found him on the floor and lethargic - CT head, c-spine, chest, and abd unremarkable for acute trauma - polypharmacy of multiple blood pressure medications (Carvedilol 6.25 twice daily, furosemide 40 mg every morning, lisinopril 2.5 mg every morning, metoprolol 25 mg extended release daily); multiple B blockers (both Coreg and metoprolol) noted - last Echo 10/22/21: EF 50-55% - pt has pacemaker in place - PT/OT #Delirium - hx of delirium in the past, been confused past 2 days or so - Dehydration resolved. IV fluids discontinued. - TSH was 1.701, wnl. Mg 2.3 - continue home thiamine - Vitamin B12 normal Patient was not able to sleep through the night He is still confused but not agitated Will increase the dose of Seroquel to help him sleep. #MARTÍN - suspect prerenal, dehydration vs low BP due to polypharmacy - Cr 2.83 on admission now Resolved. - pt on gabapentin 900 BID, continue decreased dose of 300 BID - will decrease his gabapentin and stop his lisinopril and carvedilol #DMT2 - will do novolog with correction factor 50 #Hx CHpEF - last echo 50-55% - will hold his home lasix since pt Presented looking clinically dry and is now euvolemic. #Benign essential hypertension Blood pressure Fairly controlled now Monitor blood pressure and resume blood pressure medications slowly as dehydration and MARTÍN improved. #Paroxysmal a flutter - continue home clopidogrel #COPD - continue home albuterol prn - continue home ipratropium - continue home Advair #CAD s/p 6 stents - continue home aspirin - continue home atorvastatin - continue home metoprolol - will discontinue home lisinopril - discontinue home carvedilol due to bradycardia and low pressure 90s/60s, #Lung lesions - CT chest: Irregular 10 mm nodule within the right upper lobe previously measured 6 mm, stable 10 mm solid nodule of the left lower lobe is unchanged dating back to the initial study from 2019 - CT chest also showed: borderline enlarged mediastinal lymph nodes measure up to 11 mm in the paratracheal and subcarinal distributions - Chest xray shows emphysema, no acute processes - recommend f/u scan in 3-6 months, then at 18-24 months if no change #Hypothyroidism - continue home levothyroxine #Peripheral neuropathy - continue home venlafaxine #BPH - continue home tamsulosin #GERD - continue home famotidine VTE: continue home clopidogrel Admission and Anticipated Discharge Date Admission Date: October 24, 2022 Subjective patient does not appear to be agitated. He took his medications today, per nurse. He slept for a few hours at night. Review of Systems Review of Systems: All systems reviewed & are unremarkable except as noted in Subjective Physical Exam Physical Exam: General: Awake, conversant. He was pleasantly confused Heart: S1, S2/regular rate and rhythm, no murmur rubs or gallops Lungs: Clear to auscultation bilaterally. Normal effort Abdomen: Soft/nontender/nondistended. No hepatosplenomegaly Extremities: No clubbing/cyanosis. No edema Behavior: Appropriate, cooperative Results & Data Results & Data Vital Signs (Past 12 Hours) Vital Signs Temp Pulse Pulse Resp BP Pulse Ox O2 Del Method 10/27/22 12:00 37.2 C 59 L 18 149/77 H 92 Room Air 10/27/22 08:00 Room Air 10/27/22 08:19 36.9 C 62 18 132/75 91 Room Air 10/27/22 08:00 60 10/27/22 02:45 37.5 C 66 16 110/56 L 90 Room Air PG Care Time/CCT Total # of Minutes Spent Total Time Spent with Patient: Total time spent is greater than 50% in coordination of care (as documented) at patient's floor/unit and/or counseling patient: Coding Level of Care Code 28444 SUB INP/OBS CARE 2/35MIN Diagnoses Malignant neoplasm of bladder C67.9 Diabetes mellitus E11.9 MARTÍN (acute kidney injury) N17.9 AVNRT (AV daniela re-entry tachycardia) I47.1 BPH (benign prostatic hyperplasia) N40.0 Hypothyroidism E03.9 Coronary artery disease I25.10 Paroxysmal atrial flutter I48.92 S/P coronary artery stent placement Z95.5 COPD (chronic obstructive pulmonary disease) J44.9 Peripheral neuropathy G62.9 Acute confusion R41.0 Weakness R53.1 Lesion of lung R91.1 Fall W19.XXXA
[2022-10-27] MEDS: TAMSULOSIN HCL 0.4 MG CAP PO SCH (20:19)
[2022-10-27] MEDS: QUEtiapine FUMARATE 25 MG TABLET PO SCH (20:19)
[2022-10-27] MEDS: ATORVASTATIN 40 MG TAB PO SCH (20:19)
[2022-10-28] MEDS: LEVOTHYROXINE SODIUM 100 MCG TABLET PO SCH (05:25)
[2022-10-28 07:35] LABS: BUN Creatinine Ratio 19.5 (10-20); Calcium 9.5 mg/dl (8.6-10.3); Creatinine Clr Calc Pharmacy 51.1 ml/min; Est GFR (African American) 59.6 ml/min; Est GFR (Non-African American) 51.4 ml/min
[2022-10-28] MEDS: INSULIN ASPART PER UNIT CHARGE SC SCH ×4 (08:32→20:32)
[2022-10-28] MEDS: buPROPion SR 100 MG TABCR PO SCH ×2 (08:33→20:34)
[2022-10-28] MEDS: GABAPENTIN 300 MG CAP PO SCH ×2 (08:33→20:32)
[2022-10-28] MEDS: allopurinoL 100 MG TAB PO SCH ×2 (08:33→20:32)
[2022-10-28] MEDS: FERROUS SULFATE 325 MG TAB PO SCH ×2 (08:33→20:33)
[2022-10-28] MEDS: CLOPIDOGREL BISULFATE 75 MG TAB PO SCH (08:34)
[2022-10-28] MEDS: METOPROLOL SUCC 25MG EXT REL TAB PO SCH (08:34)
[2022-10-28] MEDS: lisinopril 2.5 MG TAB PO SCH (08:34)
[2022-10-28] MEDS: ASPIRIN 81 MG ECTAB PO SCH (08:34)
[2022-10-28] MEDS: FAMOTIDINE 20 MG TAB PO SCH (08:34)
[2022-10-28] MEDS: VENLAFAXINE HCL XR 75 MG CAPXR PO SCH (08:34)
[2022-10-28] MEDS: THIAMINE HCL 100 MG TAB PO SCH (08:34)
[2022-10-28] MEDS: FLUTICASONE/VILANTEROL 100/25MCG 14 PUFFS/INHALER INH SCH (08:34)
--- NOTE | 2022-10-28 11:36 | Hospitalist Progress Note ---
Date of Service October 28, 2022 Assessment & Plan (1) Malignant neoplasm of bladder: (2) Diabetes mellitus: (3) MARTÍN (acute kidney injury): (4) AVNRT (AV daniela re-entry tachycardia): (5) BPH (benign prostatic hyperplasia): (6) Hypothyroidism: (7) Coronary artery disease: (8) Paroxysmal atrial flutter: (9) S/P coronary artery stent placement: (10) COPD (chronic obstructive pulmonary disease): (11) Peripheral neuropathy: (12) Acute confusion: (13) Weakness: (14) Lesion of lung: (15) Fall: Plan Pt is a 82 yo male with a past medical history of hx AVNRT and atrial flutter with pacemaker, bladder cancer s/p surgery 2 weeks ago, hx stroke without residual deficits, COPD, hx memory deficits, hx delirium, cerebrovascular disease, CAD with 6 stents, BPH,hypothyroidism, DM who presents to the hospital on 10/24/22 for weakness and confusion. #Unwitnessed falls x2 - unwitnessed falls x2 in the last 2 days, family found him on the floor and lethargic - CT head, c-spine, chest, and abd unremarkable for acute trauma - polypharmacy of multiple blood pressure medications (Carvedilol 6.25 twice daily, furosemide 40 mg every morning, lisinopril 2.5 mg every morning, metoprolol 25 mg extended release daily); multiple B blockers (both Coreg and metoprolol) noted - last Echo 10/22/21: EF 50-55% - pt has pacemaker in place - PT/OT #Delirium - hx of delirium in the past, been confused past 2 days or so - Dehydration resolved. IV fluids discontinued. - TSH was 1.701, wnl. Mg 2.3 - continue home thiamine - Vitamin B12 normal He is still confused but not agitated Will increase the dose of Seroquel to help him sleep. #MARTÍN - suspect prerenal, dehydration vs low BP due to polypharmacy - Cr 2.83 on admission now Resolved. - pt on gabapentin 900 BID, continue decreased dose of 300 BID - will decrease his gabapentin and stop his lisinopril and carvedilol #DMT2 - will do novolog with correction factor 50 #Hx CHpEF - last echo 50-55% - will hold his home lasix since pt Presented looking clinically dry and is now euvolemic. #Benign essential hypertension Blood pressure better controlled Monitor blood pressure and resume blood pressure medications slowly as dehydration and MARTÍN improved. Resumed lisinopril today #Paroxysmal a flutter - continue home clopidogrel #COPD - continue home albuterol prn - continue home ipratropium - continue home Advair #CAD s/p 6 stents - continue home aspirin - continue home atorvastatin - continue home metoprolol - Resume home lisinopril - discontinue home carvedilol due to bradycardia and low pressure 90s/60s, #Lung lesions - CT chest: Irregular 10 mm nodule within the right upper lobe previously measured 6 mm, stable 10 mm solid nodule of the left lower lobe is unchanged dating back to the initial study from 2019 - CT chest also showed: borderline enlarged mediastinal lymph nodes measure up to 11 mm in the paratracheal and subcarinal distributions - Chest xray shows emphysema, no acute processes - recommend f/u scan in 3-6 months, then at 18-24 months if no change #Hypothyroidism - continue home levothyroxine #Peripheral neuropathy - continue home venlafaxine #BPH - continue home tamsulosin #GERD - continue home famotidine VTE: continue home clopidogrel disposition: Likely discharge to rehab in the next 1 or 2 days. Admission and Anticipated Discharge Date Admission Date: October 24, 2022 Subjective patient feels well. Denies chest pain or shortness of breath. Review of Systems Review of Systems: All systems reviewed & are unremarkable except as noted in Subjective Physical Exam Physical Exam: General: Awake, conversant. He is stillpleasantly confused Heart: S1, S2/regular rate and rhythm, no murmur rubs or gallops Lungs: Clear to auscultation bilaterally. Normal effort Abdomen: Soft/nontender/nondistended. No hepatosplenomegaly Extremities: No clubbing/cyanosis. No edema Behavior: Appropriate, cooperative Results & Data Results & Data Vital Signs (Past 12 Hours) Vital Signs Temp Pulse Pulse Resp BP Pulse Ox O2 Del Method 10/28/22 07:28 36.4 C L 72 16 165/73 H 93 Room Air 10/28/22 07:22 60 10/28/22 04:02 36.8 C 66 18 131/72 90 Room Air PG Care Time/CCT Total # of Minutes Spent Total Time Spent with Patient: Total time spent is greater than 50% in coordination of care (as documented) at patient's floor/unit and/or counseling patient: Coding Level of Care Code 00887 SUB INP/OBS CARE 2/35MIN Diagnoses Malignant neoplasm of bladder C67.9 Diabetes mellitus E11.9 MARTÍN (acute kidney injury) N17.9 AVNRT (AV daniela re-entry tachycardia) I47.1 BPH (benign prostatic hyperplasia) N40.0 Hypothyroidism E03.9 Coronary artery disease I25.10 Paroxysmal atrial flutter I48.92 S/P coronary artery stent placement Z95.5 COPD (chronic obstructive pulmonary disease) J44.9 Peripheral neuropathy G62.9 Acute confusion R41.0 Weakness R53.1 Lesion of lung R91.1 Fall W19.XXXA
[2022-10-28] MEDS ORDERED: HALOPERIDOL LACTATE 5 MG/ML 1 ML VIAL IM ONE (16:03)
[2022-10-28] MEDS: ATORVASTATIN 40 MG TAB PO SCH (20:31)
[2022-10-28] MEDS: TAMSULOSIN HCL 0.4 MG CAP PO SCH (20:33)
[2022-10-28] MEDS: QUEtiapine FUMARATE 25 MG TABLET PO SCH (20:33)
[2022-10-29] MEDS: LEVOTHYROXINE SODIUM 100 MCG TABLET PO SCH (05:50)
[2022-10-29 07:32] LABS: BUN Creatinine Ratio 21.9 (10-20); Calcium 9.5 mg/dl (8.6-10.3); Creatinine Clr Calc Pharmacy 48.2 ml/min; Est GFR (African American) 54.9 ml/min; Est GFR (Non-African American) 47.4 ml/min; Potassium 3.7 mmol/L (3.5-5.1)
[2022-10-29] MEDS: INSULIN ASPART PER UNIT CHARGE SC SCH ×4 (09:25→20:10)
[2022-10-29] MEDS: VENLAFAXINE HCL XR 75 MG CAPXR PO SCH (09:35)
[2022-10-29] MEDS: METOPROLOL SUCC 25MG EXT REL TAB PO SCH (09:35)
[2022-10-29] MEDS: THIAMINE HCL 100 MG TAB PO SCH (09:35)
[2022-10-29] MEDS: lisinopril 2.5 MG TAB PO SCH (09:35)
[2022-10-29] MEDS: GABAPENTIN 300 MG CAP PO SCH ×2 (09:35→20:16)
[2022-10-29] MEDS: allopurinoL 100 MG TAB PO SCH ×2 (09:35→20:14)
[2022-10-29] MEDS: FERROUS SULFATE 325 MG TAB PO SCH ×2 (09:35→20:16)
[2022-10-29] MEDS: buPROPion SR 100 MG TABCR PO SCH ×2 (09:35→20:16)
[2022-10-29] MEDS: FAMOTIDINE 20 MG TAB PO SCH (09:36)
[2022-10-29] MEDS: CLOPIDOGREL BISULFATE 75 MG TAB PO SCH (09:36)
[2022-10-29] MEDS: FLUTICASONE/VILANTEROL 100/25MCG 14 PUFFS/INHALER INH SCH (09:36)
[2022-10-29] MEDS: ASPIRIN 81 MG ECTAB PO SCH (09:36)
[2022-10-29] MEDS ORDERED: QUEtiapine FUMARATE 25 MG TABLET PO PRN (18:43)
--- NOTE | 2022-10-29 18:53 | Hospitalist Progress Note ---
Date of Service October 29, 2022 Assessment & Plan (1) Encephalopathy acute: Plan: Ongoing. This is in the setting of baseline dementia. Exact cause of his encephalopathy at time of presentation was uncertain. He had MARTÍN with low BP - perhaps due to dehydration? But, again, inciting event was uncertain. To date no infectious etiology found. He is slowly improving from a mental status standpoint but is not back to baseline. He did require IM haldol last pm in addition to PO seroquel. Due to prior cerebellar stroke seen on imaging will obtain MRI brain to exclude subacute CVA as cause of his altered MS. Check a B1 level in am. Check a VBG in am. (2) MARTÍN (acute kidney injury): Plan: resolved. Peak Cr 2.8. Now 1.3. Lisinopril has been resumed since MARTÍN is resolved. (3) Fall: Plan: due to hypotension? other factors? PT, OT. needs rehab post-discharge. B12 level wnl. Check B1 level. (4) Malignant neoplasm of bladder: Plan: s/p cysto with TURBT on 10/08/[address] Michele. Initial concern for UTI early in the stay but urine cx negative. Did require straight cath yesterday pm. Observe carefully for recurrence of urinary retention. Continue flomax. (5) Diabetes mellitus: Plan: a1c 6.9%. cont novolog SSI. (6) AVNRT (AV daniela re-entry tachycardia): Plan: none seen on tele. cont metoprolol succinate 25mg daily. (7) BPH (benign prostatic hyperplasia): Plan: Cont flomax. (8) Hypothyroidism: Plan: TSH 1.7. Cont levothyroxine. (9) Coronary artery disease: Plan: h/o multiple stents. Cont asa, plavix, statin, metoprolol succinate, and BAN. (10) Paroxysmal atrial flutter: Plan: none seen on pacer interrogation nor our telemetry monitoring. he is not on chronic anticoagulation. (11) S/P coronary artery stent placement: Plan: multiple cont plavix (12) COPD (chronic obstructive pulmonary disease): Plan: no exacerbation at this time. cont home inhalers. (13) Peripheral neuropathy: Plan: cont gabapentin BID. (14) Weakness: Plan: 2nd MARTÍN? 2nd dehydration? 2nd subacute CVA? Deconditioning? combination of factors? cont PT/OT. rehab post-d/c. (15) Lesion of lung: Plan: CT chest: Irregular 10 mm nodule within the right upper lobe previously measured 6 mm, stable 10 mm solid nodule of the left lower lobe is unchanged dating back to the initial study from 2019 CT chest also showed: borderline enlarged mediastinal lymph nodes measure up to 11 mm in the paratracheal and subcarinal distributions recommend f/u scan in 3-6 months (16) Morbid obesity with BMI of 40.0-44.9, adult: Plan: BMI 40 (17) Dementia: Plan: known diagnosis (18) Cerebrovascular disease: Plan: cerebellar CVA on previous CT cont asa/plavix for secondary prevention Plan updated pt's daughter by phone this evening Admission and Anticipated Discharge Date Admission Date: October 24, 2022 Subjective tele overnight - pacing patient needed IM haldol late yesterday in addition to PO seroquel after receiving these meds he did sleep through the night, and then slept most of this AM to the early afternoon upon awakening this afternoon he was calm & cooperative during my assessment he was sitting in the chair he knew he was in the hospital, that it was "" (for the year), and that it was October he had dates mixed up for recent events - he could not tell me when his recent TURBT was denied any physical complaints by report he did have a bladder scan amount for 457cc and was straight cathed for such Review of Systems Review of Systems: gen - no fevers or rigors; ready to eat dinner cv - no chest pain pulm - no cough, no dyspnea GI - no nausea, no emesis, no abd pain - denies dysuria musculo - denies myalgias Physical Exam Physical Exam: gen - obese, NAD, sitting in chair, very talkative eyes - EOMI, no nystagmus neck - no JVD mouth - MMM heart - RRR, s1 s2, no murmur lungs - CTA b/l abd - soft NT ND BS+ ext - trace edema b/l, pulses 2+ b/l psych - a/o x 3, but does have intermittent confusion during the visit Results & Data Results & Data Vital Signs (Past 12 Hours) Vital Signs Temp Pulse Pulse Resp BP Pulse Ox O2 Del Method 10/29/22 16:08 63 10/29/22 15:20 37.1 C 60 16 118/61 93 Room Air 10/29/22 12:58 Room Air 10/29/22 11:16 36.5 C 59 L 16 119/70 92 Room Air 10/29/22 07:23 36.6 C 60 16 128/72 94 Room Air 10/29/22 07:18 60 Laboratory Results Laboratory Results - last 24 hr 10/29/22 10/29/22 10/29/22 06:21 08:15 12:05 Sodium 141 Potassium 3.7 Chloride 106 Carbon Dioxide 25 Anion Gap 10 BUN 30 H Creatinine 1.37 Est Cr Clr Drug Dosing 48.2 Est GFR ( Amer) 54.9 Est GFR (Non-Af Amer) 47.4 BUN/Creatinine Ratio 21.9 H Glucose 120 H POC Glucose 115 H 124 H Calcium 9.5 10/29/22 10/29/22 17:10 20:09 Sodium Potassium Chloride Carbon Dioxide Anion Gap BUN Creatinine Est Cr Clr Drug Dosing Est GFR ( Amer) Est GFR (Non-Af Amer) BUN/Creatinine Ratio Glucose POC Glucose 122 H 115 H Calcium PG Care Time/CCT Total # of Minutes Spent Total Time Spent with Patient: Total time spent is greater than 50% in coordination of care (as documented) at patient's floor/unit and/or counseling patient: Coding Level of Care Code 76903 SUB INP/OBS CARE 3/50MIN Diagnoses Encephalopathy acute G93.40 MARTÍN (acute kidney injury) N17.9 Fall W19.XXXA Malignant neoplasm of bladder C67.9 Diabetes mellitus E11.9 AVNRT (AV daniela re-entry tachycardia) I47.1 BPH (benign prostatic hyperplasia) N40.0 Hypothyroidism E03.9 Coronary artery disease I25.10 Paroxysmal atrial flutter I48.92 S/P coronary artery stent placement Z95.5 COPD (chronic obstructive pulmonary disease) J44.9 Peripheral neuropathy G62.9 Weakness R53.1 Lesion of lung R91.1 Morbid obesity with BMI of 40.0-44.9, adult E66.01; Z68.41 Dementia F03.90 Cerebrovascular disease I67.9
[2022-10-29] MEDS: MELATONIN 3 MG TAB PO SCH (20:14)
[2022-10-29] MEDS: ATORVASTATIN 40 MG TAB PO SCH (20:15)
[2022-10-29] MEDS: TAMSULOSIN HCL 0.4 MG CAP PO SCH (20:15)
[2022-10-29] MEDS: QUEtiapine FUMARATE 25 MG TABLET PO SCH (20:15)
[2022-10-30] MEDS: LEVOTHYROXINE SODIUM 100 MCG TABLET PO SCH (05:45)
[2022-10-30 07:13] LABS: Base Excess VBG -1.5 mEq/L; HCO3 VBG 24 mmol/L; Oxygen Saturation VBG 77.6 %; PCO2 VBG 44 mmHg (38-50); PO2 VBG 49 mmHg; pH VBG 7.35 (7.36-7.41)
[2022-10-30 07:46] LABS: BUN Creatinine Ratio 21.4 (10-20); Calcium 9.2 mg/dl (8.6-10.3); Creatinine Clr Calc Pharmacy 34.3 ml/min; Est GFR (African American) 36.5 ml/min; Est GFR (Non-African American) 31.5 ml/min; Potassium 3.9 mmol/L (3.5-5.1)
[2022-10-30] MEDS: INSULIN ASPART PER UNIT CHARGE SC SCH ×4 (08:19→20:46)
[2022-10-30] MEDS: buPROPion SR 100 MG TABCR PO SCH ×2 (08:27→21:21)
[2022-10-30] MEDS: FAMOTIDINE 20 MG TAB PO SCH (08:27)
[2022-10-30] MEDS: lisinopril 2.5 MG TAB PO SCH (08:27)
[2022-10-30] MEDS: FERROUS SULFATE 325 MG TAB PO SCH ×2 (08:27→21:21)
[2022-10-30] MEDS: GABAPENTIN 300 MG CAP PO SCH ×2 (08:27→21:23)
[2022-10-30] MEDS: allopurinoL 100 MG TAB PO SCH ×2 (08:27→21:22)
[2022-10-30] MEDS: FLUTICASONE/VILANTEROL 100/25MCG 14 PUFFS/INHALER INH SCH (08:28)
[2022-10-30] MEDS: ASPIRIN 81 MG ECTAB PO SCH (08:28)
[2022-10-30] MEDS: CLOPIDOGREL BISULFATE 75 MG TAB PO SCH (08:28)
[2022-10-30] MEDS: THIAMINE HCL 100 MG TAB PO SCH (08:28)
[2022-10-30] MEDS: VENLAFAXINE HCL XR 75 MG CAPXR PO SCH (08:28)
[2022-10-30] MEDS: METOPROLOL SUCC 25MG EXT REL TAB PO SCH (08:28)
[2022-10-30 10:39] LABS: Appearance Urine Cloudy (Clear); Bilirubin Urine 1+ (Negative); Blood Urine 3+ (Negative); Color Urine Dark Yellow; Epithelial Cell Urine Auto 20-30 /lpf (0-5); Glucose Urine UA 1+ (Negative); Ketones Urine 1+ (Negative); Leukocyte Esterase Urine 1+ (Negative); Nitrite Urine Negative (Negative); Protein Urine 1+ (Negative); Specific Gravity Urine 1.023 (1.000-1.030); Urobilinogen Urine Negative (Negative); WBC Urine Automated >30 /hpf (0-5)
[2022-10-30 10:56] LABS: Bacteria Urine Automated 1+ (Negative); Mucus Urine Present (None Prsent)
--- NOTE | 2022-10-30 13:17 | Magnetic Resonance Report ---
MRI OF THE BRAIN WITHOUT IV CONTRAST CLINICAL HISTORY: Change in mental status. COMPARISON STUDY: CT of the brain dated 10/24/2022. TECHNIQUE: MRI of the brain was performed utilizing various T1 and T2-weighted sequences in the axial , sagittal, and coronal planes. IV contrast was not administered for this examination. The examinatio n is degraded by motion artifact. There is also susceptibility artifact from a metallic foreign body within the right facial soft tissues anterior to the maxillary antrum. FINDINGS: Brain parenchyma: There is age-related involutional change noting mild subcortical and periventricula r microangiopathic disease. A chronic infarct is again noted in the right cerebellar hemisphere. Ther e is no hemorrhage or mass effect. There is no restricted diffusion to suggest acute ischemia. Hernandez-w luz maria matter differentiation is preserved. No extra-axial fluid collection is seen. The cerebellar ton sils are normal in configuration. Ventricles, sulci, and cisterns: Normal in configuration. Pituitary and sella: Unremarkable. Intracranial vasculature: There is abnormal appearance of the left vertebral artery flow void at the skull base, best seen on axial T2-weighted image #6. The remaining flow voids at the skull base are m aintained. Orbits: The bony orbits are grossly intact. Orbital contents are normal in appearance noting bilatera l ocular lens implants. Sinuses and mastoids: Clear. Calvarium: Unremarkable. Cervical cord: Partially visualized cervical spinal cord is normal in morphology and signal intensity . IMPRESSION: 1. No acute intracranial abnormality. 2. There is abnormal appearance of the left vertebral artery flow void at the skull base. This is of indeterminate significance and may be artifactual. If warranted this could be further assessed with a CT angiogram of the neck. ACT 112: Negative or not required by law. Electronically signed by: Brandon William M.D. 10/30/2022 1:16 PM
[2022-10-30] MEDS ORDERED: ERTAPENEM SODIUM 1,000 MG in SYRINGE 0 ML IV SCH (16:15)
[2022-10-30] MEDS: LACTATED RINGER'S 1,000 ML IV SCH (17:00)
[2022-10-30 17:15] LABS: BUN Creatinine Ratio 20.1 (10-20); Calcium 9.7 mg/dl (8.6-10.3); Est GFR (African American) 31.1 ml/min; Est GFR (Non-African American) 26.9 ml/min; Potassium 4.1 mmol/L (3.5-5.1)
--- NOTE | 2022-10-30 20:37 | Hospitalist Progress Note ---
Date of Service October 30, 2022 Assessment & Plan (1) Encephalopathy acute: Plan: Ongoing. Most of his confusion last 24 hours has been of the "pleasant" variety. No agitation requiring IM antipsychotics. His confusion is in the setting of baseline dementia. Exact cause of his encephalopathy at time of presentation was uncertain. He had MARTÍN with low BP at time of ER arrival - perhaps due to dehydration? Initial concern for UTI at time of admission but culture did not grow anything. MRI brain obtained to r/o subacute CVA - negative for such. VBG without CO2 retention. Ammonia wnl. Patient has had urinary retention issues. s/p straight cath today. u/a today is suggestive of UTI. IV ertapenem initiated. Sent culture. Cont seroquel at HS along with scheduled melatonin. (2) MARTÍN (acute kidney injury): Plan: Peak Cr 2.8 at admission. Improved to 1.3. Now with recurrent MARTÍN --> Cr has climbed once again to >2. Hyaline casts on microscopy today c/w pre-renal MARTÍN. Plan - HOLD Lisinopril Serial BMP May need reina if retention issues continue POOR PO INTAKE - restart isotonic fluids (3) Fall: Plan: due to hypotension? other factors? PT, OT. needs rehab post-discharge. B12 level wnl. Checked B1 level. While awaiting level place on thiamine 200mg BID. (4) Malignant neoplasm of bladder: Plan: s/p cysto with TURBT on 10/08/[address] Michele. Initial concern for UTI early in the stay but urine cx negative. Repeat u/at today via straight cath is suspicious for UTI thus IV abx resumed in the form of ertapenem. Continue flomax. (5) Diabetes mellitus: Plan: a1c 6.9%. cont novolog SSI. (6) AVNRT (AV daniela re-entry tachycardia): Plan: none seen on tele. cont metoprolol succinate 25mg daily. (7) BPH (benign prostatic hyperplasia): Plan: Cont flomax. Having urinary retention issues - may need to consider reina. (8) Hypothyroidism: Plan: TSH 1.7. Cont levothyroxine. (9) Coronary artery disease: Plan: h/o multiple stents. Cont asa, plavix, statin, metoprolol succinate, and BAN. (10) Paroxysmal atrial flutter: Plan: none seen on pacer interrogation nor our telemetry monitoring. he is not on chronic anticoagulation. MRI brain today without signs of acute or subacute CVA. (11) S/P coronary artery stent placement: Plan: multiple stents cont plavix (12) COPD (chronic obstructive pulmonary disease): Plan: no exacerbation at this time. cont home inhalers. (13) Peripheral neuropathy: Plan: cont gabapentin BID. (14) Weakness: Plan: suspect combination of factors including suspected UTI, deconditioning, etc cont PT/OT. rehab post-d/c. (15) Lesion of lung: Plan: CT chest: Irregular 10 mm nodule within the right upper lobe previously measured 6 mm, stable 10 mm solid nodule of the left lower lobe is unchanged dating back to the initial study from 2019 CT chest also showed: borderline enlarged mediastinal lymph nodes measure up to 11 mm in the paratracheal and subcarinal distributions recommend f/u scan in 3-6 months (16) Morbid obesity with BMI of 40.0-44.9, adult: Plan: BMI 40 (17) Dementia: Plan: known diagnosis (18) Cerebrovascular disease: Plan: cerebellar CVA on previous CT cont asa/plavix for secondary prevention MRI brain today without acute CVA Plan updated pt's daughter by phone yesterday evening Admission and Anticipated Discharge Date Admission Date: October 24, 2022 Subjective patient required straight cathing again this am there was >500cc at time of cathing urine was foul-smelling he has had poor appetite and liquid intake today ongoing confusion, worse later in the day last BM 10/28/22 during my visit he was pleasantly confused denied all complaints including pain in any location, nausea, dyspnea tele overnight - pacing Review of Systems Review of Systems: gen - "I feel fine" cv - no chest pain pulm - no dyspnea GI - no pain Physical Exam Physical Exam: gen - obese, NAD, laying in bed, comfortable but confused neck - no JVD mouth - MM mildly dry heart - RRR, s1 s2, no murmur lungs - CTA b/l abd - soft NT ND BS+ ext - no edema b/l, pulses 2+ b/l psych - pleasant confusion Results & Data Results & Data Vital Signs (Past 12 Hours) Vital Signs Temp Pulse Pulse Resp BP Pulse Ox O2 Del Method 10/30/22 20:22 36.8 C 60 18 108/63 96 Room Air 08/30/23 15:00 61 10/30/22 15:07 36.8 C 87 20 119/69 99 Room Air 10/30/22 12:04 Room Air 10/30/22 11:16 94/58 L 10/30/22 11:13 36.8 C 61 16 93 Room Air Laboratory Results Laboratory Results - last 24 hr 10/30/22 10/30/22 10/30/22 07:00 07:00 07:00 VBG pH 7.35 L VBG pCO2 44 VBG pO2 49 VBG HCO3 24 VBG O2 Saturation 77.6 VBG Base Excess -1.5 Sodium 138 Potassium 3.9 Chloride 104 Carbon Dioxide 23 Anion Gap 11 BUN 41 H Creatinine 1.92 H D Est Cr Clr Drug Dosing 34.3 Est GFR ( Amer) 36.5 Est GFR (Non-Af Amer) 31.5 BUN/Creatinine Ratio 21.4 H Glucose 120 H POC Glucose Calcium 9.2 Ammonia 21.0 Urine Color Urine Appearance Urine pH Ur Specific [place] Urine Protein Urine Glucose (UA) Urine Ketones Urine Blood Urine Nitrite Urine Bilirubin Urine Urobilinogen Ur Leukocyte Esterase Urine WBC (Auto) Urine RBC (Auto) U Hyaline Cast (Auto) U Epithel Cells (Auto) Urine Bacteria (Auto) Urine Mucus 10/30/22 10/30/22 10/30/22 08:15 13:15 16:37 VBG pH VBG pCO2 VBG pO2 VBG HCO3 VBG O2 Saturation VBG Base Excess Sodium 136 Potassium 4.1 Chloride 102 Carbon Dioxide 25 Anion Gap 9 BUN 44 H Creatinine 2.19 H Est Cr Clr Drug Dosing 30.0 Est GFR ( Amer) 31.1 Est GFR (Non-Af Amer) 26.9 BUN/Creatinine Ratio 20.1 H Glucose 120 H POC Glucose 122 H 118 H Calcium 9.7 Ammonia Urine Color Urine Appearance Urine pH Ur Specific [place] Urine Protein Urine Glucose (UA) Urine Ketones Urine Blood Urine Nitrite Urine Bilirubin Urine Urobilinogen Ur Leukocyte Esterase Urine WBC (Auto) Urine RBC (Auto) U Hyaline Cast (Auto) U Epithel Cells (Auto) Urine Bacteria (Auto) Urine Mucus 10/30/22 10/30/22 10/30/22 16:57 19:54 Unknown VBG pH VBG pCO2 VBG pO2 VBG HCO3 VBG O2 Saturation VBG Base Excess Sodium Potassium Chloride Carbon Dioxide Anion Gap BUN Creatinine Est Cr Clr Drug Dosing Est GFR ( Amer) Est GFR (Non-Af Amer) BUN/Creatinine Ratio Glucose POC Glucose 109 H 109 H Calcium Ammonia Urine Color Dark Yellow Urine Appearance Cloudy A Urine pH 5.0 Ur Specific [place] 1.023 Urine Protein 1+ H Urine Glucose (UA) 1+ H Urine Ketones 1+ H Urine Blood 3+ H Urine Nitrite Negative Urine Bilirubin 1+ H Urine Urobilinogen Negative Ur Leukocyte Esterase 1+ H Urine WBC (Auto) >30 H Urine RBC (Auto) 10-30 H U Hyaline Cast (Auto) 5-10 H U Epithel Cells (Auto) 20-30 H Urine Bacteria (Auto) 1+ H Urine Mucus Present A Diagnostic Findings Brain MRI 10/30/22 07:00 MRI OF THE BRAIN WITHOUT IV CONTRAST CLINICAL HISTORY: Change in mental status. COMPARISON STUDY: CT of the brain dated 10/24/2022. TECHNIQUE: MRI of the brain was performed utilizing various T1 and T2-weighted sequences in the axial, sagittal, and coronal planes. IV contrast was not administered for this examination. The examination is degraded by motion artifact. There is also susceptibility artifact from a metallic foreign body within the right facial soft tissues anterior to the maxillary antrum. FINDINGS: Brain parenchyma: There is age-related involutional change noting mild subcortical and periventricular microangiopathic disease. A chronic infarct is again noted in the right cerebellar hemisphere. There is no hemorrhage or mass effect. There is no restricted diffusion to suggest acute ischemia. Hernandez-white matter differentiation is preserved. No extra-axial fluid collection is seen. The cerebellar tonsils are normal in configuration. Ventricles, sulci, and cisterns: Normal in configuration. Pituitary and sella: Unremarkable. Intracranial vasculature: There is abnormal appearance of the left vertebral artery flow void at the skull base, best seen on axial T2-weighted image #6. The remaining flow voids at the skull base are maintained. Orbits: The bony orbits are grossly intact. Orbital contents are normal in appearance noting bilateral ocular lens implants. Sinuses and mastoids: Clear. Calvarium: Unremarkable. Cervical cord: Partially visualized cervical spinal cord is normal in morphology and signal intensity. IMPRESSION: 1. No acute intracranial abnormality. 2. There is abnormal appearance of the left vertebral artery flow void at the skull base. This is of indeterminate significance and may be artifactual. If warranted this could be further assessed with a CT angiogram of the neck. ACT 112: Negative or not required by law. Electronically signed by: Brandon William M.D. 10/30/2022 1:16 PM PG Care Time/CCT Total # of Minutes Spent Total Time Spent with Patient: Total time spent is greater than 50% in coordination of care (as documented) at patient's floor/unit and/or counseling patient: Coding Level of Care Code 00047 SUB INP/OBS CARE 2/35MIN Diagnoses Encephalopathy acute G93.40 MARTÍN (acute kidney injury) N17.9 Fall W19.XXXA Malignant neoplasm of bladder C67.9 Diabetes mellitus E11.9 AVNRT (AV daniela re-entry tachycardia) I47.1 BPH (benign prostatic hyperplasia) N40.0 Hypothyroidism E03.9 Coronary artery disease I25.10 Paroxysmal atrial flutter I48.92 S/P coronary artery stent placement Z95.5 COPD (chronic obstructive pulmonary disease) J44.9 Peripheral neuropathy G62.9 Weakness R53.1 Lesion of lung R91.1 Morbid obesity with BMI of 40.0-44.9, adult E66.01; Z68.41 Dementia F03.90 Cerebrovascular disease I67.9
[2022-10-30] MEDS: MELATONIN 3 MG TAB PO SCH (21:20)
[2022-10-30] MEDS: QUEtiapine FUMARATE 25 MG TABLET PO SCH (21:21)
[2022-10-30] MEDS: TAMSULOSIN HCL 0.4 MG CAP PO SCH (21:22)
[2022-10-30] MEDS: ATORVASTATIN 40 MG TAB PO SCH (21:22)
[2022-10-31] MEDS: LACTATED RINGER'S 1,000 ML IV SCH ×2 (05:53→16:50)
[2022-10-31] MEDS: LEVOTHYROXINE SODIUM 100 MCG TABLET PO SCH (05:54)
[2022-10-31] MEDS: allopurinoL 100 MG TAB PO SCH ×2 (08:00→20:04)
[2022-10-31] MEDS: FERROUS SULFATE 325 MG TAB PO SCH ×2 (08:01→20:07)
[2022-10-31] MEDS: ASPIRIN 81 MG ECTAB PO SCH (08:01)
[2022-10-31] MEDS: FAMOTIDINE 20 MG TAB PO SCH (08:01)
[2022-10-31] MEDS: buPROPion SR 100 MG TABCR PO SCH ×2 (08:01→20:06)
[2022-10-31] MEDS: GABAPENTIN 300 MG CAP PO SCH ×2 (08:02→20:07)
[2022-10-31] MEDS: VENLAFAXINE HCL XR 75 MG CAPXR PO SCH (08:02)
[2022-10-31] MEDS: THIAMINE HCL 100 MG TAB PO SCH (08:02)
[2022-10-31] MEDS: METOPROLOL SUCC 25MG EXT REL TAB PO SCH (08:03)
[2022-10-31] MEDS: FLUTICASONE/VILANTEROL 100/25MCG 14 PUFFS/INHALER INH SCH (08:09)
[2022-10-31] MEDS: CLOPIDOGREL BISULFATE 75 MG TAB PO SCH (08:09)
[2022-10-31] MEDS: INSULIN ASPART PER UNIT CHARGE SC SCH ×4 (09:21→20:38)
[2022-10-31 10:17] LABS: BUN Creatinine Ratio 24.2 (10-20); Creatinine Clr Calc Pharmacy 35.9 ml/min; Est GFR (African American) 38.9 ml/min; Est GFR (Non-African American) 33.6 ml/min; Potassium 3.5 mmol/L (3.5-5.1)
[2022-10-31] MEDS: ENOXAPARIN INJ 40 MG/0.4 ML SYR SQ SCH (11:59)
[2022-10-31] MEDS ORDERED: bisacodyL 5 MG TABEC PO ONE (13:26)
[2022-10-31] MEDS: POLYETHYLENE (MIRALAX) 17 GM PACK PO SCH ×2 (13:57→20:09)
[2022-10-31] MEDS: CEFDINIR 300 MG CAP PO SCH ×2 (14:31→20:06)
[2022-10-31] MEDS: MELATONIN 3 MG TAB PO SCH (20:05)
[2022-10-31] MEDS: ATORVASTATIN 40 MG TAB PO SCH (20:05)
[2022-10-31] MEDS: TAMSULOSIN HCL 0.4 MG CAP PO SCH (20:08)
[2022-10-31] MEDS: QUEtiapine FUMARATE 25 MG TABLET PO SCH (20:08)
--- NOTE | 2022-10-31 20:56 | Hospitalist Progress Note ---
Date of Service October 31, 2022 Assessment & Plan (1) Encephalopathy acute: Plan: Ongoing. Most of his confusion last 2-3 days has been of the "pleasant" variety. No agitation requiring IM antipsychotics. His confusion is in the setting of baseline dementia. Exact cause of his encephalopathy at time of presentation was uncertain. He had MARTÍN with low BP at time of ER arrival - perhaps due to dehydration? Initial concern for UTI at time of admission but culture did not grow anything. Repeat urine cx - despite very dirty u/a - did not grow anything. False neg urine cx's ? prostatitis? will treat for UTI - change ertapenem IV to cefdinir and treat for another 7-10 days. MRI brain obtained to r/o subacute CVA - negative for such. VBG without CO2 retention. Ammonia wnl. Patient has had urinary retention issues. s/p reina placement yesterday. Cont seroquel at HS along with scheduled melatonin. (2) MARTÍN (acute kidney injury): Plan: Peak Cr 2.8 at admission. Improved to 1.3. Now with recurrent MARTÍN --> Cr has climbed once again to >2. Hyaline casts on microscopy c/w pre-renal MARTÍN. Creatinine improved today. Plan - cont to HOLD Lisinopril BMP am cont fluids 1 more day (3) Fall: Plan: falls at home due to hypotension? other factors? PT, OT. needs rehab post-discharge. B12 level wnl. Checked B1 level. While awaiting level placed on thiamine 200mg BID. (4) Malignant neoplasm of bladder: Plan: s/p cysto with TURBT on 10/08/[address] Michele. Initial concern for UTI early in the stay but urine cx negative. Repeat u/a via straight cath suspicious for UTI but culture again negative. Will still Rx presumptively for UTI or maybe even prostatitis. stop ertapenem; change to PO cefdinir (5) Diabetes mellitus: Plan: a1c 6.9%. cont novolog SSI. (6) AVNRT (AV daniela re-entry tachycardia): Plan: none seen on tele. cont metoprolol succinate 25mg daily. (7) BPH (benign prostatic hyperplasia): Plan: Cont flomax. Having urinary retention issues - s/p reina. (8) Hypothyroidism: Plan: TSH 1.7. Cont levothyroxine. (9) Coronary artery disease: Plan: h/o multiple stents. Cont asa, plavix, statin, metoprolol succinate, and BAN. (10) Paroxysmal atrial flutter: Plan: none seen on pacer interrogation nor our telemetry monitoring. he is not on chronic anticoagulation. MRI brain without signs of acute or subacute CVA. (11) S/P coronary artery stent placement: Plan: multiple stents cont plavix (12) COPD (chronic obstructive pulmonary disease): Plan: no exacerbation at this time. cont home inhalers. (13) Peripheral neuropathy: Plan: cont gabapentin BID. (14) Weakness: Plan: suspect combination of factors including suspected UTI, deconditioning, etc cont PT/OT. rehab post-d/c. (15) Lesion of lung: Plan: CT chest: Irregular 10 mm nodule within the right upper lobe previously measured 6 mm, stable 10 mm solid nodule of the left lower lobe is unchanged dating back to the initial study from 2019 CT chest also showed: borderline enlarged mediastinal lymph nodes measure up to 11 mm in the paratracheal and subcarinal distributions recommend f/u scan in 3-6 months (16) Morbid obesity with BMI of 40.0-44.9, adult: Plan: BMI 40 (17) Dementia: Plan: known diagnosis (18) Cerebrovascular disease: Plan: cerebellar CVA on previous CT cont asa/plavix for secondary prevention MRI brain without acute CVA Plan updated pt's daughter by phone this pm - extensive update given Admission and Anticipated Discharge Date Admission Date: October 24, 2022 Subjective tele stable overnight he slept well with seroquel unfortunately he continues to refuse meals - did not eat breakfast or lunch he states he "doesn't like the food" liquid intake - fair during my rounds he was pleasantly confused, telling stories about things completely unrelated to his health he asked me at one point "I need to see my doctor, can you go get him?" minimal to no agitation today reina draining clear urine no BM since 10/28 Review of Systems Review of Systems: cv - denies chest pain pulm - denies cough or dyspnea GI - denies pain/nausea/emesis Physical Exam Physical Exam: gen - obese, NAD, laying in bed, comfortable; pleasant confusion, laughing and joking neck - no JVD mouth - MM more moist today heart - RRR, s1 s2, no murmur lungs - CTA b/l abd - soft NT ND BS+ ext - no edema b/l, pulses 2+ b/l psych - pleasant confusion Results & Data Results & Data Vital Signs (Past 12 Hours) Vital Signs Temp Pulse Pulse Resp BP BP Pulse Ox 10/31/22 19:19 36.9 C 63 18 135/56 L 93 10/31/22 15:49 63 10/31/22 14:38 36.5 C 61 20 129/71 95 10/31/22 12:17 60 10/31/22 12:15 36.8 C 68 20 146/71 H 95 O2 Del Method 10/31/22 19:19 Room Air 10/31/22 15:49 10/31/22 14:38 Room Air 10/31/22 12:17 10/31/22 12:15 Room Air Laboratory Results Laboratory Results - last 24 hr 10/31/22 10/31/22 10/31/22 08:36 08:44 12:21 Sodium 137 Potassium 3.5 Chloride 102 Carbon Dioxide 24 Anion Gap 11 BUN 44 H Creatinine 1.82 H D Est Cr Clr Drug Dosing 35.9 Est GFR ( Amer) 38.9 Est GFR (Non-Af Amer) 33.6 BUN/Creatinine Ratio 24.2 H Glucose 102 H POC Glucose 95 110 H Calcium 9.0 10/31/22 10/31/22 17:20 20:17 Sodium Potassium Chloride Carbon Dioxide Anion Gap BUN Creatinine Est Cr Clr Drug Dosing Est GFR ( Amer) Est GFR (Non-Af Amer) BUN/Creatinine Ratio Glucose POC Glucose 106 H 96 Calcium Diagnostic Findings urine cx negative PG Care Time/CCT Total # of Minutes Spent Total Time Spent with Patient: Total time spent is greater than 50% in coordination of care (as documented) at patient's floor/unit and/or counseling patient: Coding Level of Care Code 06870 SUB INP/OBS CARE 2/35MIN Diagnoses Encephalopathy acute G93.40 MARTÍN (acute kidney injury) N17.9 Fall W19.XXXA Malignant neoplasm of bladder C67.9 Diabetes mellitus E11.9 AVNRT (AV daniela re-entry tachycardia) I47.1 BPH (benign prostatic hyperplasia) N40.0 Hypothyroidism E03.9 Coronary artery disease I25.10 Paroxysmal atrial flutter I48.92 S/P coronary artery stent placement Z95.5 COPD (chronic obstructive pulmonary disease) J44.9 Peripheral neuropathy G62.9 Weakness R53.1 Lesion of lung R91.1 Morbid obesity with BMI of 40.0-44.9, adult E66.01; Z68.41 Dementia F03.90 Cerebrovascular disease I67.9
[2022-11-01] MEDS: LACTATED RINGER'S 1,000 ML IV SCH ×2 (02:22→10:34)
[2022-11-01] MEDS: LEVOTHYROXINE SODIUM 100 MCG TABLET PO SCH (05:43)
[2022-11-01 07:56] LABS: Creatinine Clr Calc Pharmacy 51.4 ml/min; Est GFR (African American) 59.6 ml/min; Est GFR (Non-African American) 51.4 ml/min
[2022-11-01] MEDS: INSULIN ASPART PER UNIT CHARGE SC SCH ×4 (09:15→20:25)
[2022-11-01] MEDS: VENLAFAXINE HCL XR 75 MG CAPXR PO SCH (09:25)
[2022-11-01] MEDS: SENNA 8.6 MG TAB PO SCH (09:25)
[2022-11-01] MEDS: THIAMINE HCL 100 MG TAB PO SCH (09:25)
[2022-11-01] MEDS: ASPIRIN 81 MG ECTAB PO SCH (09:25)
[2022-11-01] MEDS: FAMOTIDINE 20 MG TAB PO SCH (09:26)
[2022-11-01] MEDS: METOPROLOL SUCC 25MG EXT REL TAB PO SCH (09:26)
[2022-11-01] MEDS: FERROUS SULFATE 325 MG TAB PO SCH ×2 (09:26→20:24)
[2022-11-01] MEDS: CLOPIDOGREL BISULFATE 75 MG TAB PO SCH (09:27)
[2022-11-01] MEDS: GABAPENTIN 300 MG CAP PO SCH ×2 (09:27→20:25)
[2022-11-01] MEDS: buPROPion SR 100 MG TABCR PO SCH ×2 (09:34→20:24)
[2022-11-01] MEDS: allopurinoL 100 MG TAB PO SCH ×2 (09:34→20:23)
[2022-11-01] MEDS: CEFDINIR 300 MG CAP PO SCH ×2 (09:34→20:24)
[2022-11-01] MEDS: FLUTICASONE/VILANTEROL 100/25MCG 14 PUFFS/INHALER INH SCH (09:38)
[2022-11-01] MEDS: ENOXAPARIN INJ 40 MG/0.4 ML SYR SQ SCH (09:39)
[2022-11-01] MEDS: POLYETHYLENE (MIRALAX) 17 GM PACK PO SCH ×2 (09:58→20:26)
[2022-11-01] MEDS: ATORVASTATIN 40 MG TAB PO SCH (20:24)
[2022-11-01] MEDS: MELATONIN 3 MG TAB PO SCH (20:25)
[2022-11-01] MEDS: TAMSULOSIN HCL 0.4 MG CAP PO SCH (20:25)
[2022-11-01] MEDS: QUEtiapine FUMARATE 25 MG TABLET PO SCH (20:26)
--- NOTE | 2022-11-01 20:57 | Hospitalist Progress Note ---
Date of Service November 01, 2022 Assessment & Plan (1) Encephalopathy acute: Plan: Ongoing. Has periods of agitation but is most times re-directable. No agitation requiring IM antipsychotics for several days. His confusion is in the setting of baseline dementia. Exact cause of his encephalopathy at time of presentation was uncertain. He had MARTÍN with low BP at time of ER arrival - perhaps due to dehydration? Initial concern for UTI at time of admission but culture did not grow anything. Repeat urine cx - despite very dirty u/a - did not grow anything. False neg urine cx's ? prostatitis? will treat presumptively for UTI - cont cefdinir and treat for another 7-10 days. MRI brain negative for CVA etc. VBG without CO2 retention. Ammonia wnl. Patient has had urinary retention issues. s/p reina placement this week. I informed his primary urologist, Dr Michele, about this. Cont seroquel at HS along with scheduled melatonin. Will add a dose of seroquel 25mg qam. (2) MARTÍN (acute kidney injury): Plan: Peak Cr 2.8 at admission. Improved to 1.3. Then had recurrent MARTÍN --> Cr climbed once again to >2. Hyaline casts on microscopy c/w pre-renal MARTÍN. Creatinine back to baseline today. Stop IV fluids. Cont to HOLD Lisinopril BMP am (3) Fall: Plan: falls at home suspect due to hypotension +/- other factors? PT, OT. needs rehab post-discharge. B12 level wnl. (4) Malignant neoplasm of bladder: Plan: s/p cysto with TURBT on 10/08/[address] Michele. Initial concern for UTI early in the stay but urine cx negative. Repeat u/a via straight cath suspicious for UTI but culture again negative. Will still Rx presumptively for UTI or maybe even prostatitis. Cont cefdinir Cont reina f/u Dr Michele about 7 days post-discharge for voiding trial, etc (5) Diabetes mellitus: Plan: a1c 6.9%. cont novolog SSI. controlled. (6) AVNRT (AV daniela re-entry tachycardia): Plan: none seen on tele. cont metoprolol succinate 25mg daily. pacing on monitor. (7) BPH (benign prostatic hyperplasia): Plan: Cont flomax. Having urinary retention issues - s/p reina. Continue until seen by Dr Michele in the clinic. (8) Hypothyroidism: Plan: TSH 1.7. Cont levothyroxine. (9) Coronary artery disease: Plan: h/o multiple stents. Cont asa, plavix, statin, metoprolol succinate Hold BAN due to recurrent MARTÍN. (10) Paroxysmal atrial flutter: Plan: none seen on pacer interrogation nor our telemetry monitoring. he is not on chronic anticoagulation. MRI brain without signs of acute or subacute CVA. (11) S/P coronary artery stent placement: Plan: multiple stents cont plavix (12) COPD (chronic obstructive pulmonary disease): Plan: no exacerbation at this time. cont home inhalers. (13) Peripheral neuropathy: Plan: cont gabapentin BID. (14) Weakness: Plan: suspect combination of factors including suspected UTI, deconditioning, etc cont PT/OT. rehab post-d/c. (15) Lesion of lung: Plan: CT chest: Irregular 10 mm nodule within the right upper lobe previously measured 6 mm, stable 10 mm solid nodule of the left lower lobe is unchanged dating back to the initial study from 2019 CT chest also showed: borderline enlarged mediastinal lymph nodes measure up to 11 mm in the paratracheal and subcarinal distributions recommend f/u scan in 3-6 months (16) Morbid obesity with BMI of 40.0-44.9, adult: Plan: BMI 40 (17) Dementia: Plan: known diagnosis I believe this is the main reason for his anorexia will add low-dose prednisone for a few days to stimulate his appetite (10mg daily for 3-5 days) (18) Cerebrovascular disease: Plan: cerebellar CVA on previous CT cont asa/plavix for secondary prevention MRI brain without acute CVA Plan updated pt's daughter today in person d/c tele move to med/surg - preferably a room with lots of windows/sunlight which will help agitation & delirium Admission and Anticipated Discharge Date Admission Date: October 24, 2022 Subjective no events overnight - slept well this am, however, he was agitated after having had a bowel movement refused breakfast/lunch late afternoon his family arrived and brought him a burger from [employer] he ate most of the burger and some cookies saw him shortly after this he was sitting in the chair comfortably pleasantly confused talking nonsensically; telling stories that don't make any sense talking about people he has known in the past tele - pacing Review of Systems Review of Systems: denies pain any location moving bowels per staff reina draining clear urine ongoing poor appetite denies dyspnea Physical Exam Physical Exam: gen - obese, NAD, sitting in chair comfortably; pleasant confusion, laughing and joking and telling stories that don't make sense neck - no JVD mouth - MMM heart - RRR, s1 s2, no murmur lungs - CTA b/l abd - soft NT ND BS+ ext - no edema b/l, pulses 2+ b/l psych - pleasant confusion; no agitation Results & Data Results & Data Vital Signs (Past 12 Hours) Vital Signs Temp Pulse Pulse Resp BP BP Pulse Ox 11/01/22 14:00 61 11/01/22 14:35 37.0 C 82 20 146/76 H 94 11/01/22 11:30 36.7 C 85 16 144/73 H 93 O2 Del Method 11/01/22 14:00 11/01/22 14:35 Room Air 11/01/22 11:30 Room Air Laboratory Results Laboratory Results - last 24 hr 11/01/22 11/01/22 11/01/22 07:16 08:05 11:48 Creatinine 1.28 D Est Cr Clr Drug Dosing 51.4 Est GFR ( Amer) 59.6 Est GFR (Non-Af Amer) 51.4 POC Glucose 83 102 H 11/01/22 11/01/22 16:01 20:19 Creatinine Est Cr Clr Drug Dosing Est GFR ( Amer) Est GFR (Non-Af Amer) POC Glucose 135 H 104 H PG Care Time/CCT Total # of Minutes Spent Total Time Spent with Patient: Total time spent is greater than 50% in coordination of care (as documented) at patient's floor/unit and/or counseling patient: Coding Level of Care Code 93507 SUB INP/OBS CARE 2/35MIN Diagnoses Encephalopathy acute G93.40 MARTÍN (acute kidney injury) N17.9 Fall W19.XXXA Malignant neoplasm of bladder C67.9 Diabetes mellitus E11.9 AVNRT (AV daniela re-entry tachycardia) I47.1 BPH (benign prostatic hyperplasia) N40.0 Hypothyroidism E03.9 Coronary artery disease I25.10 Paroxysmal atrial flutter I48.92 S/P coronary artery stent placement Z95.5 COPD (chronic obstructive pulmonary disease) J44.9 Peripheral neuropathy G62.9 Weakness R53.1 Lesion of lung R91.1 Morbid obesity with BMI of 40.0-44.9, adult E66.01; Z68.41 Dementia F03.90 Cerebrovascular disease I67.9
[2022-11-02 07:35] LABS: Hematocrit (blood only) 35.8 % (42.0-52.0); Hemoglobin 11.6 g/dl (14.0-18.0); Mean Corpuscular Hemoglobin 30.9 pg (25.0-34.0); Mean Corpuscular Hgb Conc 32.4 g/dL (32.0-36.0); Mean Corpuscular Volume 95.5 fL (80.0-100.0); Mean Platelet Volume 11.4 fL (9.4-12.4); Platelet Count 160 K/uL (130-400); RDW Coefficient of Variation 14.6 % (11.5-14.5); RDW Standard Deviation 50.1 fL (36.4-46.3); Red Blood Count 3.75 M/uL (4.70-6.10); White Blood Count 7.87 K/ul (4.8-10.8)
[2022-11-02] MEDS: LEVOTHYROXINE SODIUM 100 MCG TABLET PO SCH (07:37)
[2022-11-02] MEDS: ASPIRIN 81 MG ECTAB PO SCH (08:10)
[2022-11-02] MEDS: allopurinoL 100 MG TAB PO SCH ×2 (08:10→22:29)
[2022-11-02] MEDS: CLOPIDOGREL BISULFATE 75 MG TAB PO SCH (08:11)
[2022-11-02] MEDS: CEFDINIR 300 MG CAP PO SCH ×2 (08:11→22:31)
[2022-11-02] MEDS: buPROPion SR 100 MG TABCR PO SCH ×2 (08:11→22:29)
[2022-11-02] MEDS: ENOXAPARIN INJ 40 MG/0.4 ML SYR SQ SCH (08:11)
[2022-11-02] MEDS: FERROUS SULFATE 325 MG TAB PO SCH ×2 (08:12→22:29)
[2022-11-02] MEDS: FLUTICASONE/VILANTEROL 100/25MCG 14 PUFFS/INHALER INH SCH (08:12)
[2022-11-02] MEDS: VENLAFAXINE HCL XR 75 MG CAPXR PO SCH (08:12)
[2022-11-02] MEDS: THIAMINE HCL 100 MG TAB PO SCH (08:12)
[2022-11-02] MEDS: METOPROLOL SUCC 25MG EXT REL TAB PO SCH (08:12)
[2022-11-02] MEDS: FAMOTIDINE 20 MG TAB PO SCH (08:12)
[2022-11-02] MEDS: GABAPENTIN 300 MG CAP PO SCH ×2 (08:12→22:28)
[2022-11-02] MEDS: SENNA 8.6 MG TAB PO SCH (08:12)
[2022-11-02 08:15] LABS: Calcium 8.6 mg/dl (8.6-10.3); Potassium 3.3 mmol/L (3.5-5.1)
[2022-11-02] MEDS: POLYETHYLENE (MIRALAX) 17 GM PACK PO SCH ×2 (08:18→21:36)
[2022-11-02] MEDS: QUEtiapine FUMARATE 25 MG TABLET PO SCH ×2 (08:21→22:30)
[2022-11-02 08:26] LABS: Creatinine Clr Calc Pharmacy 49.5 ml/min; Est GFR (African American) 56.9 ml/min; Est GFR (Non-African American) 49.1 ml/min
[2022-11-02] MEDS ORDERED: predniSONE 10 MG TABLET PO SCH (09:00)
[2022-11-02] MEDS: INSULIN ASPART PER UNIT CHARGE SC SCH ×4 (09:22→20:46)
[2022-11-02] MEDS: POTASSIUM CHLORIDE CRTAB 20 MEQ TABCR PO SCH ×2 (09:25→22:27)
[2022-11-02] MEDS: ACETAMINOPHEN 325 MG TAB PO PRN (09:36)
--- NOTE | 2022-11-02 20:49 | Hospitalist Progress Note ---
Date of Service November 02, 2022 Assessment & Plan (1) Encephalopathy acute: Plan: Ongoing. His confusion is in the setting of baseline dementia. Exact cause of his encephalopathy at time of presentation was uncertain. He had MARTÍN with low BP at time of ER arrival - perhaps due to dehydration? Initial concern for UTI at time of admission but culture did not grow anything. Repeat urine cx - despite very dirty u/a - did not grow anything. False neg urine cx's ? prostatitis? will treat presumptively for UTI - cont cefdinir and treat for another 7-10 days. MRI brain negative for CVA etc. VBG without CO2 retention. Ammonia wnl. Patient has had urinary retention issues. s/p reina placement this week. I informed his primary urologist, Dr Michele, about this. Cont seroquel at HS along with scheduled melatonin. Cont seroquel 25mg qam. (2) MARTÍN (acute kidney injury): Plan: Peak Cr 2.8 at admission. Improved to 1.3. Then had recurrent MARTÍN --> Cr climbed once again to >2. Hyaline casts on microscopy c/w pre-renal MARTÍN. Creatinine 1.3 again today. Cont to HOLD Lisinopril BMP am (3) Fall: Plan: falls at home suspect due to hypotension +/- other factors? PT, OT. needs rehab post-discharge. B12 level wnl. (4) Malignant neoplasm of bladder: Plan: s/p cysto with TURBT on 10/08/[address] Michele. Initial concern for UTI early in the stay but urine cx negative. Repeat u/a via straight cath suspicious for UTI but culture again negative. Will still Rx presumptively for UTI or maybe even prostatitis. Cont cefdinir Cont reina f/u Dr Michele about 7 days post-discharge for voiding trial, etc (5) Diabetes mellitus: Plan: a1c 6.9%. cont novolog SSI. controlled. (6) AVNRT (AV daniela re-entry tachycardia): Plan: none seen on tele. cont metoprolol succinate 25mg daily. pacing on monitor previously. (7) BPH (benign prostatic hyperplasia): Plan: Cont flomax. Had urinary retention issues all last week - s/p reina 10/31/22. Continue until seen by Dr Michele in the clinic. (8) Hypothyroidism: Plan: TSH 1.7. Cont levothyroxine. (9) Coronary artery disease: Plan: h/o multiple stents. Cont asa, plavix, statin, metoprolol succinate Hold BAN due to recurrent MARTÍN. (10) Paroxysmal atrial flutter: Plan: none seen on pacer interrogation nor our telemetry monitoring. he is not on chronic anticoagulation. MRI brain without signs of acute or subacute CVA. (11) S/P coronary artery stent placement: Plan: multiple stents cont plavix (12) COPD (chronic obstructive pulmonary disease): Plan: no exacerbation at this time. cont home inhalers. (13) Peripheral neuropathy: Plan: cont gabapentin BID. (14) Weakness: Plan: suspect combination of factors including suspected UTI, deconditioning, etc cont PT/OT. rehab post-d/c. (15) Lesion of lung: Plan: CT chest: Irregular 10 mm nodule within the right upper lobe previously measured 6 mm, stable 10 mm solid nodule of the left lower lobe is unchanged dating back to the initial study from 2019 CT chest also showed: borderline enlarged mediastinal lymph nodes measure up to 11 mm in the paratracheal and subcarinal distributions recommend f/u scan in 3-6 months (16) Morbid obesity with BMI of 40.0-44.9, adult: Plan: BMI 40 (17) Dementia: Plan: known diagnosis I believe this is the main reason for his anorexia added low-dose prednisone and he ate better today reduce dose to 5mg tomorrow; continue 2-3 days; then stop (18) Cerebrovascular disease: Plan: cerebellar CVA on previous CT cont asa/plavix for secondary prevention MRI brain without acute CVA Plan updated pt's daughter yesterday dispo - rehab at [facility] - per [facility] Admission and Anticipated Discharge Date Admission Date: October 24, 2022 Subjective patient transferred from med/tele to med/surg today saw him in his new room he was pleasantly confused no agitation by report telling unrelated stories like usual ate 100% of his prior meal reina in place states "I feel really good" Review of Systems Review of Systems: cv - denies any chest pain pulm - denies any dyspnea GI - denies any pain Physical Exam Physical Exam: gen - obese, NAD, lying in bed; pleasant confusion, laughing and joking and telling stories like previous visit; cooperative; not agitated neck - no JVD mouth - MMM heart - RRR, s1 s2, no murmur lungs - CTA b/l abd - soft NT ND BS+ ext - no edema b/l, pulses 2+ b/l psych - pleasant confusion; no agitation; oriented to person only; he thought he was at a green party a few hours ago with his friends Results & Data Results & Data Vital Signs (Past 12 Hours) Vital Signs Temp Pulse Resp BP BP Pulse Ox O2 Del Method 11/02/22 15:07 Room Air 11/02/22 14:52 36.5 C 66 18 109/61 96 Room Air 11/02/22 12:24 36.6 C 63 18 120/73 93 Room Air Laboratory Results Laboratory Results - last 24 hr 11/02/22 11/02/22 11/02/22 07:02 07:02 07:44 WBC 7.87 RBC 3.75 L Hgb 11.6 L Hct 35.8 L MCV 95.5 MCH 30.9 MCHC 32.4 RDW Std Deviation 50.1 H RDW Coeff of Kayla 14.6 H Plt Count 160 MPV 11.4 Sodium 143 Potassium 3.3 L Chloride 109 H Carbon Dioxide 28 Anion Gap 6 BUN 24 H D Creatinine 1.33 Est Cr Clr Drug Dosing 49.5 Est GFR ( Amer) 56.9 Est GFR (Non-Af Amer) 49.1 BUN/Creatinine Ratio 18.0 Glucose 115 H POC Glucose 107 H Calcium 8.6 11/02/22 11/02/22 11/02/22 12:18 16:32 20:28 WBC RBC Hgb Hct MCV MCH MCHC RDW Std Deviation RDW Coeff of Kayla Plt Count MPV Sodium Potassium Chloride Carbon Dioxide Anion Gap BUN Creatinine Est Cr Clr Drug Dosing Est GFR ( Amer) Est GFR (Non-Af Amer) BUN/Creatinine Ratio Glucose POC Glucose 152 H 115 H 126 H Calcium PG Care Time/CCT Total # of Minutes Spent Total Time Spent with Patient: Total time spent is greater than 50% in coordination of care (as documented) at patient's floor/unit and/or counseling patient: Coding Level of Care Code 63204 SUB INP/OBS CARE 2/35MIN Diagnoses Encephalopathy acute G93.40 MARTÍN (acute kidney injury) N17.9 Fall W19.XXXA Malignant neoplasm of bladder C67.9 Diabetes mellitus E11.9 AVNRT (AV daniela re-entry tachycardia) I47.1 BPH (benign prostatic hyperplasia) N40.0 Hypothyroidism E03.9 Coronary artery disease I25.10 Paroxysmal atrial flutter I48.92 S/P coronary artery stent placement Z95.5 COPD (chronic obstructive pulmonary disease) J44.9 Peripheral neuropathy G62.9 Weakness R53.1 Lesion of lung R91.1 Morbid obesity with BMI of 40.0-44.9, adult E66.01; Z68.41 Dementia F03.90 Cerebrovascular disease I67.9
[2022-11-02] MEDS: MELATONIN 3 MG TAB PO SCH (22:28)
[2022-11-02] MEDS: TAMSULOSIN HCL 0.4 MG CAP PO SCH (22:29)
[2022-11-02] MEDS: ATORVASTATIN 40 MG TAB PO SCH (22:29)
[2022-11-03] MEDS: LEVOTHYROXINE SODIUM 100 MCG TABLET PO SCH (06:34)
[2022-11-03] MEDS: CEFDINIR 300 MG CAP PO SCH ×2 (07:31→21:16)
[2022-11-03] MEDS: POTASSIUM CHLORIDE CRTAB 20 MEQ TABCR PO SCH ×2 (07:31→20:27)
[2022-11-03] MEDS: SENNA 8.6 MG TAB PO SCH (07:32)
[2022-11-03] MEDS: buPROPion SR 100 MG TABCR PO SCH ×2 (07:33→21:16)
[2022-11-03] MEDS: CLOPIDOGREL BISULFATE 75 MG TAB PO SCH (07:33)
[2022-11-03] MEDS: METOPROLOL SUCC 25MG EXT REL TAB PO SCH (07:33)
[2022-11-03] MEDS: FERROUS SULFATE 325 MG TAB PO SCH ×2 (07:33→21:16)
[2022-11-03] MEDS: ASPIRIN 81 MG ECTAB PO SCH (07:33)
[2022-11-03] MEDS: THIAMINE HCL 100 MG TAB PO SCH (07:34)
[2022-11-03] MEDS: FAMOTIDINE 20 MG TAB PO SCH (07:34)
[2022-11-03] MEDS: allopurinoL 100 MG TAB PO SCH ×2 (07:34→21:16)
[2022-11-03] MEDS: QUEtiapine FUMARATE 25 MG TABLET PO SCH ×2 (07:34→21:17)
[2022-11-03] MEDS: VENLAFAXINE HCL XR 75 MG CAPXR PO SCH (07:34)
[2022-11-03] MEDS: ENOXAPARIN INJ 40 MG/0.4 ML SYR SQ SCH (07:35)
[2022-11-03] MEDS: GABAPENTIN 300 MG CAP PO SCH ×2 (07:35→21:16)
[2022-11-03] MEDS: INSULIN ASPART PER UNIT CHARGE SC SCH ×4 (07:36→21:19)
[2022-11-03] MEDS: POLYETHYLENE (MIRALAX) 17 GM PACK PO SCH ×2 (07:36→20:23)
[2022-11-03 08:35] LABS: BUN Creatinine Ratio 15.9 (10-20); Calcium 8.9 mg/dl (8.6-10.3); Creatinine Clr Calc Pharmacy 61.5 ml/min; Est GFR (Non-African American) 63.9 ml/min; Magnesium 1.8 mg/dl (1.7-2.4); Potassium 3.7 mmol/L (3.5-5.1)
[2022-11-03 08:36] LABS: Est GFR (African American) 73.2 ml/min; Est GFR (Non-African American) 63.1 ml/min
[2022-11-03] MEDS: FLUTICASONE/VILANTEROL 100/25MCG 14 PUFFS/INHALER INH SCH (08:56)
[2022-11-03] MEDS ORDERED: predniSONE 5 MG TAB PO SCH (09:00)
--- NOTE | 2022-11-03 20:25 | Hospitalist Progress Note ---
Date of Service November 03, 2022 Assessment & Plan (1) Encephalopathy acute: Plan: Ongoing. His confusion is in the setting of baseline dementia. Exact cause of his encephalopathy at time of presentation was uncertain. He had MARTÍN with low BP at time of ER arrival - perhaps due to dehydration? Initial concern for UTI at time of admission but culture did not grow anything. Repeat urine cx - despite very dirty u/a - did not grow anything. False neg urine cx's ? prostatitis? will treat presumptively for UTI - cont cefdinir and treat for another 7-10 days. day #4 cefdinir MRI brain negative for CVA etc. VBG without CO2 retention. Ammonia wnl. Patient has had urinary retention issues. s/p reina placement 10/31. I informed his primary urologist, Dr Michele, about this. Cont seroquel 50mg HS along with scheduled melatonin. Cont seroquel 25mg qam. May need larger dose each morning but observe for now. (2) MARTÍN (acute kidney injury): Plan: Peak Cr 2.8 at admission. Improved to 1.3. Then had recurrent MARTÍN --> Cr climbed once again to >2. Hyaline casts on microscopy c/w pre-renal MARTÍN. Creatinine 1 today. Cont to HOLD Lisinopril BMP am (3) Fall: Plan: falls at home suspect due to hypotension +/- other factors? PT, OT. needs rehab post-discharge. B12 level wnl. (4) Malignant neoplasm of bladder: Plan: s/p cysto with TURBT on 10/08/[address] Michele. Initial concern for UTI early in the stay but urine cx negative. Repeat u/a via straight cath suspicious for UTI but culture again negative. Will still Rx presumptively for UTI or maybe even prostatitis. Cont cefdinir Cont reina f/u Dr Michele about 7 days post-discharge for voiding trial, etc (5) Diabetes mellitus: Plan: a1c 6.9%. cont novolog SSI. controlled. (6) AVNRT (AV daniela re-entry tachycardia): Plan: none seen on tele. cont metoprolol succinate 25mg daily. pacing on monitor previously. (7) BPH (benign prostatic hyperplasia): Plan: Cont flomax. Had urinary retention issues all last week - s/p reina 10/31/22. Continue reina until seen by Dr Michele in the clinic for voiding trial. (8) Hypothyroidism: Plan: TSH 1.7. Cont levothyroxine. (9) Coronary artery disease: Plan: h/o multiple stents. Cont asa, plavix, statin, metoprolol succinate Hold BAN due to recurrent MARTÍN. (10) Paroxysmal atrial flutter: Plan: none seen on pacer interrogation nor our telemetry monitoring. he is not on chronic anticoagulation. MRI brain without signs of acute or subacute CVA. (11) S/P coronary artery stent placement: Plan: multiple stents cont plavix (12) COPD (chronic obstructive pulmonary disease): Plan: no exacerbation at this time. cont home inhalers. (13) Peripheral neuropathy: Plan: cont gabapentin BID. (14) Weakness: Plan: suspect combination of factors including suspected UTI, deconditioning, etc cont PT/OT. rehab post-d/c. (15) Lesion of lung: Plan: CT chest: Irregular 10 mm nodule within the right upper lobe previously measured 6 mm, stable 10 mm solid nodule of the left lower lobe is unchanged dating back to the initial study from 2019 CT chest also showed: borderline enlarged mediastinal lymph nodes measure up to 11 mm in the paratracheal and subcarinal distributions recommend f/u scan in 3-6 months (16) Morbid obesity with BMI of 40.0-44.9, adult: Plan: BMI 40 (17) Dementia: Plan: known diagnosis I believe this is the main reason for his anorexia added low-dose prednisone and he ate better 1 day, then back to fair appetite at best stop prednisone consider remeron at HS (18) Cerebrovascular disease: Plan: cerebellar CVA on previous CT cont asa/plavix for secondary prevention MRI brain without acute CVA Plan dispo - rehab at [facility] - [facility] tomorrow Admission and Anticipated Discharge Date Admission Date: October 24, 2022 Subjective patient very confused during the visit calm and cooperative however no agitation telling stories, asking me if I want to "go out and head down the street", etc per nursing flowsheets ate 25% of last meal last BM 11/02 Review of Systems Review of Systems: gen - "I feel really good" cv - no chest pain GI - no abd pain pulm - no cough - reina still in place Physical Exam Physical Exam: gen - obese, NAD, lying in bed; pleasant confusion, laughing, telling stories neck - no JVD mouth - MMM heart - RRR, s1 s2, no murmur lungs - CTA b/l abd - soft NT ND BS+ ext - no edema b/l, pulses 2+ b/l psych - pleasant confusion; no agitation; oriented to person but no place/time Results & Data Results & Data Vital Signs (Past 12 Hours) Vital Signs Temp Pulse Resp BP Pulse Ox O2 Del Method 11/03/22 19:20 Room Air 11/03/22 15:11 36.9 C 61 16 128/68 94 Room Air Laboratory Results Laboratory Results - last 24 hr 11/02/22 11/03/22 11/03/22 20:28 06:46 06:46 Sodium 144 Potassium 3.7 Chloride 110 H Carbon Dioxide 28 Anion Gap 6 BUN 17 Creatinine 1.08 1.07 Est Cr Clr Drug Dosing 61.0 61.5 Est GFR ( Amer) 73.2 74.0 Est GFR (Non-Af Amer) 63.1 63.9 BUN/Creatinine Ratio 15.9 Glucose 101 H POC Glucose 126 H Calcium 8.9 Magnesium 1.8 11/03/22 11/03/22 11/03/22 07:33 11:27 16:35 Sodium Potassium Chloride Carbon Dioxide Anion Gap BUN Creatinine Est Cr Clr Drug Dosing Est GFR ( Amer) Est GFR (Non-Af Amer) BUN/Creatinine Ratio Glucose POC Glucose 98 128 H 119 H Calcium Magnesium 11/03/22 20:18 Sodium Potassium Chloride Carbon Dioxide Anion Gap BUN Creatinine Est Cr Clr Drug Dosing Est GFR ( Amer) Est GFR (Non-Af Amer) BUN/Creatinine Ratio Glucose POC Glucose 103 H Calcium Magnesium PG Care Time/CCT Total # of Minutes Spent Total Time Spent with Patient: Total time spent is greater than 50% in coordination of care (as documented) at patient's floor/unit and/or counseling patient: Coding Level of Care Code 44226 SUB INP/OBS CARE 125MIN Diagnoses Encephalopathy acute G93.40 MARTÍN (acute kidney injury) N17.9 Fall W19.XXXA Malignant neoplasm of bladder C67.9 Diabetes mellitus E11.9 AVNRT (AV daniela re-entry tachycardia) I47.1 BPH (benign prostatic hyperplasia) N40.0 Hypothyroidism E03.9 Coronary artery disease I25.10 Paroxysmal atrial flutter I48.92 S/P coronary artery stent placement Z95.5 COPD (chronic obstructive pulmonary disease) J44.9 Peripheral neuropathy G62.9 Weakness R53.1 Lesion of lung R91.1 Morbid obesity with BMI of 40.0-44.9, adult E66.01; Z68.41 Dementia F03.90 Cerebrovascular disease I67.9
[2022-11-03] MEDS: MELATONIN 3 MG TAB PO SCH (21:16)
[2022-11-03] MEDS: ATORVASTATIN 40 MG TAB PO SCH (21:16)
[2022-11-03] MEDS: TAMSULOSIN HCL 0.4 MG CAP PO SCH (21:17)
[2022-11-04] MEDS: LEVOTHYROXINE SODIUM 100 MCG TABLET PO SCH ×2 (06:32→08:42)
[2022-11-04] MEDS: INSULIN ASPART PER UNIT CHARGE SC SCH ×4 (07:40→20:57)
[2022-11-04] MEDS: CEFDINIR 300 MG CAP PO SCH ×2 (08:42→19:56)
[2022-11-04] MEDS: allopurinoL 100 MG TAB PO SCH ×2 (08:42→19:57)
[2022-11-04] MEDS: CLOPIDOGREL BISULFATE 75 MG TAB PO SCH (08:42)
[2022-11-04] MEDS: ASPIRIN 81 MG ECTAB PO SCH (08:42)
[2022-11-04] MEDS: buPROPion SR 100 MG TABCR PO SCH ×2 (08:42→19:56)
[2022-11-04] MEDS: FERROUS SULFATE 325 MG TAB PO SCH ×2 (08:43→19:55)
[2022-11-04] MEDS: METOPROLOL SUCC 25MG EXT REL TAB PO SCH (08:43)
[2022-11-04] MEDS: QUEtiapine FUMARATE 25 MG TABLET PO SCH ×2 (08:43→19:54)
[2022-11-04] MEDS: FAMOTIDINE 20 MG TAB PO SCH (08:43)
[2022-11-04] MEDS: THIAMINE HCL 100 MG TAB PO SCH (08:43)
[2022-11-04] MEDS: POLYETHYLENE (MIRALAX) 17 GM PACK PO SCH ×2 (08:43→19:59)
[2022-11-04] MEDS: VENLAFAXINE HCL XR 75 MG CAPXR PO SCH (08:43)
[2022-11-04] MEDS: SENNA 8.6 MG TAB PO SCH (08:43)
[2022-11-04] MEDS: GABAPENTIN 300 MG CAP PO SCH ×2 (08:43→19:55)
[2022-11-04] MEDS: FLUTICASONE/VILANTEROL 100/25MCG 14 PUFFS/INHALER INH SCH (09:01)
[2022-11-04] MEDS: ENOXAPARIN INJ 40 MG/0.4 ML SYR SQ SCH (09:01)
[2022-11-04] MEDS ORDERED: QUEtiapine FUMARATE 25 MG TABLET PO STA (11:00)
--- NOTE | 2022-11-04 14:17 | Electrocardiogram Report ---
Test Reason : Blood Pressure : / mmHG Vent. Rate : 060 BPM Atrial Rate : 060 BPM P-R Int : 356 ms QRS Dur : 120 ms QT Int : 448 ms P-R-T Axes : 000 -16 -54 degrees QTc Int : 448 ms Atrial-paced rhythm with prolonged AV conduction Inferior infarct (cited on or before 07-MAR-2016) Anterolateral infarct (cited on or before 07-MAR-2016) Nonspecific T wave abnormality Abnormal ECG When compared with ECG of 24-OCT-2022 15:16, No significant change Confirmed by Walt Benson ([id number]) on 11/04/2022 2:17:19 PM Referred By: REFERRED SELF Confirmed By:Walt Benson
--- NOTE | 2022-11-04 15:18 | Hospitalist Progress Note ---
Date of Service November 04, 2022 Assessment & Plan (1) Encephalopathy acute: Plan: Ongoing. WORSE last 24 hours. His confusion is in the setting of baseline dementia. Exact cause of his encephalopathy at time of presentation was uncertain. He had MARTÍN with low BP at time of ER arrival. Initial concern was for UTI at time of admission but culture did not grow anything. Repeat urine cx - despite very dirty u/a - did not grow anything either. False neg urine cx's ? prostatitis? will treat presumptively for UTI - cont cefdinir and treat for another 7-10 days. day #5 cefdinir. MRI brain negative for CVA etc. VBG without CO2 retention. Ammonia wnl. Patient has had urinary retention issues during this stay; thus, s/p reina placement 10/31. I informed his primary urologist, Dr Michele, about this. 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 This is in the face of increasing doses of seroquel. I spoke with Dr Jewels Colvin, psychiatry. She will provide formal consultation. We discussed his care. Records reviewed - in 2020 during his stay for COVID he had severe delirium. He used zyprexa 5mg HS with good results. Thus, will stop seroquel and change to zyprexa 5mg HS with prn doses as well. To r/o other contributors check cxr, KUB x-ray (r/o impaction), COVID test. Repeat labs am. (2) MARTÍN (acute kidney injury): Plan: Peak Cr 2.8 at admission. Has had fluctuating creatinine levels while here due to poor po intake, etc. Creatinine was 1 yesterday. Cont to HOLD Lisinopril. BMP am. (3) Fall: Plan: falls at home prior to admission suspect due to hypotension, etc PT, OT when able. needs rehab post-discharge - [facility] B12 level wnl. (4) Malignant neoplasm of bladder: Plan: s/p cysto with TURBT on 10/08/[address] Michele. Initial concern for UTI early in the stay but urine cx negative. Repeat u/a via straight cath suspicious for UTI but culture again negative. Will still Rx presumptively for UTI or maybe even prostatitis. Cont cefdinir Cont reina f/u Dr Michele about 7 days post-discharge for voiding trial, etc (5) Diabetes mellitus: Plan: a1c 6.9%. cont novolog SSI. controlled. (6) AVNRT (AV daniela re-entry tachycardia): Plan: none seen on tele. cont metoprolol succinate 25mg daily. pacing on monitor previously. (7) BPH (benign prostatic hyperplasia): Plan: Cont flomax. Had urinary retention issues all last week - s/p reina 10/31/22. Continue reina until seen by Dr Michele in the clinic for voiding trial. (8) Hypothyroidism: Plan: TSH 1.7. Cont levothyroxine. (9) Coronary artery disease: Plan: h/o multiple stents. Cont asa, plavix, statin, metoprolol succinate Hold BAN due to recurrent MARTÍN. (10) Paroxysmal atrial flutter: Plan: none seen on pacer interrogation nor our telemetry monitoring. he is not on chronic anticoagulation. MRI brain without signs of acute or subacute CVA. (11) S/P coronary artery stent placement: Plan: multiple stents cont plavix (12) COPD (chronic obstructive pulmonary disease): Plan: no exacerbation at this time. cont home inhalers. (13) Peripheral neuropathy: Plan: cont gabapentin BID. (14) Weakness: Plan: suspect combination of factors including suspected UTI, deconditioning, etc cont PT/OT. rehab post-d/c. (15) Lesion of lung: Plan: CT chest: Irregular 10 mm nodule within the right upper lobe previously measured 6 mm, stable 10 mm solid nodule of the left lower lobe is unchanged dating back to the initial study from 2019 CT chest also showed: borderline enlarged mediastinal lymph nodes measure up to 11 mm in the paratracheal and subcarinal distributions recommend f/u scan in 3-6 months (16) Morbid obesity with BMI of 40.0-44.9, adult: Plan: BMI 40 (17) Dementia: Plan: known diagnosis I believe this is the main reason for his anorexia added low-dose prednisone and he ate better 1 day, then back to fair appetite at best stop prednisone (18) Cerebrovascular disease: Plan: cerebellar CVA on previous CT cont asa/plavix for secondary prevention MRI brain without acute CVA Plan dispo - rehab at SN[facility] - [facility] I spoke with pt's daughter by phone this evening, extensive update given discussed delirium in detail ideally patient has controlled agitation for at least 48 hours, eating fair- good, and sleeping decently at night before he is discharged to [facility] care d/w Dr Colvin from psych Admission and Anticipated Discharge Date Admission Date: October 24, 2022 Subjective patient had a poor night was up much of the night - agitated, trying to get out of bed, etc refused his HS meds last night this am again was very agitated he ultimately needed his scheduled seroquel and a prn seroquel to settle down soon after he was sleeping did not eat breakfast or lunch today during my assessment he was sleeping soundly/snoring I tried to wake him but he did not arouse later on in the evening patient did wake up and ate dinner (>50% per nursing) Review of Systems Review of Systems: Unobtainable due to cognitive status Physical Exam Physical Exam: gen - obese, snoring, lethargic, he did not wake when I called his name neck - no JVD mouth - MMM heart - RRR, s1 s2, no murmur lungs - CTA b/l; snoring abd - soft NT ND BS+ ext - no edema b/l, pulses 2+ b/l skin - no rash - reina in place Results & Data Results & Data Vital Signs (Past 12 Hours) Vital Signs Temp Pulse Resp BP Pulse Ox O2 Del Method 11/04/22 14:45 36.2 C L 63 18 111/50 L 96 Room Air 11/04/22 08:00 Room Air 11/04/22 07:30 36.6 C 60 18 133/66 93 Room Air Laboratory Results Laboratory Results 11/04/22 11/04/22 11/04/22 07:36 11:48 16:36 POC Glucose 99 111 H 96 PG Care Time/CCT Total # of Minutes Spent Total Time Spent with Patient: Total time spent is greater than 50% in coordination of care (as documented) at patient's floor/unit and/or counseling patient: Coding Level of Care Code 89835 SUB INP/OBS CARE 3/50MIN Diagnoses Encephalopathy acute G93.40 MARTÍN (acute kidney injury) N17.9 Fall W19.XXXA Malignant neoplasm of bladder C67.9 Diabetes mellitus E11.9 AVNRT (AV daniela re-entry tachycardia) I47.1 BPH (benign prostatic hyperplasia) N40.0 Hypothyroidism E03.9 Coronary artery disease I25.10 Paroxysmal atrial flutter I48.92 S/P coronary artery stent placement Z95.5 COPD (chronic obstructive pulmonary disease) J44.9 Peripheral neuropathy G62.9 Weakness R53.1 Lesion of lung R91.1 Morbid obesity with BMI of 40.0-44.9, adult E66.01; Z68.41 Dementia F03.90 Cerebrovascular disease I67.9
--- NOTE | 2022-11-04 16:20 | XRay Report ---
XR chest 1V portable HISTORY: confusion, agitation, eval developing pneumonia COMPARISON: Chest CT 10/24/2022. FINDINGS: No pneumothorax. No pleural effusions. There is left-sided dual-chamber pacemaker again not ed. The heart is mildly enlarged. Mild diffuse interstitial thickening persists. This is likely chron ic. No new focal lung consolidations to suggest a pneumonia. No evidence for pulmonary edema. The pat ient's known pulmonary nodules are better appreciated on the recent chest CT. Calcifications within t he aortic knob. IMPRESSION: No significant change compared to the prior study. No acute process. ACT 112: Negative or not required by law. Electronically signed by: Alistair Mackey M.D. 11/04/2022 4:19 PM
--- NOTE | 2022-11-04 16:22 | XRay Report ---
KUB HISTORY: severe confusion. Constipation/impaction? COMPARISON: Abdomen and pelvis CT 10/24/2022. KUB 05/08/2018. FINDINGS: The bowel gas pattern is unremarkable. There are no dilated loops of small bowel to suggest an obstruction. No renal calculi. No ureteral calculi. No pneumoperitoneum or pneumatosis. Small am ount of well-formed stool seen within the colon. IMPRESSION: 1. Nonobstructive bowel gas pattern. 2. Mild fecal retention. ACT 112: Negative or not required by law. Electronically signed by: Alistair Mackey M.D. 11/04/2022 4:21 PM
[2022-11-04] MEDS: D5W AND 1/2NSS 1,000 ML IV SCH (18:01)
[2022-11-04] MEDS: ATORVASTATIN 40 MG TAB PO SCH (19:56)
[2022-11-04] MEDS: TAMSULOSIN HCL 0.4 MG CAP PO SCH (19:56)
[2022-11-04] MEDS: MELATONIN 3 MG TAB PO SCH (19:56)
[2022-11-04] MEDS ORDERED: OLANZAPINE 2.5 MG TAB PO PRN (20:20)
[2022-11-04] MEDS: OLANZapine 5 MG TABLET PO SCH (23:45)
[2022-11-05] MEDS: LEVOTHYROXINE SODIUM 100 MCG TABLET PO SCH (05:37)
[2022-11-05] MEDS: D5W AND 1/2NSS 1,000 ML IV SCH ×2 (05:38→18:25)
[2022-11-05 07:28] LABS: Hematocrit (blood only) 40.2 % (42.0-52.0); Hemoglobin 12.8 g/dl (14.0-18.0); Mean Corpuscular Hemoglobin 31.4 pg (25.0-34.0); Mean Corpuscular Hgb Conc 31.8 g/dL (32.0-36.0); Mean Corpuscular Volume 98.8 fL (80.0-100.0); Mean Platelet Volume 11.9 fL (9.4-12.4); Platelet Count 188 K/uL (130-400); RDW Standard Deviation 53.8 fL (36.4-46.3); Red Blood Count 4.07 M/uL (4.70-6.10); White Blood Count 8.21 K/ul (4.8-10.8)
[2022-11-05 07:52] LABS: BUN Creatinine Ratio 13.4 (10-20); Calcium 8.9 mg/dl (8.6-10.3); Creatinine Clr Calc Pharmacy 49.1 ml/min; Est GFR (African American) 56.4 ml/min; Est GFR (Non-African American) 48.6 ml/min; Potassium 3.8 mmol/L (3.5-5.1)
[2022-11-05] MEDS: FLUTICASONE/VILANTEROL 100/25MCG 14 PUFFS/INHALER INH SCH (08:04)
[2022-11-05] MEDS: allopurinoL 100 MG TAB PO SCH ×2 (08:04→20:07)
[2022-11-05] MEDS: ASPIRIN 81 MG ECTAB PO SCH (08:05)
[2022-11-05] MEDS: CLOPIDOGREL BISULFATE 75 MG TAB PO SCH (08:05)
[2022-11-05] MEDS: buPROPion SR 100 MG TABCR PO SCH ×2 (08:05→20:08)
[2022-11-05] MEDS: CEFDINIR 300 MG CAP PO SCH ×2 (08:05→20:07)
[2022-11-05] MEDS: GABAPENTIN 300 MG CAP PO SCH ×2 (08:06→20:07)
[2022-11-05] MEDS: ENOXAPARIN INJ 40 MG/0.4 ML SYR SQ SCH (08:06)
[2022-11-05] MEDS: SENNA 8.6 MG TAB PO SCH (08:06)
[2022-11-05] MEDS: FERROUS SULFATE 325 MG TAB PO SCH ×2 (08:06→20:08)
[2022-11-05] MEDS: FAMOTIDINE 20 MG TAB PO SCH (08:06)
[2022-11-05] MEDS: METOPROLOL SUCC 25MG EXT REL TAB PO SCH (08:06)
[2022-11-05] MEDS: INSULIN ASPART PER UNIT CHARGE SC SCH ×4 (08:07→20:57)
[2022-11-05] MEDS: POLYETHYLENE (MIRALAX) 17 GM PACK PO SCH ×2 (08:07→20:08)
[2022-11-05] MEDS: THIAMINE HCL 100 MG TAB PO SCH (08:07)
[2022-11-05] MEDS: VENLAFAXINE HCL XR 75 MG CAPXR PO SCH (08:07)
--- NOTE | 2022-11-05 11:40 | Psychiatric Consultation ---
Date of Consultation November 05, 2022 Impression / Recommendations Impression Diagnostically consistent with encephalopathy/delirium superimposed on dementia with behavioral disturbance. Encephlaopathy is very common in the post-operative period especially in someone of his age, with pre-existing medical conditions, history of delirium and dementia. Goal in dementia is to avoid medication management of behaviors if possible by maximizing non-pharmacologic strategies for behavioral management. However, given periods of worsening agitation/aggression in setting of co-occurring delirium agree with use of an antipsychotic as risk/benefit profile now favors treatment. Note all antip sychotic medications carry black box warning for increased risk of all-cause mortality in setting of dementia. Today he seems to be doing fairly well, pleasant in interactions and eating some breakfast after also eating dinner last night. Seroquel could be continued versus option to try olanzapine which seemed to work well in the past. It's unclear why he is on Wellbutrin (appears since at least June 2020) but given that this can increase cardiac risks, can suppress appetite, and dopaminergic effects can sometimes worsen sundowning and agitated delirium symptoms would recommend discontinuing this. Well he reports low mood, his affect and demeanor are inconsistent with any current symptoms of depression. Overall, I spent a total of 60 minutes with this case including review of chart records, review of labwork, review of EKG QTc, direct evaluation of the patient at bedside, counseling the patient, discussion of the patient with the Nurse and with the hospitalist provider, discussion with the psychiatric liason during clinical rounds and documentation in the electronic health record. (1) Dementia: (2) Encephalopathy: Plan -Reasonable to continue seroquel 25mg qAM and 50mg HS or could try olanzapine 5mg po HS with option for additional 2.5mg po BID prn for agitation if AM or mid-day dose is required. Olanzapine may increase appetite a bit more than seroquel but both tend to increase appetite. -Marinol could be considered for appetite stimulation and there are a few small studies showing it may also help with behavioral disturbance in dementia -Continue melatonin 3mg qhs -Ok to continue Effexor XR 75mg qd. -Would discontinue Wellbutrin SR -Continue medical workup to rule out and treat any underlying causes con tributing to potential delirium, avoid or limit use of deliriogenic medications (benzodiazepines, opioids, anticholinergics) -Continue with delirium prevention measures: raising blinds during the day, closing at night, frequent re-orientation, contact with family/friends, explaining procedures/nursing care measures prior to physical contact, correct any hearing and visual impairments -For behavioral emergency: olanzapine 2.5 or 5 mg IM x 1 (DO NOT exceed 10mg per 24 hours via IM sources, check EKG if IM dose required, NEVER co-administer with IM or IV benzodiazepines). Psych History Identifying Data 82 yo man with history of dementia, bladder cancer with recent surgery, CVA, COPD, CAD, BPH, hypothyroidism, MARTÍN, paroxysmal aflutter, peripheral neuropathy admitted medically for worsening confusion and weakness. Psychiatry consulted fo r medication recommendations for agitation and lack of po intake. Chief Complaint "Nice to meet you". History of Present Illness Hema was admitted medically after recent bladder surgery with significant decompensation since with falls, weakness at increased confusion after returning home where he normally lives independently. He has been decompensating in the evenings with increased agitation and with very poor po intake over the last week. Seroquel was started and does seem to help with agitation/night time confusion and has helped with sleep but still with some mornings of increased agitation and poor po intake. During past admission in 2020 for COVID penumonia he developed delirium and responded to olanzapine 5mg HS at that time. Currently he is also prescribed gabapentin (presumed for nerve pain), Effexor XR 75mg daily (possibly nerve pain, depression?), Wellbutrin SR 100mg BID, melatonin 3mg HS. Last night he took his scheduled Seroquel 50mg HS and did eat his dinner. This morning took his medications from the nurse and ate about 25% of breakfast with RN feeding him/providing significant encouragement. On meeting him around 10am he is oriented only to person, pleasant. Tells me he cooked himself breakfast this morning of pancakes and ate it all. Declines offers to eat other snacks in his room, offers them to me and school psychometrist instead. Denies any side effects or issues but states he feels "terrible, I don't know why" while smiling broadly. Allergies Allergy/AdvReac Type Severity Reaction Status Date / Time tiotropium Allergy Intermediate Eye pain Verified 10/24/22 19:29 Home Medications Medication Instructions Recorded Confirmed Type allopurinol 100 mg tablet 100 mg PO BID 03/24/19 10/24/22 History atorvastatin 40 mg tablet 40 mg PO HS 03/24/19 10/24/22 History clopidogrel 75 mg tablet 75 mg PO QAM 03/24/19 10/24/22 History aspirin 81 mg tablet,delayed 81 mg PO QAM 06/14/20 10/24/22 History release sitagliptin phosphate 100 mg 100 mg PO HS 06/14/20 10/24/22 History tablet (Januvia) levothyroxine 100 mcg tablet 100 mcg PO DAILYBB #30 tabs 06/16/20 10/24/22 Rx (Synthroid) bupropion HCl 100 mg tablet,12 hr 100 mg PO BID #0 ea 06/25/20 10/24/22 Rx sustained-release famotidine 20 mg tablet (Pepcid) 20 mg PO QAM 07/10/20 10/24/22 History B-complex with vitamin C 1 cap PO HS 09/26/20 10/24/22 History fluticasone 250 mcg-salmeterol 50 1 inh inhalation BID 05/24/21 10/24/22 History mcg/dose blistr powdr for inhalation (Advair Diskus) empagliflozin 10 mg tablet 10 mg PO QAM 02/05/22 10/24/22 History (Jardiance) ferrous sulfate 325 mg (65 mg 325 mg PO BID 02/05/22 10/24/22 History iron) tablet (FeroSul) ipratropium 20 mcg-albuterol 100 1 puff inhalation 4XD PRN 02/05/22 10/24/22 History mcg/actuation mist for inhalation WHEEZING/COUGHING (Combivent Respimat) thiamine HCl (vitamin B1) 100 mg 100 mg PO DAILY 02/05/22 10/24/22 History tablet carvedilol 6.25 mg tablet 6.25 mg PO BID 04/24/22 10/24/22 History Prevagen 1 tab PO DAILY 04/25/22 10/24/22 History furosemide 40 mg tablet 40 mg PO QAM 04/25/22 10/24/22 History gabapentin 600 mg tablet See Rx Instructions .Route .COMPLEX 04/25/22 10/24/22 History lisinopril 2.5 mg tablet 2.5 mg PO QAM 04/25/22 10/24/22 History loratadine 10 mg tablet 10 mg PO DAILY PRN Allergy Symptoms 04/25/22 10/24/22 History ijcpzqqz-xy-knoxd 300 mcg-K 60 1 tab PO QAM 04/25/22 10/24/22 History mcg-lycop 600 mcg-lutein 300 mcg tablet (Centrum Silver Men) nitroglycerin 0.4 mg sublingual 0.4 mg buccal UD PRN Chest Pain 04/25/22 10/24/22 History tablet venlafaxine 75 mg tablet 75 mg PO DAILY 04/25/22 10/24/22 History gabapentin 300 mg capsule See Rx Instructions .Route .COMPLEX 10/24/22 10/24/22 History ipratropium 0.5 mg-albuterol 3 mg 3 ml inhalation Q4H PRN 10/24/22 10/24/22 History (2.5 mg base)/3 mL nebulization wheezing/cough soln metoprolol succinate 25 mg 25 mg PO DAILY 10/24/22 10/24/22 History tablet,extended release 24 hr tamsulosin 0.4 mg capsule 0.4 mg PO HS 10/24/22 10/24/22 History Patient History Medical History Anemia Anxiety Bladder cancer CHF (congestive heart failure) EF 50-55% Chronic back pain COPD (chronic obstructive pulmonary disease) Coronary artery disease Per cardio records- "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 Velasquez Paroxysmal atrial flutter Follows with Dr. Velasquez with [facility] Peripheral neuropathy Sleep apnea No device currently Stroke Remote incidental finding on imaging Per 07/10/20 neuro note "h/o cerebellar stroke without residual deficits"- continue ASA and statin. Surgical History History of bladder surgery TURBT History of cataract surgery RT/LEFT History of cystoscopy MULTIPLE TIMES History of hydrocelectomy RT History of tooth extraction S/P coronary artery stent placement Per patient and records- possibly 4-6 cardiac stents (most recent stent several years ago) Family History Brother Prostate cancer Heart disease Other No family history of adverse response to anesthesia Social History Smoking Status: Former smoker Second Hand Exposure: No; Do You Dip or Chew Tobacco: No; Tobacco Cessation Education Requested by Patient: No Hx Alcohol Use: No Hx Substance Use: No Preferred Language: Korean Communication Ability: Effective Communication Ability Comment: [facility] [employer]im[employer] Printing Required: No Beliefs That Will Affect Care: None marital status: Single Current Living Situation: Alone current occupational status: retired Other Information That Helps Us Care for You: No Feels Safe at Home: Yes and No Is there a partner from a previous relationship who is making you feel unsafe now?: No Any Concerns about Your Family Situation: No Would You Like to Speak to Someone About Your Situation: No Safety Concerns: Feels Safe At This Time Assistive Devices: CPAP and Walker Assistive Devices Comment: has a CPAP at home but doesnt use Physical Exam Psychiatric: Orientation: alert and oriented to person; + not oriented to place and + not oriented to time Apperance: appropriately dressed and appropriately groomed Eye Contact: + fair eye contact Motor Behavior: no abnormal motor movements Speech: normal rate/rhythm/volume of speech Affect: euthymic affect; + mood not congruent with affect Mood: + depressed mood (states his mood is terrible while smiling broadly ); no anxious mood and no irritable mood Thought Process: + looseness of associations Thought Content: reality based without delusions Suicidal Thoughts: denies suicidal thoughts Homicidal Thoughts: denies homicidal thoughts Hallucinations: no auditory hallucinations and no visual hallucinations Cognition: language grossly intact; + recent memory not intact and + attention not intact Insight: + severely impaired insight Judgment: + severely impaired judgement Vital Signs (Past 24 Hours): Last Vital Signs Temp 36.5 C 11/05/22 07:19 Pulse 62 11/05/22 07:19 Resp 17 11/05/22 07:19 BP 120/65 11/05/22 07:19 Pulse Ox 92 11/05/22 07:19 O2 Del Method Room Air 11/05/22 07:53 FiO2 21 10/25/22 08:47 Review of Systems Unobtainable due to cognitive status Results & Data (PSY) Laboratory Results Na+ normal Diagnostic Findings QTc 448ms on last EKG 10/31/2022 Medications Administered Acetaminophen (Acetaminophen 325 Mg Tab) 650 mg PO Q4H PRN PRN Reason: Pain or Fever Stop: 11/23/22 21:12 Last Admin: 11/02/22 09:36 Dose: 650 mg Documented By: BCD Allopurinol (Allopurinol 100 Mg Tab) 100 mg PO BID RANDAL Stop: 11/23/22 21:29 Last Admin: 11/05/22 08:04 Dose: 100 mg Documented By: Admin: 11/04/22 19:57 Dose: 100 mg Documented By: Admin: 11/04/22 08:42 Dose: 100 mg Documented By: Admin: 11/03/22 21:16 Dose: Not Given Documented By: Admin: 11/03/22 07:34 Dose: 100 mg Documented By: Admin: 11/02/22 22:29 Dose: 100 mg Documented By: Admin: 11/02/22 08:10 Dose: 100 mg Documented By: Admin: 11/01/22 20:23 Dose: 100 mg Documented By: Admin: 11/01/22 09:34 Dose: 100 mg Documented By: Admin: 10/31/22 20:04 Dose: 100 mg Documented By: Admin: 10/31/22 08:00 Dose: 100 mg Documented By: Admin: 10/30/22 21:22 Dose: 100 mg Documented By: Admin: 10/30/22 08:27 Dose: 100 mg Documented By: Admin: 10/29/22 20:14 Dose: 100 mg Documented By: Admin: 10/29/22 09:35 Dose: 100 mg Documented By: Admin: 10/28/22 20:32 Dose: 100 mg Documented By: Admin: 10/28/22 08:33 Dose: 100 mg Documented By: Admin: 10/27/22 20:19 Dose: 100 mg Documented By: Admin: 10/27/22 08:55 Dose: 100 mg Documented By: Admin: 10/26/22 20:57 Dose: 100 mg Documented By: [id number] Admin: 10/26/22 09:53 Dose: Not Given Documented By: Admin: 10/25/22 21:40 Dose: 100 mg Documented By: Admin: 10/25/22 08:19 Dose: 100 mg Documented By: Admin: 10/24/22 22:34 Dose: 100 mg Documented By: [id number] Aspirin (Aspirin 81 Mg Ectab) 81 mg PO QAM RANDAL Stop: 11/24/22 08:59 Last Admin: 11/05/22 08:05 Dose: 81 mg Documented By: Admin: 11/04/22 08:42 Dose: 81 mg Documented By: Admin: 11/03/22 07:33 Dose: 81 mg Documented By: Admin: 11/02/22 08:10 Dose: 81 mg Documented By: Admin: 11/01/22 09:25 Dose: 81 mg Documented By: Admin: 10/31/22 08:01 Dose: 81 mg Documented By: Admin: 10/30/22 08:28 Dose: 81 mg Documented By: Admin: 10/29/22 09:36 Dose: 81 mg Documented By: Admin: 10/28/22 08:34 Dose: 81 mg Documented By: Admin: 10/27/22 08:55 Dose: 81 mg Documented By: Admin: 10/26/22 09:53 Dose: Not Given Documented By: Admin: 10/25/22 08:19 Dose: 81 mg Documented By: Atorvastatin Calcium (Atorvastatin 40 Mg Tab) 40 mg PO HS RANDAL Stop: 11/23/22 21:29 Last Admin: 11/04/22 19:56 Dose: 40 mg Documented By: Admin: 11/03/22 21:16 Dose: Not Given Documented By: Admin: 11/02/22 22:29 Dose: 40 mg Documented By: Admin: 11/01/22 20:24 Dose: 40 mg Documented By: Admin: 10/31/22 20:05 Dose: 40 mg Documented By: Admin: 10/30/22 21:22 Dose: 40 mg Documented By: Admin: 10/29/22 20:15 Dose: 40 mg Documented By: Admin: 10/28/22 20:31 Dose: 40 mg Documented By: Admin: 10/27/22 20:19 Dose: 40 mg Documented By: Admin: 10/26/22 20:56 Dose: 40 mg Documented By: [id number] Admin: 10/25/22 21:42 Dose: 40 mg Documented By: Admin: 10/24/22 22:34 Dose: 40 mg Documented By: [id number] Bupropion HCl (Bupropion Sr 100 Mg Tabcr) 100 mg PO BID RANDAL Stop: 11/23/22 21:29 Last Admin: 11/05/22 08:05 Dose: 100 mg Documented By: Admin: 11/04/22 19:56 Dose: 100 mg Documented By: Admin: 11/04/22 08:42 Dose: 100 mg Documented By: Admin: 11/03/22 21:16 Dose: Not Given Documented By: Admin: 11/03/22 07:33 Dose: 100 mg Documented By: Admin: 11/02/22 22:29 Dose: 100 mg Documented By: Admin: 11/02/22 08:11 Dose: 100 mg Documented By: Admin: 11/01/22 20:24 Dose: 100 mg Documented By: Admin: 11/01/22 09:34 Dose: 100 mg Documented By: Admin: 10/31/22 20:06 Dose: 100 mg Documented By: Admin: 10/31/22 08:01 Dose: 100 mg Documented By: Admin: 10/30/22 21:21 Dose: 100 mg Documented By: Admin: 10/30/22 08:27 Dose: 100 mg Documented By: Admin: 10/29/22 20:16 Dose: 100 mg Documented By: Admin: 10/29/22 09:35 Dose: 100 mg Documented By: Admin: 10/28/22 20:34 Dose: 100 mg Documented By: Admin: 10/28/22 08:33 Dose: 100 mg Documented By: Admin: 10/27/22 20:19 Dose: 100 mg Documented By: Admin: 10/27/22 08:55 Dose: 100 mg Documented By: Admin: 10/26/22 20:56 Dose: 100 mg Documented By: [id number] Admin: 10/26/22 09:53 Dose: Not Given Documented By: Admin: 10/25/22 21:43 Dose: 100 mg Documented By: Admin: 10/25/22 08:20 Dose: 100 mg Documented By: Admin: 10/24/22 22:33 Dose: 100 mg Documented By: [id number] Cefdinir (Cefdinir 300 Mg Cap) 300 mg PO BID [facility]; Protocol Stop: 11/06/22 13:29 Last Admin: 11/05/22 08:05 Dose: 300 mg Documented By: Admin: 11/04/22 19:56 Dose: 300 mg Documented By: Admin: 11/04/22 08:42 Dose: 300 mg Documented By: Admin: 11/03/22 21:16 Dose: Not Given Documented By: MARY ANN Admin: 11/03/22 07:31 Dose: 300 mg Documented By: Admin: 11/02/22 22:31 Dose: 300 mg Documented By: Admin: 11/02/22 08:11 Dose: 300 mg Documented By: Admin: 11/01/22 20:24 Dose: 300 mg Documented By: Admin: 11/01/22 09:34 Dose: 300 mg Documented By: АНДРЕЙ Admin: 10/31/22 20:06 Dose: 300 mg Documented By: Admin: 10/31/22 14:31 Dose: 300 mg Documented By: CHEIKH Clopidogrel Bisulfate (Clopidogrel Bisulfate 75 Mg Tab) 75 mg PO QAM [facility] Stop: 11/24/22 08:59 Last Admin: 11/05/22 08:05 Dose: 75 mg Documented By: Admin: 11/04/22 08:42 Dose: 75 mg Documented By: Admin: 11/03/22 07:33 Dose: 75 mg Documented By: Admin: 11/02/22 08:11 Dose: 75 mg Documented By: Admin: 11/01/22 09:27 Dose: 75 mg Documented By: Admin: 10/31/22 08:09 Dose: 75 mg Documented By: Admin: 10/30/22 08:28 Dose: 75 mg Documented By: Admin: 10/29/22 09:36 Dose: 75 mg Documented By: Admin: 10/28/22 08:34 Dose: 75 mg Documented By: Admin: 10/27/22 08:55 Dose: 75 mg Documented By: Admin: 10/26/22 09:53 Dose: Not Given Documented By: Admin: 10/25/22 08:19 Dose: 75 mg Documented By: Enoxaparin Sodium (Enoxaparin Inj 40 Mg/0.4 Ml Syr) 40 mg SQ QAM RANDAL Stop: 11/30/22 10:44 Last Admin: 11/05/22 08:06 Dose: 40 mg Documented By: Admin: 11/04/22 09:01 Dose: 40 mg Documented By: Admin: 11/03/22 07:35 Dose: 40 mg Documented By: Admin: 11/02/22 08:11 Dose: 40 mg Documented By: Admin: 11/01/22 09:39 Dose: 40 mg Documented By: АНДРЕЙ Admin: 10/31/22 11:59 Dose: 40 mg Documented By: CHEIKH Famotidine (Famotidine 20 Mg Tab) 20 mg PO QAM RANDAL Stop: 11/24/22 08:59 Last Admin: 11/05/22 08:06 Dose: 20 mg Documented By: Admin: 11/04/22 08:43 Dose: 20 mg Documented By: Admin: 11/03/22 07:34 Dose: 20 mg Documented By: Admin: 11/02/22 08:12 Dose: 20 mg Documented By: Admin: 11/01/22 09:26 Dose: 20 mg Documented By: АНДРЕЙ Admin: 10/31/22 08:01 Dose: 20 mg Documented By: Admin: 10/30/22 08:27 Dose: 20 mg Documented By: Admin: 10/29/22 09:36 Dose: 20 mg Documented By: Admin: 10/28/22 08:34 Dose: 20 mg Documented By: Admin: 10/27/22 08:56 Dose: 20 mg Documented By: Admin: 10/26/22 09:53 Dose: Not Given Documented By: Admin: 10/25/22 08:20 Dose: 20 mg Documented By: Ferrous Sulfate (Ferrous Sulfate 325 Mg Tab) 325 mg PO BID RANDAL Stop: 11/23/22 21:29 Last Admin: 11/05/22 08:06 Dose: 325 mg Documented By: Admin: 11/04/22 19:55 Dose: 325 mg Documented By: Admin: 11/04/22 08:43 Dose: 325 mg Documented By: Admin: 11/03/22 21:16 Dose: Not Given Documented By: Admin: 11/03/22 07:33 Dose: 325 mg Documented By: Admin: 11/02/22 22:29 Dose: 325 mg Documented By: Admin: 11/02/22 08:12 Dose: 325 mg Documented By: Admin: 11/01/22 20:24 Dose: 325 mg Documented By: Admin: 11/01/22 09:26 Dose: 325 mg Documented By: Admin: 10/31/22 20:07 Dose: 325 mg Documented By: Admin: 10/31/22 08:01 Dose: 325 mg Documented By: Admin: 10/30/22 21:21 Dose: 325 mg Documented By: Admin: 10/30/22 08:27 Dose: 325 mg Documented By: Admin: 10/29/22 20:16 Dose: 325 mg Documented By: Admin: 10/29/22 09:35 Dose: 325 mg Documented By: Admin: 10/28/22 20:33 Dose: 325 mg Documented By: Admin: 10/28/22 08:33 Dose: 325 mg Documented By: Admin: 10/27/22 20:19 Dose: 325 mg Documented By: Admin: 10/27/22 08:56 Dose: 325 mg Documented By: Admin: 10/26/22 20:55 Dose: 325 mg Documented By: [id number] Admin: 10/26/22 09:53 Dose: Not Given Documented By: Admin: 10/25/22 21:42 Dose: 325 mg Documented By: Admin: 10/25/22 08:20 Dose: 325 mg Documented By: Admin: 10/24/22 22:33 Dose: 325 mg Documented By: [id number] Fluticasone/Vilanterol (Fluticasone/Vilanterol 100/25mcg 14 Puffs/Inhaler) 1 puffs INH DAILY RANDAL Stop: 11/24/22 08:59 Last Admin: 11/05/22 08:04 Dose: 1 puffs Documented By: Admin: 11/04/22 09:01 Dose: 1 puffs Documented By: [email or web address] Admin: 11/03/22 08:56 Dose: 1 puffs Documented By: Admin: 11/02/22 08:12 Dose: 1 puffs Documented By: Admin: 11/01/22 09:38 Dose: 1 puffs Documented By: Admin: 10/31/22 08:09 Dose: 1 puffs Documented By: Admin: 10/30/22 08:28 Dose: 1 puffs Documented By: Admin: 10/29/22 09:36 Dose: 1 puffs Documented By: Admin: 10/28/22 08:34 Dose: 1 puffs Documented By: Admin: 10/27/22 08:56 Dose: 1 puffs Documented By: Admin: 10/26/22 09:41 Dose: 1 puffs Documented By: Admin: 10/25/22 08:23 Dose: 1 puffs Documented By: Gabapentin (Gabapentin 300 Mg Cap) 300 mg PO BID RANDAL Stop: 11/23/22 20:59 Last Admin: 11/05/22 08:06 Dose: 300 mg Documented By: Admin: 11/04/22 19:55 Dose: 300 mg Documented By: Admin: 11/04/22 08:43 Dose: 300 mg Documented By: Admin: 11/03/22 21:16 Dose: Not Given Documented By: Admin: 11/03/22 07:35 Dose: 300 mg Documented By: Admin: 11/02/22 22:28 Dose: 300 mg Documented By: Admin: 11/02/22 08:12 Dose: 300 mg Documented By: Admin: 11/01/22 20:25 Dose: 300 mg Documented By: Admin: 11/01/22 09:27 Dose: 300 mg Documented By: Admin: 10/31/22 20:07 Dose: 300 mg Documented By: Admin: 10/31/22 08:02 Dose: 300 mg Documented By: Admin: 10/30/22 21:23 Dose: 300 mg Documented By: Admin: 10/30/22 08:27 Dose: 300 mg Documented By: Admin: 10/29/22 20:16 Dose: 300 mg Documented By: Admin: 10/29/22 09:35 Dose: 300 mg Documented By: Admin: 10/28/22 20:32 Dose: 300 mg Documented By: Admin: 10/28/22 08:33 Dose: 300 mg Documented By: Admin: 10/27/22 20:19 Dose: 300 mg Documented By: Admin: 10/27/22 08:56 Dose: 300 mg Documented By: Admin: 10/26/22 20:56 Dose: 300 mg Documented By: [id number] Admin: 10/26/22 09:53 Dose: Not Given Documented By: Admin: 10/25/22 21:42 Dose: 300 mg Documented By: Admin: 10/25/22 08:19 Dose: 300 mg Documented By: Admin: 10/24/22 22:35 Dose: 300 mg Documented By: [id number] Dextrose/Sodium Chloride (D5w And 1/2nss) 1,000 mls @ 80 mls/hr IV .[id number] RANDAL Stop: 12/04/22 15:29 Last Admin: 11/05/22 05:38 Dose: 80 mls/hr Documented By: Infusion: 11/05/22 05:38 Dose: 80 mls/hr Documented By: Admin: 11/04/22 18:01 Dose: 80 mls/hr Documented By: DMKelsey Insulin Aspart (Insulin Aspart Per Unit Charge) 0 units SC ACHS RANDAL Stop: 11/23/22 21:29 Last Admin: 11/05/22 08:07 Dose: Not Given Documented By: Admin: 11/04/22 20:57 Dose: Not Given Documented By: Admin: 11/04/22 17:21 Dose: Not Given Documented By: JANELLEH Co-signed By: YAEL Admin: 11/04/22 11:57 Dose: Not Given Documented By: DMH Co-signed By: SMDustin Admin: 11/04/22 07:40 Dose: Not Given Documented By: DMH Co-signed By: SMM Admin: 11/03/22 21:19 Dose: Not Given Documented By: SW Co-signed By: RES Admin: 11/03/22 16:40 Dose: Not Given Documented By: CMV Co-signed By: MRE Admin: 11/03/22 11:43 Dose: Not Given Documented By: CMV Co-signed By: MRE Admin: 11/03/22 07:36 Dose: Not Given Documented By: Admin: 11/02/22 20:46 Dose: Not Given Documented By: Admin: 11/02/22 17:25 Dose: Not Given Documented By: Admin: 11/02/22 12:31 Dose: 1 units Documented By: BCD Co-signed By: KJL Admin: 11/02/22 09:22 Dose: Not Given Documented By: Admin: 11/01/22 20:25 Dose: Not Given Documented By: Admin: 11/01/22 17:59 Dose: Not Given Documented By: Admin: 11/01/22 13:16 Dose: Not Given Documented By: Admin: 11/01/22 09:15 Dose: Not Given Documented By: Admin: 10/31/22 20:38 Dose: Not Given Documented By: Admin: 10/31/22 17:30 Dose: Not Given Documented By: AMS Co-signed By: MES Admin: 10/31/22 12:56 Dose: Not Given Documented By: AMS Co-signed By: KAREN Admin: 10/31/22 09:21 Dose: Not Given Documented By: AMS Co-signed By: JHM Admin: 10/30/22 20:46 Dose: Not Given Documented By: Admin: 10/30/22 17:01 Dose: Not Given Documented By: Admin: 10/30/22 13:17 Dose: Not Given Documented By: Admin: 10/30/22 08:19 Dose: Not Given Documented By: Admin: 10/29/22 20:10 Dose: Not Given Documented By: Admin: 10/29/22 17:13 Dose: Not Given Documented By: Admin: 10/29/22 12:40 Dose: Not Given Documented By: Admin: 10/29/22 09:25 Dose: Not Given Documented By: Admin: 10/28/22 20:32 Dose: Not Given Documented By: Admin: 10/28/22 17:06 Dose: Not Given Documented By: Admin: 10/28/22 13:13 Dose: 1 units Documented By: SDA Co-signed By: RRR Admin: 10/28/22 08:32 Dose: Not Given Documented By: Admin: 10/27/22 21:04 Dose: Not Given Documented By: Admin: 10/27/22 17:57 Dose: Not Given Documented By: Admin: 10/27/22 12:45 Dose: Not Given Documented By: Admin: 10/27/22 08:52 Dose: Not Given Documented By: AMRITA Co-signed By: JENIFFER Admin: 10/26/22 21:15 Dose: Not Given Documented By: [id number] Admin: 10/26/22 17:51 Dose: Not Given Documented By: Admin: 10/26/22 14:15 Dose: 1 units Documented By: AMRITA Co-signed By: VALENTINE Admin: 10/26/22 09:37 Dose: Not Given Documented By: Admin: 10/25/22 21:47 Dose: Not Given Documented By: TRN Co-signed By: [id number] Admin: 10/25/22 16:48 Dose: Not Given Documented By: Admin: 10/25/22 13:02 Dose: 1 units Documented By: Co-signed By: TRAM Admin: 10/25/22 07:39 Dose: Not Given Documented By: Admin: 10/24/22 22:15 Dose: Not Given Documented By: [id number] Levothyroxine Sodium (Levothyroxine Sodium 100 Mcg Tablet) 100 mcg PO DAILYBB [facility] Stop: 11/24/22 06:29 Last Admin: 11/05/22 05:37 Dose: 100 mcg Documented By: Admin: 11/04/22 08:42 Dose: 100 mcg Documented By: Admin: 11/04/22 06:32 Dose: Not Given Documented By: Admin: 11/03/22 06:34 Dose: 100 mcg Documented By: Admin: 11/02/22 07:37 Dose: 100 mcg Documented By: Admin: 11/01/22 05:43 Dose: 100 mcg Documented By: Admin: 10/31/22 05:54 Dose: 100 mcg Documented By: Admin: 10/30/22 05:45 Dose: 100 mcg Documented By: Admin: 10/29/22 05:50 Dose: 100 mcg Documented By: Admin: 10/28/22 05:25 Dose: 100 mcg Documented By: Admin: 10/27/22 05:54 Dose: 100 mcg Documented By: [id number] Admin: 10/26/22 06:12 Dose: 100 mcg Documented By: Admin: 10/25/22 06:20 Dose: 100 mcg Documented By: [id number] Lisinopril (Lisinopril 2.5 Mg Tab) 2.5 mg PO QAM [facility] Stop: 11/27/22 08:59 Last Admin: 10/30/22 08:27 Dose: 2.5 mg Documented By: Admin: 10/29/22 09:35 Dose: 2.5 mg Documented By: Admin: 10/28/22 08:34 Dose: 2.5 mg Documented By: [email or web address] Melatonin (Melatonin 3 Mg Tab) 3 mg PO HS RANDAL Stop: 11/28/22 20:59 Last Admin: 11/04/22 19:56 Dose: 3 mg Documented By: Admin: 11/03/22 21:16 Dose: Not Given Documented By: Admin: 11/02/22 22:28 Dose: 3 mg Documented By: Admin: 11/01/22 20:25 Dose: 3 mg Documented By: Admin: 10/31/22 20:05 Dose: 3 mg Documented By: Admin: 10/30/22 21:20 Dose: 3 mg Documented By: Admin: 10/29/22 20:14 Dose: 3 mg Documented By: LINDA Metoprolol Succinate (Metoprolol Succ 25mg Ext Rel Tab) 25 mg PO DAILY R[facility]AL Stop: 11/24/22 15:14 Last Admin: 11/05/22 08:06 Dose: 25 mg Documented By: Admin: 11/04/22 08:43 Dose: 25 mg Documented By: Admin: 11/03/22 07:33 Dose: 25 mg Documented By: Admin: 11/02/22 08:12 Dose: 25 mg Documented By: Admin: 11/01/22 09:26 Dose: 25 mg Documented By: Admin: 10/31/22 08:03 Dose: 25 mg Documented By: Admin: 10/30/22 08:28 Dose: 25 mg Documented By: Admin: 10/29/22 09:35 Dose: 25 mg Documented By: Admin: 10/28/22 08:34 Dose: 25 mg Documented By: Admin: 10/27/22 08:56 Dose: 25 mg Documented By: Admin: 10/26/22 09:53 Dose: Not Given Documented By: Admin: 10/25/22 16:22 Dose: 25 mg Documented By: Olanzapine (Olanzapine 5 Mg Tablet) 5 mg PO [facility] Stop: 12/04/22 20:59 Last Admin: 11/04/22 23:45 Dose: Not Given Documented By: PLF Polyethylene Glycol (Polyethylene (Miralax) 17 Gm Pack) 17 gm PO BID R[facility]AL Stop: 11/30/22 13:29 Last Admin: 11/05/22 08:07 Dose: 17 gm Documented By: Admin: 11/04/22 19:59 Dose: Not Given Documented By: Admin: 11/04/22 08:43 Dose: Not Given Documented By: Admin: 11/03/22 20:23 Dose: Not Given Documented By: Admin: 11/03/22 07:36 Dose: Not Given Documented By: Admin: 11/02/22 21:36 Dose: Not Given Documented By: Admin: 11/02/22 08:18 Dose: 17 gm Documented By: Admin: 11/01/22 20:26 Dose: 17 gm Documented By: Admin: 11/01/22 09:58 Dose: Not Given Documented By: АНДРЕЙ Admin: 10/31/22 20:09 Dose: Not Given Documented By: Admin: 10/31/22 13:57 Dose: 17 gm Documented By: CHEIKH Sennosides (Senna 8.6 Mg Tab) 17.2 mg PO QAM [facility] Stop: 12/01/22 08:59 Last Admin: 11/05/22 08:06 Dose: 17.2 mg Documented By: Admin: 11/04/22 08:43 Dose: Not Given Documented By: Admin: 11/03/22 07:32 Dose: Not Given Documented By: Admin: 11/02/22 08:12 Dose: 17.2 mg Documented By: Admin: 11/01/22 09:25 Dose: 17.2 mg Documented By: АНДРЕЙ Tamsulosin HCl (Tamsulosin Hcl 0.4 Mg Cap) 0.4 mg PO [facility] Stop: 11/23/22 21:29 Last Admin: 11/04/22 19:56 Dose: 0.4 mg Documented By: Admin: 11/03/22 21:17 Dose: Not Given Documented By: Admin: 11/02/22 22:29 Dose: 0.4 mg Documented By: Admin: 11/01/22 20:25 Dose: 0.4 mg Documented By: Admin: 10/31/22 20:08 Dose: 0.4 mg Documented By: Admin: 10/30/22 21:22 Dose: 0.4 mg Documented By: Admin: 10/29/22 20:15 Dose: 0.4 mg Documented By: Admin: 10/28/22 20:33 Dose: 0.4 mg Documented By: Admin: 10/27/22 20:19 Dose: 0.4 mg Documented By: Admin: 10/26/22 20:55 Dose: 0.4 mg Documented By: [id number] Admin: 10/25/22 21:43 Dose: 0.4 mg Documented By: Admin: 10/24/22 22:35 Dose: 0.4 mg Documented By: [id number] Thiamine HCl (Thiamine Hcl 100 Mg Tab) 100 mg PO DAILY [facility] Stop: 11/24/22 08:59 Last Admin: 11/05/22 08:07 Dose: 100 mg Documented By: Admin: 11/04/22 08:43 Dose: 100 mg Documented By: [email or web address] Admin: 11/03/22 07:34 Dose: 100 mg Documented By: Admin: 11/02/22 08:12 Dose: 100 mg Documented By: Admin: 11/01/22 09:25 Dose: 100 mg Documented By: Admin: 10/31/22 08:02 Dose: 100 mg Documented By: Admin: 10/30/22 08:28 Dose: 100 mg Documented By: Admin: 10/29/22 09:35 Dose: 100 mg Documented By: Admin: 10/28/22 08:34 Dose: 100 mg Documented By: Admin: 10/27/22 08:57 Dose: 100 mg Documented By: Admin: 10/26/22 09:53 Dose: Not Given Documented By: Admin: 10/25/22 08:20 Dose: 100 mg Documented By: Venlafaxine HCl (Venlafaxine Hcl Xr 75 Mg Capxr) 75 mg PO DAILY [facility] Stop: 11/24/22 08:59 Last Admin: 11/05/22 08:07 Dose: 75 mg Documented By: Admin: 11/04/22 08:43 Dose: 75 mg Documented By: Admin: 11/03/22 07:34 Dose: 75 mg Documented By: Admin: 11/02/22 08:12 Dose: 75 mg Documented By: Admin: 11/01/22 09:25 Dose: 75 mg Documented By: Admin: 10/31/22 08:02 Dose: 75 mg Documented By: Admin: 10/30/22 08:28 Dose: 75 mg Documented By: Admin: 10/29/22 09:35 Dose: 75 mg Documented By: Admin: 10/28/22 08:34 Dose: 75 mg Documented By: Admin: 10/27/22 08:57 Dose: 75 mg Documented By: Admin: 10/26/22 09:53 Dose: Not Given Documented By: Admin: 10/25/22 08:20 Dose: 75 mg Documented By: ENS Coding Level of Care Code 49226 IN/OBS CONSULT LVL 4,60M Diagnoses Dementia F03.90 Encephalopathy G93.40 Time Spent (min) 60
[2022-11-05] MEDS: TAMSULOSIN HCL 0.4 MG CAP PO SCH (20:07)
[2022-11-05] MEDS: MELATONIN 3 MG TAB PO SCH (20:08)
[2022-11-05] MEDS: ATORVASTATIN 40 MG TAB PO SCH (20:08)
[2022-11-05] MEDS: OLANZapine 5 MG TABLET PO SCH (20:08)
--- NOTE | 2022-11-05 21:19 | Hospitalist Progress Note ---
Date of Service November 05, 2022 Assessment & Plan (1) Encephalopathy acute: Plan: MUCH improved s/p institution of zyprexa in [place] of seroquel. His confusion has been in the setting of baseline dementia. Exact cause of his encephalopathy at time of presentation was uncertain. He had MARTÍN with low BP at time of ER arrival. Initial concern was for UTI at time of admission but culture did not grow anything. Repeat urine cx - despite very dirty u/a - did not grow anything either. False neg urine cx's ? prostatitis? will treat presumptively for UTI - cont cefdinir and treat for another 7-10 days. day #6 cefdinir. MRI brain negative for CVA etc. VBG without CO2 retention. Ammonia wnl. Patient has had urinary retention issues during this stay; thus, s/p reina placement 10/31. I informed his primary urologist, Dr Michele, about this. Cont zyprexa 5mg HS with prn doses as well. CXR, KUB x-ray both wnl. Labs wnl. COVID testing wnl. Appreciate psych consult by Dr Colvin. She also advises d/c of wellbutrin. (2) MARTÍN (acute kidney injury): Plan: Peak Cr 2.8 at admission. Has had fluctuating creatinine levels while here due to poor po intake, etc. Today's creatinine stable. Stay off of BAN inhibitor. (3) Fall: Plan: falls at home prior to admission suspect due to hypotension, etc Cont PT, OT needs rehab post-discharge - [facility] B12 level wnl (4) Malignant neoplasm of bladder: Plan: s/p cysto with TURBT on 10/08/[address] Michele. Initial concern for UTI early in the stay but urine cx negative. Repeat u/a via straight cath suspicious for UTI but culture again negative. Will still Rx presumptively for UTI or maybe even prostatitis. Cont cefdinir Cont reina f/u Dr Michele about 7 days post-discharge for voiding trial, etc (5) Diabetes mellitus: Plan: a1c 6.9%. cont novolog SSI. controlled. (6) AVNRT (AV daniela re-entry tachycardia): Plan: none seen on tele. cont metoprolol succinate 25mg daily. pacing on monitor previously. (7) BPH (benign prostatic hyperplasia): Plan: Cont flomax. Had urinary retention issues all last week - s/p reina 10/31/22. Continue reina until seen by Dr Michele in the clinic for voiding trial. (8) Hypothyroidism: Plan: TSH 1.7. Cont levothyroxine. (9) Coronary artery disease: Plan: h/o multiple stents. Cont asa, plavix, statin, metoprolol succinate Hold BAN due to recurrent MARTÍN. (10) Paroxysmal atrial flutter: Plan: none seen on pacer interrogation nor our telemetry monitoring. he is not on chronic anticoagulation. MRI brain without signs of acute or subacute CVA. (11) S/P coronary artery stent placement: Plan: multiple stents cont plavix (12) COPD (chronic obstructive pulmonary disease): Plan: no exacerbation at this time. cont home inhalers. o2 sats wnl. (13) Peripheral neuropathy: Plan: cont gabapentin BID. (14) Weakness: Plan: suspect combination of factors including suspected UTI, deconditioning, etc cont PT/OT. rehab post-d/c. (15) Lesion of lung: Plan: CT chest: Irregular 10 mm nodule within the right upper lobe previously measured 6 mm, stable 10 mm solid nodule of the left lower lobe is unchanged dating back to the initial study from 2019 CT chest also showed: borderline enlarged mediastinal lymph nodes measure up to 11 mm in the paratracheal and subcarinal distributions recommend f/u scan in 3-6 months (16) Morbid obesity with BMI of 40.0-44.9, adult: Plan: BMI 40 (17) Dementia: Plan: known diagnosis (18) Cerebrovascular disease: Plan: cerebellar CVA on previous CT cont asa/plavix for secondary prevention MRI brain without acute CVA Plan dispo - rehab at [facility] I spoke with pt's daughter by phone yesterday evening, extensive update given discussed delirium in detail if patient continues to have a good day today and a good night tonight he can be released to [facility] on 11/06/22 Admission and Anticipated Discharge Date Admission Date: October 24, 2022 Subjective much better night last pm per nursing staff has had pleasant confusion this am but no agitation during the visit he was working with physical therapy he was telling stories, cracking jokes, and laughing he ate both breakfast and lunch - at least 50% he denied any complaints while I was visiting with him Review of Systems Review of Systems: cv - no chest pain pulm - no dyspnea GI - no abd pain or N/V - reina in place Physical Exam Physical Exam: gen - obese, working with therapy, looks MUCH better today; joking, laughing neck - no JVD mouth - MMM heart - RRR, s1 s2, no murmur lungs - CTA b/l abd - soft NT ND BS+ ext - no edema b/l, pulses 2+ b/l - reina in place - clear urine Results & Data Results & Data Vital Signs (Past 12 Hours) Vital Signs Temp Pulse Pulse Resp BP Pulse Ox O2 Del Method 11/05/22 20:37 36.9 C 71 16 132/76 93 Room Air 11/05/22 16:53 37.1 C 72 12 124/72 95 Room Air 11/05/22 15:01 37.2 C 61 12 142/83 H Laboratory Results Laboratory Results - last 24 hr 11/05/22 11/05/22 11/05/22 06:37 06:37 07:54 WBC 8.21 RBC 4.07 L Hgb 12.8 L Hct 40.2 L MCV 98.8 MCH 31.4 MCHC 31.8 L RDW Std Deviation 53.8 H RDW Coeff of Kayla 15.0 H Plt Count 188 MPV 11.9 Sodium 142 Potassium 3.8 Chloride 108 H Carbon Dioxide 29 Anion Gap 5 BUN 18 Creatinine 1.34 Est Cr Clr Drug Dosing 49.1 Est GFR ( Amer) 56.4 Est GFR (Non-Af Amer) 48.6 BUN/Creatinine Ratio 13.4 Glucose 142 H POC Glucose 126 H Calcium 8.9 11/05/22 11/05/22 11/05/22 11:24 16:47 20:34 WBC RBC Hgb Hct MCV MCH MCHC RDW Std Deviation RDW Coeff of Kayla Plt Count MPV Sodium Potassium Chloride Carbon Dioxide Anion Gap BUN Creatinine Est Cr Clr Drug Dosing Est GFR ( Amer) Est GFR (Non-Af Amer) BUN/Creatinine Ratio Glucose POC Glucose 163 H 130 H 126 H Calcium Diagnostic Findings CXR 11/04 - no infiltrates KUB 11/04 - no fecal impaction PG Care Time/CCT Total # of Minutes Spent Total Time Spent with Patient: Total time spent is greater than 50% in coordination of care (as documented) at patient's floor/unit and/or counseling patient: Coding Level of Care Code 01590 SUB INP/OBS CARE 2/35MIN Diagnoses Encephalopathy acute G93.40 MARTÍN (acute kidney injury) N17.9 Fall W19.XXXA Malignant neoplasm of bladder C67.9 Diabetes mellitus E11.9 AVNRT (AV daniela re-entry tachycardia) I47.1 BPH (benign prostatic hyperplasia) N40.0 Hypothyroidism E03.9 Coronary artery disease I25.10 Paroxysmal atrial flutter I48.92 S/P coronary artery stent placement Z95.5 COPD (chronic obstructive pulmonary disease) J44.9 Peripheral neuropathy G62.9 Weakness R53.1 Lesion of lung R91.1 Morbid obesity with BMI of 40.0-44.9, adult E66.01; Z68.41 Dementia F03.90 Cerebrovascular disease I67.9
[2022-11-06] MEDS: LEVOTHYROXINE SODIUM 100 MCG TABLET PO SCH (05:43)
[2022-11-06] MEDS: ACETAMINOPHEN 325 MG TAB PO PRN (07:06)
--- NOTE | 2022-11-06 08:09 | Hospitalist Progress Note ---
Date of Service November 06, 2022 Assessment & Plan (1) Encephalopathy acute: Plan: Ongoing. WORSE last 24 hours. His confusion is in the setting of baseline dementia. Exact cause of his encephalopathy at time of presentation was uncertain. He had MARTÍN with low BP at time of ER arrival. Initial concern was for UTI at time of admission but culture did not grow anything. Repeat urine cx - despite very dirty u/a - did not grow anything either. False neg urine cx's ? prostatitis? will treat presumptively for UTI - cont cefdinir and treat for another 7-10 days. day #7 cefdinir. (plan additional 3 days) MRI brain negative for CVA etc. VBG without CO2 retention. Ammonia wnl. Patient has had urinary retention issues during this stay; thus, s/p reina placement 10/31. I informed his primary urologist, Dr Michele, about this. Despite reinforcing day/night wake cycles, moving his room to have more windows/sunlight, removing patient monitor, etc he has worsened over the last few days. This is in the face of increasing doses of seroquel. I spoke with Dr Jewels Colvin, psychiatry. She will provide formal consultation. We discussed his care. Records reviewed - in 2020 during his stay for [facility] he had severe delirium. He used zyprexa 5mg HS with good results. Thus, will stop seroquel and change to zyprexa 5mg HS with prn doses as well. To r/o other contributors check cxr, KUB x-ray (r/o impaction), COVID test. 11/06 -- tolerating 5mg zyprexa well. Eating/drinking, no agitation/issues reported. Initially was going to [facility] today per CM discussion w/ daughter given improvement yesterday and bed available today however this afternoon more admissions for [facility] and unable to discharge today.B B1 level @ 9 Will plan for discharge tomorrow. (2) MARTÍN (acute kidney injury): Plan: Peak Cr 2.8 at admission. Has had fluctuating creatinine levels while here due to poor po intake, etc. Creatinine was 1 yesterday. Cont to HOLD Lisinopril -- plan to hold at d.c . Also would hold lasix as not given during inpatient stay (weights not significantly up either) (3) Fall: Plan: falls at home prior to admission suspect due to hypotension, etc PT, OT when able. needs rehab post-discharge - [facility] B12 level wnl. (4) Malignant neoplasm of bladder: Plan: s/p cysto with TURBT on 10/08/[address] Michele. Initial concern for UTI early in the stay but urine cx negative. Repeat u/a via straight cath suspicious for UTI but culture again negative. Will still Rx presumptively for UTI or maybe even prostatitis. Cont cefdinir, tx x 10 days as above Cont reina f/u Dr Michele about 7 days post-discharge for voiding trial, etc (5) Diabetes mellitus: Plan: a1c 6.9%. cont novolog SSI. controlled. (6) AVNRT (AV daniela re-entry tachycardia): Plan: none seen on tele. cont metoprolol succinate 25mg daily. pacing on monitor previously. not given carvedilol during inpatient stay, would plan to continue to hold at discharge given stability inpatient (7) BPH (benign prostatic hyperplasia): Plan: Cont flomax. Had urinary retention issues all last week - s/p reina 10/31/22. Continue reina until seen by Dr Michele in the clinic for voiding trial. (8) Hypothyroidism: Plan: TSH 1.7. Cont levothyroxine. (9) Coronary artery disease: Plan: h/o multiple stents. Cont asa, plavix, statin, metoprolol succinate Hold BAN due to recurrent MARTÍN. (10) Paroxysmal atrial flutter: Plan: none seen on pacer interrogation nor our telemetry monitoring. he is not on chronic anticoagulation. MRI brain without signs of acute or subacute CVA. (11) S/P coronary artery stent placement: Plan: multiple stents cont plavix (12) COPD (chronic obstructive pulmonary disease): Plan: no exacerbation at this time. cont home inhalers. (13) Peripheral neuropathy: Plan: cont gabapentin BID. (14) Weakness: Plan: suspect combination of factors including suspected UTI, deconditioning, etc cont PT/OT. rehab post-d/c. (15) Lesion of lung: Plan: CT chest: Irregular 10 mm nodule within the right upper lobe previously measured 6 mm, stable 10 mm solid nodule of the left lower lobe is unchanged dating back to the initial study from 2019 CT chest also showed: borderline enlarged mediastinal lymph nodes measure up to 11 mm in the paratracheal and subcarinal distributions recommend f/u scan in 3-6 months (16) Morbid obesity with BMI of 40.0-44.9, adult: Plan: BMI 40 (17) Dementia: Plan: known diagnosis I believe this is the main reason for his anorexia added low-dose prednisone and he ate better 1 day, then back to fair appetite at best stop prednisone (18) Cerebrovascular disease: Plan: cerebellar CVA on previous CT cont asa/plavix for secondary prevention MRI brain without acute CVA Plan hopeful d/c to [facility] tomorrow. Complete abx for UTI x 7 days Zyprexa 5mg QHS Admission and Anticipated Discharge Date Admission Date: October 24, 2022 Supervising Physician Co-Signing Physician Notes The patient was not seen by me. The chart was reviewed. Case discussed with LUCY Reza. Agree with assessment and plan Subjective eval this morning, sitting up in bed, ate eggs for breakfast (he reports bored w/ same foods). Ordered a cheeseburger for lunch. Pleasant and cooperative with exam. Reina w/ clear yellow urine draining at present. No issues reported at this time. Physical Exam Physical Exam: gen - obese, sitting up in bed, joking/laughing, no acute distressneck - no JVD mouth - MMM heart - RRR, s1 s2, no murmur lungs - CTA b/l; snoring abd - soft NT ND BS+ ext - no edema b/l, pulses 2+ b/l skin - no rash - reina in place draining yellow urine Results & Data Results & Data Vital Signs (Past 12 Hours) Vital Signs Temp Pulse Pulse Resp BP Pulse Ox O2 Del Method 11/06/22 07:47 36.5 C 89 17 120/68 94 Room Air 11/06/22 07:15 Room Air 11/05/22 20:37 36.9 C 71 16 132/76 93 Room Air Laboratory Results 11/06/22 11/06/22 11/05/22 Range/Units 07:57 07:42 20:34 Creatinine 1.23 (0.6-1.4) mg/dl Est Cr Clr Drug Dosing 53.5 ml/min Est GFR ( Amer) 62.5 ml/min Est GFR (Non-Af Amer) 54.0 ml/min POC Glucose 101 H 126 H (70-99) mg/dl 11/05/22 11/05/22 Range/Units 16:47 11:24 Creatinine (0.6-1.4) mg/dl Est Cr Clr Drug Dosing ml/min Est GFR ( Amer) ml/min Est GFR (Non-Af Amer) ml/min POC Glucose 130 H 163 H (70-99) mg/dl PG Care Time/CCT Total # of Minutes Spent Total Time Spent with Patient: Total time spent is greater than 50% in coordination of care (as documented) at patient's floor/unit and/or counseling patient: Coding Level of Care Code 13517 SUB INP/OBS CARE 2/35MIN Diagnoses Encephalopathy acute G93.40 MARTÍN (acute kidney injury) N17.9 Fall W19.XXXA Malignant neoplasm of bladder C67.9 Diabetes mellitus E11.9 AVNRT (AV daniela re-entry tachycardia) I47.1 BPH (benign prostatic hyperplasia) N40.0 Hypothyroidism E03.9 Coronary artery disease I25.10 Paroxysmal atrial flutter I48.92 S/P coronary artery stent placement Z95.5 COPD (chronic obstructive pulmonary disease) J44.9 Peripheral neuropathy G62.9 Weakness R53.1 Lesion of lung R91.1 Morbid obesity with BMI of 40.0-44.9, adult E66.01; Z68.41 Dementia F03.90 Cerebrovascular disease I67.9
[2022-11-06] MEDS: FLUTICASONE/VILANTEROL 100/25MCG 14 PUFFS/INHALER INH SCH (08:19)
[2022-11-06] MEDS: POLYETHYLENE (MIRALAX) 17 GM PACK PO SCH ×2 (08:20→21:57)
[2022-11-06] MEDS: ASPIRIN 81 MG ECTAB PO SCH (08:21)
[2022-11-06] MEDS: FAMOTIDINE 20 MG TAB PO SCH (08:22)
[2022-11-06] MEDS: METOPROLOL SUCC 25MG EXT REL TAB PO SCH (08:22)
[2022-11-06] MEDS: THIAMINE HCL 100 MG TAB PO SCH (08:22)
[2022-11-06] MEDS: VENLAFAXINE HCL XR 75 MG CAPXR PO SCH (08:22)
[2022-11-06] MEDS: FERROUS SULFATE 325 MG TAB PO SCH ×2 (08:23→21:55)
[2022-11-06] MEDS: ENOXAPARIN INJ 40 MG/0.4 ML SYR SQ SCH (08:23)
[2022-11-06] MEDS: allopurinoL 100 MG TAB PO SCH ×2 (08:23→21:56)
[2022-11-06] MEDS: CEFDINIR 300 MG CAP PO SCH (08:24)
[2022-11-06] MEDS: GABAPENTIN 300 MG CAP PO SCH ×2 (08:24→21:57)
[2022-11-06] MEDS: SENNA 8.6 MG TAB PO SCH (08:24)
[2022-11-06] MEDS: INSULIN ASPART PER UNIT CHARGE SC SCH ×4 (08:25→21:49)
[2022-11-06 08:47] LABS: Creatinine Clr Calc Pharmacy 53.5 ml/min; Est GFR (African American) 62.5 ml/min
[2022-11-06] MEDS: CLOPIDOGREL BISULFATE 75 MG TAB PO SCH (09:38)
--- NOTE | 2022-11-06 11:16 | Discharge Summary ---
Date of Service November 06, 2022 Admission HPI Per Admitting Provider Pt is a 82 yo male with a past medical history of hx AVNRT and atrial flutter with pacemaker, bladder cancer s/p surgery 2 weeks ago, hx stroke without residual deficits, COPD, memory deficits, hx delirium, cerebrovascular disease, CAD with 6 stents, BPH,hypothyroidism, DM who presents to the hospital on 10/24/22 for weakness and confusion. Pt presents to the ER with family. History from daughter: Daughter states that she has been concerned because in the last 2 days, the pt has become more confused than his baseline and that they have found him twice on the ground at home and lethargic. She states that he had covid about 2 years ago, and at the time had become delirious and combative and required 4 point restraints in the hospital. She states he recovered since then but that he is always a bit off, sometimes commenting on visual stimuli that aren't there or talking to himself. She states that he also has neuropathy in both his legs, so he is sometimes a bit unsteady, but they have never before found him on the floor when going to check on him like the last 2 days. She states that when his son checked on him yesterday, he was on the floor and very lethargic and disoriented, denying that he had fallen. She states that he was again found on the floor today and again denied having fallen. She states that he just had bladder surgery 2 weeks ago for bladder cancer and had been seemingly doing fine until the last 2 days. She states that earlier today or yesterday he had commented that there was a waterfall going down the wall in his house and that he got a bit frustrated that no one else saw it. She also notes he barely drinks water at home since he looks dry today. She notes he also seems more fatigued. While in the room, the patient kept saying there was something in his pocket and kept trying to pull something out of his pocket, which was empty. Pt insisted something was there, even when shown nothing was in his pocket. He also was easily distracted from the interview and talked about interviewing me and playing the [place] flute when he dies. The patient did state that he does not think he fell and that he just gets cramps in his calves sometimes. Otherwise, he states he feels fine. Principal Diagnosis Encephalopathy, Delirium, UTI Discharge Data Allergies Allergy/AdvReac Type Severity Reaction Status Date / Time tiotropium Allergy Intermediate Eye pain Verified 10/24/22 19:29 Consultations 10/24/22 18:33 ED Decision to Admit Stat 10/24/22 20:52 HIM [Consult Health Information Management] Routine 11/04/22 15:22 Consult Psychiatry Routine Ordered Studies Chest X-Ray 10/24/22 14:42 XR chest 1V portable HISTORY: 82 years-old Male Sepsis acute sepsis COMPARISON: 06/17/2020 TECHNIQUE: AP view of the chest FINDINGS: Cardiac silhouette is enlarged. Left subclavian pacer. Emphysema with chronic interstitial coarsening. Chronic blunting of the costophrenic angles. No pneumo thorax or lobar airspace consolidation. Degenerative changes of the shoulders and spine IMPRESSION: 1. Cardiomegaly without overt pulmonary edema. 2. Emphysema with chronic interstitial coarsening. ACT 112: Negative or not required by law. The above report was generated using voice recognition software. It may contain grammatical, syntax or spelling errors. Electronically signed by: Luis Lal M.D. 10/24/2022 3:[address] 10/24/22 15:31 CT head/brain wo con CLINICAL HISTORY: 82 years-old Male with intermittent confusion, BLE weakness. Acutely altered mental status TECHNIQUE: Multiple axial CT images of the head were obtained without contrast. A dose lowering technique was utilized adhering to the principles of ALARA. COMPARISON: CT cervical spine of same day, 06/22/2020 FINDINGS: No acute intracranial hemorrhage, midline shift, intracranial mass, hydrocephalus, territorial ischemia or abnormal extra-axial collection. Involutional changes with chronic microvascular ischemic disease. Chronic right cerebellar infarct. Cerebral vascular calcifications. The calvarium is intact. Prior bilateral lens repair. The paranasal sinuses, mastoid air cells, and middle ear cavities are clear. IMPRESSION: No acute intracranial abnormality identified. ACT 112: Negative or not required by law. The above report was generated using voice recognition software. It may contain grammatical, syntax or spelling errors. Electronically signed by: Luis Lal M.D. 10/24/2022 5:39 PM Abdomen/Pelvis CT 10/24/22 16:32 CT chest diagnostic wo con, CT abd pelvis wo con CT DOSE: 3615.01 mGy.cm CLINICAL HISTORY: 82 years-old Male with confusion, weakness, falls. Acute chest and abdominal trauma status post fall TECHNIQUE: Multiaxial CT images of the CT chest, abdomen and pelvis were performed without contrast. A dose lowering technique was utilized adhering to the principles of ALARA. COMPARISON: CTA chest 06/21/2020, 10/13/2019 FINDINGS: CT CHEST: Unremarkable thyroid. Borderline enlarged mediastinal lymph nodes measure up to 11 mm in the paratracheal and subcarinal distributions. Mild cardiomegaly. Left subclavian pacer. Extensive coronary artery calcifications. Atherosclerosis of the aorta with mild fusiform dilation measuring up to 4 cm the ascending se gment. The aortic arch measures up to 3.6 cm transversely. Moderate emphysema with chronic fibrotic changes. Irregular 10 mm solid nodule within the right upper lobe on image 66 previously measured 6 mm on the 2019 exam stable 10 mm solid nodule within the basal left lower lobe on image 150 series 8. Bronchial wall thickening suggestive of bronchitis. No pneumothorax, pleural effusion or overt pulmonary edema. Mild tracheobronchial secretions. Gynecomastia. Unremarkable soft tissues. Degenerative changes of the shoulders and spine. No acute fracture identified. CT ABDOMEN/PELVIS: No free air. The unenhanced spleen, mildly atrophic pancreas and adrenal glands are unremarkable. Trace cholelithiasis. Hepatic steatosis. Subcapsular calcification of the posterior right upper lobe. Mild nonspecific bilateral perinephric stranding with cortical thinning. 3 mm calcification within the interpolar left kidney. No ureteral calculi or hydronephrosis. Prostatomegaly. Mild distention of the urinary bladder. Atherosclerosis of the aorta with mild fusiform dilation measuring up to 4.9 x 4.4 cm., Previously 4.8 x 4.1 cm. No lymphadenopathy. No bowel obstruction or bowel wall thickening. Appearance material within the cecum. Noninflamed appendix. Unremarkable soft tissues. Possible mild avascular necrosis of the right femoral head. No acute fracture identified. IMPRESSION: 1. No acute posttraumatic intrathoracic, intra-abdominal or intrapelvic abnormality. 2. Cholelithiasis. 3. 3 mm left renal calcification. No hydronephrosis. 4. Irregular 10 mm nodule within the right upper lobe previously measured 6 mm. Follow guidelines provided below. 5. Stable 10 mm solid nodule of the left lower lobe is unchanged dating back to the initial study from 2019. 6. Fusiform dilation of the infrarenal abdominal aorta, 4.9 cm. 7. Additional findings as above. Please refer to below summary of Fleischner criteria recommendations for follow- up of incidental CT nodules (Kelsey Valdes, Guidelines for management of small pulmonary nodules detected on CT scans: A statement from the Fleischner Society, Radiology 237: [phone].) SOLID NODULES Multiple nodules size: <6 mm * Low risk patients: no routine follow-up * high risk patients: optional CT at 12 months Multiple nodules size: 6-8 mm * Low risk patients: follow-up at 3-6 months, then consider further follow-up at 18-24 months * high risk patients: follow-up at 3-6 months, then at 18-24 months if no change Multiple nodules size: >8 mm * Low risk patients: follow-up at 3-6 months, then consider further follow-up at 18-24 months * high risk patients: follow-up at 3-6 months, then at 18-24 months if no change Note: newly detected indeterminate nodule in persons 35 years of age or older. * Low risk patients: minimal or absent history of smoking and/or other known risk factors * high risk patients: history of smoking or of other known risk factors (e.g. first degree relative with lung cancer, or exposure to asbestos, radon, uranium) * if a nodule up to 8 mm is partly solid or is ground glass further follow-up is required after 24 months to exclude possible slow growing adenocarcinoma (JASIEL) ACT 112: Negative or not required by law. Electronically signed by: Luis Lal M.D. 10/24/2022 6:[address] 10/24/22 16:32 CT chest diagnostic wo con, CT abd pelvis wo con CT DOSE: 3615.01 mGy.cm CLINICAL HISTORY: 82 years-old Male with confusion, weakness, falls. Acute chest and abdominal trauma status post fall TECHNIQUE: Multiaxial CT images of the CT chest, abdomen and pelvis were performed without contrast. A dose lowering technique was utilized adhering to the principles of ALARA. COMPARISON: CTA chest 06/21/2020, 10/13/2019 FINDINGS: CT CHEST: Unremarkable thyroid. Borderline enlarged mediastinal lymph nodes measure up to 11 mm in the paratracheal and subcarinal distributions. Mild cardiomegaly. Left subclavian pacer. Extensive coronary artery calcifications. Atherosclerosis of the aorta with mild fusiform dilation measuring up to 4 cm the ascending segment. The aortic arch measures up to 3.6 cm transversely. Moderate emphysema with chronic fibrotic changes. Irregular 10 mm solid nodule within the right upper lobe on image 66 previously measured 6 mm on the 2020 exam stable 10 mm solid nodule within the basal left lower lobe on image 150 series 8. Bronchial wall thickening suggestive of bronchitis. No pneumothorax, pleural effusion or overt pulmonary edema. Mild tracheobronchial secretions. Gynecomastia. Unremarkable soft tissues. Degenerative changes of the shoulders and spine. No acute fracture identified. CT ABDOMEN/PELVIS: No free air. The unenhanced spleen, mildly atrophic pancreas and adrenal glands are unremarkable. Trace cholelithiasis. Hepatic steatosis. Subcapsular calcification of the posterior right upper lobe. Mild nonspecific bilateral perinephric stranding with cortical thinning. 3 mm calcification within the interpolar left kidney. No ureteral calculi or hydronephrosis. Prostatomegaly. Mild distention of the urinary bladder. Atherosclerosis of the aorta with mild fusiform dilation measuring up to 4.9 x 4.4 cm., Previously 4.8 x 4.1 cm. No lymphadenopathy. No bowel obstruction or bowel wall thickening. Appearance material within the cecum. Noninflamed appendix. Unremarkable soft tissues. Possible mild avascular necrosis of the right femoral head. No acute fracture identified. IMPRESSION: 1. No acute posttraumatic intrathoracic, intra-abdominal or intrapelvic abnormality. 2. Cholelithiasis. 3. 3 mm left renal calcification. No hydronephrosis. 4. Irregular 10 mm nodule within the right upper lobe previously measured 6 mm. Follow guidelines provided below. 5. Stable 10 mm solid nodule of the left lower lobe is unchanged dating back to the initial study from 2019. 6. Fusiform dilation of the infrarenal abdominal aorta, 4.9 cm. 7. Additional findings as above. Please refer to below summary of Fleischner criteria recommendations for follow- up of incidental CT nodules (Kelsey Valdes, Guidelines for management of small pulmonary nodules detected on CT scans: A statement from the Fleischner Society, Radiology 237: [phone].) SOLID NODULES Multiple nodules size: <6 mm * Low risk patients: no routine follow-up * high risk patients: optional CT at 12 months Multiple nodules size: 6-8 mm * Low risk patients: follow-up at 3-6 months, then consider further follow-up at 18-24 months * high risk patients: follow-up at 3-6 months, then at 18-24 months if no change Multiple nodules size: >8 mm * Low risk patients: follow-up at 3-6 months, then consider further follow-up at 18-24 months * high risk patients: follow-up at 3-6 months, then at 18-24 months if no change Note: newly detected indeterminate nodule in persons 35 years of age or older. * Low risk patients: minimal or absent history of smoking and/or other known risk factors * high risk patients: history of smoking or of other known risk factors (e.g. first degree relative with lung cancer, or exposure to asbestos, radon, uranium) * if a nodule up to 8 mm is partly solid or is ground glass further follow-up is required after 24 months to exclude possible slow growing adenocarcinoma (JASIEL) ACT 112: Negative or not required by law. Electronically signed by: Luis Lal M.D. 10/24/2022 6:[address] 10/24/22 16:33 CT cervical spine wo con CLINICAL HISTORY: 82 years-old Male with confusion, weakness, falls. Acute neck pain with prior falls COMPARISON: Head CT of same day TECHNIQUE: Multiple axial CT images of the cervical spine were obtained without contrast. A dose lowering technique was utilized adhering to the principles of ALARA. FINDINGS: Degenerative changes of the cervical spine with nuchal ligament calcifications. Demineralized appearance of the bones. Partially imaged left subclavian pacer leads. Calcified plaque in the carotid bulbs. Subcentimeter bone island of the right posterior second rib. Chronic right cerebellar infarct. The cervical soft tissues appear unremarkable. The visualized lung apices appear clear. IMPRESSION: No acute cervical spine fracture or subluxation identified. ACT 112: Negative or not required by law. The above report was generated using voice recognition software. It may contain grammatical, syntax or spelling errors. Electronically signed by: Luis Lal M.D. 10/24/2022 5:43 PM Brain MRI 10/30/22 07:00 MRI OF THE BRAIN WITHOUT IV CONTRAST CLINICAL HISTORY: Change in mental status. COMPARISON STUDY: CT of the brain dated 10/24/2022. TECHNIQUE: MRI of the brain was performed utilizing various T1 and T2-weighted sequences in the axial, sagittal, and coronal planes. IV contrast was not administered for this examination. The examination is degraded by motion artifact. There is also susceptibility artifact from a metallic foreign body within the right facial soft tissues anterior to the maxillary antrum. FINDINGS: Brain parenchyma: There is age-related involutional change noting mild subcortical and periventricular microangiopathic disease. A chronic infarct is again noted in the right cerebellar hemisphere. There is no hemorrhage or mass effect. There is no restricted diffusion to suggest acute ischemia. Hernandez-white matter differentiation is preserved. No extra-axial fluid collection is seen. The cerebellar tonsils are normal in configuration. Ventricles, sulci, and cisterns: Normal in configuration. Pituitary and sella: Unremarkable. Intracranial vasculature: There is abnormal appearance of the left vertebral artery flow void at the skull base, best seen on axial T2-weighted image #6. The remaining flow voids at the skull base are maintained. Orbits: The bony orbits are grossly intact. Orbital contents are normal in appearance noting bilateral ocular lens implants. Sinuses and mastoids: Clear. Calvarium: Unremarkable. Cervical cord: Partially visualized cervical spinal cord is normal in morphology and signal intensity. IMPRESSION: 1. No acute intracranial abnormality. 2. There is abnormal appearance of the left vertebral artery flow void at the skull base. This is of indeterminate significance and may be artifactual. If warranted this could be further assessed with a CT angiogram of the neck. ACT 112: Negative or not required by law. Electronically signed by: Brandon William M.D. 10/30/2022 1:16 PM Chest X-Ray 11/04/22 15:16 XR chest 1V portable HISTORY: confusion, agitation, eval developing pneumonia COMPARISON: Chest CT 10/24/2022. FINDINGS: No pneumothorax. No pleural effusions. There is left-sided dual- chamber pacemaker again noted. The heart is mildly enlarged. Mild diffuse interstitial thickening persists. This is likely chronic. No new focal lung consolidations to suggest a pneumonia. No evidence for pulmonary edema. The patient's known pulmonary nodules are better appreciated on the recent chest CT. Calcifications within the aortic knob. IMPRESSION: No significant change compared to the prior study. No acute process. ACT 112: Negative or not required by law. Electronically signed by: Alistair Mackey M.D. 11/04/2022 4:19 PM KUB X-Ray 11/04/22 15:16 KUB HISTORY: severe confusion. Constipation/impaction? COMPARISON: Abdomen and pelvis CT 10/24/2022. KUB 05/08/2018. FINDINGS: The bowel gas pattern is unremarkable. There are no dilated loops of small bowel to suggest an obstruction. No renal calculi. No ureteral calculi. No pneumoperitoneum or pneumatosis. Small amount of well-formed stool seen within the colon. IMPRESSION: 1. Nonobstructive bowel gas pattern. 2. Mild fecal retention. ACT 112: Negative or not required by law. Electronically signed by: Alistair Mackey M.D. 11/04/2022 4:21 PM Hospital Course (1) Encephalopathy acute: Ongoing. WORSE last 24 hours. His confusion is in the setting of baseline dementia. Exact cause of his encephalopathy at time of presentation was uncertain. He had MARTÍN with low BP at time of ER arrival. Initial concern was for UTI at time of admission but culture did not grow anything. Repeat urine cx - despite very dirty u/a - did not grow anything either. False neg urine cx's ? prostatitis? will treat presumptively for UTI - cont cefdinir and treat for another 7-10 days. day #5 cefdinir. MRI brain negative for CVA etc. VBG without CO2 retention. Ammonia wnl. Patient has had urinary retention issues during this stay; thus, s/p reina placement 10/31. I informed his primary urologist, Dr Michele, about this. Despite reinforcing day/night wake cycles, moving his room to have more windows/sunlight, removing tissue technologist, etc he has worsened over the last few days. This is in the face of increasing doses of seroquel. I spoke with Dr Jewels Colvin, psychiatry. She will provide formal consultation. We discussed his care. Records reviewed - in 2020 during his stay for COVID he had severe delirium. He used zyprexa 5mg HS with good results. Thus, will stop seroquel and change to zyprexa 5mg HS with prn doses as well. To r/o other contributors check cxr, KUB x-ray (r/o impaction), COVID test. Repeat labs am. (2) MARTÍN (acute kidney injury): Peak Cr 2.8 at admission. Has had fluctuating creatinine levels while here due to poor po intake, etc. Creatinine was 1 yesterday. Cont to HOLD Lisinopril. (3) Fall: falls at home prior to admission suspect due to hypotension, etc PT, OT when able. needs rehab post-discharge - [facility] B12 level wnl. (4) Malignant neoplasm of bladder: s/p cysto with TURBT on 10/08/[address] Michele. Initial concern for UTI early in the stay but urine cx negative. Repeat u/a via straight cath suspicious for UTI but culture again negative. Will still Rx presumptively for UTI or maybe even prostatitis. Cont cefdinir Cont reina f/u Dr Michele about 7 days post-discharge for voiding trial, etc (5) Diabetes mellitus: a1c 6.9%. cont novolog SSI. controlled. (6) AVNRT (AV daniela re-entry tachycardia): none seen on tele. cont metoprolol succinate 25mg daily. pacing on monitor previously. (7) BPH (benign prostatic hyperplasia): Cont flomax. Had urinary retention issues all last week - s/p reina 10/31/22. Continue reina until seen by Dr Michele in the clinic for voiding trial. (8) Hypothyroidism: TSH 1.7. Cont levothyroxine. (9) Coronary artery disease: h/o multiple stents. Cont asa, plavix, statin, metoprolol succinate Hold BAN due to recurrent MARTÍN. (10) Paroxysmal atrial flutter: none seen on pacer interrogation nor our telemetry monitoring. he is not on chronic anticoagulation. MRI brain without signs of acute or subacute CVA. (11) S/P coronary artery stent placement: multiple stents cont plavix (12) COPD (chronic obstructive pulmonary disease): no exacerbation at this time. cont home inhalers. (13) Peripheral neuropathy: cont gabapentin BID. (14) Weakness: suspect combination of factors including suspected UTI, deconditioning, etc cont PT/OT. rehab post-d/c. (15) Lesion of lung: CT chest: Irregular 10 mm nodule within the right upper lobe previously measured 6 mm, stable 10 mm solid nodule of the left lower lobe is unchanged dating back to the initial study from 2019 CT chest also showed: borderline enlarged mediastinal lymph nodes measure up to 11 mm in the paratracheal and subcarinal distributions recommend f/u scan in 3-6 months (16) Morbid obesity with BMI of 40.0-44.9, adult: BMI 40 (17) Dementia: known diagnosis I believe this is the main reason for his anorexia added low-dose prednisone and he ate better 1 day, then back to fair appetite at best stop prednisone (18) Cerebrovascular disease: cerebellar CVA on previous CT cont asa/plavix for secondary prevention MRI brain without acute CVA Discharge Plan Discharge Items Reason For Visit: WEAKNESS, CONFUSION Follow-up/Referrals: Carmen Mims CRNP [Primary Care Provider] - Medications and DC Order Prescriptions: No Action allopurinol 100 mg tablet 100 mg PO BID clopidogrel 75 mg tablet 75 mg PO QAM atorvastatin 40 mg tablet 40 mg PO HS Combivent Respimat 20-100 mcg/actuation mist 1 puff inhalation 4XD PRN (Reason: WHEEZING/COUGHING) Jardiance 10 mg tablet 10 mg PO QAM thiamine HCl (vitamin B1) 100 mg tablet 100 mg PO DAILY ferrous sulfate [FeroSul] 325 mg (65 mg iron) tablet 325 mg PO BID famotidine [Pepcid] 20 mg tablet 20 mg PO QAM aspirin 81 mg Tablet,Delayed Release (Dr/Ec) 81 mg PO QAM Januvia 100 mg Tablet 100 mg PO HS levothyroxine [Synthroid] 100 mcg Tablet 100 mcg PO DAILYBB Qty: 30 0RF bupropion HCl 100 mg tablet sustained-release 12 hr 100 mg PO BID Qty: 0 0RF B-complex with vitamin C Capsule 1 cap PO HS carvedilol 6.25 mg Tablet 6.25 mg PO BID Patient Comments: takes 2 tab bid (recent change) Rx Instructions: must administer with a meal/food furosemide 40 mg Tablet 40 mg PO QAM gabapentin 600 mg Tablet See Rx Instructions .ROUTE .COMPLEX Rx Instructions: Take 600mg with 300mg by mouth to equal 900mg twice daily venlafaxine 75 mg Tablet 75 mg PO DAILY nitroglycerin 0.4 mg Tablet, Sublingual 0.4 mg buccal UD PRN (Reason: Chest Pain) lisinopril 2.5 mg Tablet 2.5 mg PO QAM Centrum Silver Men 300-600-300 mcg Tablet 1 tab PO QAM Prevagen 1 tab PO DAILY loratadine 10 mg Tablet 10 mg PO DAILY PRN (Reason: Allergy Symptoms) tamsulosin 0.4 mg capsule 0.4 mg PO HS gabapentin 300 mg capsule See Rx Instructions .ROUTE .COMPLEX Rx Instructions: Take 300mg with 600mg by mouth to equal 900mg twice daily metoprolol succinate 25 mg tablet extended release 24 hr 25 mg PO DAILY ipratropium-albuterol [DuoNeb] 0.5 mg-3 mg(2.5 mg base)/3 mL Solution For Nebulization 3 ml INHALATION Q4H PRN (Reason: wheezing/cough) fluticasone propion-salmeterol [Advair Diskus] 250-50 mcg/dose Blister With Device 1 inh INHALATION BID Krames/Other Patient Handouts: High Blood Sugar (Hyperglycemia), Hypoglycemia (Low Blood Sugar), Managing Type 2 Diabetes Admission Data Admit Date/Time: 10/24/22 19:07 Attending Provider: Franco Price Admit Provider: Liliana Reed Primary Care Provider: Carmen Mims Other Providers: Franco Trujillo ; Jewels Colvin ; Deneen Reinoso ; Maximus Zurita ; Graeme Rowe Coding Diagnoses Encephalopathy acute G93.40 MARTÍN (acute kidney injury) N17.9 Fall W19.XXXA Malignant neoplasm of bladder C67.9 Diabetes mellitus E11.9 AVNRT (AV daniela re-entry tachycardia) I47.1 BPH (benign prostatic hyperplasia) N40.0 Hypothyroidism E03.9 Coronary artery disease I25.10 Paroxysmal atrial flutter I48.92 S/P coronary artery stent placement Z95.5 COPD (chronic obstructive pulmonary disease) J44.9 Peripheral neuropathy G62.9 Weakness R53.1 Lesion of lung R91.1 Morbid obesity with BMI of 40.0-44.9, adult E66.01; Z68.41 Dementia F03.90 Cerebrovascular disease I67.9
[2022-11-06] MEDS ORDERED: OLANZapine 10 MG/2.1 ML SDV IM STA (18:52)
[2022-11-06] MEDS: OLANZapine 5 MG TABLET PO SCH (21:56)
[2022-11-06] MEDS: TAMSULOSIN HCL 0.4 MG CAP PO SCH (21:56)
[2022-11-06] MEDS: ATORVASTATIN 40 MG TAB PO SCH (21:57)
[2022-11-06] MEDS: MELATONIN 3 MG TAB PO SCH (21:57)
[2022-11-07] MEDS: LEVOTHYROXINE SODIUM 100 MCG TABLET PO SCH (05:48)
[2022-11-07] MEDS: allopurinoL 100 MG TAB PO SCH ×2 (08:00→19:26)
[2022-11-07] MEDS: ASPIRIN 81 MG ECTAB PO SCH (08:01)
[2022-11-07] MEDS: FERROUS SULFATE 325 MG TAB PO SCH ×2 (08:01→19:27)
[2022-11-07] MEDS: GABAPENTIN 300 MG CAP PO SCH ×2 (08:01→19:27)
[2022-11-07] MEDS: FAMOTIDINE 20 MG TAB PO SCH (08:01)
[2022-11-07] MEDS: CLOPIDOGREL BISULFATE 75 MG TAB PO SCH (08:01)
[2022-11-07] MEDS: ENOXAPARIN INJ 40 MG/0.4 ML SYR SQ SCH (08:02)
[2022-11-07] MEDS: METOPROLOL SUCC 25MG EXT REL TAB PO SCH (08:02)
[2022-11-07] MEDS: VENLAFAXINE HCL XR 75 MG CAPXR PO SCH (08:02)
--- NOTE | 2022-11-07 08:36 | Hospitalist Progress Note ---
Date of Service November 07, 2022 Assessment & Plan (1) Encephalopathy acute: Plan: Ongoing. WORSE last 24 hours. His confusion is in the setting of baseline dementia. Exact cause of his encephalopathy at time of presentation was uncertain. He had MARTÍN with low BP at time of ER arrival. Initial concern was for UTI at time of admission but culture did not grow anything. Repeat urine cx - despite very dirty u/a - did not grow anything either. False neg urine cx's ? prostatitis? will treat presumptively for UTI - cont cefdinir and treat for another 7-10 days. day #8 cefdinir. (plan additional 3 days -- fell off MAR yesterday, will given dose NOW, continue additional 3 days) MRI brain negative for CVA etc. VBG without CO2 retention. Ammonia wnl. Patient has had urinary retention issues during this stay; thus, s/p reina placement 10/31. I informed his primary urologist, Dr Michele, about this. Despite reinforcing day/night wake cycles, moving his room to have more windows/sunlight, removing cosmetic assembler, etc he has worsened over the last few days. This is in the face of increasing doses of seroquel. Spoke with Dr Jewels Colvin, psychiatry, formal consult in chart. Records reviewed - in 2020 during his stay for [facility] he had severe delirium. He used zyprexa 5mg HS with good results. Thus, will stop seroquel and change to zyprexa 5mg HS with 2.5mg prn doses as well. To r/o other contributors check cxr, KUB x-ray (r/o impaction), COVID test. 11/06 -- tolerating 5mg zyprexa well. Eating/drinking, no agitation/issues reported. Initially was going to [facility] [place] today per CM discussion w/ daughter given improvement yesterday and bed available today however this afternoon more admissions for [place] and unable to discharge today. 11/07 --> agitation overnight, did take the 5mg zyprexa PO however, no need for the IM dosing. 1;1 ordered overnight as patient wanting to continue to get out of bed/unsteady on his feet (reports he is lonely, spoke with him/stories about being in the war/miliary for about 30-40 minutes this morning, not agitated or attempting to get out of bed) RN provided 2.5mg PO Zyprexa for this morning Will see about having another patient in the room with him to keep him company -- alerted primer charger Will attempt to change back to q15min checks Cefdinir fell off after yesterday AM dose, resume x 1 NOW, continue to complete 10 day course Increased thiamine to 200mg BID given low normal B1 level @ 9 [facility] planned once off 1:1 for 24 hours, CM following (2) MARTÍN (acute kidney injury): Plan: Peak Cr 2.8 at admission. Has had fluctuating creatinine levels while here due to poor po intake, etc. Creatinine was 1, now 1.34. Encouraged to increase PO - had cheeseburger yest erday, doesn't like the breakfast here. To push oral fluids today Cont to HOLD Lisinopril -- plan to hold at d.c . Also would hold lasix as not given during inpatient stay (weights not significantly up either) (3) Fall: Plan: falls at home prior to admission suspect due to hypotension, etc PT, OT when able. needs rehab post-discharge - [facility] in [place] B12 level wnl. B1 level 9, increased supplementation to 200mg BID in meantime (4) Malignant neoplasm of bladder: Plan: s/p cysto with TURBT on 10/08/[address] Michele. Initial concern for UTI early in the stay but urine cx negative. Repeat u/a via straight cath suspicious for UTI but culture again negative. Will still Rx presumptively for UTI or maybe even prostatitis. Cont cefdinir, tx x 10 days as above -- resumed to extend course to 10 days rather than 7 days as already received by 11/06 Cont reina f/u Dr Michele about 7 days post-discharge for voiding trial, etc (5) Diabetes mellitus: Plan: a1c 6.9%. cont novolog SSI. controlled. (6) AVNRT (AV daniela re-entry tachycardia): Plan: none seen on tele. cont metoprolol succinate 25mg daily. pacing on monitor previously. not given carvedilol during inpatient stay, would plan to continue to hold at discharge given stability inpatient (7) BPH (benign prostatic hyperplasia): Plan: Cont flomax. Had urinary retention issues all last week - s/p reina 10/31/22. Continue reina until seen by Dr Michele in the clinic for voiding trial. (8) Hypothyroidism: Plan: TSH 1.7. Cont levothyroxine. (9) Coronary artery disease: Plan: h/o multiple stents. Cont asa, plavix, statin, metoprolol succinate Hold BAN due to recurrent MARTÍN. (10) Paroxysmal atrial flutter: Plan: none seen on pacer interrogation nor our telemetry monitoring. he is not on chronic anticoagulation. MRI brain without signs of acute or subacute CVA. (11) S/P coronary artery stent placement: Plan: multiple stents cont plavix (12) COPD (chronic obstructive pulmonary disease): Plan: no exacerbation at this time. cont home inhalers (13) Peripheral neuropathy: Plan: cont gabapentin BID. (14) Weakness: Plan: suspect combination of factors including suspected UTI, deconditioning, etc cont PT/OT. rehab post-d/c. (15) Lesion of lung: Plan: CT chest: Irregular 10 mm nodule within the right upper lobe previously measured 6 mm, stable 10 mm solid nodule of the left lower lobe is unchanged dating back to the initial study from 2019 CT chest also showed: borderline enlarged mediastinal lymph nodes measure up to 11 mm in the paratracheal and subcarinal distributions recommend f/u scan in 3-6 months (16) Morbid obesity with BMI of 40.0-44.9, adult: (17) Dementia: Plan: known diagnosis I believe this is the main reason for his anorexia added low-dose prednisone and he ate better 1 day, then back to fair appetite at best, improving. depends on what is provided, sick of typical breakfast here stopped prednisone (18) Cerebrovascular disease: Plan: cerebellar CVA on previous CT cont asa/plavix for secondary prevention MRI brain without acute CVA Plan continued inpatient stay, extended abx for UTI zyprexa 2.5mg PO this morning, continue 5mg HS Increased thiamine to BID supplementation - continue at d/c Will attempt to change back to q15min checks (starting at noon today per nursing), Too Chiu once off 1:1 for 24 hours. CM following Admission and Anticipated Discharge Date Admission Date: October 24, 2022 Supervising Physician Co-Signing Physician Notes The patient was not seen by me. The chart was reviewed. Case discussed with LUCY Reza. Agree with assessment and plan Subjective eval this morning around 1130, more agitated overnight. slept on the floor w/ blankets. per nursing, swtiched to female nurses. patient wanting to continue to get up out of bed, reports he is lonely. states he knows he's in the hospital and year 2022, but thought it was January. He states he keeps saying January because that's when his birthday is. When asked he states he will be turning 83. He does know he felt a little confused this morning but feels back to his "usual self" He is NOT happy about need to go to rehab. Agitated with male staff/thinking they were poisoning him last night. Did not require IM zyprexa. Asked RN to administer prn dose for this morning. Will attempt to change to q15min checks later today if remaining stable. Noted cheeseburger yesterday was good. Discussed pushing oral fluids -- he notes he doesn't drink anymore, he quit a couple months after his prior 2-3month bout with covid. Will plan to increase his PO thiamine to 200mg BID, level at 9 earlier in stay. Questions/concerns addressed at present. Physical Exam Physical Exam: gen - obese, sitting up in bed, joking/laughing, no acute distress neck - no JVD mouth - MMM heart - RRR, s1 s2, no murmur lungs - CTA b/l; on room air abd - soft NT ND BS+ ext - no edema b/l, pulses 2+ b/l skin - no rash - reina in place draining yellow urine, more concentrated today psych- alert to person/place/year, not month (thought was January), cooperative with exam but unhappy about need for rehab Results & Data Results & Data Vital Signs (Past 12 Hours) Vital Signs Temp Pulse Resp BP Pulse Ox O2 Del Method 11/07/22 07:55 36.2 C L 71 16 147/70 H 98 Room Air Laboratory Results 11/07/22 11/07/22 11/07/22 Range/Units 11:34 08:08 08:03 Sodium (136-145) mmol/L Potassium (3.5-5.1) mmol/L Chloride (98-107) mmol/L Carbon Dioxide (21-32) mmol/L Anion Gap (3-11) BUN (6-23) mg/dl Creatinine (0.6-1.4) mg/dl Est Cr Clr Drug Dosing ml/min Est GFR ( Amer) ml/min Est GFR (Non-Af Amer) ml/min BUN/Creatinine Ratio (10-20) Glucose (70-99(Fasting)) mg/dl POC Glucose 102 H 108 H (70-99) mg/dl Calcium (8.6-10.3) mg/dl Folate 13.39 (>5.38) ng/ml 11/07/22 11/06/22 11/06/22 Range/Units 08:03 21:37 16:40 Sodium 141 (136-145) mmol/L Potassium 4.1 (3.5-5.1) mmol/L Chloride 107 (98-107) mmol/L Carbon Dioxide 25 (21-32) mmol/L Anion Gap 9 (3-11) BUN 22 (6-23) mg/dl Creatinine 1.34 (0.6-1.4) mg/dl Est Cr Clr Drug Dosing 49.1 ml/min Est GFR ( Amer) 56.4 ml/min Est GFR (Non-Af Amer) 48.6 ml/min BUN/Creatinine Ratio 16.4 (10-20) Glucose 120 H (70-99(Fasting)) mg/dl POC Glucose 127 H 87 (70-99) mg/dl Calcium 9.5 (8.6-10.3) mg/dl Folate (>5.38) ng/ml PG Care Time/CCT Total # of Minutes Spent Total Time Spent with Patient: Total time spent is greater than 50% in coordination of care (as documented) at patient's floor/unit and/or counseling patient: Coding Level of Care Code 12818 SUB INP/OBS CARE 3/50MIN Diagnoses Encephalopathy acute G93.40 MARTÍN (acute kidney injury) N17.9 Fall W19.XXXA Malignant neoplasm of bladder C67.9 Diabetes mellitus E11.9 AVNRT (AV daniela re-entry tachycardia) I47.1 BPH (benign prostatic hyperplasia) N40.0 Hypothyroidism E03.9 Coronary artery disease I25.10 Paroxysmal atrial flutter I48.92 S/P coronary artery stent placement Z95.5 COPD (chronic obstructive pulmonary disease) J44.9 Peripheral neuropathy G62.9 Weakness R53.1 Lesion of lung R91.1 Morbid obesity with BMI of 40.0-44.9, adult E66.01; Z68.41 Dementia F03.90 Cerebrovascular disease I67.9
[2022-11-07 08:49] LABS: BUN Creatinine Ratio 16.4 (10-20); Calcium 9.5 mg/dl (8.6-10.3); Creatinine Clr Calc Pharmacy 49.1 ml/min; Est GFR (African American) 56.4 ml/min; Est GFR (Non-African American) 48.6 ml/min; Potassium 4.1 mmol/L (3.5-5.1)
[2022-11-07] MEDS: INSULIN ASPART PER UNIT CHARGE SC SCH ×4 (08:56→20:27)
[2022-11-07] MEDS: POLYETHYLENE (MIRALAX) 17 GM PACK PO SCH ×2 (08:56→19:29)
[2022-11-07] MEDS: THIAMINE HCL 100 MG TAB PO SCH ×2 (08:56→19:28)
[2022-11-07] MEDS: SENNA 8.6 MG TAB PO SCH (08:56)
[2022-11-07] MEDS: FLUTICASONE/VILANTEROL 100/25MCG 14 PUFFS/INHALER INH SCH (08:56)
[2022-11-07] MEDS ORDERED: OLANZAPINE 2.5 MG TAB PO PRN (10:38)
[2022-11-07] MEDS ORDERED: CEFDINIR 300 MG CAP PO STA (12:19)
[2022-11-07] MEDS: OLANZAPINE 2.5 MG TAB PO PRN (15:10)
[2022-11-07] MEDS ORDERED: SODIUM CHLORIDE 0.9% 500 ML IV SCH (15:15)
[2022-11-07] MEDS: TAMSULOSIN HCL 0.4 MG CAP PO SCH (19:26)
[2022-11-07] MEDS: OLANZapine 5 MG TABLET PO SCH (19:26)
[2022-11-07] MEDS: ATORVASTATIN 40 MG TAB PO SCH (19:26)
[2022-11-07] MEDS: MELATONIN 3 MG TAB PO SCH (19:27)
[2022-11-07] MEDS: CEFDINIR 300 MG CAP PO SCH (19:28)
[2022-11-08] MEDS: LEVOTHYROXINE SODIUM 100 MCG TABLET PO SCH (05:33)
[2022-11-08 07:49] LABS: BUN Creatinine Ratio 19.3 (10-20); Calcium 9.3 mg/dl (8.6-10.3); Creatinine Clr Calc Pharmacy 48.8 ml/min; Est GFR (African American) 55.9 ml/min; Est GFR (Non-African American) 48.2 ml/min; Magnesium 1.8 mg/dl (1.7-2.4); Potassium 4.1 mmol/L (3.5-5.1)
[2022-11-08] MEDS: FERROUS SULFATE 325 MG TAB PO SCH (08:01)
[2022-11-08] MEDS: ASPIRIN 81 MG ECTAB PO SCH (08:01)
[2022-11-08] MEDS: CLOPIDOGREL BISULFATE 75 MG TAB PO SCH (08:01)
[2022-11-08] MEDS: CEFDINIR 300 MG CAP PO SCH (08:01)
[2022-11-08] MEDS: FAMOTIDINE 20 MG TAB PO SCH (08:01)
[2022-11-08] MEDS: allopurinoL 100 MG TAB PO SCH (08:01)
[2022-11-08] MEDS: GABAPENTIN 300 MG CAP PO SCH (08:01)
[2022-11-08] MEDS: METOPROLOL SUCC 25MG EXT REL TAB PO SCH (08:01)
[2022-11-08] MEDS: SENNA 8.6 MG TAB PO SCH (08:01)
[2022-11-08] MEDS: THIAMINE HCL 100 MG TAB PO SCH (08:02)
[2022-11-08] MEDS: VENLAFAXINE HCL XR 75 MG CAPXR PO SCH (08:02)
[2022-11-08] MEDS: FLUTICASONE/VILANTEROL 100/25MCG 14 PUFFS/INHALER INH SCH (08:02)
[2022-11-08] MEDS: ENOXAPARIN INJ 40 MG/0.4 ML SYR SQ SCH (08:02)
[2022-11-08] MEDS: POLYETHYLENE (MIRALAX) 17 GM PACK PO SCH (08:02)
[2022-11-08] MEDS: INSULIN ASPART PER UNIT CHARGE SC SCH ×2 (08:03→11:53)
--- NOTE | 2022-11-08 08:14 | Hospitalist Progress Note ---
Date of Service November 08, 2022 Assessment & Plan (1) Encephalopathy acute: Plan: Ongoing. WORSE last 24 hours. His confusion is in the setting of baseline dementia. Exact cause of his encephalopathy at time of presentation was uncertain. He had MARTÍN with low BP at time of ER arrival. Initial concern was for UTI at time of admission but culture did not grow anything. Repeat urine cx - despite very dirty u/a - did not grow anything either. False neg urine cx's ? prostatitis? will treat presumptively for UTI - cont cefdinir and treat for another 7-10 days. day #8 cefdinir. (plan additional 3 days -- fell off MAR yesterday, will given dose NOW, continue additional 3 days) MRI brain negative for CVA etc. VBG without CO2 retention. Ammonia wnl. Patient has had urinary retention issues during this stay; thus, s/p reina placement 10/31. I informed his primary urologist, Dr Michele, about this. Despite reinforcing day/night wake cycles, moving his room to have more windows/sunlight, removing cafe worker, etc he has worsened over the last few days. This is in the face of increasing doses of seroquel. Spoke with Dr Jewels Colvin, psychiatry, formal consult in chart. Records reviewed - in 2020 during his stay for [facility] he had severe delirium. He used zyprexa 5mg HS with good results. Thus, will stop seroquel and change to zyprexa 5mg HS with 2.5mg prn doses as well. To r/o other contributors check cxr, KUB x-ray (r/o impaction), COVID test. 11/06 -- tolerating 5mg zyprexa well. Eating/drinking, no agitation/issues reported. Initially was going to [facility] [place] today per CM discussion w/ daughter given improvement yesterday and bed available today however this afternoon more admissions for [place] and unable to discharge today. 11/07 --> agitation overnight, did take the 5mg zyprexa PO however, no need for the IM dosing. 1;1 ordered overnight as patient wanting to continue to get out of bed/unsteady on his feet (reports he is lonely, spoke with him/stories about being in the war/miliary for about 30-40 minutes this morning, not agitated or attempting to get out of bed) RN provided 2.5mg PO Zyprexa for this morning Will see about having another patient in the room with him to keep him company -- alerted discharge coordinator Will attempt to change back to q15min checks Cefdinir fell off after yesterday AM dose, resume x 1 NOW, continue to complete 10 day course Increased thiamine to 200mg BID given low normal B1 level @ 9 [facility] planned once off 1:1 for 24 hours, CM following 11/08 --> (2) MARTÍN (acute kidney injury): Plan: Peak Cr 2.8 at admission. Has had fluctuating creatinine levels while here due to poor po intake, etc. Creatinine was 1, now 1.34. Encouraged to increase PO - had cheeseburger yesterday, doesn't like the breakfast here. To push oral fluids today Cont to HOLD Lisinopril -- plan to hold at d.c . Also would hold lasix as not given during inpatient stay (weights not sig nificantly up either) (3) Fall: Plan: falls at home prior to admission suspect due to hypotension, etc PT, OT when able. needs rehab post-discharge - [facility] in [place] B12 level wnl. B1 level 9, increased supplementation to 200mg BID in meantime (4) Malignant neoplasm of bladder: Plan: s/p cysto with TURBT on 10/08/[address] Michele. Initial concern for UTI early in the stay but urine cx negative. Repeat u/a via straight cath suspicious for UTI but culture again negative. Will still Rx presumptively for UTI or maybe even prostatitis. Cont cefdinir, tx x 10 days as above -- resumed to extend course to 10 days rather than 7 days as already received by 11/06 Cont reina f/u Dr Michele about 7 days post-discharge for voiding trial, etc (5) Diabetes mellitus: Plan: a1c 6.9%. cont novolog SSI. controlled. (6) AVNRT (AV daniela re-entry tachycardia): Plan: none seen on tele. cont metoprolol succinate 25mg daily. pacing on monitor previously. not given carvedilol during inpatient stay, would plan to continue to hold at discharge given stability inpatient (7) BPH (benign prostatic hyperplasia): Plan: Cont flomax. Had urinary retention issues all last week - s/p reina 10/31/22. Continue reina until seen by Dr Michele in the clinic for voiding trial. (8) Hypothyroidism: Plan: TSH 1.7. Cont levothyroxine. (9) Coronary artery disease: Plan: h/o multiple stents. Cont asa, plavix, statin, metoprolol succinate Hold BAN due to recurrent MARTÍN. (10) Paroxysmal atrial flutter: Plan: none seen on pacer interrogation nor our telemetry monitoring. he is not on chronic anticoagulation. MRI brain without signs of acute or subacute CVA. (11) S/P coronary artery stent placement: Plan: multiple stents cont plavix (12) COPD (chronic obstructive pulmonary disease): Plan: no exacerbation at this time. cont home inhalers (13) Peripheral neuropathy: Plan: cont gabapentin BID. (14) Weakness: Plan: suspect combination of factors including suspected UTI, deconditioning, etc cont PT/OT. rehab post-d/c. (15) Lesion of lung: Plan: CT chest: Irregular 10 mm nodule within the right upper lobe previously measured 6 mm, stable 10 mm solid nodule of the left lower lobe is unchanged dating back to the initial study from 2019 CT chest also showed: borderline enlarged mediastinal lymph nodes measure up to 11 mm in the paratracheal and subcarinal distributions recommend f/u scan in 3-6 months (16) Morbid obesity with BMI of 40.0-44.9, adult: (17) Dementia: Plan: known diagnosis I believe this is the main reason for his anorexia added low-dose prednisone and he ate better 1 day, then back to fair appetite at best, improving. depends on what is provided, sick of typical breakfast here stopped prednisone (18) Cerebrovascular disease: Plan: cerebellar CVA on previous CT cont asa/plavix for secondary prevention MRI brain without acute CVA Plan continued inpatient stay, extended abx for UTI zyprexa 2.5mg PO this morning, continue 5mg HS Increased thiamine to BID supplementation - continue at d/c Will attempt to change back to q15min checks (starting at noon today per barry solis), Too Chiu once off 1:1 for 24 hours. CM following Admission and Anticipated Discharge Date Admission Date: October 24, 2022 Results & Data Results & Data Vital Signs (Past 12 Hours) Vital Signs Temp Pulse Resp BP Pulse Ox O2 Del Method 11/08/22 07:05 36.9 C 75 18 163/85 H 97 Room Air Laboratory Results 11/08/22 11/08/22 11/07/22 Range/Units 07:45 06:43 20:12 Sodium 140 (136-145) mmol/L Potassium 4.1 (3.5-5.1) mmol/L Chloride 108 H (98-107) mmol/L Carbon Dioxide 27 (21-32) mmol/L Anion Gap 5 (3-11) BUN 26 H (6-23) mg/dl Creatinine 1.35 (0.6-1.4) mg/dl Est Cr Clr Drug Dosing 48.8 ml/min Est GFR ( Amer) 55.9 ml/min Est GFR (Non-Af Amer) 48.2 ml/min BUN/Creatinine Ratio 19.3 (10-20) Glucose 140 H (70-99(Fasting)) mg/dl POC Glucose 159 H 120 H (70-99) mg/dl Calcium 9.3 (8.6-10.3) mg/dl Magnesium 1.8 (1.7-2.4) mg/dl Folate (>5.38) ng/ml 11/07/22 11/07/22 11/07/22 Range/Units 16:16 11:34 08:03 Sodium (136-145) mmol/L Potassium (3.5-5.1) mmol/L Chloride (98-107) mmol/L Carbon Dioxide (21-32) mmol/L Anion Gap (3-11) BUN (6-23) mg/dl Creatinine (0.6-1.4) mg/dl Est Cr Clr Drug Dosing ml/min Est GFR ( Amer) ml/min Est GFR (Non-Af Amer) ml/min BUN/Creatinine Ratio (10-20) Glucose (70-99(Fasting)) mg/dl POC Glucose 95 102 H (70-99) mg/dl Calcium (8.6-10.3) mg/dl Magnesium (1.7-2.4) mg/dl Folate 13.39 (>5.38) ng/ml 11/07/22 Range/Units 08:03 Sodium 141 (136-145) mmol/L Potassium 4.1 (3.5-5.1) mmol/L Chloride 107 (98-107) mmol/L Carbon Dioxide 25 (21-32) mmol/L Anion Gap 9 (3-11) BUN 22 (6-23) mg/dl Creatinine 1.34 (0.6-1.4) mg/dl Est Cr Clr Drug Dosing 49.1 ml/min Est GFR ( Amer) 56.4 ml/min Est GFR (Non-Af Amer) 48.6 ml/min BUN/Creatinine Ratio 16.4 (10-20) Glucose 120 H (70-99(Fasting)) mg/dl POC Glucose (70-99) mg/dl Calcium 9.5 (8.6-10.3) mg/dl Magnesium (1.7-2.4) mg/dl Folate (>5.38) ng/ml PG Care Time/CCT Total # of Minutes Spent Total Time Spent with Patient: Total time spent is greater than 50% in coordination of care (as documented) at patient's floor/unit and/or counseling patient: Coding Diagnoses Encephalopathy acute G93.40 MARTÍN (acute kidney injury) N17.9 Fall W19.XXXA Malignant neoplasm of bladder C67.9 Diabetes mellitus E11.9 AVNRT (AV daniela re-entry tachycardia) I47.1 BPH (benign prostatic hyperplasia) N40.0 Hypothyroidism E03.9 Coronary artery disease I25.10 Paroxysmal atrial flutter I48.92 S/P coronary artery stent placement Z95.5 COPD (chronic obstructive pulmonary disease) J44.9 Peripheral neuropathy G62.9 Weakness R53.1 Lesion of lung R91.1 Morbid obesity with BMI of 40.0-44.9, adult E66.01; Z68.41 Dementia F03.90 Cerebrovascular disease I67.9
[2022-11-08] MEDS ORDERED: OLANZAPINE 2.5 MG TAB PO SCH (09:00)
--- NOTE | 2022-11-08 09:52 | Discharge Summary ---
Date of Service November 08, 2022 Admission HPI Per Admitting Provider Chief Complaint: Weakness, confusion Primary Care Provider: LIZBET Ponce Pt is a 82 yo male with a past medical history of hx AVNRT and atrial flutter with pacemaker, bladder cancer s/p surgery 2 weeks ago, hx stroke without residual deficits, COPD, memory deficits, hx delirium, cerebrovascular disease, CAD with 6 stents, BPH,hypothyroidism, DM who presents to the hospital on 10/24/22 for weakness and confusion. Pt presents to the ER with family. History from daughter: Daughter states that she has been concerned because in the last 2 days, the pt has become more confused than his baseline and that they have found him twice on the ground at home and lethargic. She states that he had covid about 2 years ago, and at the time had become delirious and combative and required 4 point restraints in the hospital. She states he recovered since then but that he is always a bit off, sometimes commenting on visual stimuli that aren't there or talking to himself. She states that he also has neuropathy in both his legs, so he is sometimes a bit unsteady, but they have never before found him on the floor when going to check on him like the last 2 days. She states that when his son checked on him yesterday, he was on the floor and very lethargic and disoriented, denying that he had fallen. She states that he was again found on the floor today and again denied having fallen. She states that he just had bladder surgery 2 weeks ago for bladder cancer and had been seemingly doing fine until the last 2 days. She states that earlier today or yesterday he had commented that there was a waterfa ll going down the wall in his house and that he got a bit frustrated that no one else saw it. She also notes he barely drinks water at home since he looks dry today. She notes he also seems more fatigued. While in the room, the patient kept saying there was something in his pocket and kept trying to pull something out of his pocket, which was empty. Pt insisted something was there, even when shown nothing was in his pocket. He also was easily distracted from the interview and talked about interviewing me and playing the Maced[place] flute when he dies. The patient did state that he does not think he fell and that he just gets cramps in his calves sometimes. Otherwise, he states he feels fine. Allergies Admission Exam Per Admitting Provider General:Alert, no acute distress, oriented to self, year, and event, but not place Cardio:Regular rate and rhythm, Resp: Lungs clear to auscultation b/l, GI:Soft and nontender, nondistended, bowel sounds active Skin:Warm, dry, pale, bruise on R chest noted Extremities:No edema, muscle strength 4/5 in lower extremities, no calf tenderness Principal Diagnosis Falls, UTI, Encephalopathy Discharge Exam General: WD obese male sitting up in recliner chair, dressed and saying ready for discharge, no acute distress HEENT: head normocephalic, atraumatic, no JVD, mmm/slightly dry Resp: CTA, slightly diminished in the bases, no w/c/r, on room air CV: RRR, no significant m/r/g, no pitting edema/calf tenderness GI: +BS, slight distension but nontender : reina draining concentrated yellow urine MSK/Neuro: no focal deficit, peripheral neuropathy at baseline, follows commands as able, no slurred speech/facial droop Psych: alert to person, stated year 2022, month initially reported January but said that's his birthday month instead, no agitation/aggression Discharge Data Allergies Allergy/AdvReac Type Severity Reaction Status Date / Time tiotropium Allergy Intermediate Eye pain Verified 10/24/22 19:29 Consultations 10/24/22 18:33 ED Decision to Admit Stat 10/24/22 20:52 HIM [Consult Health Information Management] Routine 11/04/22 15:22 Consult Psychiatry Routine Ordered Studies Chest X-Ray 10/24/22 14:42 XR chest 1V portable HISTORY: 82 years-old Male Sepsis acute sepsis COMPARISON: 06/17/2020 TECHNIQUE: AP view of the chest FINDINGS: Cardiac silhouette is enlarged. Left subclavian pacer. Emphysema with chronic interstitial coarsening. Chronic blunting of the costophrenic angles. No pneumothorax or lobar airspace consolidation. Degenerative changes of the shoulders and spine IMPRESSION: 1. Cardiomegaly without overt pulmonary edema. 2. Emphysema with chronic interstitial coarsening. ACT 112: Negative or not required by law. The above report was generated using voice recognition software. It may contain grammatical, syntax or spelling errors. Electronically signed by: Luis Lal M.D. 10/24/2022 3:[address] 10/24/22 15:31 CT head/brain wo con CLINICAL HISTORY: 82 years-old Male with intermittent confusion, BLE weakness. Acutely altered mental status TECHNIQUE: Multiple axial CT images of the head were obtained without contrast. A dose lowering technique was utilized adhering to the principles of ALARA. COMPARISON: CT cervical spine of same day, 06/22/2020 FINDINGS: No acute intracranial hemorrhage, midline shift, intracranial mass, hydro cephalus, territorial ischemia or abnormal extra-axial collection. Involutional changes with chronic microvascular ischemic disease. Chronic right cerebellar infarct. Cerebral vascular calcifications. The calvarium is intact. Prior bilateral lens repair. The paranasal sinuses, mastoid air cells, and middle ear cavities are clear. IMPRESSION: No acute intracranial abnormality identified. ACT 112: Negative or not required by law. The above report was generated using voice recognition software. It may contain grammatical, syntax or spelling errors. Electronically signed by: Luis Lal M.D. 10/24/2022 5:39 PM Abdomen/Pelvis CT 10/24/22 16:32 CT chest diagnostic wo con, CT abd pelvis wo con CT DOSE: 3615.01 mGy.cm CLINICAL HISTORY: 82 years-old Male with confusion, weakness, falls. Acute chest and abdominal trauma status post fall TECHNIQUE: Multiaxial CT images of the CT chest, abdomen and pelvis were performed without contrast. A dose lowering technique was utilized adhering to the principles of ALARA. COMPARISON: CTA chest 06/21/2020, 10/13/2019 FINDINGS: CT CHEST: Unremarkable thyroid. Borderline enlarged mediastinal lymph nodes measure up to 11 mm in the paratracheal and subcarinal distributions. Mild cardiomegaly. Left subclavian pacer. Extensive coronary artery calcifications. Atherosclerosis of the aorta with mild fusiform dilation measuring up to 4 cm the ascending segment. The aortic arch measures up to 3.6 cm transversely. Moderate emphysema with chronic fibrotic changes. Irregular 10 mm solid nodule within the right upper lobe on image 66 previously measured 6 mm on the 2020 exam stable 10 mm solid nodule within the basal left lower lobe on image 150 series 8. Bronchial wall thickening suggestive of bronchitis. No pneumothorax, pleural effusion or overt pulmonary edema. Mild tracheobronchial secretions. Gynecomastia. Unremarkable soft tissues. Degenerative changes of the shoulders and spine. No acute fracture identified. CT ABDOMEN/PELVIS: No free air. The unenhanced spleen, mildly atrophic pancreas and adrenal glands are unremarkable. Trace cholelithiasis. Hepatic steatosis. Subcapsular calcification of the posterior right upper lobe. Mild nonspecific bilateral perinephric stranding with cortical thinning. 3 mm calcification within the interpolar left kidney. No ureteral calculi or hydronephrosis. Prostatomegaly. Mild distention of the urinary bladder. Atherosclerosis of the aorta with mild fusiform dilation measuring up to 4.9 x 4.4 cm., Previously 4.8 x 4.1 cm. No lymphadenopathy. No bowel obstruction or bowel wall thickening. Appearance material within the cecum. Noninflamed appendix. Unremarkable soft tissues. Possible mild avascular necrosis of the right femoral head. No acute fracture identified. IMPRESSION: 1. No acute posttraumatic intrathoracic, intra-abdominal or intrapelvic abnormality. 2. Cholelithiasis. 3. 3 mm left renal calcification. No hydronephrosis. 4. Irregular 10 mm nodule within the right upper lobe previously measured 6 mm. Follow guidelines provided below. 5. Stable 10 mm solid nodule of the left lower lobe is unchanged dating back to the initial study from 2019. 6. Fusiform dilation of the infrarenal abdominal aorta, 4.9 cm. 7. Additional findings as above. Please refer to below summary of Fleischner criteria recommendations for follow- up of incidental CT nodules (Kelsey Valdes, Guidelines for management of small pulmonary nodules detected on CT scans: A statement from the Fleischner Society, Radiology 237: [phone].) SOLID NODULES Multiple nodules size: <6 mm * Low risk patients: no routine follow-up * high risk patients: optional CT at 12 months Multiple nodules size: 6-8 mm * Low risk patients: follow-up at 3-6 months, then consider further follow-up at 18-24 months * high risk patients: follow-up at 3-6 months, then at 18-24 months if no change Multiple nodules size: >8 mm * Low risk patients: follow-up at 3-6 months, then consider further follow-up at 18-24 months * high risk patients: follow-up at 3-6 months, then at 18-24 months if no change Note: newly detected indeterminate nodule in persons 35 years of age or older. * Low risk patients: minimal or absent history of smoking and/or other known risk factors * high risk patients: history of smoking or of other known risk factors (e.g. first degree relative with lung cancer, or exposure to asbestos, radon, uranium) * if a nodule up to 8 mm is partly solid or is ground glass further follow-up is required after 24 months to exclude possible slow growing adenocarcinoma (JASIEL) ACT 112: Negative or not required by law. Electronically signed by: Luis Lal M.D. 10/24/2022 6:[address] 10/24/22 16:32 CT chest diagnostic wo con, CT abd pelvis wo con CT DOSE: 3615.01 mGy.cm CLINICAL HISTORY: 82 years-old Male with confusion, weakness, falls. Acute chest and abdominal trauma status post fall TECHNIQUE: Multiaxial CT images of the CT chest, abdomen and pelvis were performed without contrast. A dose lowering technique was utilized adhering to the principles of ALARA. COMPARISON: CTA chest 06/21/2020, 10/13/2019 FINDINGS: CT CHEST: Unremarkable thyroid. Borderline enlarged mediastinal lymph nodes measure up to 11 mm in the paratracheal and subcarinal distributions. Mild cardiomegaly. Left subclavian pacer. Extensive coronary artery calcifications. Atherosclerosis of the aorta with mild fusiform dilation measuring up to 4 cm the ascending segment. The aortic arch measures up to 3.6 cm transversely. Moderate emphysema with chronic fibrotic changes. Irregular 10 mm solid nodule within the right upper lobe on image 66 previously measured 6 mm on the 2020 exam stable 10 mm solid nodule within the basal left lower lobe on image 150 series 8. Bronchial wall thickening suggestive of bronchitis. No pneumothorax, pleural effusion or overt pulmonary edema. Mild tracheobronchial secretions. Gynecomastia. Unremarkable soft tissues. Degenerative changes of the shoulders and spine. No acute fracture identified. CT ABDOMEN/PELVIS: No free air. The unenhanced spleen, mildly atrophic pancreas and adrenal glands are unremarkable. Trace cholelithiasis. Hepatic steatosis. Subcapsular calcification of the posterior right upper lobe. Mild nonspecific bilateral perinephric stranding with cortical thinning. 3 mm calcification within the interpolar left kidney. No ureteral calculi or hydronephrosis. Prostatomegaly. Mild distention of the urinary bladder. Atherosclerosis of the aorta with mild fusiform dilation measuring up to 4.9 x 4.4 cm., Previously 4.8 x 4.1 cm. No lymphadenopathy. No bowel obstruction or bowel wall thickening. Appearance material within the cecum. Noninflamed appendix. Unremarkable soft tissues. Possible mild avascular necrosis of the right femoral head. No acute fracture identified. IMPRESSION: 1. No acute posttraumatic intrathoracic, intra-abdominal or intrapelvic abnormality. 2. Cholelithiasis. 3. 3 mm left renal calcification. No hydronephrosis. 4. Irregular 10 mm nodule within the right upper lobe previously measured 6 mm. Follow guidelines provided below. 5. Stable 10 mm solid nodule of the left lower lobe is unchanged dating back to the initial study from 2019. 6. Fusiform dilation of the infrarenal abdominal aorta, 4.9 cm. 7. Additional findings as above. Please refer to below summary of Fleischner criteria recommendations for follow- up of incidental CT nodules (Kelsey Valdes, Guidelines for management of small pulmonary nodules detected on CT scans: A statement from the Fleischner Society, Radiology 237: [id number].) SOLID NODULES Multiple nodules size: <6 mm * Low risk patients: no routine follow-up * high risk patients: optional CT at 12 months Multiple nodules size: 6-8 mm * Low risk patients: follow-up at 3-6 months, then consider further follow-up at 18-24 months * high risk patients: follow-up at 3-6 months, then at 18-24 months if no change Multiple nodules size: >8 mm * Low risk patients: follow-up at 3-6 months, then consider further follow-up at 18-24 months * high risk patients: follow-up at 3-6 months, then at 18-24 months if no change Note: newly detected indeterminate nodule in persons 35 years of age or older. * Low risk patients: minimal or absent history of smoking and/or other known risk factors * high risk patients: history of smoking or of other known risk factors (e.g. first degree relative with lung cancer, or exposure to asbestos, radon, uranium) * if a nodule up to 8 mm is partly solid or is ground glass further follow-up is required after 24 months to exclude possible slow growing adenocarcinoma (JASIEL) ACT 112: Negative or not required by law. Electronically signed by: Luis Lal M.D. 10/24/2022 6:[address] 10/24/22 16:33 CT cervical spine wo con CLINICAL HISTORY: 82 years-old Male with confusion, weakness, falls. Acute neck pain with prior falls COMPARISON: Head CT of same day TECHNIQUE: Multiple axial CT images of the cervical spine were obtained without contrast. A dose lowering technique was utilized adhering to the principles of ALARA. FINDINGS: Degenerative changes of the cervical spine with nuchal ligament calcifications. Demineralized appearance of the bones. Partially imaged left subclavian pacer leads. Calcified plaque in the carotid bulbs. Subcentimeter bone island of the right posterior second rib. Chronic right cerebellar infarct. The cervical soft tissues appear unremarkable. The visualized lung apices appear clear. IMPRESSION: No acute cervical spine fracture or subluxation identified. ACT 112: Negative or not required by law. The above report was generated using voice recognition software. It may contain grammatical, syntax or spelling errors. Electronically signed by: Luis Lal M.D. 10/24/2022 5:43 PM Brain MRI 10/30/22 07:00 MRI OF THE BRAIN WITHOUT IV CONTRAST CLINICAL HISTORY: Change in mental status. COMPARISON STUDY: CT of the brain dated 10/24/2022. TECHNIQUE: MRI of the brain was performed utilizing various T1 and T2-weighted sequences in the axial, sagittal, and coronal planes. IV contrast was not administered for this examination. The examination is degraded by motion artifact. There is also susceptibility artifact from a metallic foreign body within the right facial soft tissues anterior to the maxillary antrum. FINDINGS: Brain parenchyma: There is age-related involutional change noting mild subcortical and periventricular microangiopathic disease. A chronic infarct is again noted in the right cerebellar hemisphere. There is no hemorrhage or mass effect. There is no restricted diffusion to suggest acute ischemia. Hernandez-white matter differentiation is preserved. No extra-axial fluid collection is seen. The cerebellar tonsils are normal in configuration. Ventricles, sulci, and cisterns: Normal in configuration. Pituitary and sella: Unremarkable. Intracranial vasculature: There is abnormal appearance of the left vertebral artery flow void at the skull base, best seen on axial T2-weighted image #6. The remaining flow voids at the skull base are maintained. Orbits: The bony orbits are grossly intact. Orbital contents are normal in appearance noting bilateral ocular lens implants. Sinuses and mastoids: Clear. Calvarium: Unremarkable. Cervical cord: Partially visualized cervical spinal cord is normal in morphology and signal intensity. IMPRESSION: 1. No acute intracranial abnormality. 2. There is abnormal appearance of the left vertebral artery flow void at the skull base. This is of indeterminate significance and may be artifactual. If warranted this could be further assessed with a CT angiogram of the neck. ACT 112: Negative or not required by law. Electronically signed by: Brandon William M.D. 10/30/2022 1:16 PM Chest X-Ray 11/04/22 15:16 XR chest 1V portable HISTORY: confusion, agitation, eval developing pneumonia COMPARISON: Chest CT 10/24/2022. FINDINGS: No pneumothorax. No pleural effusions. There is left-sided dual- chamber pacemaker again noted. The heart is mildly enlarged. Mild diffuse interstitial thickening persists. This is likely chronic. No new focal lung consolidations to suggest a pneumonia. No evidence for pulmonary edema. The patient's known pulmonary nodules are better appreciated on the recent chest CT. Calcifications within the aortic knob. IMPRESSION: No significant change compared to the prior study. No acute process. ACT 112: Negative or not required by law. Electronically signed by: Alistair Mackey M.D. 11/04/2022 4:19 PM KUB X-Ray 11/04/22 15:16 KUB HISTORY: severe confusion. Constipation/impaction? COMPARISON: Abdomen and pelvis CT 10/24/2022. KUB 05/08/2018. FINDINGS: The bowel gas pattern is unremarkable. There are no dilated loops of small bowel to suggest an obstruction. No renal calculi. No ureteral calculi. No pneumoperitoneum or pneumatosis. Small amount of well-formed stool seen within the colon. IMPRESSION: 1. Nonobstructive bowel gas pattern. 2. Mild fecal retention. ACT 112: Negative or not required by law. Electronically signed by: Alistair Mackey M.D. 11/04/2022 4:21 PM Hospital Course (1) Encephalopathy acute: Ongoing confusion, waxing/waning in setting of baseline dementia. Exact cause of his encephalopathy at time of presentation was uncertain. MARTÍN w/ low BP at time of arrival, concern about UTI but cx without growth. Repeat urine cx repeat dirty UA did not grow anything. ?false negatives ?prostatitis Tx for UTI presumptively w/ Cefdinir, to complete 10 day course MRI brain negative for acute CVA, VBG w/o CO2 retention. Ammonia wnl Patient had urinary retention issues during this stay; thus, s/p reina placement 10/31. Informed primary urologist, Dr Michele, and to continue Reina at discharge and have f/u in office for voiding trial Despite reinforcing day/night wake cycles, moving his room to have more windows/sunlight, removing compliance monitor, etc he worsened over prior few d ays but improvement w/ zyprexa (did have some additional episodes requiring 1:1 then eventual q15min checks and stable). Patient is a talker and did endorse feeling lonely/wanting to talk to people. Had been worsened since his room mate was discharged. Frequent checks/reassurance provided. Additional zyprexa use, discussion with psychiatry, Dr Colvin, and rec'd to schedule AM 2.5 zyprexa initially and given improvement in PO intake, decision to discharge on 5mg PO BID and eventual hope to wean him to 5mg HS to maintain mood. Repeat KUB (r/o impaction), COVID testing unrevealing. PT/OT consulted, arrangements made to [facility]. Decision to dc [facility] given PO intake/only using 5u during entire stay to prevent hypoglycemia at discharge. If PO intake improves, can consider restarti ng. Also dc his carvedilol (no recurrnace AVNRT on telemetry) and lasix to prevent dehydration/worsening renal function. (2) MARTÍN (acute kidney injury): Peak Cr 2.8 at admission, with fluctuating levels depending on PO intake/etc [employer] down to 1, repeat 1.3s, had slight improvement in PO intake Decision to DC lisinopril at dc to prevent worsened MARTÍN, reina continued to prev ent retention issues. abx for presumed UTI as above x 10 day course and outpt urology f/u as outlined DC'd his lasix as well to prevent worsened dehydration, encouragement in PO intake. Noting no significant weight gain since being off his lasix or pulmonary congestion (3) Fall: falls at home prior to admission suspect due to hypotension, etc PT, OT needs rehab post-discharge - [facility] in [place] B12 level wnl. B1 level 9, did get increased supplementation to 200mg BID while inpatient and can continue usual 100mg daily at discharge (4) Malignant neoplasm of bladder: s/p cysto with TURBT on 10/08/[address] Michele. Initial concern for UTI early in the stay but urine cx negative. Repeat u/a via straight cath suspicious for UTI but culture again negative. Will still Rx presumptively for UTI or maybe even prostatitis. Cont cefdinir, tx x 10 days as above -- resumed to extend course to 10 days Cont reina at discharge and f/u Dr Michele about 7 days post-discharge for voiding trial, etc (5) Diabetes mellitus: a1c 6.9%. cont novolog SSI. controlled. not requiring much insulin while inpatient given PO intake. Decision to dc Januvia at discharge (continue jardiance for now) and if PO intake increases can consider resuming (6) AVNRT (AV daniela re-entry tachycardia): none seen on tele. continued metoprolol succinate 25mg daily. pacing on monitor previously. not given carvedilol during inpatient stay, plan to continue to hold at discharge given stability inpatient (7) BPH (benign prostatic hyperplasia): Cont flomax. Had urinary retention issues all last week - s/p reina 10/31/22. Continued reina until seen by Dr Michele in the clinic for voiding trial. (8) Hypothyroidism: TSH 1.7. Cont levothyroxine. (9) Coronary artery disease: h/o multiple stents. Cont asa, plavix, statin, metoprolol succinate Held BAN due to recurrent MARTÍN, discontinued at discharge to prevent worsening renal function (10) Paroxysmal atrial flutter: none seen on pacer interrogation nor our telemetry monitoring. he is not on chronic anticoagulation. MRI brain without signs of acute or subacute CVA. (11) S/P coronary artery stent placement: multiple stents cont plavix (12) COPD (chronic obstructive pulmonary disease): no exacerbation at this time. cont home inhalers stable on RA, no sputum production/cough/wheeezing during inpatient stay (13) Peripheral neuropathy: cont gabapentin 300mg BID given renal function, B12 wnl on recent check (14) Weakness: suspect combination of factors including suspected UTI, deconditioning, etc cont PT/OT. rehab post-d/c. Is unsteady on his feet requring rehab -- [facility] arranged at discharge (15) Lesion of lung: CT chest: Irregular 10 mm nodule within the right upper lobe previously measured 6 mm, stable 10 mm solid nodule of the left lower lobe is unchanged dating back to the initial study from 2019 CT chest also showed: borderline enlarged mediastinal lymph nodes measure up to 11 mm in the paratracheal and subcarinal distributions recommend f/u scan in 3-6 months (16) Morbid obesity with BMI of 40.0-44.9, adult: (17) Dementia: known diagnosis I believe this is the main reason for his anorexia added low-dose prednisone and he ate better 1 day, then back to fair appetite at best, improving. depends on what is provided, sick of typical breakfast here with eggs stopped prednisone can consider marinol for appetite if needed in f/u (18) Cerebrovascular disease: cerebellar CVA on previous CT cont asa/plavix for secondary prevention MRI brain without acute CVA Plan discharged to [facility] Total Time Total Time Spent Total Time Spent (In Minutes): 45 Discharge Plan Discharge Items Patient Disposition: Transfer Intermediate Fac Reason For Visit: WEAKNESS, CONFUSION Discharge Diagnosis: Weakness, Confusion, Delirium, UTI Goals: You have been hospitalized for an acute medical problem. During your stay at [facility] Hospital, we have made an effort to correct the problem that brought you to the hospital while keeping you as comfortable as possible. Medications were used to bring your condition under control and your discharge instructions will include directions for any medications you should take after leaving the hospital. Please make sure you see your Primary Care Provider as part of your follow up plan. Activity: As commented below Non-emergency contact: Primary Care Provider and Urologist Call non-emergency contact if: you have any medication questions, your symptoms worsen, your pain is not controlled and you have a fever Follow-up/Referrals: Lucas Michele MD [Physician] - (1 week) Carmen Mims CRNP [Primary Care Provider] - Diet: Carb Consistent or DM2 Addtl Attending Provider Instructions: You have been hospitalized for delirium and confusion. Work up has been negative for stroke, and you were treated with antibiotics for a urinary tract infection. You are to continue the Reina catheter and have follow up with Urology in [facility] to see about a voiding trial/removal if possible. We will continue to hold your lisinopril to prevent worsening kidney damage and your recent levels have been stable. You will be continued on olanzapine 5mg by mouth twice a day to help with agitation/mood as this has been effective while in the hospital. Please follow up with primary care in the next week to monitor your progress. You will need follow up imaging of lung nodules as well in 3-6 months. Please return to the ER with any symptoms worrisome for you. It has been a pleasure being a part of the medical team providing for you while you have been in the hospital. Take care! Pending Studies at Discharge: No Stand-Alone Forms: [facility] Skilled Items Patient informed of condition?: Yes DNR: Yes Discharge Level of Care: Skilled Communicable Disease: No Discharge Prognosis: Stable Lines: None Urinary Catheter: Yes Medications and DC Order Prescriptions: New cefdinir 300 mg Capsule 300 mg PO BID 3 Days Qty: 6 0RF gabapentin 300 mg Capsule 300 mg PO BID Qty: 60 0RF olanzapine 5 mg tablet 5 mg PO BID Qty: 30 0RF Continued allopurinol 100 mg tablet 100 mg PO BID clopidogrel 75 mg tablet 75 mg PO QAM atorvastatin 40 mg tablet 40 mg PO HS Combivent Respimat 20-100 mcg/actuation mist 1 puff inhalation 4XD PRN (Reason: WHEEZING/COUGHING) Jardiance 10 mg tablet 10 mg PO QAM thiamine HCl (vitamin B1) 100 mg tablet 100 mg PO DAILY ferrous sulfate [FeroSul] 325 mg (65 mg iron) tablet 325 mg PO BID famotidine [Pepcid] 20 mg tablet 20 mg PO QAM aspirin 81 mg Tablet,Delayed Release (Dr/Ec) 81 mg PO QAM levothyroxine [Synthroid] 100 mcg Tablet 100 mcg PO DAILYBB Qty: 30 0RF bupropion HCl 100 mg tablet sustained-release 12 hr 100 mg PO BID Qty: 0 0RF B-complex with vitamin C Capsule 1 cap PO HS venlafaxine 75 mg Tablet 75 mg PO DAILY nitroglycerin 0.4 mg Tablet, Sublingual 0.4 mg buccal UD PRN (Reason: Chest Pain) Centrum Silver Men 300-600-300 mcg Tablet 1 tab PO QAM Prevagen 1 tab PO DAILY loratadine 10 mg Tablet 10 mg PO DAILY PRN (Reason: Allergy Symptoms) tamsulosin 0.4 mg capsule 0.4 mg PO HS metoprolol succinate 25 mg tablet extended release 24 hr 25 mg PO DAILY ipratropium-albuterol 0.5 mg-3 mg(2.5 mg base)/3 mL Solution For Nebulization 3 ml INHALATION Q4H PRN (Reason: wheezing/cough) fluticasone propion-salmeterol [Advair Diskus] 250-50 mcg/dose Blister With Device 1 inh INHALATION BID Held carvedilol 6.25 mg Tablet 6.25 mg PO BID Hold Instructions: Resume on 11/30/22. not given during hospital. please discuss w/ PCP prior to resuming Patient Comments: takes 2 tab bid (recent change) Rx Instructions: must administer with a meal/food furosemide 40 mg Tablet 40 mg PO QAM Hold Instructions: Resume on 11/30/22. lisinopril 2.5 mg Tablet 2.5 mg PO QAM Hold Instructions: Resume on 11/30/22. Discontinued Januvia 100 mg Tablet 100 mg PO HS gabapentin 600 mg Tablet See Rx Instructions .ROUTE .COMPLEX Rx Instructions: Take 600mg with 300mg by mouth to equal 900mg twice daily gabapentin 300 mg capsule See Rx Instructions .ROUTE .COMPLEX Rx Instructions: Take 300mg with 600mg by mouth to equal 900mg twice daily Discharge Orders: Discharge Order (Routine); Ordered 11/08/22 Ordered By: Pallavi Alfonso/Other Patient Handouts: High Blood Sugar (Hyperglycemia), Hypoglycemia (Low Blood Sugar), Managing Type 2 Diabetes Admission Data Admit Date/Time: 10/24/22 19:07 Attending Provider: Graeme Rowe Admit Provider: Liliana Reed Primary Care Provider: Carmen Mims Other Providers: Franco Trujillo ; Jewels Colvin ; Deneen Reinoso ; Maximus Zurita ; Graeme Rowe Other Interventions: Discharge Summary Assessment (RN) Last Done: 11/08/22 10:26 Supervising Physician Co-Signing Physician Notes The patient was not seen by me. The chart was reviewed. Case discussed with LUCY Reza. 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
[2022-11-08] MEDS: OLANZAPINE 2.5 MG TAB PO PRN (11:22)
--- NOTE | 2022-11-08 12:21 | Psychiatric Progress Note ---
Date of Service November 08, 2022 Impression / Recommendations Impression Diagnostically consistent with encephalopathy/delirium superimposed on dementia with behavioral disturbance. Encephlaopathy is very common in the post-operative period especially in someone of his age, with pre-existing medical conditions, history of delirium and dementia. Goal in dementia is to avoid medication management of behaviors if possible by maximizing non-pharmacologic strategies for behavioral management. However, given periods of worsening agitation/aggression in setting of co-occurring delirium agree with use of an antipsychotic as risk/benefit profile now favors treatment. Note all antipsycho tic medications carry black box warning for increased risk of all-cause mortality in setting of dementia. 11/08/2022: Given periods of increased confusion and ongoing delirium waxing and waning versus dementia symptoms would support further titration of olanzapine with eventual goal of reducing dose once delirium symptoms fully resolve or as he feels more comfortable outside the hospital with more regular routine and non-pharmacological interventions. No signs of any negative side effects from olanzapine at this time, does seem to have helped with appetite. Overall, I spent a total of 40 minutes with this case including review of chart records, review of labwork, direct evaluation of the patient at bedside, counseling the patient, discussion of the patient with the Nurse and with the hospitalist provider, discussion with the psychiatric liason during clinical rounds and documentation in the electronic health record. (1) Dementia: (2) Intermittent confusion: Plan -Increase olanzapine to 5mg BID (eventual goal of taper to 5mg HS if tolerated) Interval History Identifying Information 82 yo man with history of dementia, bladder cancer with recent surgery, CVA, COPD, CAD, BPH, hypothyroidism, MARTÍN, paroxysmal aflutter, peripheral neuropathy admitted medically for worsening confusion and weakness. Psychiatry consulted for medication recommendations for agitation and lack of po intake. Chief Complaint "No". Subjective Subjective Patient was seen & assessed and interval progress reviewed. Eating more with fluctuating sleep and periods of increased confusion/irritability. More visual hallucinations this morning per RN, he thinks someone has been standing behind him and bothering him. Smiles when discussed that he's likely leaving hospital today. Physical Exam Psychiatric Orientation: alert, oriented to person and + guarded Eye Contact: + fair eye contact Motor Behavior: no abnormal motor movements; n EPS Speech: + abnormal rate/rhythm/volume of speech (brief) Insight: + impaired insight Judgment: + impaired judgement Vital Signs (Past 24 Hours) Last Vital Signs Temp 36.9 C 11/08/22 10:26 Pulse 75 11/08/22 10:26 Resp 18 11/08/22 10:26 BP 163/85 H 11/08/22 10:26 Pulse Ox 97 11/08/22 10:26 O2 Del Method Room Air 11/08/22 07:45 FiO2 21 10/25/22 08:47 Results & Data ([facility]) Laboratory Results Laboratory Results - last 24 hr 11/07/22 11/07/22 11/08/22 16:16 20:12 06:43 Sodium 140 Potassium 4.1 Chloride 108 H Carbon Dioxide 27 Anion Gap 5 BUN 26 H Creatinine 1.35 Est Cr Clr Drug Dosing 48.8 Est GFR ( Amer) 55.9 Est GFR (Non-Af Amer) 48.2 BUN/Creatinine Ratio 19.3 Glucose 140 H POC Glucose 95 120 H Calcium 9.3 Magnesium 1.8 11/08/22 11/08/22 07:45 11:30 Sodium Potassium Chloride Carbon Dioxide Anion Gap BUN Creatinine Est Cr Clr Drug Dosing Est GFR ( Amer) Est GFR (Non-Af Amer) BUN/Creatinine Ratio Glucose POC Glucose 159 H 138 H Calcium Magnesium Current Inpatient Medications Current Inpatient Medications: Current Inpatient Medications Acetaminophen (Acetaminophen 325 Mg Tab) 650 mg PO Q4H PRN PRN Reason: Pain or Fever Stop: 11/23/22 21:12 Last Admin: 11/06/22 07:06 Dose: 650 mg Albuterol (Albuterol Hfa 8 Gm Inhaler) 1 puffs INH QID PRN PRN Reason: Wheezing Stop: 11/23/22 21:12 Allopurinol (Allopurinol 100 Mg Tab) 100 mg PO BID [facility] Stop: 11/23/22 21:29 Last Admin: 11/08/22 08:01 Dose: 100 mg Aspirin (Aspirin 81 Mg Ectab) 81 mg PO QAM [facility] Stop: 11/24/22 08:59 Last Admin: 11/08/22 08:01 Dose: 81 mg Atorvastatin Calcium (Atorvastatin 40 Mg Tab) 40 mg PO HS [facility] Stop: 11/23/22 21:29 Last Admin: 11/07/22 19:26 Dose: 40 mg Cefdinir (Cefdinir 300 Mg Cap) 300 mg PO BID [facility]; Protocol Stop: 11/10/22 20:59 Last Admin: 11/08/22 08:01 Dose: 300 mg Clopidogrel Bisulfate (Clopidogrel Bisulfate 75 Mg Tab) 75 mg PO QAM [facility] Stop: 11/24/22 08:59 Last Admin: 11/08/22 08:01 Dose: 75 mg Dextrose (Dextrose 50% 50 Ml Syringe) 25 - 50 ml IV UD PRN; Protocol PRN Reason: Hypoglycemia Protocol Stop: 11/23/22 21:12 Enoxaparin Sodium (Enoxaparin Inj 40 Mg/0.4 Ml Syr) 40 mg SQ QAM [facility] Stop: 11/30/22 10:44 Last Admin: 11/08/22 08:02 Dose: 40 mg Famotidine (Famotidine 20 Mg Tab) 20 mg PO QAM [facility] Stop: 11/24/22 08:59 Last Admin: 11/08/22 08:01 Dose: 20 mg Ferrous Sulfate (Ferrous Sulfate 325 Mg Tab) 325 mg PO BID [facility] Stop: 11/23/22 21:29 Last Admin: 11/08/22 08:01 Dose: 325 mg Fluticasone/Vilanterol (Fluticasone/Vilanterol 100/25mcg 14 Puffs/Inhaler) 1 puffs INH DAILY [facility] Stop: 11/24/22 08:59 Last Admin: 11/08/22 08:02 Dose: 1 puffs Gabapentin (Gabapentin 300 Mg Cap) 300 mg PO BID [facility] Stop: 11/23/22 20:59 Last Admin: 11/08/22 08:01 Dose: 300 mg Glucagon (Glucagon For Inj 1 Mg Vial) 1 mg SQ UD PRN; Protocol PRN Reason: Hypoglycemia Protocol Stop: 11/23/22 21:12 Glucose (Glucose 10 Tab/Tube) 4 - 8 tab PO UD PRN; Protocol PRN Reason: Hypoglycemia Treatment Stop: 11/23/22 21:12 Glucose (Glucose 40% Gel 15 Gm Tube) 15 - 30 gm PO UD PRN; Protocol PRN Reason: Hypoglycemia Protocol Stop: 11/23/22 21:12 Insulin Aspart (Insulin Aspart Per Unit Charge) 0 units SC ACHS [facility] Stop: 11/23/22 21:29 Last Admin: 11/08/22 11:53 Dose: Not Given Levothyroxine Sodium (Levothyroxine Sodium 100 Mcg Tablet) 100 mcg PO DAILYBB [facility] Stop: 11/24/22 06:29 Last Admin: 11/08/22 05:33 Dose: 100 mcg Melatonin (Melatonin 3 Mg Tab) 3 mg PO HS RANDAL Stop: 11/28/22 20:59 Last Admin: 11/07/22 19:27 Dose: 3 mg Metoprolol Succinate (Metoprolol Succ 25mg Ext Rel Tab) 25 mg PO DAILY RANDAL Stop: 11/24/22 15:14 Last Admin: 11/08/22 08:01 Dose: 25 mg Miscellaneous (Carbohydrates For Hypoglycemia ) 15 - 30 gm PO UD PRN PRN Reason: Hypoglycemia Protocol Stop: 11/23/22 21:12 Olanzapine (Olanzapine 5 Mg Tablet) 5 mg PO HS RANDAL Stop: 12/04/22 20:59 Last Admin: 11/07/22 19:26 Dose: 5 mg Olanzapine (Olanzapine 2.5 Mg Tab) 2.5 mg PO BID PRN PRN Reason: refractory agitation/delirium Stop: 12/07/22 10:37 Last Admin: 11/08/22 11:22 Dose: 2.5 mg Olanzapine (Olanzapine 2.5 Mg Tab) 2.5 mg PO QAM RANDAL Stop: 12/08/22 08:59 Last Admin: 11/08/22 08:01 Dose: 2.5 mg Polyethylene Glycol (Polyethylene (Miralax) 17 Gm Pack) 17 gm PO BID RANDAL Stop: 11/30/22 13:29 Last Admin: 11/08/22 08:02 Dose: 17 gm Sennosides (Senna 8.6 Mg Tab) 17.2 mg PO QAM RANDAL Stop: 12/01/22 08:59 Last Admin: 11/08/22 08:01 Dose: 17.2 mg Tamsulosin HCl (Tamsulosin Hcl 0.4 Mg Cap) 0.4 mg PO HS RANDAL Stop: 11/23/22 21:29 Last Admin: 11/07/22 19:26 Dose: 0.4 mg Thiamine HCl (Thiamine Hcl 100 Mg Tab) 200 mg PO BID RANDAL Stop: 12/07/22 20:59 Last Admin: 11/08/22 08:02 Dose: 200 mg Venlafaxine HCl (Venlafaxine Hcl Xr 75 Mg Capxr) 75 mg PO DAILY RANDAL Stop: 11/24/22 08:59 Last Admin: 11/08/22 08:02 Dose: 75 mg
== END 2022-11-08 15:15 | DRG 71 ==
LOC: ED 14:27 → 2S 19:07 → SUATTDRO 19:07 → 2S 20:37 → 2N 10-25 19:07 → 3N 11-02 12:45